=== PATIENT | male | born 1965 | race Caucasian/White ===

== ENCOUNTER → 2017-07-28 | Outpatient (CLI) | payer BC ==
[2017-07-28 09:43] LABS: BASO % 0.5 % (0.0-1.0); EOS # 0.1 10^3/uL (0.0-0.50); EOS % 2.3 % (0.0-3.0); HEMATOCRIT 48.1 % (42.0-52.0); HEMOGLOBIN 16.2 g/dl (14.0-18.0); IMMATURE GRANULOCYTE % 0.5 % (0-3.0); LYMPH # 1.2 10^3/uL (1.5-4.5); LYMPH % 27.9 % (24.0-44.0); MEAN CORPUSCULAR HEMOGLOBIN 29.3 pg (27.0-33.0); MEAN CORPUSCULAR HGB CONC 33.7 g/dl (32.0-36.5); MONO # 0.5 10^3/uL (0.0-0.8); MONO % 11.4 % (0.0-5.0); NEUTROPHILS # 2.5 10^3/uL (1.8-7.7); NEUTROPHILS % 57.4 % (36.0-66.0); PLATELET COUNT, AUTOMATED 361 10^3/uL (150-450); RED BLOOD COUNT 5.53 10^6/uL (4.30-6.10); RED CELL DISTRIBUTION WIDTH 12.7 % (11.5-14.5); WHITE BLOOD COUNT 4.4 10^3/uL (4.0-10.0)
[2017-07-28 09:57] LABS: ESTIMATED AVERAGE GLUCOSE 134 MG/DL (60-110); HEMOGLOBIN A1c 6.3 %
[2017-07-28 10:06] LABS: ALBUMIN 3.9 GM/DL (3.2-5.2); ALBUMIN/GLOBULIN RATIO 1.05 (1.00-1.93); ALKALINE PHOSPHATASE 65 U/L (45-117); ALT/SGPT 49 U/L (12-78); ANION GAP 5 MEQ/L (8-16); AST/SGOT 22 U/L (7-37); BILIRUBIN,TOTAL 0.6 MG/DL (0.2-1.0); BLOOD UREA NITROGEN 14 MG/DL (7-18); CALCIUM LEVEL 9.1 MG/DL (8.5-10.1); CARBON DIOXIDE LEVEL 32 MEQ/L (21-32); CHLORIDE LEVEL 103 MEQ/L (98-107); CHOLESTEROL LEVEL 176 MG/DL (<200); CHOLESTEROL RISK RATIO 5.333 (<5); CREATININE FOR GFR 1.29 MG/DL (0.70-1.30); GLOMERULAR FILTRATION RATE > 60.0 (>56); GLUCOSE, FASTING 131 MG/DL (70-100); HDL CHOLESTEROL 33 MG/DL (>40); LDL CHOLESTEROL 123.2 MG/DL (<100); NON-HDL-C 143 MG/DL; POTASSIUM SERUM 4.6 MEQ/L (3.5-5.1); SODIUM LEVEL 140 MEQ/L (136-145); TOTAL PROTEIN 7.6 GM/DL (6.4-8.2); TRIGLYCERIDES LEVEL 99 MG/DL (<150)
[2017-07-28 10:17] LABS: TESTOSTERONE 196 NG/DL (241-827)
== END ==
LOC: M LAB 09:13
DX: E11.65 Type 2 diabetes mellitus with hyperglycemia (principal); Z13.6 Encounter for screening for cardiovascular disorders; Z13.21 Encounter for screening for nutritional disorder; E29.1 Testicular hypofunction
CPT/HCPCS: 84403

== ENCOUNTER → 2017-10-28 | Outpatient (CLI) | payer BC ==
[2017-10-28 16:43] LABS: HEMOGLOBIN 15.2 g/dl (13.5-17.5); MEAN CORPUSCULAR VOLUME 81.7 fl (80.0-96.0); PLATELET COUNT, AUTOMATED 360 10^3/uL (150-450); RED BLOOD COUNT 5.63 10^6/uL (4.30-6.10); RED CELL DISTRIBUTION WIDTH 13.9 % (11.5-14.5); WHITE BLOOD COUNT 7.7 10^3/uL (4.0-10.0)
[2017-10-28 17:16] LABS: ALBUMIN 3.8 GM/DL (3.2-5.2); ALBUMIN/GLOBULIN RATIO 1.03 (1.00-1.93); ALKALINE PHOSPHATASE 86 U/L (45-117); ALT/SGPT 39 U/L (12-78); ANION GAP 8 MEQ/L (8-16); AST/SGOT 25 U/L (7-37); BILIRUBIN,TOTAL 0.3 MG/DL (0.2-1.0); BLOOD UREA NITROGEN 16 MG/DL (7-18); CALCIUM LEVEL 9.1 MG/DL (8.5-10.1); CARBON DIOXIDE LEVEL 29 MEQ/L (21-32); CHLORIDE LEVEL 103 MEQ/L (98-107); CHOLESTEROL LEVEL 181 MG/DL (<200); CHOLESTEROL RISK RATIO 4.309 (<5); CREATININE FOR GFR 1.19 MG/DL (0.70-1.30); GLOMERULAR FILTRATION RATE > 60.0 (>56); GLUCOSE, FASTING 131 MG/DL (70-100); HDL CHOLESTEROL 42 MG/DL (>40); NON-HDL-C 139 MG/DL; POTASSIUM SERUM 4.2 MEQ/L (3.5-5.1); SODIUM LEVEL 140 MEQ/L (136-145); TOTAL PROTEIN 7.5 GM/DL (6.4-8.2); TRIGLYCERIDES LEVEL 185 MG/DL (<150)
[2017-10-28 17:40] LABS: ESTIMATED AVERAGE GLUCOSE 157 MG/DL (60-110); HEMOGLOBIN A1c 7.1 %
[2017-10-28 18:30] LABS: TESTOSTERONE 947 NG/DL (241-827)
== END ==
LOC: M LAB 15:02
DX: I10 Essential (primary) hypertension (principal)

== ENCOUNTER → 2017-11-18 | Outpatient (CLI) | payer BC ==
[2017-11-18 13:22] LABS: BASO % 0.3 % (0.0-1.0); EOS # 0.2 10^3/uL (0.0-0.50); EOS % 3.3 % (0.0-3.0); HEMATOCRIT 42.3 % (42.0-52.0); HEMOGLOBIN 13.6 g/dl (13.5-17.5); IMMATURE GRANULOCYTE % 0.3 % (0-3.0); LYMPH # 1.1 10^3/uL (1.5-4.5); LYMPH % 17.8 % (24.0-44.0); MEAN CORPUSCULAR HEMOGLOBIN 26.4 pg (27.0-33.0); MEAN CORPUSCULAR HGB CONC 32.2 g/dl (32.0-36.5); MONO # 0.8 10^3/uL (0.0-0.8); MONO % 12.6 % (0.0-5.0); NEUTROPHILS % 65.7 % (36.0-66.0); PLATELET COUNT, AUTOMATED 342 10^3/uL (150-450); RED BLOOD COUNT 5.16 10^6/uL (4.30-6.10); WHITE BLOOD COUNT 6.1 10^3/uL (4.0-10.0)
[2017-11-18 14:05] LABS: ALBUMIN 3.6 GM/DL (3.2-5.2); ALBUMIN/GLOBULIN RATIO 1.13 (1.00-1.93); ALKALINE PHOSPHATASE 86 U/L (45-117); ALT/SGPT 34 U/L (12-78); ANION GAP 8 MEQ/L (8-16); AST/SGOT 18 U/L (7-37); BILIRUBIN,TOTAL 0.3 MG/DL (0.2-1.0); BLOOD UREA NITROGEN 10 MG/DL (7-18); CALCIUM LEVEL 8.6 MG/DL (8.5-10.1); CARBON DIOXIDE LEVEL 30 MEQ/L (21-32); CHLORIDE LEVEL 104 MEQ/L (98-107); CHOLESTEROL LEVEL 128 MG/DL (<200); CHOLESTEROL RISK RATIO 3.459 (<5); CREATININE FOR GFR 1.23 MG/DL (0.70-1.30); GLOMERULAR FILTRATION RATE > 60.0 (>56); GLUCOSE, FASTING 155 MG/DL (70-100); HDL CHOLESTEROL 37 MG/DL (>40); LDL CHOLESTEROL 69.2 MG/DL (<100); NON-HDL-C 91 MG/DL; POTASSIUM SERUM 4.5 MEQ/L (3.5-5.1); PSA SCREENING 1.87 NG/ML (< 4.0); SODIUM LEVEL 142 MEQ/L (136-145); TOTAL PROTEIN 6.8 GM/DL (6.4-8.2); TRIGLYCERIDES LEVEL 109 MG/DL (<150)
[2017-11-18 14:43] LABS: ESTIMATED AVERAGE GLUCOSE 166 MG/DL (60-110); HEMOGLOBIN A1c 7.4 %
== END ==
LOC: M WUC 08:20
DX: E78.2 Mixed hyperlipidemia (principal); R73.01 Impaired fasting glucose; N52.9 Male erectile dysfunction, unspecified; F41.9 Anxiety disorder, unspecified

== ENCOUNTER 2017-12-01 10:12 | Emergency (ER) | payer BC ==
[2017-12-01] MEDS: ASPIRIN 81 MG CHEW TABLET PO (10:50)
[2017-12-01 10:53] LABS: BASO % 0.7 % (0.0-1.0); EOS # 0.1 10^3/uL (0.0-0.50); HEMATOCRIT 42.9 % (42.0-52.0); IMMATURE GRANULOCYTE % 0.3 % (0-3.0); LYMPH # 1.1 10^3/uL (1.5-4.5); LYMPH % 18.3 % (24.0-44.0); MEAN CORPUSCULAR HEMOGLOBIN 25.5 pg (27.0-33.0); MEAN CORPUSCULAR HGB CONC 32.6 g/dl (32.0-36.5); MEAN CORPUSCULAR VOLUME 78.3 fl (80.0-96.0); MONO # 0.7 10^3/uL (0.0-0.8); MONO % 12.1 % (0.0-5.0); NEUTROPHILS # 4.1 10^3/uL (1.8-7.7); NEUTROPHILS % 66.6 % (36.0-66.0); PLATELET COUNT, AUTOMATED 323 10^3/uL (150-450); RED BLOOD COUNT 5.48 10^6/uL (4.30-6.10); WHITE BLOOD COUNT 6.1 10^3/uL (4.0-10.0)
[2017-12-01] MEDS: NITROGLYCERIN 0.4 MG SUBL TABLET SL (11:00)
[2017-12-01 11:04] LABS: PARTIAL THROMBOPLASTIN TIME 30.4 SECONDS (25.4-37.6); PROTHROMBIN TIME 13.3 SECONDS (12.1-14.4)
[2017-12-01 11:23] LABS: ALBUMIN 3.7 GM/DL (3.2-5.2); ALKALINE PHOSPHATASE 94 U/L (45-117); ALT/SGPT 41 U/L (12-78); ANION GAP 5 MEQ/L (8-16); AST/SGOT 18 U/L (7-37); BILIRUBIN,DIRECT < 0.1 MG/DL (0.0-0.2); BILIRUBIN,TOTAL 0.2 MG/DL (0.2-1.0); BLOOD UREA NITROGEN 11 MG/DL (7-18); CALCIUM LEVEL 8.8 MG/DL (8.5-10.1); CARBON DIOXIDE LEVEL 28 MEQ/L (21-32); CHLORIDE LEVEL 103 MEQ/L (98-107); CPK CREATINE PHOSPHOKINASE 217 U/L (39-308); CREATININE FOR GFR 1.14 MG/DL (0.70-1.30); GLOMERULAR FILTRATION RATE > 60.0 (>56); GLUCOSE, FASTING 315 MG/DL (70-100); POTASSIUM SERUM 4.2 MEQ/L (3.5-5.1); SODIUM LEVEL 136 MEQ/L (136-145); TOTAL PROTEIN 7.8 GM/DL (6.4-8.2); TROPONIN I < 0.02 NG/ML (< 0.10)
[2017-12-01 11:28] LABS: CK-MB VALUE MASS 2.2 NG/ML (<3.6); MB/CK RELATIVE INDEX 1.01 (< OR =4); NT-PRO BNP 6 PG/ML (<125)
[2017-12-01 12:08] LABS: D-DIMER QUANT < 270.0 ng/ml (<500)
[2017-12-01] MEDS: traMADol 50 MG TAB PO (15:39)
[2017-12-01 16:26] LABS: CK-MB VALUE MASS 1.7 NG/ML (<3.6); CPK CREATINE PHOSPHOKINASE 182 U/L (39-308); MB/CK RELATIVE INDEX 0.93 (< OR =4); TROPONIN I < 0.02 NG/ML (< 0.10)
== END 2017-12-01 16:57 | disposition home or self-care (01) ==
LOC: M ED 10:12
DX: R07.9 Chest pain, unspecified (principal); E11.9 Type 2 diabetes mellitus without complications; I10 Essential (primary) hypertension; Z83.49 Family history of other endocrine, nutritional and metabolic diseases; Z82.49 Family history of ischemic heart disease and other diseases of the circulatory system; Z79.82 Long term (current) use of aspirin
CPT/HCPCS: 71045

== ENCOUNTER → 2017-12-02 | Outpatient (CLI) | payer BC ==
[2017-12-02 16:45] LABS: TESTOSTERONE 450 NG/DL (241-827)
== END ==
LOC: M WUC 12:50
DX: Z79.890 Hormone replacement therapy (principal)
CPT/HCPCS: 84403

== ENCOUNTER → 2017-12-15 | Outpatient (REF) | payer BC ==
[2017-12-15 12:48] LABS: APPEARANCE, URINE HAZY (CLEAR); BACTERIA, URINE AUTO NEGATIVE (NEGATIVE); BILIRUBIN, URINE AUTO NEGATIVE (NEGATIVE); BLOOD, URINE BLOOD NEGATIVE (NEGATIVE); COLOR, URINE YELLOW (YELLOW); GLUCOSE, URINE (UA) AUTO 3+ mg/dL (NEGATIVE); KETONE, URINE AUTO TRACE mg/dL (NEGATIVE); LEUKOCYTE ESTERASE, URINE AUTO NEGATIVE (NEGATIVE); MUCUS, URINE SMALL (NEGATIVE); NITRITE, URINE AUTO NEGATIVE (NEGATIVE); PROTEIN, URINE AUTO NEGATIVE (NEGATIVE); RBC, URINE AUTO 0 /HPF (0-3); SPECIFIC GRAVITY URINE AUTO 1.022 (1.002-1.035); SQUAMOUS EPITHELIAL CELL UR AU 0 /HPF (0-6); UROBILINOGEN, URINE AUTO 0.2 mg/dL (0.0-2.0); WBC, URINE AUTO 0 /HPF (0-3)
== END ==
LOC: M SMT 11:48
DX: R35.0 Frequency of micturition (principal)
CPT/HCPCS: 81001

== ENCOUNTER → 2018-02-02 | Outpatient (CLI) | payer BC | LOC: M PAIN 10:30 | DX: M54.6 Pain in thoracic spine (principal); M79.1 Myalgia; E11.9 Type 2 diabetes mellitus without complications; I10 Essential (primary) hypertension; J45.909 Unspecified asthma, uncomplicated; F32.9 Major depressive disorder, single episode, unspecified; F41.9 Anxiety disorder, unspecified; E78.5 Hyperlipidemia, unspecified; G47.33 Obstructive sleep apnea (adult) (pediatric); Z79.84 Long term (current) use of oral hypoglycemic drugs; Z79.82 Long term (current) use of aspirin; Z79.899 Other long term (current) drug therapy; Z88.8 Allergy status to other drugs, medicaments and biological substances; Z86.59 Personal history of other mental and behavioral disorders | CPT/HCPCS: G0463 ==

== ENCOUNTER → 2018-02-27 | Outpatient (CLI) | payer BC ==
[2018-02-27 14:16] LABS: HEMATOCRIT 42.9 % (42.0-52.0); HEMOGLOBIN 13.4 g/dl (13.5-17.5); MEAN CORPUSCULAR HEMOGLOBIN 23.4 pg (27.0-33.0); MEAN CORPUSCULAR HGB CONC 31.2 g/dl (32.0-36.5); PLATELET COUNT, AUTOMATED 395 10^3/uL (150-450); RED BLOOD COUNT 5.72 10^6/uL (4.30-6.10); RED CELL DISTRIBUTION WIDTH 16.6 % (11.5-14.5); WHITE BLOOD COUNT 6.5 10^3/uL (4.0-10.0)
[2018-03-01 00:08] LABS: TESTOSTERONE FREE (DIRECT) 12.6 pg/mL (7.2-24.0)
== END ==
LOC: M WUC 10:16
DX: Z51.81 Encounter for therapeutic drug level monitoring (principal); Z79.890 Hormone replacement therapy
CPT/HCPCS: 84403

== ENCOUNTER → 2018-03-04 | Outpatient (CLI) | payer BC ==
[2018-03-04 18:14] LABS: BASO % 0.4 % (0.0-1.0); EOS # 0.2 10^3/uL (0.0-0.50); EOS % 2.3 % (0.0-3.0); HEMATOCRIT 46.1 % (42.0-52.0); HEMOGLOBIN 14.1 g/dl (13.5-17.5); IMMATURE GRANULOCYTE % 0.1 % (0-3.0); LYMPH # 1.2 10^3/uL (1.5-4.5); LYMPH % 16.6 % (24.0-44.0); MEAN CORPUSCULAR HEMOGLOBIN 23.5 pg (27.0-33.0); MEAN CORPUSCULAR HGB CONC 30.6 g/dl (32.0-36.5); MEAN CORPUSCULAR VOLUME 76.8 fl (80.0-96.0); MONO # 0.7 10^3/uL (0.0-0.8); MONO % 10.1 % (0.0-5.0); NEUTROPHILS # 5.1 10^3/uL (1.8-7.7); NEUTROPHILS % 70.5 % (36.0-66.0); PLATELET COUNT, AUTOMATED 398 10^3/uL (150-450); RED CELL DISTRIBUTION WIDTH 17.3 % (11.5-14.5); WHITE BLOOD COUNT 7.3 10^3/uL (4.0-10.0)
[2018-03-04 18:32] LABS: ESTIMATED AVERAGE GLUCOSE 169 MG/DL (60-110); HEMOGLOBIN A1c 7.5 %
[2018-03-04 18:41] LABS: ALBUMIN/GLOBULIN RATIO 1.03 (1.00-1.93); ALKALINE PHOSPHATASE 91 U/L (45-117); ALT/SGPT 53 U/L (12-78); ANION GAP 8 MEQ/L (8-16); AST/SGOT 25 U/L (7-37); BILIRUBIN,TOTAL 0.5 MG/DL (0.2-1.0); BLOOD UREA NITROGEN 14 MG/DL (7-18); CALCIUM LEVEL 9.6 MG/DL (8.5-10.1); CARBON DIOXIDE LEVEL 29 MEQ/L (21-32); CHLORIDE LEVEL 100 MEQ/L (98-107); CHOLESTEROL LEVEL 175 MG/DL (<200); CREATININE FOR GFR 1.33 MG/DL (0.70-1.30); GLOMERULAR FILTRATION RATE 59.4 (>56); GLUCOSE, FASTING 117 MG/DL (70-100); HDL CHOLESTEROL 50 MG/DL (>40); LDL CHOLESTEROL 102 MG/DL (<100); NON-HDL-C 125 MG/DL; POTASSIUM SERUM 4.8 MEQ/L (3.5-5.1); PSA SCREENING 1.75 NG/ML (< 4.0); SODIUM LEVEL 137 MEQ/L (136-145); TOTAL PROTEIN 7.9 GM/DL (6.4-8.2); TRIGLYCERIDES LEVEL 114 MG/DL (<150)
== END ==
LOC: M WUC 11:24
DX: Z00.00 Encounter for general adult medical examination without abnormal findings (principal); F41.9 Anxiety disorder, unspecified (principal); E11.9 Type 2 diabetes mellitus without complications
CPT/HCPCS: 84443

== ENCOUNTER 2018-03-10 09:30 | Day surgery (SDC) | payer BC ==
[~2018-03-10 09:30] MED LIST: PROPOFOL 200 MG/20 ML VIAL As Ordered
[2018-03-10] MEDS ORDERED: NS 1,000 ML IV (10:00)
[2018-03-10 11:13] LABS: BEDSIDE GLUCOSE 138 MG/DL (70-105)
== END 2018-03-10 11:42 | disposition home or self-care (01) ==
LOC: M OPP 09:30
DX: Z12.11 Encounter for screening for malignant neoplasm of colon (principal); K64.8 Other hemorrhoids; Q43.8 Other specified congenital malformations of intestine; I10 Essential (primary) hypertension; E78.5 Hyperlipidemia, unspecified; E11.9 Type 2 diabetes mellitus without complications; K21.9 Gastro-esophageal reflux disease without esophagitis; R12 Heartburn; F41.9 Anxiety disorder, unspecified; F32.9 Major depressive disorder, single episode, unspecified; J45.909 Unspecified asthma, uncomplicated; R06.83 Snoring; G47.30 Sleep apnea, unspecified; Z79.82 Long term (current) use of aspirin; Z79.899 Other long term (current) drug therapy
CPT/HCPCS: G0121

== ENCOUNTER → 2018-06-14 | Outpatient (CLI) | payer BC ==
[~2018-06-14] MED LIST changes: +ALVE80AE2 INH; +ASPI81TA85 PO; +CARI1TAB7 PO; +FLOM0.4C39 PO; +HYDR-3363 PO; +L-LY500T PO; +LISI-538 PO; +METO1TAB7 PO; +MIRT15TA3 PO; +MULTCAP PO; +PRAV10TA3 PO; +PROP10TA56 PO; -PROPOFOL 200 MG/20 ML VIAL As Ordered; +PROZ10CA7 PO; +SILD100T PO; +TEST200I14 IM; +TRAM50TA2 PO; +VENTAER INH; +VICT18IN SC; +VITA10005 PO; +VITA100072 PO; +VITA2000 PO; +VITA500T PO; +VITACRE10 EX
[2018-06-14 12:42] LABS: HEMATOCRIT 43.5 % (42.0-52.0); HEMOGLOBIN 13.5 g/dl (13.5-17.5); MEAN CORPUSCULAR HEMOGLOBIN 23.2 pg (27.0-33.0); MEAN CORPUSCULAR VOLUME 74.7 fl (80.0-96.0); PLATELET COUNT, AUTOMATED 438 10^3/uL (150-450); RED BLOOD COUNT 5.82 10^6/uL (4.30-6.10); WHITE BLOOD COUNT 7.8 10^3/uL (4.0-10.0)
[2018-06-16 00:07] LABS: TESTOSTERONE FREE (DIRECT) 33.2 pg/mL (7.2-24.0)
== END ==
LOC: M WUC 08:42
PROVIDERS: ATTEND Nurse Practitioner Women's Health
DX: Z79.890 Hormone replacement therapy (principal)

== ENCOUNTER → 2018-06-14 | Outpatient (CLI) | payer BC ==
[2018-06-14 12:49] LABS: CHOLESTEROL RISK RATIO 4.954 (<5)
[2018-06-14 14:20] LABS: HEMOGLOBIN A1c 6.9 %
== END ==
LOC: M WUC 08:46
PROVIDERS: ATTEND Physician Assistant
DX: E78.2 Mixed hyperlipidemia (principal); E11.9 Type 2 diabetes mellitus without complications

== ENCOUNTER → 2018-06-29 | Outpatient (CLI) | payer BC ==
--- NOTE | 2018-07-17 00:09 | ECWPNPC ---
PATIENT NAME: NEHEMIAH BOONE : 1965 GENDER: MALE VISIT DATE: 06/29/2018 DISCHARGE DATE: 06/29/18 1415 VISIT LOCKED DATE TIME: PHYSICIAN: JAMIE ROBERTSON MD RESOURCE: JAMIE ROBERTSON MD REASON FOR APPOINTMENT 1. REVIEW MRI HISTORY OF PRESENT ILLNESS HISTORY OF PRESENT ILLNESS: PAIN THE PATIENT DESCRIBES THE PAIN... 53 YEAR OLD MALE PATIENT WITH A HISTORY OF CHRONIC THORACIC PAIN. THE PATIENT DESCRIBES THE PAIN SORE, STABBING, SHOOTING, AND CONTINUOUS WITH A PAIN SCORE OF 1-7/10 DEPENDING ON PHYSICAL ACTIVITY. THE PATIENT SAYS THAT HIS PAIN IS LOCATED MAINLY ON HIS RIGHT SIDE OF THE THORACIC AREA AND RADIATES AROUND TOWARDS THE FRONT OF HIS CHEST. PATIENT DENIES UNEXPLAINABLE WEIGHT LOSS, FEVER, CHILLS, NEW CHANGES ON HER URINARY OR BOWEL CONTROL. FALL RISK SCREENING: SCREENING :NO FALLS IN THE PAST YEAR CURRENT MEDICATIONS TAKING GLUCOMETER 1 DIRECTED _ ONCE DAILY (E11.9), NOTES: PLEASE FILL PER INSURANCE TAKING LANCETS - MISCELLANEOUS DIRECTED SUBCUTANEOUSLY (E11.9) ONCE DAILY, NOTES: PLEASE FILL PER INSURANCE TAKING BLOOD GLUCOSE TEST - STRIP DIRECTED IN VITRO ONCE DAILY (E11.9), NOTES: PLEASE FILL PER INSURANCE TAKING ALVESCO 80 MCG/ACT AEROSOL SOLUTION 1 PUFF INHALATION TWICE A DAY TAKING TRAMADOL HCL 50 MG TABLET 1 TABLET NEEDED ORALLY EVERY 6 HRS TAKING VENTOLIN HFA 90 MCG/ACT AEROSOL SOLUTION 2 PUFFS NEEDED INHALATION EVERY 6 HRS TAKING VITAMIN C 1000 MG TABLET 1 TABLET ORALLY ONCE A DAY TAKING VITAMIN D (CHOLECALCIFEROL) 1000 UNIT TABLET 2 TABLET ORALLY ONCE A DAY TAKING VITAMIN E 1000 UNIT CAPSULE 1 CAPSULE ORALLY ONCE A DAY TAKING VITAMIN B12 1000 MCG TABLET EXTENDED RELEASE 1 TABLET ORALLY ONCE A DAY TAKING MULTI COMPLETE - CAPSULE ORALLY TAKING L-LYSINE 500 MG TABLET ORALLY TAKING PEN NEEDLES 32G X 4 MM MISCELLANEOUS DIRECTED SUBCUTANEOUSLY (E11.9) ONCE DAILY WITH VICTOZA TAKING MIRTAZAPINE 15 MG TABLET 1 TABLET AT BEDTIME ORALLY ONCE A DAY, NOTES: NEEDED TAKING ASPIRIN 81 81 MG TABLET CHEWABLE 1 TABLET ORALLY ONCE A DAY TAKING SYRINGE 22G X 1-1/2 MISCELLANEOUS DIRECTED INTRAMUSCULARLY TAKING HYPODERMIC NEEDLE 18G X 1-1/2 MISCELLANEOUS DIRECTED INTRADERMALLY TAKING BD SYRINGE/NEEDLE 23G X 1 MISCELLANEOUS DIRECTED INTRAMUSCULARLY DIRECTED TAKING FLOMAX 0.4 MG CAPSULE 1 CAPSULE ORALLY ONCE A DAY TAKING CARISOPRODOL 350 MG TABLET 1 TABLET NEEDED ORALLY (ISTOP:[id number]) BEFORE BEDTIME TAKING JARDIANCE 10 MG TABLET 1 TABLET ORALLY ONCE A DAY TAKING PRAVASTATIN SODIUM 40 MG TABLET 1 TABLET ORALLY ONCE A DAY TAKING LOSARTAN POTASSIUM 25 MG TABLET 1 TABLET ORALLY ONCE A DAY TAKING TRULICITY 0.75 MG/0.5ML SOLUTION PEN-INJECTOR 0.75 MG DIRECTED SUBCUTANEOUS ONCE WEEKLY TAKING PROZAC 10 MG CAPSULE 1 CAPSULE ORALLY ONCE A DAY TAKING TESTOSTERONE CYPIONATE 200 MG/ML OIL 1 ML INTRAMUSCULAR 200 MG EVERY 7 DAYS, CODE F- 10 ML VIAL TAKING VIAGRA 100 MG TABLET 1 TABLET NEEDED ORALLY DIRECTED NOT-TAKING PROPRANOLOL HCL 10 MG TABLET 1 TABLET ON AN EMPTY STOMACH ORALLY ONCE A DAY NOT-TAKING METOPROLOL SUCCINATE ER 50 MG TABLET EXTENDED RELEASE 24 HOUR 1 TABLET ORALLY ONCE A DAY NOT-TAKING SHINGRIX 50 MCG SUSPENSION RECONSTITUTED DIRECTED INTRAMUSCULAR DIRECTED, NOTES: HAS NOT COMPLETED YET DISCONTINUED JARDIANCE 10 MG TABLET 1 TABLET ORALLY ONCE A DAY MEDICATION LIST REVIEWED AND RECONCILED WITH THE PATIENT PAST MEDICAL HISTORY HTN ASTHMA ANXIETY DEPRESSION DM 2 ED - ON TESTOSTERONE REPLACEMENT HYPERLIPIDEMIA ASCVD RISK 15.2% ON 11/21 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 DISC BULGES AND SMALL DISC PROTRUSIONS AT T6-7 AND T7-8 WITHOUT SPINAL CORD COMPRESSION, SMALL DISC PROTRUSIONS AT T8-9 AND T9-10 WITHOUT SPINAL CORD COMPRESSION. ALLERGIES ROSUVASTATIN CALCIUM: MUSCLE ACHES: SIDE EFFECTS LISINOPRIL: COUGH: SIDE EFFECTS SURGICAL HISTORY RIGHT ANKLE RIGHT SHOULDER RHINOPLASTY REMOVAL OF UPP TONSILECTOMY 2005 COLONOSCOPY 03/10/2018 - SM INTERNAL HEMORRHOIDS, REPEAT 10 YRS FAMILY HISTORY FATHER: 77 YRS, COPD MOTHER: 67 YRS, DIAGNOSED WITH DIABETES, HYPERTENSION SIBLINGS: , 4 SISTERS 1 LIVING BROTHER, DIAGNOSED WITH DIABETES, HEART DISEASE SON(S): ALIVE PATERNAL GRAND FATHER: UNKNOWN PATERNAL GRAND MOTHER: UNKNOWN MATERNAL GRAND FATHER: MATERNAL GRAND MOTHER: 1 BROTHER(S) , 4 SISTER(S) . 1 SON(S) . 4 SISTERS, 1 BROTHER. SOCIAL HISTORY GENERAL: TOBACCO USE ARE YOU A:NONSMOKER ALCOHOL SCREENING DID YOU HAVE A DRINK CONTAINING ALCOHOL IN THE PAST YEAR?NO POINTS0 INTERPRETATIONNEGATIVE RECREATIONAL DRUG USE DRUG USE?YES FORMER COCAINE ADDICT CAFFEINE CAFFEINE USE?YES HOW OFTEN AND HOW MUCH? 1 CUP OF COFFEE PER DAY AND OCCASIONAL SODA TAOISM TAOISM NONE LANGUAGE LANGUAGES SPOKEN:NAMIBIAN EDUCATION LEVEL OF EDUCATION:NOT FINISHED COLLEGE LEARNING BARRIERS / SPECIAL NEEDS BARRIERS TO LEARNING?NO HEARING IMPAIRED?NO VISION IMPAIRED?YES COGNITIVELY IMPAIRED?NO :CORRECTIVE LENSES READINESS TO LEARN?YES LEARNING PREFERENCES?NO OCCUPATION: RETAIL. DIET: REGULAR. EXERCISE: DAILY 4-5 TIMES PER WEEK. MARITAL STATUS: . OTHERS AT HOME: SPOUSE. PAIN CLINIC PFS, CLERGY, PUBLIC HEALTH REFERRALS PFS REFERRAL NEEDED?NO CLERGY REFERRAL NEEDED?NO PUBLIC HEALTH REFERRAL NEEDED?NO WAS THE PROVIDER NOTIFIED OF ANY PERTINENT INFO?NO HAS THE PATIENT BEEN EDUCATED REGARDING HIS/HER PLAN OF CARE?YES HAS THE PATIENT BEEN EDUCATED REGARDING PAIN, THE RISK FOR PAIN, THE IMPORTANCE OF EFFECTIVE PAIN MANAGEMENT, AND THE PAIN ASSESSMENT PROCESS?YES ADVANCE DIRECTIVE ADVANCE DIRECTIVE DISCUSSED WITH PATIENT:YES PT. HAS HCP SHIRA BOONE [phone] HOSPITALIZATION/MAJOR DIAGNOSTIC PROCEDURE ANKLE REHAB FOR SUBSTANCE ABUSE X 3 REVIEW OF SYSTEMS REVIEWED BY: PROVIDER: JAMIE ROBERTSON MD . CONSTITUTIONAL: ANY CHANGE IN YOUR MEDICAL CONDITION? NO . CHILLS NO . FEVER NO . INFECTION: DO YOU HAVE NEW INFECTIONS? NO . DO YOU HAVE HISTORY OF MRSA? NO . MUSCULOSKELETAL: ANY NEW PATTERNS OF PAIN OR NUMBNESS? NO . GASTROENTEROLOGY: ANY NEW CHANGE IN BOWEL CONTROL? NO . GENITOURINARY: ANY NEW CHANGE IN BLADDER CONTROL? NO . IS THERE A CHANCE YOU COULD BE ? NO . HEMATOLOGY/LYMPH: DO YOU TAKE ANY BLOOD THINNERS? (FOR EXAMPLE- COUMADIN, PLAVIX, AGGRENOX, PLATEL, PRADAXA, OR XARELTO) NO . WHEN WAS YOUR LAST DOSE? DATE: TIME: . NEUROLOGY: HAVE YOU FALLEN IN THE PAST 12 MONTHS? NO . ANY NEW EXTREMITY NUMBNESS OR WEAKNESS? NO . CARDIOLOGY: DO YOU HAVE A PACEMAKER OR DEFIBRILLATOR? NO . RESPIRATORY: HAVE YOU BEEN SICK IN THE PAST WEEK? NO . FEVER NO . FLU LIKE SYMPTOMS? NO . COUGH NO . INTEGUMENTARY: DO YOU HAVE ANY RASHES OR OPEN SORES? NO . ALLERGIC/IMMUNO: ARE YOU ALLERGIC TO IV DYE? NO . ANY NEW ALLERGIES? NO . PSYCHIATRIC: DO YOU HAVE THOUGHTS OF HURTING YOURSELF OR SOMEONE ELSE? NO . ARE YOU ABUSED, NEGLECTED, OR IN AN UNSAFE ENVIRONMENT? NO . ENDOCRINOLOGY: ARE YOU DIABETIC? YES . OTHER: DO YOU NEED ANY PRESCRIPTIONS? YES, CONSIDER NEW RX FOR PAIN AND MUSCLE TIGHTNESS . IF YES, PLEASE LIST: ____ . ANY NEW PROBLEMS WITH YOUR MEDICATIONS? NO . WHEN DID YOU LAST EAT? ____ . WHEN DID YOU LAST DRINK? ____ . WHAT DID YOU LAST DRINK? ____ . NAME OF PERSON DRIVING YOU HOME? ____ . DO YOU HAVE ANY OTHER QUESTIONS OR CONCERNS NO . VITAL SIGNS WT 209 LBS, HT 66 IN, BMI 33.73 INDEX, BP 142/81 MM HG, HR 83 /MIN, RR 18 /MIN, TEMP 98.2 F, OXYGEN SAT % 95%, NA INITIALS SC 12:24, REVIEWED BY: DOMINIC. EXAMINATION GENERAL EXAMINATION: PATIENT IS ALERT O X 3 AND COOPERATIVE. PRESENCE OF TRIGGER POINTS AND BANDS OF TISSUE WITH RESTRICTION OF MOVEMENT OF THE BACK. MRI OF THE THORACIC SPINE DONE ON 05/03/2018 SHOWS BULGING DISCS AT MULTIPLE LEVELS, A DISC PROTRUSION AT T8-T9 AND T9-T10, AND FACET ARTHROPATHY CHANGES AT MULTIPLE LEVELS. ASSESSMENTS MYALGIA, OTHER SITE - M79.18 (PRIMARY) TREATMENT MYALGIA, OTHER SITE CLINICAL NOTES: WE DISCUSSED SEVERAL ISSUES WITH MR. BOONE'S PAIN MANAGEMENT CASE. DUE TO THE TRIGGER POINTS, BANDS OF TISSUE, AND RESTRICTION OF MOVEMENT, I WOULD LIKE TO MOVE FORWARD WITH A TRIGGER POINT INJECTION AT THIS TIME. WE DISCUSSED THE BENEFITS, RISKS, AND ALTERNATIVES OF THE INJECTION AND THE PATIENT WOULD LIKE TO PROCEED. I WOULD ALSO LIKE THE PATIENT TO START USING TIZANIDINE TO HELP WITH THE SPASMS AND I WILL ALSO GIVE THE PATIENT A FEW SOMA FOR THE SEVERE PAIN. THE PATIENT WILL FOLLOW UP A FEW WEEKS AFTER THE INJECTION. INSTRUCTIONS WERE GIVEN, QUESTIONS WERE ANSWERED, PATIENT REPORTS UNDERSTANDING AND AGREES WITH THE PLAN. I, LEO WELDON, DOCUMENTED THE ABOVE INFORMATION ACTING A SCRIBE FOR DR. ROBERTSON. I HAVE REVIEWED THE ABOVE DOCUMENT, WRITTEN BY LEO TOTH AND I VERIFY THAT IT IS ACCURATE. OTHERS START TIZANIDINE HCL TABLET, 2 MG, 1 TABLET NEEDED, ORALLY FFOR SPASMS AND PAIN, BEFORE BEDTIME MAY REPEAT IN 4 HRS MDD2, 30 DAY(S), 50, REFILLS 0 START SOMA TABLET, 350 MG, 1 TABLET NEEDED, ORALLY, BEFORE BEDTIME, 10 DAY(S), 10, REFILLS 0 PROCEDURE CODES FA211 ESTABILISHED PATIENT [facility] CHARGE G8427 CURRENT MEDS W/DOSAGES DOCUMENTED G8730 PAIN ASSESS POS TOOL F/U PLAN DOC DISPOSITION & COMMUNICATION FOLLOW UP TPI & 3 WEEKS AFTER (REASON: THORACIC PAIN) ELECTRONICALLY SIGNED BY JAMIE ROBERTSON MD, MD ON 07/16/2018 AT 05:50 PM EST DISCLAIMER : THIS IS A VISIT SUMMARY EXTRACTED FROM THE [employer] CHART. IT IS NOT A COPY OF THE [employer] PROGRESS NOTE. MTDD
== END ==
LOC: M PAIN 12:30
PROVIDERS: ATTEND Anesthesiology
DX: M79.18 Myalgia, other site (principal); M54.6 Pain in thoracic spine; E11.9 Type 2 diabetes mellitus without complications; I10 Essential (primary) hypertension; E78.5 Hyperlipidemia, unspecified; J45.909 Unspecified asthma, uncomplicated; F41.9 Anxiety disorder, unspecified; F32.9 Major depressive disorder, single episode, unspecified; G47.33 Obstructive sleep apnea (adult) (pediatric); Z79.82 Long term (current) use of aspirin; Z79.4 Long term (current) use of insulin; Z79.899 Other long term (current) drug therapy; Z88.8 Allergy status to other drugs, medicaments and biological substances; Z86.59 Personal history of other mental and behavioral disorders

== ENCOUNTER → 2018-07-11 | Outpatient (CLI) | payer BC ==
[~2018-07-11] MED LIST changes: +BUPIVACAINE HCL 0.25% 10 ML VIAL As Ordered ONE; +BUPIVACAINE HCL 0.25% 30 ML VIAL As Ordered ONE; +TRIAMCINOLONE ACETONIDE SUSP 40 MG/ML VIAL (J3301) As Ordered ONE; +diazePAM 5 MG TAB As Ordered ONE; +oxyCODONE 5MG TAB As Ordered ONE
--- NOTE | 2018-07-22 23:38 | ECWPNPC ---
PATIENT NAME: NEHEMIAH BOONE : 1965 GENDER: MALE VISIT DATE: 07/11/2018 DISCHARGE DATE: 07/11/18 1002 VISIT LOCKED DATE TIME: PHYSICIAN: JAMIE ROBERTSON MD RESOURCE: JAMIE ROBERTSON MD REASON FOR APPOINTMENT 1. TPI HISTORY OF PRESENT ILLNESS HISTORY OF PRESENT ILLNESS: PAIN THE PATIENT DESCRIBES THE PAIN... FALL RISK SCREENING: SCREENING :NO FALLS IN THE PAST YEAR CURRENT MEDICATIONS TAKING GLUCOMETER 1 DIRECTED _ ONCE DAILY (E11.9), NOTES: PLEASE FILL PER INSURANCE TAKING LANCETS - MISCELLANEOUS DIRECTED SUBCUTANEOUSLY (E11.9) ONCE DAILY, NOTES: PLEASE FILL PER INSURANCE TAKING BLOOD GLUCOSE TEST - STRIP DIRECTED IN VITRO ONCE DAILY (E11.9), NOTES: PLEASE FILL PER INSURANCE TAKING ALVESCO 80 MCG/ACT AEROSOL SOLUTION 1 PUFF INHALATION TWICE A DAY, NOTES: 07/11/18699 TAKING TRAMADOL HCL 50 MG TABLET 1 TABLET NEEDED ORALLY EVERY 6 HRS, NOTES: NONE IN 1 WEEK TAKING VENTOLIN HFA 90 MCG/ACT AEROSOL SOLUTION 2 PUFFS NEEDED INHALATION EVERY 6 HRS, NOTES: NONE IN >2 WEEKS TAKING VITAMIN C 1000 MG TABLET 1 TABLET ORALLY ONCE A DAY, NOTES: 07/11/18699 TAKING VITAMIN D (CHOLECALCIFEROL) 1000 UNIT TABLET 2 TABLET ORALLY ONCE A DAY, NOTES: 07/11/18699 TAKING VITAMIN E 1000 UNIT CAPSULE 1 CAPSULE ORALLY ONCE A DAY, NOTES: 07/11/18699 TAKING VITAMIN B12 1000 MCG TABLET EXTENDED RELEASE 1 TABLET ORALLY ONCE A DAY, NOTES: NONE IN 2 WEEKS TAKING MULTI COMPLETE - CAPSULE ORALLY , NOTES: NONE IN 2 WEEKS TAKING L-LYSINE 500 MG TABLET ORALLY , NOTES: 07/11/18699 TAKING PEN NEEDLES 32G X 4 MM MISCELLANEOUS DIRECTED SUBCUTANEOUSLY (E11.9) ONCE DAILY WITH VICTOZA TAKING MIRTAZAPINE 15 MG TABLET 1 TABLET AT BEDTIME ORALLY ONCE A DAY, NOTES: NEEDED NONE IN 2 WEEKS TAKING ASPIRIN 81 81 MG TABLET CHEWABLE 1 TABLET ORALLY ONCE A DAY, NOTES: 07/11/18699 TAKING SYRINGE 22G X 1-1/2 MISCELLANEOUS DIRECTED INTRAMUSCULARLY TAKING HYPODERMIC NEEDLE 18G X 1-1/2 MISCELLANEOUS DIRECTED INTRADERMALLY TAKING BD SYRINGE/NEEDLE 23G X 1 MISCELLANEOUS DIRECTED INTRAMUSCULARLY DIRECTED TAKING FLOMAX 0.4 MG CAPSULE 1 CAPSULE ORALLY ONCE A DAY, NOTES: 07/10/18 TAKING CARISOPRODOL 350 MG TABLET 1 TABLET NEEDED ORALLY (ISTOP:[id number]) BEFORE BEDTIME, NOTES: NONE IN 1 WEEK TAKING JARDIANCE 10 MG TABLET 1 TABLET ORALLY ONCE A DAY, NOTES: 07/10/18 AM TAKING PRAVASTATIN SODIUM 40 MG TABLET 1 TABLET ORALLY ONCE A DAY, NOTES: 07/10/18 PM TAKING LOSARTAN POTASSIUM 25 MG TABLET 1 TABLET ORALLY ONCE A DAY, NOTES: 07/11/18 AM TAKING TRULICITY 0.75 MG/0.5ML SOLUTION PEN-INJECTOR 0.75 MG DIRECTED SUBCUTANEOUS ONCE WEEKLY, NOTES: TAKES TUESDAY TAKING PROZAC 10 MG CAPSULE 1 CAPSULE ORALLY ONCE A DAY, NOTES: 07/11/18 0700 TAKING TESTOSTERONE CYPIONATE 200 MG/ML OIL 1 ML INTRAMUSCULAR 200 MG EVERY 7 DAYS, CODE F- 10 ML VIAL, NOTES: TAKES ON FRIDAYS TAKING VIAGRA 100 MG TABLET 1 TABLET NEEDED ORALLY DIRECTED, NOTES: NONE RECENT TAKING TIZANIDINE HCL 2 MG TABLET 1 TABLET NEEDED ORALLY FFOR SPASMS AND PAIN BEFORE BEDTIME MAY REPEAT IN 4 HRS MDD2, NOTES: 07/11/18 NOT-TAKING PROPRANOLOL HCL 10 MG TABLET 1 TABLET ON AN EMPTY STOMACH ORALLY ONCE A DAY NOT-TAKING METOPROLOL SUCCINATE ER 50 MG TABLET EXTENDED RELEASE 24 HOUR 1 TABLET ORALLY ONCE A DAY NOT-TAKING SHINGRIX 50 MCG SUSPENSION RECONSTITUTED DIRECTED INTRAMUSCULAR DIRECTED, NOTES: HAS NOT COMPLETED YET DISCONTINUED SOMA 350 MG TABLET 1 TABLET NEEDED ORALLY BEFORE BEDTIME, NOTES: DUPLICATE MEDICATION LIST REVIEWED AND RECONCILED WITH THE PATIENT PAST MEDICAL HISTORY HTN ASTHMA ANXIETY DEPRESSION DM 2 ED - ON TESTOSTERONE REPLACEMENT HYPERLIPIDEMIA ASCVD RISK 15.2% ON 11/21 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 DISC BULGES AND SMALL DISC PROTRUSIONS AT T6-7 AND T7-8 WITHOUT SPINAL CORD COMPRESSION, SMALL DISC PROTRUSIONS AT T8-9 AND T9-10 WITHOUT SPINAL CORD COMPRESSION. ALLERGIES ROSUVASTATIN CALCIUM: MUSCLE ACHES: SIDE EFFECTS LISINOPRIL: COUGH: SIDE EFFECTS SURGICAL HISTORY RIGHT ANKLE RIGHT SHOULDER RHINOPLASTY REMOVAL OF UPP TONSILECTOMY 2005 COLONOSCOPY 03/10/2018 - SM INTERNAL HEMORRHOIDS, REPEAT 10 YRS FAMILY HISTORY FATHER: 77 YRS, COPD MOTHER: 67 YRS, DIAGNOSED WITH DIABETES, HYPERTENSION SIBLINGS: , 4 SISTERS 1 LIVING BROTHER, DIAGNOSED WITH DIABETES, HEART DISEASE SON(S): ALIVE PATERNAL GRAND FATHER: UNKNOWN PATERNAL GRAND MOTHER: UNKNOWN MATERNAL GRAND FATHER: MATERNAL GRAND MOTHER: 1 BROTHER(S) , 4 SISTER(S) . 1 SON(S) . 4 SISTERS, 1 BROTHER. SOCIAL HISTORY GENERAL: TOBACCO USE ARE YOU A:NONSMOKER ALCOHOL SCREENING DID YOU HAVE A DRINK CONTAINING ALCOHOL IN THE PAST YEAR?NO POINTS0 INTERPRETATIONNEGATIVE RECREATIONAL DRUG USE DRUG USE?YES FORMER COCAINE ADDICT CAFFEINE CAFFEINE USE?YES HOW OFTEN AND HOW MUCH? 1 CUP OF COFFEE PER DAY AND OCCASIONAL SODA NONDENOMINATIONAL NONDENOMINATIONAL NONE LANGUAGE LANGUAGES SPOKEN:PUERTO RICAN EDUCATION LEVEL OF EDUCATION:NOT FINISHED COLLEGE LEARNING BARRIERS / SPECIAL NEEDS BARRIERS TO LEARNING?NO HEARING IMPAIRED?NO VISION IMPAIRED?YES COGNITIVELY IMPAIRED?NO :CORRECTIVE LENSES READINESS TO LEARN?YES LEARNING PREFERENCES?NO OCCUPATION: RETAIL. DIET: REGULAR. EXERCISE: DAILY 4-5 TIMES PER WEEK. MARITAL STATUS: . OTHERS AT HOME: SPOUSE. PAIN CLINIC PFS, CLERGY, PUBLIC HEALTH REFERRALS PFS REFERRAL NEEDED?NO CLERGY REFERRAL NEEDED?NO PUBLIC HEALTH REFERRAL NEEDED?NO WAS THE PROVIDER NOTIFIED OF ANY PERTINENT INFO?NO HAS THE PATIENT BEEN EDUCATED REGARDING HIS/HER PLAN OF CARE?YES HAS THE PATIENT BEEN EDUCATED REGARDING PAIN, THE RISK FOR PAIN, THE IMPORTANCE OF EFFECTIVE PAIN MANAGEMENT, AND THE PAIN ASSESSMENT PROCESS?YES ADVANCE DIRECTIVE ADVANCE DIRECTIVE DISCUSSED WITH PATIENT:YES PT. HAS HCP SHIRA BOONE [phone] REVIEWED WITH PT 07/11/18 [id number] BV. HOSPITALIZATION/MAJOR DIAGNOSTIC PROCEDURE ANKLE REHAB FOR SUBSTANCE ABUSE X 3 REVIEW OF SYSTEMS REVIEWED BY: PROVIDER: . CONSTITUTIONAL: ANY CHANGE IN YOUR MEDICAL CONDITION? NO . CHILLS NO . FEVER NO . INFECTION: DO YOU HAVE NEW INFECTIONS? NO . DO YOU HAVE HISTORY OF MRSA? NO . MUSCULOSKELETAL: ANY NEW PATTERNS OF PAIN OR NUMBNESS? NO . GASTROENTEROLOGY: ANY NEW CHANGE IN BOWEL CONTROL? NO . GENITOURINARY: ANY NEW CHANGE IN BLADDER CONTROL? NO . IS THERE A CHANCE YOU COULD BE ? NO . HEMATOLOGY/LYMPH: DO YOU TAKE ANY BLOOD THINNERS? (FOR EXAMPLE- COUMADIN, PLAVIX, AGGRENOX, PLATEL, PRADAXA, OR XARELTO) NO . WHEN WAS YOUR LAST DOSE? DATE: TIME: . NEUROLOGY: HAVE YOU FALLEN IN THE PAST 12 MONTHS? NO . ANY NEW EXTREMITY NUMBNESS OR WEAKNESS? NO . CARDIOLOGY: DO YOU HAVE A PACEMAKER OR DEFIBRILLATOR? NO . RESPIRATORY: HAVE YOU BEEN SICK IN THE PAST WEEK? NO . FEVER NO . FLU LIKE SYMPTOMS? NO . COUGH NO . INTEGUMENTARY: DO YOU HAVE ANY RASHES OR OPEN SORES? NO . ALLERGIC/IMMUNO: ARE YOU ALLERGIC TO IV DYE? NO . ANY NEW ALLERGIES? NO . PSYCHIATRIC: DO YOU HAVE THOUGHTS OF HURTING YOURSELF OR SOMEONE ELSE? NO . ARE YOU ABUSED, NEGLECTED, OR IN AN UNSAFE ENVIRONMENT? NO . ENDOCRINOLOGY: ARE YOU DIABETIC? YES, ON MEDICATION . OTHER: DO YOU NEED ANY PRESCRIPTIONS? NO . IF YES, PLEASE LIST: ____ . ANY NEW PROBLEMS WITH YOUR MEDICATIONS? NO . WHEN DID YOU LAST EAT? 07/10/18 2100 . WHEN DID YOU LAST DRINK? 07/11/18 0700 . WHAT DID YOU LAST DRINK? WATER . NAME OF PERSON DRIVING YOU HOME? JOYCE- . DO YOU HAVE ANY OTHER QUESTIONS OR CONCERNS NO . VITAL SIGNS WT 202.6 LBS, HT 66 IN, BMI 32.70 INDEX, BP 144/89 MM HG, HR 82 /MIN, RR 18 /MIN, TEMP 97.9 F, OXYGEN SAT % 98%, NA INITIALS SC 08:44, REVIEWED BY: BV. ASSESSMENTS MYALGIA, OTHER SITE - M79.18 (PRIMARY) PROCEDURES PN TRIGGER POINT INJECTION WITH STEROIDS PRE PROCEDURE DIAGNOSIS 1. MYALGIA 2. PAIN AT RIGHT THORACIC AREA POST PROCEDURE DIAGNOSIS 1. MYALGIA 2. PAIN AT RIGHT THORACIC AREA PROCEDURE TRIGGER POINT INJECTION AT RIGHT THORACIC AREA SURGEON DR. JAMIE ROBERTSON [employer] SUPERVISOR NONE ANESTHESIA LOCAL PRE PROCEDURE NOTE THE PATIENT HAS A HISTORY OF CHRONIC PAIN AT THE RIGHT THORACIC AREA. I EVALUATE THE PATIENT AND REVIEWED THE CHART. THERE IS EVIDENCE OF BANDS OF TISSUE WITH RESTRICTION OF MOVEMENT AND PRESENCE OF TRIGGER POINT AT THE AFFECTED AREA. I WENT OVER THE RISKS, ALTERNATIVES, AND BENEFITS ASSOCIATED WITH THIS PROCEDURE. THE PATIENT WOULD LIKE TO PROCEED AND GIVE CONSENT TO PERFORMED THE PROCEDURE. THE PATIENT DENIES UNEXPLAINABLE WEIGHT LOSS, FEVER, CHILLS, OR NEW CHANGES IN URINARY OR BOWEL CONTROL DESCRIPTION OF PROCEDURE THE PATIENT WAS BROUGHT TO THE PROCEDURE ROOM AND PLACED IN THE SITTING POSITION. THE AREA WAS CLEANED WITH ALCOHOL. THE PROCEDURE WAS DONE USING ASEPTIC STERILE TECHNIQUE. I CHECKED LATERALITY AND THE LEVEL WHERE THE PROCEDURE WAS GOING TO BE PERFORMED WITH THE PATIENT AND THE SUPPORTING STAFF AT THE MOMENT OF THE TIME OUT IN THE PROCEDURE ROOM. USING A 25-GAUGE NEEDLE, TRIGGER POINTS WERE INJECTED AT THE RIGHT THORACIC AREA WITH A TOTAL OF 40 ML OF BUPIVACAINE 0.25% AND KENALOG 40 MG. THERE WAS NO EVIDENCE OF BLOOD, PARESTHESIA OR CEREBROSPINAL FLUID DURING THE PROCEDURE. THE PATIENT WAS SENT TO THE RECOVERY ROOM. THE PATIENT WAS MOVING THE EXTREMITIES AND DOING WELL. THERE WAS NO COMPLICATION DURING THE PROCEDURE POST PROCEDURE NOTE THE PATIENT WILL BE SEEN IN A FOLLOW UP IN THE NEXT FEW WEEKS. INSTRUCTIONS WERE GIVEN, QUESTIONS WERE ANSWERED, AND THE PATIENT EXPRESSED UNDERSTANDING AND AGREES WITH THE PLAN. I, LEO WELDON, DOCUMENTED THE ABOVE INFORMATION ACTING A SCRIBE FOR DR. ROBERTSON. I HAVE REVIEWED THE ABOVE DOCUMENT, WRITTEN BY LEO TOTH AND I VERIFY THAT IT IS ACCURATE. PROCEDURE CODES 60848 INJ TRIGGER POINT / MUSCL DISPOSITION & COMMUNICATION FOLLOW UP 3 WEEKS ELECTRONICALLY SIGNED BY JAMIE ROBERTSON MD, MD ON 07/22/2018 AT 06:27 PM EST DISCLAIMER : THIS IS A VISIT SUMMARY EXTRACTED FROM THE [employer] CHART. IT IS NOT A COPY OF THE [employer] PROGRESS NOTE. MTDD
== END ==
LOC: M PAIN 08:30
PROVIDERS: ATTEND Anesthesiology
DX: M79.18 Myalgia, other site (principal); M54.6 Pain in thoracic spine; I10 Essential (primary) hypertension; E11.9 Type 2 diabetes mellitus without complications; J45.909 Unspecified asthma, uncomplicated; E78.5 Hyperlipidemia, unspecified; F41.9 Anxiety disorder, unspecified; F32.9 Major depressive disorder, single episode, unspecified; G47.33 Obstructive sleep apnea (adult) (pediatric); Z79.82 Long term (current) use of aspirin; Z79.4 Long term (current) use of insulin; Z79.899 Other long term (current) drug therapy; Z88.8 Allergy status to other drugs, medicaments and biological substances; Z86.59 Personal history of other mental and behavioral disorders
CPT/HCPCS: 20552; J3301

== ENCOUNTER → 2018-07-29 | Outpatient (CLI) | payer BC ==
[~2018-07-29] MED LIST changes: -BUPIVACAINE HCL 0.25% 10 ML VIAL As Ordered ONE; -BUPIVACAINE HCL 0.25% 30 ML VIAL As Ordered ONE; -TRIAMCINOLONE ACETONIDE SUSP 40 MG/ML VIAL (J3301) As Ordered ONE; -diazePAM 5 MG TAB As Ordered ONE; -oxyCODONE 5MG TAB As Ordered ONE
--- NOTE | 2018-07-29 17:17 | REP ---
Cervical spine age views: Vertebral body heights, interspacing alignment are normal C1 through C7. T1 is obscured by the shoulders. The facets are normally aligned. Prevertebral soft tissues are normal. There is no listhesis on flexion or extension. The left foramen are suboptimally demonstrated. There is no bony foraminal encroachment on the right. Impression: Negative cervical spine C1-C7. Consider follow-up CT or MRI for evaluation of T1 and for evaluation of the foramen. Electronically Signed by Arvnid Swain MD 07/29/2018 05:07 P
== END ==
LOC: M WUC 16:45
PROVIDERS: ATTEND Physician Assistant
DX: S16.1XXA Strain of muscle, fascia and tendon at neck level, initial encounter (principal); W18.30XA Fall on same level, unspecified, initial encounter; Y92.009 Unspecified place in unspecified non-institutional (private) residence as the place of occurrence of the external cause

== ENCOUNTER → 2018-08-18 | Outpatient (CLI) | payer BC ==
[2018-08-18 13:28] LABS: HEMOGLOBIN A1c 5.8 %
[2018-08-18 13:39] LABS: BLOOD UREA NITROGEN 16 MG/DL (7-18); CARBON DIOXIDE LEVEL 26 MEQ/L (21-32); CHLORIDE LEVEL 106 MEQ/L (98-107); CHOLESTEROL LEVEL 113 MG/DL (<200); CHOLESTEROL RISK RATIO 3.054 (<5); CREATININE FOR GFR 1.08 MG/DL (0.70-1.30); GLOMERULAR FILTRATION RATE > 60.0 (>56); GLUCOSE, FASTING 59 MG/DL (70-100); HDL CHOLESTEROL 37 MG/DL (>40); LDL CHOLESTEROL 56 MG/DL (<100); NON-HDL-C 76 MG/DL; POTASSIUM SERUM 5.1 MEQ/L (3.5-5.1); SODIUM LEVEL 138 MEQ/L (136-145); TRIGLYCERIDES LEVEL 100 MG/DL (<150)
== END ==
LOC: M WUC 10:25
PROVIDERS: ATTEND Physician Assistant
DX: E11.9 Type 2 diabetes mellitus without complications (principal); E78.2 Mixed hyperlipidemia

== ENCOUNTER → 2018-08-28 | Outpatient (CLI) | payer BC ==
[~2018-08-28] MED LIST changes: +VITA100018 PO; -VITA100072 PO
--- NOTE | 2018-09-10 23:34 | ECWPNPC ---
PATIENT NAME: NEHEMIAH BOONE : 1965 GENDER: MALE VISIT DATE: 08/28/2018 DISCHARGE DATE: 08/28/18 1051 VISIT LOCKED DATE TIME: PHYSICIAN: JAMIE ROBERTSON MD RESOURCE: JAMIE ROBERTSON MD REASON FOR APPOINTMENT 1. POST PROC HISTORY OF PRESENT ILLNESS HISTORY OF PRESENT ILLNESS: PAIN THE PATIENT DESCRIBES THE PAIN... 53 YEAR OLD MALE PATIENT WITH A HISTORY OF CHRONIC THORACIC PAIN. THE PATIENT DESCRIBES THE PAIN TENDER, STABBING, AND INTERMITTENT WITH A PAIN SCORE OF 0-6/10 DEPENDING ON PHYSICAL ACTIVITY. THE PATIENT WAS HERE ON 07/11/2018 FOR A TRIGGER POINT INJECTION AND REPORTS HAVING MORE THAN 50% PAIN RELIEF. THE PATIENT IS CURRENTLY USING TIZANIDINE FOR SPASMS AND SAYS THAT IT HAS BEEN HELPING. THE PATIENT SAYS THAT HE HAS BEEN TRYING TO LOSE WEIGHT RECENTLY. PATIENT DENIES UNEXPLAINABLE WEIGHT LOSS, FEVER, CHILLS, NEW CHANGES ON HIS URINARY OR BOWEL CONTROL. FALL RISK SCREENING: SCREENING : NO FALLS IN THE PAST YEAR. CURRENT MEDICATIONS TAKING GLUCOMETER 1 DIRECTED _ ONCE DAILY (E11.9), NOTES: PLEASE FILL PER INSURANCE TAKING LANCETS - MISCELLANEOUS DIRECTED SUBCUTANEOUSLY (E11.9) ONCE DAILY, NOTES: PLEASE FILL PER INSURANCE TAKING BLOOD GLUCOSE TEST - STRIP DIRECTED IN VITRO ONCE DAILY (E11.9), NOTES: PLEASE FILL PER INSURANCE TAKING ALVESCO 80 MCG/ACT AEROSOL SOLUTION 1 PUFF INHALATION TWICE A DAY TAKING TRAMADOL HCL 50 MG TABLET 1 TABLET NEEDED ORALLY EVERY 6 HRS, NOTES: PRN TAKING VENTOLIN HFA 90 MCG/ACT AEROSOL SOLUTION 2 PUFFS NEEDED INHALATION EVERY 6 HRS, NOTES: PRN TAKING VITAMIN C 1000 MG TABLET 1 TABLET ORALLY ONCE A DAY TAKING VITAMIN D (CHOLECALCIFEROL) 1000 UNIT TABLET 2 TABLET ORALLY ONCE A DAY TAKING VITAMIN E 1000 UNIT CAPSULE 1 CAPSULE ORALLY ONCE A DAY TAKING VITAMIN B12 1000 MCG TABLET EXTENDED RELEASE 1 TABLET ORALLY ONCE A DAY TAKING MULTI COMPLETE - CAPSULE ORALLY TAKING L-LYSINE 500 MG TABLET ORALLY TAKING PEN NEEDLES 32G X 4 MM MISCELLANEOUS DIRECTED SUBCUTANEOUSLY (E11.9) ONCE DAILY WITH VICTOZA TAKING ASPIRIN 81 81 MG TABLET CHEWABLE 1 TABLET ORALLY ONCE A DAY TAKING SYRINGE 22G X 1-1/2 MISCELLANEOUS DIRECTED INTRAMUSCULARLY TAKING HYPODERMIC NEEDLE 18G X 1-1/2 MISCELLANEOUS DIRECTED INTRADERMALLY TAKING BD SYRINGE/NEEDLE 23G X 1 MISCELLANEOUS DIRECTED INTRAMUSCULARLY DIRECTED TAKING JARDIANCE 10 MG TABLET 1 TABLET ORALLY ONCE A DAY TAKING PRAVASTATIN SODIUM 40 MG TABLET 1 TABLET ORALLY ONCE A DAY TAKING TRULICITY 0.75 MG/0.5ML SOLUTION PEN-INJECTOR 0.75 MG DIRECTED SUBCUTANEOUS ONCE WEEKLY, NOTES: TAKES TUESDAY TAKING PROZAC 10 MG CAPSULE 1 CAPSULE ORALLY ONCE A DAY TAKING VIAGRA 100 MG TABLET 1 TABLET NEEDED ORALLY DIRECTED, NOTES: NONE RECENT TAKING TIZANIDINE HCL 2 MG TABLET 1 TABLET NEEDED ORALLY FFOR SPASMS AND PAIN BEFORE BEDTIME MAY REPEAT IN 4 HRS MDD2 TAKING TESTOSTERONE CYPIONATE 200 MG/ML OIL 1 ML INTRAMUSCULAR 200 MG EVERY 7 DAYS, CODE F- 10 ML VIAL, NOTES: TAKES ON FRIDAYS TAKING FLOMAX 0.4 MG CAPSULE 1 CAPSULE ORALLY ONCE A DAY TAKING LOSARTAN POTASSIUM 25 MG TABLET 1 TABLET ORALLY ONCE A DAY TAKING MIRTAZAPINE 15 MG TABLET 1 TABLET AT BEDTIME ORALLY ONCE A DAY, NOTES: NEEDED NONE IN 2 WEEKS TAKING CARISOPRODOL 350 MG TABLET 1 TABLET NEEDED ORALLY (ISTOP:[id number]) BEFORE BEDTIME NOT-TAKING PROPRANOLOL HCL 10 MG TABLET 1 TABLET ON AN EMPTY STOMACH ORALLY ONCE A DAY NOT-TAKING METOPROLOL SUCCINATE ER 50 MG TABLET EXTENDED RELEASE 24 HOUR 1 TABLET ORALLY ONCE A DAY NOT-TAKING SHINGRIX 50 MCG SUSPENSION RECONSTITUTED DIRECTED INTRAMUSCULAR DIRECTED, NOTES: HAS NOT COMPLETED YET MEDICATION LIST REVIEWED AND RECONCILED WITH THE PATIENT PAST MEDICAL HISTORY HTN ASTHMA ANXIETY DEPRESSION DM 2 ED - ON TESTOSTERONE REPLACEMENT HYPERLIPIDEMIA ASCVD RISK 15.2% ON 11/21 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 DISC BULGES AND SMALL DISC PROTRUSIONS AT T6-7 AND T7-8 WITHOUT SPINAL CORD COMPRESSION, SMALL DISC PROTRUSIONS AT T8-9 AND T9-10 WITHOUT SPINAL CORD COMPRESSION. ALLERGIES ROSUVASTATIN CALCIUM: MUSCLE ACHES - SIDE EFFECTS LISINOPRIL: COUGH - SIDE EFFECTS SURGICAL HISTORY RIGHT ANKLE RIGHT SHOULDER RHINOPLASTY REMOVAL OF UPP TONSILECTOMY 2005 COLONOSCOPY 03/10/2018 - SM INTERNAL HEMORRHOIDS, REPEAT 10 YRS FAMILY HISTORY FATHER: 77 YRS, COPD MOTHER: 67 YRS, DIAGNOSED WITH DIABETES, HYPERTENSION SIBLINGS: , 4 SISTERS 1 LIVING BROTHER, DIABETES, HEART DISEASE SON(S): ALIVE PATERNAL GRAND FATHER: UNKNOWN PATERNAL GRAND MOTHER: UNKNOWN MATERNAL GRAND FATHER: MATERNAL GRAND MOTHER: 1 BROTHER(S) , 4 SISTER(S) . 1 SON(S) . 4 SISTERS, 1 BROTHER\NDENIES FAMILY HX OF SKIN AND PANCREATIC CANCER. SOCIAL HISTORY GENERAL: TOBACCO USE ARE YOU A:NONSMOKER LATEX QUESTIONNAIRE LATEX ALLERGY : HAVE YOU EVER DEVELOPED ANY TYPE OF REACTION AFTER HANDLING LATEX PRODUCTS SUCH RUBBER GLOVES, CONDOMS, DIAPHRAGMS, BALLOONS, SOCKS, OR UNDERWEAR?NO LATEX ALLERGY : HAVE YOU EVER DEVELOPED ANY TYPE OF REACTION DURING OR AFTER DENTAL APPOINTMENT, VAGINAL/RECTAL EXAMINATION, SURGICAL PROCEDURE, OR ANY OTHER EXPOSURE?NO LATEX RISK : HAVE YOU EVER HAD ANY DIFFICULTY BREATHING OR HIVES AFTER EATING OR HANDLING ANY FRUITS, OR VEGETABLES; SUCH KIWI, BANANAS, STONE FRUITS, OR CHESTNUTSNO LATEX RISK : DO YOU HAVE A PREVIOUS PERSONAL HISTORY OF MORE THAN NINE SURGERIES, SPINA BIFIDA, OR REPEATED CATHERTIZATIONS? NO LATEX RISK : ARE YOU FREQUENTLY EXPOSED TO LATEX PRODUCTS IN YOUR OCCUPATION?NO DATE ASKED : 08/28/2018 ALCOHOL SCREENING DID YOU HAVE A DRINK CONTAINING ALCOHOL IN THE PAST YEAR?NO POINTS0 INTERPRETATIONNEGATIVE RECREATIONAL DRUG USE DRUG USE?YES FORMER COCAINE ADDICT CAFFEINE CAFFEINE USE?YES HOW OFTEN AND HOW MUCH? 1 CUP OF COFFEE PER DAY AND OCCASIONAL SODA GNOSTICIST GNOSTICIST NONE LANGUAGE LANGUAGES SPOKEN:EAST TIM[place]ESE EDUCATION LEVEL OF EDUCATION:NOT FINISHED COLLEGE LEARNING BARRIERS / SPECIAL NEEDS BARRIERS TO LEARNING?NO HEARING IMPAIRED?NO VISION IMPAIRED?YES COGNITIVELY IMPAIRED?NO :CORRECTIVE LENSES READINESS TO LEARN?YES LEARNING PREFERENCES?NO OCCUPATION: RETAIL. DIET: REGULAR. EXERCISE: DAILY 4-5 TIMES PER WEEK. MARITAL STATUS: . OTHERS AT HOME: SPOUSE. PAIN CLINIC PFS, CLERGY, PUBLIC HEALTH REFERRALS PFS REFERRAL NEEDED?NO CLERGY REFERRAL NEEDED?NO PUBLIC HEALTH REFERRAL NEEDED?NO WAS THE PROVIDER NOTIFIED OF ANY PERTINENT INFO?NO HAS THE PATIENT BEEN EDUCATED REGARDING HIS/HER PLAN OF CARE?YES HAS THE PATIENT BEEN EDUCATED REGARDING PAIN, THE RISK FOR PAIN, THE IMPORTANCE OF EFFECTIVE PAIN MANAGEMENT, AND THE PAIN ASSESSMENT PROCESS?YES ADVANCE DIRECTIVE ADVANCE DIRECTIVE DISCUSSED WITH PATIENT:YES PT. HAS HCP SHIRA BOONE [phone] REVIEWED WITH PT 07/11/18 8927 BVREVIEWED WITH PT 08/28/18 7992 BV. HOSPITALIZATION/MAJOR DIAGNOSTIC PROCEDURE ANKLE REHAB FOR SUBSTANCE ABUSE X 3 REVIEW OF SYSTEMS REVIEWED BY: PROVIDER: JAMIE ROBERTSON MD . CONSTITUTIONAL: ANY CHANGE IN YOUR MEDICAL CONDITION? NO . CHILLS NO . FEVER NO . INFECTION: DO YOU HAVE NEW INFECTIONS? NO . DO YOU HAVE HISTORY OF MRSA? NO . MUSCULOSKELETAL: ANY NEW PATTERNS OF PAIN OR NUMBNESS? NO . GASTROENTEROLOGY: ANY NEW CHANGE IN BOWEL CONTROL? NO . GENITOURINARY: ANY NEW CHANGE IN BLADDER CONTROL? NO . IS THERE A CHANCE YOU COULD BE ? NO . HEMATOLOGY/LYMPH: DO YOU TAKE ANY BLOOD THINNERS? (FOR EXAMPLE- COUMADIN, PLAVIX, AGGRENOX, PLATEL, PRADAXA, OR XARELTO) NO . WHEN WAS YOUR LAST DOSE? DATE: TIME: . NEUROLOGY: HAVE YOU FALLEN IN THE PAST 12 MONTHS? NO . ANY NEW EXTREMITY NUMBNESS OR WEAKNESS? NO . CARDIOLOGY: DO YOU HAVE A PACEMAKER OR DEFIBRILLATOR? NO . RESPIRATORY: HAVE YOU BEEN SICK IN THE PAST WEEK? NO . FEVER NO . FLU LIKE SYMPTOMS? NO . COUGH NO . INTEGUMENTARY: DO YOU HAVE ANY RASHES OR OPEN SORES? NO . ALLERGIC/IMMUNO: ARE YOU ALLERGIC TO IV DYE? NO . ANY NEW ALLERGIES? NO . PSYCHIATRIC: DO YOU HAVE THOUGHTS OF HURTING YOURSELF OR SOMEONE ELSE? NO . ARE YOU ABUSED, NEGLECTED, OR IN AN UNSAFE ENVIRONMENT? NO . ENDOCRINOLOGY: ARE YOU DIABETIC? NO . OTHER: DO YOU NEED ANY PRESCRIPTIONS? NO . IF YES, PLEASE LIST: ____ . ANY NEW PROBLEMS WITH YOUR MEDICATIONS? NO . WHEN DID YOU LAST EAT? ____ . WHEN DID YOU LAST DRINK? ____ . WHAT DID YOU LAST DRINK? ____ . NAME OF PERSON DRIVING YOU HOME? ____ . DO YOU HAVE ANY OTHER QUESTIONS OR CONCERNS NO . VITAL SIGNS WT 197.6 LBS, HT 66 IN, BMI 31.89 INDEX, BP 143/73 MM HG, HR 93 /MIN, RR 18 /MIN, TEMP 97.6 F, OXYGEN SAT % 96%, NA INITIALS AW 0857, REVIEWED BY: BV. EXAMINATION GENERAL EXAMINATION: PATIENT IS ALERT O X 3 AND COOPERATIVE. ASSESSMENTS MYALGIA, OTHER SITE - M79.18 (PRIMARY) TREATMENT MYALGIA, OTHER SITE CLINICAL NOTES: WE DISCUSSED SEVERAL ISSUES WITH MR. BOONE'S PAIN MANAGEMENT CASE. THE PATIENT WILL CONTINUE USING THE TIZANIDINE FOR SPASMS AND PAIN. THE PATIENT REPORTS DOING WELL, SO WE WILL NOT BE MOVING FORWARD WITH ANY INTERVENTIONS AT THIS TIME. THE PATIENT WILL FOLLOW UP IN 2 MONTHS. INSTRUCTIONS WERE GIVEN, QUESTIONS WERE ANSWERED, PATIENT REPORTS UNDERSTANDING AND AGREES WITH THE PLAN. I, LEO WELDON, DOCUMENTED THE ABOVE INFORMATION ACTING A SCRIBE FOR DR. ROBERTSON. I HAVE REVIEWED THE ABOVE DOCUMENT, WRITTEN BY LEO RODRIGUEZIBStephen AND I VERIFY THAT IT IS ACCURATE. . OTHERS REFILL TIZANIDINE HCL TABLET, 2 MG, 1 TABLET NEEDED, ORALLY FFOR SPASMS AND PAIN, BEFORE BEDTIME MAY REPEAT IN 4 HRS MDD2, 30 DAY(S), 50, REFILLS 2 PROCEDURE CODES FA211 ESTABILISHED PATIENT [facility] FACILITY CHARGE G8427 CURRENT MEDS W/DOSAGES DOCUMENTED G8730 PAIN ASSESS POS TOOL F/U PLAN DOC DISPOSITION & COMMUNICATION FOLLOW UP 2 MONTHS ELECTRONICALLY SIGNED BY JAMIE ROBERTSON MD, ON 09/10/2018 AT 03:22 PM EDT DISCLAIMER : THIS IS A VISIT SUMMARY EXTRACTED FROM THE [employer] CHART. IT IS NOT A COPY OF THE [employer] PROGRESS NOTE. MTDD
== END ==
LOC: M PAIN 08:45
PROVIDERS: ATTEND Anesthesiology
DX: M79.18 Myalgia, other site (principal); I10 Essential (primary) hypertension; E11.9 Type 2 diabetes mellitus without complications; Z79.82 Long term (current) use of aspirin; Z79.84 Long term (current) use of oral hypoglycemic drugs; Z79.891 Long term (current) use of opiate analgesic; Z79.899 Other long term (current) drug therapy; Z88.8 Allergy status to other drugs, medicaments and biological substances

== ENCOUNTER → 2018-08-29 | Outpatient (REF) | payer BC ==
[~2018-08-29] MED LIST changes: -VITA100018 PO; +VITA100072 PO
== END ==
LOC: M SFHCPLAZ 17:47
PROVIDERS: ATTEND Dermatology
DX: L72.11 Pilar cyst (principal)

== ENCOUNTER → 2018-09-04 | Outpatient (CLI) | payer BC ==
[~2018-09-04] MED LIST changes: +VITA100018 PO; -VITA100072 PO
[2018-09-04 18:04] LABS: HEMATOCRIT 42.7 % (42.0-52.0); HEMOGLOBIN 13.1 g/dl (13.5-17.5); MEAN CORPUSCULAR HEMOGLOBIN 23.6 pg (27.0-33.0); MEAN CORPUSCULAR HGB CONC 30.7 g/dl (32.0-36.5); MEAN CORPUSCULAR VOLUME 76.9 fl (80.0-96.0); PLATELET COUNT, AUTOMATED 397 10^3/uL (150-450); RED BLOOD COUNT 5.55 10^6/uL (4.30-6.10); WHITE BLOOD COUNT 6.6 10^3/uL (4.0-10.0)
[2018-09-04 18:07] LABS: ALBUMIN 3.8 GM/DL (3.2-5.2); ALT/SGPT 46 U/L (12-78); BILIRUBIN,TOTAL 0.3 MG/DL (0.2-1.0); BLOOD UREA NITROGEN 17 MG/DL (7-18); CALCIUM LEVEL 9.2 MG/DL (8.5-10.1); CARBON DIOXIDE LEVEL 28 MEQ/L (21-32); CHLORIDE LEVEL 104 MEQ/L (98-107); CREATININE FOR GFR 1.12 MG/DL (0.70-1.30); GLOMERULAR FILTRATION RATE > 60.0 (>56); GLUCOSE, FASTING 72 MG/DL (70-100); POTASSIUM SERUM 4.6 MEQ/L (3.5-5.1); SODIUM LEVEL 138 MEQ/L (136-145); TOTAL PROTEIN 7.5 GM/DL (6.4-8.2)
[2018-09-07 00:07] LABS: TESTOSTERONE FREE (DIRECT) 12.1 pg/mL (7.2-24.0)
== END ==
LOC: M WUC 16:18
PROVIDERS: ATTEND Nurse Practitioner Women's Health
DX: Z79.890 Hormone replacement therapy (principal)

== ENCOUNTER → 2018-09-19 | Outpatient (CLI) | payer BC ==
--- NOTE | 2018-09-20 23:23 | ECWPNPC ---
PATIENT NAME: NEHEMIAH BOONE : 1965 GENDER: MALE VISIT DATE: 09/19/2018 DISCHARGE DATE: 09/19/18 1256 VISIT LOCKED DATE TIME: PHYSICIAN: MARISSA GOMEZ RESOURCE: MARISSA GOMEZ REASON FOR APPOINTMENT 1. PER DR Camacho/ INCREASED PAIN HISTORY OF PRESENT ILLNESS HISTORY OF PRESENT ILLNESS: PAIN THE PATIENT DESCRIBES THE PAINDURING THE LAST MONTH SEVERITY - PAIN SCORE OF3/10 LOCATIONSMID BACK 53 YR OLD MALE HERE FOOR A F/U.HE SAYS HIS PAIN OVER THE PAST MONTH HAS INCREASED TO 5/10. PT DESCRIBES PAIN ACHY AND CONSTANT AND WORSENS WITH CERTAIN MOVEMENTS.HE DENIES RADICULOPATHY. FALL RISK SCREENING: SCREENING :NO FALLS REPORTED IN THE LAST YEAR CURRENT MEDICATIONS TAKING GLUCOMETER 1 DIRECTED _ ONCE DAILY (E11.9), NOTES: PLEASE FILL PER INSURANCE TAKING LANCETS - MISCELLANEOUS DIRECTED SUBCUTANEOUSLY (E11.9) ONCE DAILY, NOTES: PLEASE FILL PER INSURANCE TAKING BLOOD GLUCOSE TEST - STRIP DIRECTED IN VITRO ONCE DAILY (E11.9), NOTES: PLEASE FILL PER INSURANCE TAKING ALVESCO 80 MCG/ACT AEROSOL SOLUTION 1 PUFF INHALATION TWICE A DAY TAKING VENTOLIN HFA 90 MCG/ACT AEROSOL SOLUTION 2 PUFFS NEEDED INHALATION EVERY 6 HRS, NOTES: PRN TAKING VITAMIN C 1000 MG TABLET 1 TABLET ORALLY ONCE A DAY TAKING VITAMIN D (CHOLECALCIFEROL) 1000 UNIT TABLET 2 TABLET ORALLY ONCE A DAY TAKING VITAMIN E 1000 UNIT CAPSULE 1 CAPSULE ORALLY ONCE A DAY TAKING VITAMIN B12 1000 MCG TABLET EXTENDED RELEASE 1 TABLET ORALLY ONCE A DAY TAKING MULTI COMPLETE - CAPSULE ORALLY TAKING L-LYSINE 500 MG TABLET ORALLY TAKING PEN NEEDLES 32G X 4 MM MISCELLANEOUS DIRECTED SUBCUTANEOUSLY (E11.9) ONCE DAILY WITH VICTOZA TAKING ASPIRIN 81 81 MG TABLET CHEWABLE 1 TABLET ORALLY ONCE A DAY TAKING SYRINGE 22G X 1-1/2 MISCELLANEOUS DIRECTED INTRAMUSCULARLY TAKING BD SYRINGE/NEEDLE 23G X 1 MISCELLANEOUS DIRECTED INTRAMUSCULARLY DIRECTED TAKING VIAGRA 100 MG TABLET 1 TABLET NEEDED ORALLY DIRECTED, NOTES: NONE RECENT TAKING TESTOSTERONE CYPIONATE 200 MG/ML OIL 1 ML INTRAMUSCULAR 200 MG EVERY 7 DAYS, CODE F- 10 ML VIAL, NOTES: TAKES ON FRIDAYS TAKING FLOMAX 0.4 MG CAPSULE 1 CAPSULE ORALLY ONCE A DAY TAKING LOSARTAN POTASSIUM 25 MG TABLET 1 TABLET ORALLY ONCE A DAY TAKING MIRTAZAPINE 15 MG TABLET 1 TABLET AT BEDTIME ORALLY ONCE A DAY, NOTES: NEEDED NONE IN 2 WEEKS TAKING TIZANIDINE HCL 2 MG TABLET 1 TABLET NEEDED ORALLY FFOR SPASMS AND PAIN BEFORE BEDTIME MAY REPEAT IN 4 HRS MDD2 TAKING BD LUER-FREDY SYRINGE 23G X 1 MISCELLANEOUS USE DIRECTED INTRAMUSCULARLY TAKING HYPODERMIC NEEDLE 18G X 1-/2 MISCELLANEOUS DIRECTED INTRADERMALLY TAKING PRAVASTATIN SODIUM 40 MG TABLET 1 TABLET ORALLY ONCE A DAY TAKING LOSARTAN POTASSIUM 25 MG TABLET 1 TABLET ORALLY ONCE A DAY TAKING PROZAC 10 MG CAPSULE 1 CAPSULE ORALLY ONCE A DAY TAKING JARDIANCE 10 MG TABLET 1 TABLET ORALLY ONCE A DAY TAKING TRULICITY 0.75 MG/0.5ML SOLUTION PEN-INJECTOR 0.75 MG DIRECTED SUBCUTANEOUS ONCE WEEKLY NOT-TAKING TRAMADOL HCL 50 MG TABLET 1 TABLET NEEDED ORALLY EVERY 6 HRS, NOTES: PRN NOT-TAKING CARISOPRODOL 350 MG TABLET 1 TABLET NEEDED ORALLY (ISTOP:[id number]) BEFORE BEDTIME NOT-TAKING PROPRANOLOL HCL 10 MG TABLET 1 TABLET ON AN EMPTY STOMACH ORALLY ONCE A DAY NOT-TAKING METOPROLOL SUCCINATE ER 50 MG TABLET EXTENDED RELEASE 24 HOUR 1 TABLET ORALLY ONCE A DAY NOT-TAKING SHINGRIX 50 MCG SUSPENSION RECONSTITUTED DIRECTED INTRAMUSCULAR DIRECTED, NOTES: HAS NOT COMPLETED YET DISCONTINUED JARDIANCE 10 MG TABLET 1 TABLET ORALLY ONCE A DAY, NOTES: DUPLICATE DISCONTINUED TRULICITY 0.75 MG/0.5ML SOLUTION PEN-INJECTOR 0.75 MG DIRECTED SUBCUTANEOUS ONCE WEEKLY, NOTES: DUPLICATE MEDICATION LIST REVIEWED AND RECONCILED WITH THE PATIENT PAST MEDICAL HISTORY HTN ASTHMA ANXIETY DEPRESSION DM 2 ED - ON TESTOSTERONE REPLACEMENT HYPERLIPIDEMIA ASCVD RISK 15.2% ON 11/21 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 DISC BULGES AND SMALL DISC PROTRUSIONS AT T6-7 AND T7-8 WITHOUT SPINAL CORD COMPRESSION, SMALL DISC PROTRUSIONS AT T8-9 AND T9-10 WITHOUT SPINAL CORD COMPRESSION. ALLERGIES ROSUVASTATIN CALCIUM: MUSCLE ACHES - SIDE EFFECTS LISINOPRIL: COUGH - SIDE EFFECTS SURGICAL HISTORY RIGHT ANKLE RIGHT SHOULDER RHINOPLASTY REMOVAL OF UPP TONSILECTOMY 2005 COLONOSCOPY 03/10/2018 - SM INTERNAL HEMORRHOIDS, REPEAT 10 YRS PILAR CYST REMOVAL FROM SCALP (DERM) 08/29/18 FAMILY HISTORY FATHER: 77 YRS, COPD MOTHER: 67 YRS, DIAGNOSED WITH DIABETES, HYPERTENSION SIBLINGS: , 4 SISTERS 1 LIVING BROTHER, DIABETES, HEART DISEASE SON(S): ALIVE PATERNAL GRAND FATHER: UNKNOWN PATERNAL GRAND MOTHER: UNKNOWN MATERNAL GRAND FATHER: MATERNAL GRAND MOTHER: 1 BROTHER(S) , 4 SISTER(S) . 1 SON(S) . 4 SISTERS, 1 BROTHER\\\\\\\\NDENIES FAMILY HX OF SKIN AND PANCREATIC CANCER. SOCIAL HISTORY GENERAL: TOBACCO USE ARE YOU A:NONSMOKER LATEX QUESTIONNAIRE LATEX ALLERGY : HAVE YOU EVER DEVELOPED ANY TYPE OF REACTION AFTER HANDLING LATEX PRODUCTS SUCH RUBBER GLOVES, CONDOMS, DIAPHRAGMS, BALLOONS, SOCKS, OR UNDERWEAR?NO LATEX ALLERGY : HAVE YOU EVER DEVELOPED ANY TYPE OF REACTION DURING OR AFTER DENTAL APPOINTMENT, VAGINAL/RECTAL EXAMINATION, SURGICAL PROCEDURE, OR ANY OTHER EXPOSURE?NO DATE ASKED : 09/19/2018 LATEX RISK : HAVE YOU EVER HAD ANY DIFFICULTY BREATHING OR HIVES AFTER EATING OR HANDLING ANY FRUITS, OR VEGETABLES; SUCH KIWI, BANANAS, STONE FRUITS, OR CHESTNUTSNO LATEX RISK : DO YOU HAVE A PREVIOUS PERSONAL HISTORY OF MORE THAN NINE SURGERIES, SPINA BIFIDA, OR REPEATED CATHERTIZATIONS? NO LATEX RISK : ARE YOU FREQUENTLY EXPOSED TO LATEX PRODUCTS IN YOUR OCCUPATION?NO ALCOHOL SCREENING DID YOU HAVE A DRINK CONTAINING ALCOHOL IN THE PAST YEAR?NO POINTS0 INTERPRETATIONNEGATIVE RECREATIONAL DRUG USE DRUG USE?YES FORMER COCAINE ADDICT CAFFEINE CAFFEINE USE?YES HOW OFTEN AND HOW MUCH? 1 CUP OF COFFEE PER DAY AND OCCASIONAL SODA YARSANISM YARSANISM NONE LANGUAGE LANGUAGES SPOKEN:MAORI EDUCATION LEVEL OF EDUCATION:NOT FINISHED COLLEGE LEARNING BARRIERS / SPECIAL NEEDS CHANGE FROM LAST VISIT? 08/29/18 BARRIERS TO LEARNING?NO HEARING IMPAIRED?NO VISION IMPAIRED?YES COGNITIVELY IMPAIRED?NO :CORRECTIVE LENSES READINESS TO LEARN?YES LEARNING PREFERENCES?NO OCCUPATION: RETAIL. DIET: REGULAR. EXERCISE: DAILY 4-5 TIMES PER WEEK. MARITAL STATUS: . OTHERS AT HOME: SPOUSE. PAIN CLINIC PFS, CLERGY, PUBLIC HEALTH REFERRALS PFS REFERRAL NEEDED?NO CLERGY REFERRAL NEEDED?NO PUBLIC HEALTH REFERRAL NEEDED?NO WAS THE PROVIDER NOTIFIED OF ANY PERTINENT INFO?NO HAS THE PATIENT BEEN EDUCATED REGARDING HIS/HER PLAN OF CARE?YES HAS THE PATIENT BEEN EDUCATED REGARDING PAIN, THE RISK FOR PAIN, THE IMPORTANCE OF EFFECTIVE PAIN MANAGEMENT, AND THE PAIN ASSESSMENT PROCESS?YES ADVANCE DIRECTIVE ADVANCE DIRECTIVE DISCUSSED WITH PATIENT:YES PT. HAS HCP SHIRA BOONE [phone] REVIEWED WITH PT 07/11/18 3452 BVREVIEWED WITH PT 08/28/18 0907 BVREVIEWED WITH PT 09/19/18 1217 LAS. HOSPITALIZATION/MAJOR DIAGNOSTIC PROCEDURE ANKLE REHAB FOR SUBSTANCE ABUSE X 3 REVIEW OF SYSTEMS REVIEWED BY: PROVIDER: GERALDINE . CONSTITUTIONAL: ANY CHANGE IN YOUR MEDICAL CONDITION? NO . CHILLS NO . FEVER NO . INFECTION: DO YOU HAVE NEW INFECTIONS? NO . DO YOU HAVE HISTORY OF MRSA? NO . MUSCULOSKELETAL: ANY NEW PATTERNS OF PAIN OR NUMBNESS? YES PT REPORTS INCREASED PAIN OVER THE PAST 2-3 WEEKS, DOES NOT RECALL ANY INJURY OR PRECIPITATING EVENT. HE DESCRIBES THE PAIN ACHING, SHOOTING, STABBING FROM RIGHT SCAPULA EXTENDING TO THE FRONT OF HIS RIBCAGE . GASTROENTEROLOGY: ANY NEW CHANGE IN BOWEL CONTROL? NO . GENITOURINARY: ANY NEW CHANGE IN BLADDER CONTROL? NO . IS THERE A CHANCE YOU COULD BE ? NO . HEMATOLOGY/LYMPH: DO YOU TAKE ANY BLOOD THINNERS? (FOR EXAMPLE- COUMADIN, PLAVIX, AGGRENOX, PLATEL, PRADAXA, OR XARELTO) NO . WHEN WAS YOUR LAST DOSE? DATE: TIME: . NEUROLOGY: HAVE YOU FALLEN IN THE PAST 12 MONTHS? NO . ANY NEW EXTREMITY NUMBNESS OR WEAKNESS? NO . CARDIOLOGY: DO YOU HAVE A PACEMAKER OR DEFIBRILLATOR? NO . RESPIRATORY: HAVE YOU BEEN SICK IN THE PAST WEEK? NO . FEVER NO . FLU LIKE SYMPTOMS? NO . COUGH NO . INTEGUMENTARY: DO YOU HAVE ANY RASHES OR OPEN SORES? NO . ALLERGIC/IMMUNO: ARE YOU ALLERGIC TO IV DYE? NO . ANY NEW ALLERGIES? NO . PSYCHIATRIC: DO YOU HAVE THOUGHTS OF HURTING YOURSELF OR SOMEONE ELSE? NO . ARE YOU ABUSED, NEGLECTED, OR IN AN UNSAFE ENVIRONMENT? NO . ENDOCRINOLOGY: ARE YOU DIABETIC? NO . OTHER: DO YOU NEED ANY PRESCRIPTIONS? NO . IF YES, PLEASE LIST: ____ . ANY NEW PROBLEMS WITH YOUR MEDICATIONS? NO . WHEN DID YOU LAST EAT? ____ . WHEN DID YOU LAST DRINK? ____ . WHAT DID YOU LAST DRINK? ____ . NAME OF PERSON DRIVING YOU HOME? ____ . DO YOU HAVE ANY OTHER QUESTIONS OR CONCERNS WOULD LIKE TO DISCUSS WHAT TO DO NEXT, ? INJECTIONS . VITAL SIGNS WT 203.2 LBS, HT 66 IN, BMI 32.79 INDEX, BP 146/77 MM HG, HR 89 /MIN, RR 18 /MIN, TEMP 98.5 F, OXYGEN SAT % 97%, SAFE IN ENV? (Y/N) YES, NA INITIALS AW 1200, REVIEWED BY: JULIO. EXAMINATION GENERAL EXAMINATION: GENERAL APPEARANCE:NO ACUTE DISTRESS, WELL NOURISHED AND HYDRATED. PSYCHAPPROPRIATE MOOD AND AFFECT . LUNGS:CLEAR TO AUSCULTATION BILATERALLY, NO WHEEZES, RHONCHI, RALES. HEART:NO MURMURS, REGULAR RATE AND RHYTHM. BACK: FROM TENDERNESS TO PALPATION TO RIGHT SIDED THORACIC MUSCLES, WITH BANDS OF TISSUE PAIN WITH EXTENSIONAND ROTATION OF THORACIC SPINE.. . ASSESSMENTS THORACIC SPINE PAIN - M54.6 (PRIMARY) TREATMENT THORACIC SPINE PAIN CONTINUE TRAMADOL HCL TABLET, 50 MG, 1 TABLET NEEDED, ORALLY, EVERY 6 HRS MDD2, 30 DAYS, 60, REFILLS 0, NOTES: PRN CONTINUE CARISOPRODOL TABLET, 350 MG, 1 TABLET NEEDED, ORALLY (ISTOP:[id number]), BEFORE BEDTIME, 30 DAYS, 30, REFILLS 2 CLINICAL NOTES: ISTOP REGISTRY REVIEWED AND DEMONSTRATES COMPLLIANCE( [id number])BRINGS IN MEDICATIONS WHICH IS APPROPRIATE FOR WHAT WAS DISPENSED. RECENT URINE TOXICOLOGY REVIEWED. NO UNAUTHORIZED MEDICATIONS. NO ILLICIT SUBSTANCES AND PRESCRIBED MEDICATIONS WERE PRESENT. TPI RIGHT SIDE THORACIC SPINE/. PREVENTIVE MEDICINE PAIN CLINIC TEACHING: PROCEDURE TEACHING PT DECLINED PRINTED INFORMATION ON TRIGGER POINT INJECTIONS STATING HE HAD THEM BEFORE AND IS FAMILIAR WITH IT. PRINTED PRE-PROCEDURE INSTRUCTIONS GIVEN TO AND REVIEWED WITH PT AND HE VERBALIZE UNDERSTANDING. AD. PROCEDURE CODES FA211 ESTABILISHED PATIENT [facility] FACILITY CHARGE DISPOSITION & COMMUNICATION FOLLOW UP POST PROCEDURE (REASON: TPI RIGHT SIDE THORACIC SPINE) ELECTRONICALLY SIGNED BY BRETT JOYCE ON 09/20/2018 AT 08:21 AM EDT DISCLAIMER : THIS IS A VISIT SUMMARY EXTRACTED FROM THE [employer] CHART. IT IS NOT A COPY OF THE [employer] PROGRESS NOTE. ANA
== END ==
LOC: M PAIN 11:45
PROVIDERS: ATTEND Nurse Practitioner Family
DX: M54.6 Pain in thoracic spine (principal); I10 Essential (primary) hypertension; J45.909 Unspecified asthma, uncomplicated; Z86.59 Personal history of other mental and behavioral disorders; E55.9 Vitamin D deficiency, unspecified; E78.5 Hyperlipidemia, unspecified; G47.33 Obstructive sleep apnea (adult) (pediatric); Z88.8 Allergy status to other drugs, medicaments and biological substances; Z79.82 Long term (current) use of aspirin; Z79.84 Long term (current) use of oral hypoglycemic drugs; Z79.899 Other long term (current) drug therapy

== ENCOUNTER → 2018-10-27 | Outpatient (CLI) | payer BC ==
[~2018-10-27] MED LIST changes: +BUPIVACAINE HCL 0.25% 10 ML VIAL As Ordered ONE; +BUPIVACAINE HCL 0.25% 30 ML VIAL As Ordered ONE; +HYDR-643 PO; +JARD1TAB PO; +LOSA25TA14 PO; +TIZA2TA PO; +TRIAMCINOLONE ACETONIDE SUSP 40 MG/ML VIAL (J3301) As Ordered ONE; +TRUL10IN; +diazePAM 5 MG TAB As Ordered ONE; +oxyCODONE 5MG TAB As Ordered ONE
--- NOTE | 2018-11-12 00:49 | ECWPNPC ---
PATIENT NAME: NEHEMIAH BOONE : 1965 GENDER: MALE VISIT DATE: 10/27/2018 DISCHARGE DATE: 10/27/18 1017 VISIT LOCKED DATE TIME: PHYSICIAN: JAMIE ROBERTSON MD RESOURCE: JAMIE ROBERTSON MD REASON FOR APPOINTMENT 1. TPI RIGHT SIDE THORACIC SPINE HISTORY OF PRESENT ILLNESS HISTORY OF PRESENT ILLNESS: PAIN THE PATIENT DESCRIBES THE PAIN... FALL RISK SCREENING: SCREENING :NO FALLS REPORTED IN THE LAST YEAR CURRENT MEDICATIONS TAKING GLUCOMETER 1 DIRECTED _ ONCE DAILY (E11.9), NOTES: PLEASE FILL PER INSURANCE TAKING LANCETS - MISCELLANEOUS DIRECTED SUBCUTANEOUSLY (E11.9) ONCE DAILY, NOTES: PLEASE FILL PER INSURANCE TAKING BLOOD GLUCOSE TEST - STRIP DIRECTED IN VITRO ONCE DAILY (E11.9), NOTES: PLEASE FILL PER INSURANCE TAKING ALVESCO 80 MCG/ACT AEROSOL SOLUTION 1 PUFF INHALATION TWICE A DAY, NOTES: 10-27-18 07 TAKING VENTOLIN HFA 90 MCG/ACT AEROSOL SOLUTION 2 PUFFS NEEDED INHALATION EVERY 6 HRS, NOTES: ONLY NEEDED NOT LATELY TAKING VITAMIN C 1000 MG TABLET 1 TABLET ORALLY ONCE A DAY, NOTES: 10-27-18599 TAKING VITAMIN D (CHOLECALCIFEROL) 1000 UNIT TABLET 2 TABLET ORALLY ONCE A DAY, NOTES: 10-26-18899 TAKING VITAMIN E 1000 UNIT CAPSULE 1 CAPSULE ORALLY ONCE A DAY, NOTES: NOT LATELY TAKING VITAMIN B12 1000 MCG TABLET EXTENDED RELEASE 1 TABLET ORALLY ONCE A DAY, NOTES: NOT LATELY TAKING MULTI COMPLETE - CAPSULE ORALLY , NOTES: 10-26-18899 TAKING L-LYSINE 500 MG TABLET ORALLY , NOTES: 10-26-18899 TAKING PEN NEEDLES 32G X 4 MM MISCELLANEOUS DIRECTED SUBCUTANEOUSLY (E11.9) ONCE DAILY WITH VICTOZA TAKING ASPIRIN 81 81 MG TABLET CHEWABLE 1 TABLET ORALLY ONCE A DAY, NOTES: 10-26-18 TAKING BD SYRINGE/NEEDLE 23G X 1 MISCELLANEOUS DIRECTED INTRAMUSCULARLY DIRECTED TAKING VIAGRA 100 MG TABLET 1 TABLET NEEDED ORALLY DIRECTED, NOTES: NONE RECENT TAKING FLOMAX 0.4 MG CAPSULE 1 CAPSULE ORALLY ONCE A DAY, NOTES: 10-26-18899 TAKING TIZANIDINE HCL 2 MG TABLET 1 TABLET NEEDED ORALLY FFOR SPASMS AND PAIN BEFORE BEDTIME MAY REPEAT IN 4 HRS MDD2, NOTES: A COUPLE DAYS TAKING HYPODERMIC NEEDLE 18G X 1-06/07 MISCELLANEOUS DIRECTED INTRADERMALLY TAKING PRAVASTATIN SODIUM 40 MG TABLET 1 TABLET ORALLY ONCE A DAY, NOTES: 10-26-182099 TAKING LOSARTAN POTASSIUM 25 MG TABLET 1 TABLET ORALLY ONCE A DAY, NOTES: 10-26-18 09 TAKING PROZAC 10 MG CAPSULE 1 CAPSULE ORALLY ONCE A DAY, NOTES: 10-27-18 08 TAKING JARDIANCE 10 MG TABLET 1 TABLET ORALLY ONCE A DAY, NOTES: 10-27-18799 TAKING TRULICITY 0.75 MG/0.5ML SOLUTION PEN-INJECTOR 0.75 MG DIRECTED SUBCUTANEOUS ONCE WEEKLY, NOTES: TUESDAY TAKING CARISOPRODOL 350 MG TABLET 1 TABLET NEEDED ORALLY (ISTOP:[id number]) BEFORE BEDTIME, NOTES: 2 DAYS TAKING TRAMADOL HCL 50 MG TABLET 1 TABLET NEEDED ORALLY EVERY 6 HRS MDD2, NOTES: 10-25-18899 TAKING TESTOSTERONE CYPIONATE 200 MG/ML OIL 1 ML INTRAMUSCULAR 200 MG EVERY 7 DAYS, CODE F- 10 ML VIAL, NOTES: WEEKLY NOT-TAKING BD LUER-FREDY SYRINGE 23G X 1 MISCELLANEOUS USE DIRECTED INTRAMUSCULARLY NOT-TAKING VIAGRA 100 MG TABLET 1 TABLET NEEDED ORALLY DIRECTED NOT-TAKING LOSARTAN POTASSIUM 25 MG TABLET 1 TABLET ORALLY ONCE A DAY NOT-TAKING PROPRANOLOL HCL 10 MG TABLET 1 TABLET ON AN EMPTY STOMACH ORALLY ONCE A DAY NOT-TAKING METOPROLOL SUCCINATE ER 50 MG TABLET EXTENDED RELEASE 24 HOUR 1 TABLET ORALLY ONCE A DAY NOT-TAKING SHINGRIX 50 MCG SUSPENSION RECONSTITUTED DIRECTED INTRAMUSCULAR DIRECTED, NOTES: HAS NOT COMPLETED YET UNKNOWN SYRINGE 22G X 1-2 MISCELLANEOUS DIRECTED INTRAMUSCULARLY UNKNOWN MIRTAZAPINE 15 MG TABLET 1 TABLET AT BEDTIME ORALLY ONCE A DAY, NOTES: NEEDED NONE IN 2 WEEKS MEDICATION LIST REVIEWED AND RECONCILED WITH THE PATIENT PAST MEDICAL HISTORY HTN ASTHMA ANXIETY DEPRESSION DM 2 ED - ON TESTOSTERONE REPLACEMENT HYPERLIPIDEMIA ASCVD RISK 15.2% ON 11/21 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 DISC BULGES AND SMALL DISC PROTRUSIONS AT T6-7 AND T7-8 WITHOUT SPINAL CORD COMPRESSION, SMALL DISC PROTRUSIONS AT T8-9 AND T9-10 WITHOUT SPINAL CORD COMPRESSION. ALLERGIES ROSUVASTATIN CALCIUM: MUSCLE ACHES - SIDE EFFECTS LISINOPRIL: COUGH - SIDE EFFECTS SURGICAL HISTORY RIGHT ANKLE RIGHT SHOULDER RHINOPLASTY REMOVAL OF UPP TONSILECTOMY 2005 COLONOSCOPY 03/10/2018 - SM INTERNAL HEMORRHOIDS, REPEAT 10 YRS PILAR CYST REMOVAL FROM SCALP (DERM) 08/29/18 FAMILY HISTORY FATHER: 77 YRS, COPD MOTHER: 67 YRS, DIAGNOSED WITH HYPERTENSION, DIABETES SIBLINGS: , 4 SISTERS 1 LIVING BROTHER, DIABETES, HEART DISEASE SON(S): ALIVE PATERNAL GRAND FATHER: UNKNOWN PATERNAL GRAND MOTHER: UNKNOWN MATERNAL GRAND FATHER: MATERNAL GRAND MOTHER: 1 BROTHER(S) , 4 SISTER(S) . 1 SON(S) . 4 SISTERS, 1 BROTHER\\\\\\\\NDENIES FAMILY HX OF SKIN AND PANCREATIC CANCER. HOSPITALIZATION/MAJOR DIAGNOSTIC PROCEDURE ANKLE REHAB FOR SUBSTANCE ABUSE X 3 REVIEW OF SYSTEMS REVIEWED BY: PROVIDER: . CONSTITUTIONAL: ANY CHANGE IN YOUR MEDICAL CONDITION? NO . CHILLS NO . FEVER NO . INFECTION: DO YOU HAVE NEW INFECTIONS? NO . DO YOU HAVE HISTORY OF MRSA? NO . MUSCULOSKELETAL: ANY NEW PATTERNS OF PAIN OR NUMBNESS? YES . GASTROENTEROLOGY: ANY NEW CHANGE IN BOWEL CONTROL? NO . GENITOURINARY: ANY NEW CHANGE IN BLADDER CONTROL? NO . IS THERE A CHANCE YOU COULD BE ? NO . HEMATOLOGY/LYMPH: DO YOU TAKE ANY BLOOD THINNERS? (FOR EXAMPLE- COUMADIN, PLAVIX, AGGRENOX, PLATEL, PRADAXA, OR XARELTO) NO . WHEN WAS YOUR LAST DOSE? DATE: TIME: . NEUROLOGY: HAVE YOU FALLEN IN THE PAST 12 MONTHS? NO . ANY NEW EXTREMITY NUMBNESS OR WEAKNESS? NO . CARDIOLOGY: DO YOU HAVE A PACEMAKER OR DEFIBRILLATOR? NO . RESPIRATORY: HAVE YOU BEEN SICK IN THE PAST WEEK? NO . FEVER NO . FLU LIKE SYMPTOMS? NO . COUGH NO . INTEGUMENTARY: DO YOU HAVE ANY RASHES OR OPEN SORES? NO . ALLERGIC/IMMUNO: ARE YOU ALLERGIC TO IV DYE? NO . ANY NEW ALLERGIES? NO . PSYCHIATRIC: DO YOU HAVE THOUGHTS OF HURTING YOURSELF OR SOMEONE ELSE? NO . ARE YOU ABUSED, NEGLECTED, OR IN AN UNSAFE ENVIRONMENT? NO . ENDOCRINOLOGY: ARE YOU DIABETIC? NO . OTHER: DO YOU NEED ANY PRESCRIPTIONS? NO . IF YES, PLEASE LIST: ____ . ANY NEW PROBLEMS WITH YOUR MEDICATIONS? NO . WHEN DID YOU LAST EAT? ____[phone] . WHEN DID YOU LAST DRINK? ____[id number] . WHAT DID YOU LAST DRINK? ____ . NAME OF PERSON DRIVING YOU HOME? ____ . DO YOU HAVE ANY OTHER QUESTIONS OR CONCERNS NO . VITAL SIGNS WT 196.0 LBS, HT 66 IN, BMI 31.63 INDEX, BP 154/71 MM HG, HR 98.0 /MIN, RR 18 /MIN, TEMP 98.0 F, OXYGEN SAT % 98%, NA INITIALS AW 0853, REVIEWED BY: KG. ASSESSMENTS MYALGIA, OTHER SITE - M79.18 (PRIMARY) PROCEDURES PN TRIGGER POINT INJECTION WITH STEROIDS PRE PROCEDURE DIAGNOSIS 1. MYALGIA 2. PAIN AT RIGHT THORACIC AREA POST PROCEDURE DIAGNOSIS 1. MYALGIA 2. PAIN AT RIGHT THORACIC AREA PROCEDURE TRIGGER POINT INJECTION AT RIGHT THORACIC AREA SURGEON DR. JAMIE ROBERTSON YOUTH OFFICER NONE ANESTHESIA LOCAL PRE PROCEDURE NOTE THE PATIENT HAS A HISTORY OF CHRONIC PAIN AT THE RIGHT THORACIC AREA. I EVALUATE THE PATIENT AND REVIEWED THE CHART. THERE IS EVIDENCE OF BANDS OF TISSUE WITH RESTRICTION OF MOVEMENT AND PRESENCE OF TRIGGER POINT AT THE AFFECTED AREA. I WENT OVER THE RISKS, ALTERNATIVES, AND BENEFITS ASSOCIATED WITH THIS PROCEDURE. THE PATIENT WOULD LIKE TO PROCEED AND GIVE CONSENT TO PERFORMED THE PROCEDURE. THE PATIENT DENIES UNEXPLAINABLE WEIGHT LOSS, FEVER, CHILLS, OR NEW CHANGES IN URINARY OR BOWEL CONTROL DESCRIPTION OF PROCEDURE THE PATIENT WAS BROUGHT TO THE PROCEDURE ROOM AND PLACED IN THE SITTING POSITION. THE AREA WAS CLEANED WITH ALCOHOL. THE PROCEDURE WAS DONE USING ASEPTIC STERILE TECHNIQUE. I CHECKED LATERALITY AND THE LEVEL WHERE THE PROCEDURE WAS GOING TO BE PERFORMED WITH THE PATIENT AND THE SUPPORTING STAFF AT THE MOMENT OF THE TIME OUT IN THE PROCEDURE ROOM. USING A 25-GAUGE NEEDLE, TRIGGER POINTS WERE INJECTED AT THE RIGHT THORACIC AREA WITH A TOTAL OF 40 ML OF BUPIVACAINE 0.25% AND KENALOG 40 MG. THERE WAS NO EVIDENCE OF BLOOD, PARESTHESIA OR CEREBROSPINAL FLUID DURING THE PROCEDURE. THE PATIENT WAS SENT TO THE RECOVERY ROOM. THE PATIENT WAS MOVING THE EXTREMITIES AND DOING WELL. THERE WAS NO COMPLICATION DURING THE PROCEDURE POST PROCEDURE NOTE THE PATIENT WILL BE SEEN IN A FOLLOW UP IN THE NEXT FEW WEEKS. INSTRUCTIONS WERE GIVEN, QUESTIONS WERE ANSWERED, AND THE PATIENT EXPRESSED UNDERSTANDING AND AGREES WITH THE PLAN. I, LEO WELDON, DOCUMENTED THE ABOVE INFORMATION ACTING A SCRIBE FOR DR. ROBERTSON. I HAVE REVIEWED THE ABOVE DOCUMENT, WRITTEN BY LEO TOTH AND I VERIFY THAT IT IS ACCURATE. PROCEDURE CODES 13776 INJ TRIGGER POINT / MUSC DISPOSITION & COMMUNICATION FOLLOW UP 3 WEEKS ELECTRONICALLY SIGNED BY JAMIE ROBERTSON MD, MD ON 11/11/2018 AT 04:52 PM EDT DISCLAIMER : THIS IS A VISIT SUMMARY EXTRACTED FROM THE [employer] CHART. IT IS NOT A COPY OF THE [employer] PROGRESS NOTE. ANA
== END ==
LOC: M PAIN 08:45
PROVIDERS: ATTEND Anesthesiology
DX: M79.18 Myalgia, other site (principal); I10 Essential (primary) hypertension; J45.909 Unspecified asthma, uncomplicated; F41.9 Anxiety disorder, unspecified; F32.9 Major depressive disorder, single episode, unspecified; E11.9 Type 2 diabetes mellitus without complications; E78.5 Hyperlipidemia, unspecified; N52.9 Male erectile dysfunction, unspecified; G47.33 Obstructive sleep apnea (adult) (pediatric); Z79.82 Long term (current) use of aspirin; Z79.891 Long term (current) use of opiate analgesic; Z79.84 Long term (current) use of oral hypoglycemic drugs; Z88.8 Allergy status to other drugs, medicaments and biological substances
CPT/HCPCS: 20552; J3301

== ENCOUNTER 2018-11-06 15:14 | Emergency (ER) | payer BC, OTHER ==
[~2018-11-06] VITALS: Ht 167.6 cm; Wt 89.3 kg
[~2018-11-06 15:14] MED LIST changes: -BUPIVACAINE HCL 0.25% 10 ML VIAL As Ordered ONE; -BUPIVACAINE HCL 0.25% 30 ML VIAL As Ordered ONE; -HYDR-643 PO; -JARD1TAB PO; -LOSA25TA14 PO; -TIZA2TA PO; -TRIAMCINOLONE ACETONIDE SUSP 40 MG/ML VIAL (J3301) As Ordered ONE; -TRUL10IN; -diazePAM 5 MG TAB As Ordered ONE; -oxyCODONE 5MG TAB As Ordered ONE
[2018-11-06 15:15] VITALS: BP 146/79
--- NOTE | 2018-11-06 15:53 | REP ---
LEFT SHOULDER, THREE VIEWS: HISTORY: Injury. There is no acute fracture or dislocation. The joint spaces are normal in appearance. IMPRESSION: There is no acute fracture or dislocation. Electronically Signed by Darrel Lin MD 11/06/2018 04:13 P
[2018-11-06] MEDS ORDERED: LOSA25TA14 PO (17:04)
[2018-11-06] MEDS ORDERED: HYDR-643 PO (17:04)
[2018-11-06] MEDS ORDERED: JARD1TAB PO (17:04)
[2018-11-06] MEDS ORDERED: TRUL10IN (17:04)
[2018-11-06] MEDS ORDERED: TIZA2TA PO (17:04)
== END 2018-11-06 17:34 | disposition home or self-care (01) ==
LOC: M ED 15:14
DX: S46.912A Strain of unspecified muscle, fascia and tendon at shoulder and upper arm level, left arm, initial encounter (principal); X50.0XXA Overexertion from strenuous movement or load, initial encounter; Y92.89 Other specified places as the place of occurrence of the external cause; Y93.89 Activity, other specified; Y99.0 Civilian activity done for income or pay; E11.9 Type 2 diabetes mellitus without complications; I10 Essential (primary) hypertension; F32.9 Major depressive disorder, single episode, unspecified; Z79.82 Long term (current) use of aspirin; Z79.899 Other long term (current) drug therapy

== ENCOUNTER → 2018-11-20 | Outpatient (CLI) | payer BC ==
[~2018-11-20] MED LIST changes: +HYDR-643 PO; +JARD1TAB PO; +LOSA25TA14 PO; +TIZA2TA PO; +TRUL10IN
--- NOTE | 2018-12-04 01:19 | ECWPNPC ---
PATIENT NAME: NEHEMIAH BOONE : 1965 GENDER: MALE VISIT DATE: 11/20/2018 DISCHARGE DATE: 11/20/18 1158 VISIT LOCKED DATE TIME: PHYSICIAN: JAMIE ROBERTSON MD RESOURCE: JAMIE ROBERTSON MD REASON FOR APPOINTMENT 1. POST TPI/THORACIC PAIN HISTORY OF PRESENT ILLNESS HISTORY OF PRESENT ILLNESS: PAIN THE PATIENT DESCRIBES THE PAIN... THE PATIENT DESCRIBES THE PAIN... 53 YEAR OLD MALE PATIENT WITH A HISTORY OF CHRONIC THORACIC PAIN. THE PATIENT DESCRIBES THE PAIN STABBING, SHOOTING, AND DAILY WITH A PAIN SCORE OF 4-8/10 DEPENDING ON PHYSICAL ACTIVITY. THE PATIENT STATES HE HAS BEEN EXPERIENCING THE THORACIC PAIN FOR MANY YEARS, HOWEVER OVER THE LAST FEW WEEKS HIS PAIN HAS BEEN INCREASING AND HE IS EXPERIENCING BACK SPASMS. THE PATIENT SAYS THE PAIN IS AFFECTING HIS ABILITY TO PERFORM HIS DAILY ACTIVITIES, SUCH WORKING AROUND HIS HOUSE, EXERCISING, AND PICKING UP OBJECTS. THE PATIENT RECEIVED A BILATERAL THORACIC TRIGGER POINT INJECTION WHICH HE SAYS OFFERED GOOD RELIEF FOR THE FIRST FEW DAYS, HOWEVER THE PAIN HAS RETURNED. THE PATIENT STATES HIS PREVIOUS TRIGGER POINT INJECTION PROVIDED HIM WITH 6 WEEKS OF GOOD PAIN RELIEF. THE PATIENT SAYS HE USES IBUPROFEN WHEN THE PAIN IS INTENSE, WHICH HELPS ALLEVIATES SOME OF THE PAIN. THE PATIENT SAYS HE HAS NEVER TRIED ANY PATCHES FOR PAIN RELIEF. THE PATIENT MENTIONS HE HAS HAD A RIGHT SIDE SURGERY AND A COUPLE OF FACET BLOCKS DONE IN THE PAST IN [place]. THE PATIENT STATES HE RECENTLY TORE HIS LEFT ROTATOR CUFF WHILE MOVING A GIANT CARDBOARD BALE WHEN HE GOT STUCK BETWEEN IT AND THE WALL, DURING PUSHING THE BALE HE EXPERIENCED A POP IN AND OUT OF THE SHOULDER JOINT. THE PATIENT SAYS HE IS HAVING A SHOULDER MRI PERFORMED ON 11/24/2018, DUE TO THE INJURY. PATIENT DENIES UNEXPLAINABLE WEIGHT LOSS, FEVER, CHILLS, NEW CHANGES ON HIS URINARY OR BOWEL CONTROL. FALL RISK SCREENING: SCREENING :NO FALLS REPORTED IN THE LAST YEAR :NO FALLS REPORTED IN THE LAST YEAR SCREENING :NO FALLS REPORTED IN THE LAST YEAR :NO FALLS REPORTED IN THE LAST YEAR CURRENT MEDICATIONS TAKING GLUCOMETER 1 DIRECTED _ ONCE DAILY (E11.9) TAKING LANCETS - MISCELLANEOUS DIRECTED SUBCUTANEOUSLY (E11.9) ONCE DAILY TAKING BLOOD GLUCOSE TEST - STRIP DIRECTED IN VITRO ONCE DAILY (E11.9) TAKING ALVESCO 80 MCG/ACT AEROSOL SOLUTION 1 PUFF INHALATION TWICE A DAY TAKING VENTOLIN HFA 90 MCG/ACT AEROSOL SOLUTION 2 PUFFS NEEDED INHALATION EVERY 6 HRS TAKING VITAMIN C 1000 MG TABLET 1 TABLET ORALLY ONCE A DAY TAKING VITAMIN D (CHOLECALCIFEROL) 1000 UNIT TABLET 2 TABLET ORALLY ONCE A DAY TAKING VITAMIN E 1000 UNIT CAPSULE 1 CAPSULE ORALLY ONCE A DAY TAKING VITAMIN B12 1000 MCG TABLET EXTENDED RELEASE 1 TABLET ORALLY ONCE A DAY TAKING MULTI COMPLETE - CAPSULE ORALLY TAKING L-LYSINE 500 MG TABLET ORALLY TAKING PEN NEEDLES 32G X 4 MM MISCELLANEOUS DIRECTED SUBCUTANEOUSLY (E11.9) ONCE DAILY WITH VICTOZA TAKING ASPIRIN 81 81 MG TABLET CHEWABLE 1 TABLET ORALLY ONCE A DAY TAKING BD SYRINGE/NEEDLE 23G X 1 MISCELLANEOUS DIRECTED INTRAMUSCULARLY DIRECTED TAKING VIAGRA 100 MG TABLET 1 TABLET NEEDED ORALLY DIRECTED TAKING FLOMAX 0.4 MG CAPSULE 1 CAPSULE ORALLY ONCE A DAY TAKING TIZANIDINE HCL 2 MG TABLET 1 TABLET NEEDED ORALLY FFOR SPASMS AND PAIN BEFORE BEDTIME MAY REPEAT IN 4 HRS MDD2 TAKING HYPODERMIC NEEDLE 18G X 1-1/2 MISCELLANEOUS DIRECTED INTRADERMALLY TAKING PRAVASTATIN SODIUM 40 MG TABLET 1 TABLET ORALLY ONCE A DAY TAKING LOSARTAN POTASSIUM 25 MG TABLET 1 TABLET ORALLY ONCE A DAY TAKING PROZAC 20 MG CAPSULE 1 CAPSULE ORALLY ONCE A DAY TAKING JARDIANCE 10 MG TABLET 1 TABLET ORALLY ONCE A DAY TAKING TRULICITY 0.75 MG/0.5ML SOLUTION PEN-INJECTOR 0.75 MG DIRECTED SUBCUTANEOUS ONCE WEEKLY, NOTES: TUESDAY TAKING CARISOPRODOL 350 MG TABLET 1 TABLET NEEDED ORALLY (ISTOP:[id number]) BEFORE BEDTIME TAKING TRAMADOL HCL 50 MG TABLET 1 TABLET NEEDED ORALLY EVERY 6 HRS MDD2 TAKING TESTOSTERONE CYPIONATE 200 MG/ML OIL 1 ML INTRAMUSCULAR 200 MG EVERY 7 DAYS, CODE F- 10 ML VIAL, NOTES: WEEKLY TAKING SYRINGE 22G X 1-1/2 MISCELLANEOUS DIRECTED INTRAMUSCULARLY TAKING MIRTAZAPINE 15 MG TABLET 1 TABLET AT BEDTIME ORALLY ONCE A DAY NOT-TAKING BD LUER-FREDY SYRINGE 23G X 1 MISCELLANEOUS USE DIRECTED INTRAMUSCULARLY NOT-TAKING VIAGRA 100 MG TABLET 1 TABLET NEEDED ORALLY DIRECTED NOT-TAKING LOSARTAN POTASSIUM 25 MG TABLET 1 TABLET ORALLY ONCE A DAY NOT-TAKING PROPRANOLOL HCL 10 MG TABLET 1 TABLET ON AN EMPTY STOMACH ORALLY ONCE A DAY NOT-TAKING METOPROLOL SUCCINATE ER 50 MG TABLET EXTENDED RELEASE 24 HOUR 1 TABLET ORALLY ONCE A DAY NOT-TAKING SHINGRIX 50 MCG SUSPENSION RECONSTITUTED DIRECTED INTRAMUSCULAR DIRECTED, NOTES: HAS NOT COMPLETED YET MEDICATION LIST REVIEWED AND RECONCILED WITH THE PATIENT PAST MEDICAL HISTORY HTN ASTHMA ANXIETY DEPRESSION DM 2 ED - ON TESTOSTERONE REPLACEMENT HYPERLIPIDEMIA ASCVD RISK 15.2% ON 11/21 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 DISC BULGES AND SMALL DISC PROTRUSIONS AT T6-7 AND T7-8 WITHOUT SPINAL CORD COMPRESSION, SMALL DISC PROTRUSIONS AT T8-9 AND T9-10 WITHOUT SPINAL CORD COMPRESSION. TORN LEFT ROTATOR CUFF ALLERGIES ROSUVASTATIN CALCIUM: MUSCLE ACHES - SIDE EFFECTS LISINOPRIL: COUGH - SIDE EFFECTS SURGICAL HISTORY RIGHT ANKLE RIGHT SHOULDER RHINOPLASTY REMOVAL OF UPP TONSILECTOMY 2005 COLONOSCOPY 03/10/2018 - SM INTERNAL HEMORRHOIDS, REPEAT 10 YRS PILAR CYST REMOVAL FROM SCALP (DERM) 08/29/18 FAMILY HISTORY FATHER: 77 YRS, COPD MOTHER: 67 YRS, DIAGNOSED WITH DIABETES, HYPERTENSION SIBLINGS: , 4 SISTERS 1 LIVING BROTHER, DIABETES, HEART DISEASE SON(S): ALIVE PATERNAL GRAND FATHER: UNKNOWN PATERNAL GRAND MOTHER: UNKNOWN MATERNAL GRAND FATHER: MATERNAL GRAND MOTHER: 1 BROTHER(S) , 4 SISTER(S) . 1 SON(S) . 4 SISTERS, 1 BROTHER\\\\\\\\NDENIES FAMILY HX OF SKIN AND PANCREATIC CANCER. SOCIAL HISTORY GENERAL: TOBACCO USE ARE YOU A:NONSMOKER OTHERS AT HOME: SPOUSE. EDUCATION LEVEL OF EDUCATION:NOT FINISHED COLLEGE DIET: REGULAR. LANGUAGE LANGUAGES SPOKEN:SAMI RECREATIONAL DRUG USE DRUG USE?YES FORMER COCAINE ADDICT EXERCISE: DAILY 4-5 TIMES PER WEEK. LEARNING BARRIERS / SPECIAL NEEDS CHANGE FROM LAST VISIT? 08/29/18 BARRIERS TO LEARNING?NO HEARING IMPAIRED?NO VISION IMPAIRED?YES COGNITIVELY IMPAIRED?NO :CORRECTIVE LENSES READINESS TO LEARN?YES LEARNING PREFERENCES?NO PAIN CLINIC PFS, CLERGY, PUBLIC HEALTH REFERRALS PFS REFERRAL NEEDED?NO CLERGY REFERRAL NEEDED?NO PUBLIC HEALTH REFERRAL NEEDED?NO WAS THE PROVIDER NOTIFIED OF ANY PERTINENT INFO?NO HAS THE PATIENT BEEN EDUCATED REGARDING HIS/HER PLAN OF CARE?YES HAS THE PATIENT BEEN EDUCATED REGARDING PAIN, THE RISK FOR PAIN, THE IMPORTANCE OF EFFECTIVE PAIN MANAGEMENT, AND THE PAIN ASSESSMENT PROCESS?YES LATEX QUESTIONNAIRE LATEX ALLERGY : HAVE YOU EVER DEVELOPED ANY TYPE OF REACTION AFTER HANDLING LATEX PRODUCTS SUCH RUBBER GLOVES, CONDOMS, DIAPHRAGMS, BALLOONS, SOCKS, OR UNDERWEAR?NO LATEX ALLERGY : HAVE YOU EVER DEVELOPED ANY TYPE OF REACTION DURING OR AFTER DENTAL APPOINTMENT, VAGINAL/RECTAL EXAMINATION, SURGICAL PROCEDURE, OR ANY OTHER EXPOSURE?NO DATE ASKED : 09/19/2018 LATEX RISK : HAVE YOU EVER HAD ANY DIFFICULTY BREATHING OR HIVES AFTER EATING OR HANDLING ANY FRUITS, OR VEGETABLES; SUCH KIWI, BANANAS, STONE FRUITS, OR CHESTNUTSNO LATEX RISK : DO YOU HAVE A PREVIOUS PERSONAL HISTORY OF MORE THAN NINE SURGERIES, SPINA BIFIDA, OR REPEATED CATHERTIZATIONS? NO LATEX RISK : ARE YOU FREQUENTLY EXPOSED TO LATEX PRODUCTS IN YOUR OCCUPATION?NO CAFFEINE CAFFEINE USE?YES HOW OFTEN AND HOW MUCH? 1 CUP OF COFFEE PER DAY AND OCCASIONAL SODA ADVANCE DIRECTIVE ADVANCE DIRECTIVE DISCUSSED WITH PATIENT:YES PT. HAS HCP SHIRA BOONE [phone] JEHOVAH'S WITNESS JEHOVAH'S WITNESS NONE MARITAL STATUS: . ALCOHOL SCREENING DID YOU HAVE A DRINK CONTAINING ALCOHOL IN THE PAST YEAR?NO POINTS0 INTERPRETATIONNEGATIVE OCCUPATION: RETAIL. REVIEWED WITH PT 07/11/18 0852 BVREVIEWED WITH PT 08/28/18 0907 BVREVIEWED WITH PT 09/19/18 1217 LASREVIEWED WITH PT 11/20/18 1041 [place]. HOSPITALIZATION/MAJOR DIAGNOSTIC PROCEDURE ANKLE REHAB FOR SUBSTANCE ABUSE X 3 REVIEW OF SYSTEMS REVIEWED BY: PROVIDER: JAMIE ROBERTSON MD . CONSTITUTIONAL: ANY CHANGE IN YOUR MEDICAL CONDITION? YES TORN ROTATOR CUFF (LEFT) 2 WEEKS AGO, MRI SCHEDULED FOR Tuesday11/24/18, FOLLOW UP WITH OTHOPEDIC GROUP 11/30/18 . CHILLS NO, NO . FEVER NO, NO . INFECTION: DO YOU HAVE NEW INFECTIONS? NO, NO . DO YOU HAVE HISTORY OF MRSA? NO, NO . MUSCULOSKELETAL: ANY NEW PATTERNS OF PAIN OR NUMBNESS? NO, NO . GASTROENTEROLOGY: ANY NEW CHANGE IN BOWEL CONTROL? NO, NO . GENITOURINARY: ANY NEW CHANGE IN BLADDER CONTROL? NO, NO . IS THERE A CHANCE YOU COULD BE ? NO, NO . HEMATOLOGY/LYMPH: DO YOU TAKE ANY BLOOD THINNERS? (FOR EXAMPLE- COUMADIN, PLAVIX, AGGRENOX, PLATEL, PRADAXA, OR XARELTO) NO, NO . WHEN WAS YOUR LAST DOSE? DATE: TIME: , DATE: TIME: . NEUROLOGY: HAVE YOU FALLEN IN THE PAST 12 MONTHS? NO, NO . ANY NEW EXTREMITY NUMBNESS OR WEAKNESS? YES- NUMBENESS/TINGLING LEFT SHOULDER DOWN TO HAND . CARDIOLOGY: DO YOU HAVE A PACEMAKER OR DEFIBRILLATOR? NO, NO . RESPIRATORY: HAVE YOU BEEN SICK IN THE PAST WEEK? NO, NO . FEVER NO, NO . FLU LIKE SYMPTOMS? NO, NO . COUGH NO, NO . INTEGUMENTARY: DO YOU HAVE ANY RASHES OR OPEN SORES? NO, NO . ALLERGIC/IMMUNO: ARE YOU ALLERGIC TO IV DYE? NO, NO . ANY NEW ALLERGIES? NO, NO . PSYCHIATRIC: DO YOU HAVE THOUGHTS OF HURTING YOURSELF OR SOMEONE ELSE? NO, NO . ARE YOU ABUSED, NEGLECTED, OR IN AN UNSAFE ENVIRONMENT? NO, NO . ENDOCRINOLOGY: ARE YOU DIABETIC? YES . OTHER: DO YOU NEED ANY PRESCRIPTIONS? NO, NO . IF YES, PLEASE LIST: ____, ____ . ANY NEW PROBLEMS WITH YOUR MEDICATIONS? NO, NO . WHEN DID YOU LAST EAT? ____, ____ . WHEN DID YOU LAST DRINK? ____, ____ . WHAT DID YOU LAST DRINK? ____, ____ . NAME OF PERSON DRIVING YOU HOME? ____, ____ . DO YOU HAVE ANY OTHER QUESTIONS OR CONCERNS YES- WHAT IS THE NEXT STEP? . VITAL SIGNS WT 190.6 LBS, HT 66 IN, BMI 30.76 INDEX, BP 134/79 MM HG, HR 96 /MIN, RR 18 /MIN, TEMP 98.6 F, OXYGEN SAT % 98%, NA INITIALS AW 1031VITALS REVIEWED WITH PATIENT 11/20/2018 10:48 [place]. EXAMINATION GENERAL EXAMINATION: PATIENT IS ALERT O X 3 AND COOPERATIVE. PRESENCE OF BANDS OF TISSUE AND TRIGGER POINTS WITH RESTRICTION OF MOVEMENT OF THE THORACIC SPINE. PAIN INCREASES OVER THE THORACIC FACET JOINTS WITH EXTENSION AND LATERAL ROTATION OF THE BACK. MRI OF THE THORACIC SPINE DONE ON 05/03/2018 SHOWS FACET ARTHROPATHY CHANGES. ASSESSMENTS SPONDYLOSIS OF THORACIC REGION WITHOUT MYELOPATHY OR RADICULOPATHY - M47.814 (PRIMARY) TREATMENT SPONDYLOSIS OF THORACIC REGION WITHOUT MYELOPATHY OR RADICULOPATHY CLINICAL NOTES: WE DISCUSSED SEVERAL ISSUES WITH MR. BOONE'S PAIN MANAGEMENT CASE. I AM REQUESTING FLECTOR PATCHES FOR THE PATIENT TO USE TWICE DAILY FOR 10 DAYS DUE TO EXACERBATION OF THE THORACIC PAIN OVER THE LAST COUPLE OF WEEKS. I WILL START THE PATIENT ON MOBIC 15 MG 1 TABLET TO BE WITH FOOD ONCE DAILY NEEDED FOR PAIN. I DISCUSSED WITH THE PATIENT ABOUT THE SAFE USE OF NSAIDS THAT IS TO BE USED SHORT-TERM IN ORDER TO AVOID PEPTIC AND GASTROINTESTINAL ISSUES THAT CAN OCCUR WITH LONG-TERM USAGE. I DISCUSSED WITH THE PATIENT THAT HE IS A GOOD CANDIDATE FOR FACET BLOCKS, WHICH HE MAY CONSIDER IN THE FUTURE IF THE MEDICATIONS DO NOT HELP. THE PATIENT WILL FOLLOW UP IN 1 MONTH. INSTRUCTIONS WERE GIVEN, QUESTIONS WERE ANSWERED, PATIENT REPORTS UNDERSTANDING AND AGREES WITH THE PLAN. I, ELIDIA MATUTE, DOCUMENTED THE ABOVE INFORMATION ACTING A SCRIBE FOR DR. ROBERTSON. I HAVE REVIEWED THE ABOVE DOCUMENT, WRITTEN BY ELIDIA TOTH AND I VERIFY THAT IT IS ACCURATE. . OTHERS START MELOXICAM TABLET, 15 MG, 1 TABLET WITH FOOD, ORALLY FOR PAIN, ONCE A DAY NEEDED, 30 DAY(S), 20, REFILLS 1 START FLECTOR PATCH, 1.3 %, 1 PATCH TO SKIN, TRANSDERMAL, TWICE A DAY, 10 DAYS, 20, REFILLS 0 PREVENTIVE MEDICINE PAIN CLINIC TEACHING: MEDICATIONS FLECTOR PATCH HANDOUT PRINTED, REVIEWED AND GIVEN TO PT. EM. PROCEDURE CODES FA211 ESTABILISHED PATIENT [facility] FACILITY CHARGE G8427 CURRENT MEDS W/DOSAGES DOCUMENTED G8730 PAIN ASSESS POS TOOL F/U PLAN DOC DISPOSITION & COMMUNICATION FOLLOW UP 4 WEEKS (REASON: MEDS) ELECTRONICALLY SIGNED BY JAMIE ROBERTSON MD, MD ON 12/03/2018 AT 07:05 PM EDT DISCLAIMER : THIS IS A VISIT SUMMARY EXTRACTED FROM THE [employer] CHART. IT IS NOT A COPY OF THE [employer] PROGRESS NOTE. MTDD
== END ==
LOC: M PAIN 10:30
PROVIDERS: ATTEND Anesthesiology
DX: M47.814 Spondylosis without myelopathy or radiculopathy, thoracic region (principal); I10 Essential (primary) hypertension; J45.909 Unspecified asthma, uncomplicated; F41.9 Anxiety disorder, unspecified; F32.9 Major depressive disorder, single episode, unspecified; E11.9 Type 2 diabetes mellitus without complications; N52.9 Male erectile dysfunction, unspecified; E78.5 Hyperlipidemia, unspecified; G47.33 Obstructive sleep apnea (adult) (pediatric); Z79.82 Long term (current) use of aspirin; Z79.891 Long term (current) use of opiate analgesic; Z79.84 Long term (current) use of oral hypoglycemic drugs; Z88.8 Allergy status to other drugs, medicaments and biological substances

== ENCOUNTER → 2018-12-01 | Outpatient (CLI) | payer BC ==
[2018-12-01 16:09] LABS: PERCENT SATURATION 8.2 % (19.7-50.0)
[2018-12-01 16:19] LABS: HEMOGLOBIN A1c 6.4 %
== END ==
LOC: M WUC 11:42
PROVIDERS: ATTEND Physician Assistant
DX: E11.9 Type 2 diabetes mellitus without complications (principal); D50.9 Iron deficiency anemia, unspecified

== ENCOUNTER → 2018-12-14 | Outpatient (CLI) | payer BC ==
--- NOTE | 2018-12-20 00:33 | ECWPNPC ---
PATIENT NAME: NEHEMIAH BOONE : 1965 GENDER: MALE VISIT DATE: 12/14/2018 DISCHARGE DATE: 12/14/18 1624 VISIT LOCKED DATE TIME: PHYSICIAN: NADEGE LEO RESOURCE: NADEGE LEO REASON FOR APPOINTMENT 1. MEDS HISTORY OF PRESENT ILLNESS HISTORY OF PRESENT ILLNESS: PAIN THE PATIENT DESCRIBES THE PAIN... THE PATIENT DESCRIBES THE PAIN... THE PATIENT DESCRIBES THE PAIN... 53 YEAR OLD MALE IN FOR CHRONIC PAIN FOLLOW UP. HE WAS TRIALED ON FLECTOR PATCH AND MOBIC RECENTLY AND STATES THEY WERE INEFFECTIVE. HE RATES HIS PAIN AT AN 8-9/10 CURRENTLY. HE DESCRIBES THE PAIN BURNING, STABBING, SHOOTING, AND IT HAS INCREASED. FALL RISK SCREENING: SCREENING :NO FALLS REPORTED IN THE LAST YEAR CURRENT MEDICATIONS TAKING GLUCOMETER 1 DIRECTED _ ONCE DAILY (E11.9) TAKING LANCETS - MISCELLANEOUS DIRECTED SUBCUTANEOUSLY (E11.9) ONCE DAILY TAKING BLOOD GLUCOSE TEST - STRIP DIRECTED IN VITRO ONCE DAILY (E11.9) TAKING ALVESCO 80 MCG/ACT AEROSOL SOLUTION 1 PUFF INHALATION TWICE A DAY TAKING VENTOLIN HFA 90 MCG/ACT AEROSOL SOLUTION 2 PUFFS NEEDED INHALATION EVERY 6 HRS TAKING VITAMIN C 1000 MG TABLET 1 TABLET ORALLY ONCE A DAY TAKING VITAMIN D (CHOLECALCIFEROL) 1000 UNIT TABLET 2 TABLET ORALLY ONCE A DAY TAKING VITAMIN E 1000 UNIT CAPSULE 1 CAPSULE ORALLY ONCE A DAY TAKING VITAMIN B12 1000 MCG TABLET EXTENDED RELEASE 1 TABLET ORALLY ONCE A DAY TAKING MULTI COMPLETE - CAPSULE ORALLY TAKING L-LYSINE 500 MG TABLET ORALLY TAKING PEN NEEDLES 32G X 4 MM MISCELLANEOUS DIRECTED SUBCUTANEOUSLY (E11.9) ONCE DAILY WITH VICTOZA TAKING ASPIRIN 81 81 MG TABLET CHEWABLE 1 TABLET ORALLY ONCE A DAY TAKING BD SYRINGE/NEEDLE 23G X 1 MISCELLANEOUS DIRECTED INTRAMUSCULARLY DIRECTED TAKING HYPODERMIC NEEDLE 18G X 1-1/2 MISCELLANEOUS DIRECTED INTRADERMALLY TAKING PRAVASTATIN SODIUM 40 MG TABLET 1 TABLET ORALLY ONCE A DAY TAKING PROZAC 20 MG CAPSULE 1 CAPSULE ORALLY ONCE A DAY TAKING JARDIANCE 10 MG TABLET 1 TABLET ORALLY ONCE A DAY TAKING CARISOPRODOL 350 MG TABLET 1 TABLET NEEDED ORALLY (ISTOP:[id number]) BEFORE BEDTIME TAKING TRAMADOL HCL 50 MG TABLET 1 TABLET NEEDED ORALLY EVERY 6 HRS MDD2 TAKING TESTOSTERONE CYPIONATE 200 MG/ML OIL 1 ML INTRAMUSCULAR 200 MG EVERY 7 DAYS, CODE F- 10 ML VIAL, NOTES: WEEKLY TAKING SYRINGE 22G X 1-06/07 MISCELLANEOUS DIRECTED INTRAMUSCULARLY TAKING MIRTAZAPINE 15 MG TABLET 1 TABLET AT BEDTIME ORALLY ONCE A DAY TAKING LOSARTAN POTASSIUM 25 MG TABLET 1 TABLET ORALLY ONCE A DAY TAKING FLOMAX 0.4 MG CAPSULE TAKE ONE CAPSULE BY MOUTH ONCE A DAY TAKING TRULICITY 0.75 MG/0.5ML SOLUTION PEN-INJECTOR 0.75 MG DIRECTED SUBCUTANEOUS ONCE WEEKLY, NOTES: TUESDAY TAKING BD LUER-FREDY SYRINGE 23G X 1 MISCELLANEOUS USE DIRECTED INTRAMUSCULARLY NOT-TAKING MELOXICAM 15 MG TABLET 1 TABLET WITH FOOD ORALLY FOR PAIN ONCE A DAY NEEDED NOT-TAKING FLECTOR 1.3 % PATCH 1 PATCH TO SKIN TRANSDERMAL TWICE A DAY NOT-TAKING TIZANIDINE HCL 2 MG TABLET 1 TABLET NEEDED ORALLY FFOR SPASMS AND PAIN BEFORE BEDTIME MAY REPEAT IN 4 HRS MDD2 DISCONTINUED VIAGRA 100 MG TABLET 1 TABLET NEEDED ORALLY DIRECTED DISCONTINUED VIAGRA 100 MG TABLET 1 TABLET NEEDED ORALLY DIRECTED DISCONTINUED LOSARTAN POTASSIUM 25 MG TABLET 1 TABLET ORALLY ONCE A DAY DISCONTINUED PROPRANOLOL HCL 10 MG TABLET 1 TABLET ON AN EMPTY STOMACH ORALLY ONCE A DAY DISCONTINUED METOPROLOL SUCCINATE ER 50 MG TABLET EXTENDED RELEASE 24 HOUR 1 TABLET ORALLY ONCE A DAY DISCONTINUED SHINGRIX 50 MCG SUSPENSION RECONSTITUTED DIRECTED INTRAMUSCULAR DIRECTED, NOTES: HAS NOT COMPLETED YET MEDICATION LIST REVIEWED AND RECONCILED WITH THE PATIENT PAST MEDICAL HISTORY HTN ASTHMA ANXIETY DEPRESSION DM 2 ED - ON TESTOSTERONE REPLACEMENT HYPERLIPIDEMIA ASCVD RISK 15.2% ON 11/21 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 DISC BULGES AND SMALL DISC PROTRUSIONS AT T6-7 AND T7-8 WITHOUT SPINAL CORD COMPRESSION, SMALL DISC PROTRUSIONS AT T8-9 AND T9-10 WITHOUT SPINAL CORD COMPRESSION. TORN LEFT ROTATOR CUFF ALLERGIES ROSUVASTATIN CALCIUM: MUSCLE ACHES - SIDE EFFECTS LISINOPRIL: COUGH - SIDE EFFECTS SURGICAL HISTORY RIGHT ANKLE RIGHT SHOULDER RHINOPLASTY REMOVAL OF UPP TONSILECTOMY 2006 COLONOSCOPY 03/10/2018 - SM INTERNAL HEMORRHOIDS, REPEAT 10 YRS PILAR CYST REMOVAL FROM SCALP (DERM) 08/29/18 FAMILY HISTORY FATHER: 77 YRS, COPD MOTHER: 67 YRS, DIAGNOSED WITH HYPERTENSION, DIABETES SIBLINGS: , 4 SISTERS 1 LIVING BROTHER, DIABETES, HEART DISEASE SON(S): ALIVE PATERNAL GRAND FATHER: UNKNOWN PATERNAL GRAND MOTHER: UNKNOWN MATERNAL GRAND FATHER: MATERNAL GRAND MOTHER: 1 BROTHER(S) , 4 SISTER(S) . 1 SON(S) . 4 SISTERS, 1 BROTHER\\\\\\\\NDENIES FAMILY HX OF SKIN AND PANCREATIC CANCER. SOCIAL HISTORY GENERAL: TOBACCO USE ARE YOU A:NONSMOKER OTHERS AT HOME: SPOUSE. EDUCATION LEVEL OF EDUCATION:NOT FINISHED COLLEGE DIET: REGULAR. LANGUAGE LANGUAGES SPOKEN:CUBAN RECREATIONAL DRUG USE DRUG USE?YES FORMER COCAINE ADDICT EXERCISE: DAILY 4-5 TIMES PER WEEK. LEARNING BARRIERS / SPECIAL NEEDS CHANGE FROM LAST VISIT? 08/29/18 BARRIERS TO LEARNING?NO HEARING IMPAIRED?NO VISION IMPAIRED?YES COGNITIVELY IMPAIRED?NO :CORRECTIVE LENSES READINESS TO LEARN?YES LEARNING PREFERENCES?NO PAIN CLINIC PFS, CLERGY, PUBLIC HEALTH REFERRALS PFS REFERRAL NEEDED?NO CLERGY REFERRAL NEEDED?NO PUBLIC HEALTH REFERRAL NEEDED?NO WAS THE PROVIDER NOTIFIED OF ANY PERTINENT INFO?NO HAS THE PATIENT BEEN EDUCATED REGARDING HIS/HER PLAN OF CARE?YES HAS THE PATIENT BEEN EDUCATED REGARDING PAIN, THE RISK FOR PAIN, THE IMPORTANCE OF EFFECTIVE PAIN MANAGEMENT, AND THE PAIN ASSESSMENT PROCESS?YES LATEX QUESTIONNAIRE LATEX ALLERGY : HAVE YOU EVER DEVELOPED ANY TYPE OF REACTION AFTER HANDLING LATEX PRODUCTS SUCH RUBBER GLOVES, CONDOMS, DIAPHRAGMS, BALLOONS, SOCKS, OR UNDERWEAR?NO LATEX ALLERGY : HAVE YOU EVER DEVELOPED ANY TYPE OF REACTION DURING OR AFTER DENTAL APPOINTMENT, VAGINAL/RECTAL EXAMINATION, SURGICAL PROCEDURE, OR ANY OTHER EXPOSURE?NO LATEX RISK : HAVE YOU EVER HAD ANY DIFFICULTY BREATHING OR HIVES AFTER EATING OR HANDLING ANY FRUITS, OR VEGETABLES; SUCH KIWI, BANANAS, STONE FRUITS, OR CHESTNUTSNO LATEX RISK : DO YOU HAVE A PREVIOUS PERSONAL HISTORY OF MORE THAN NINE SURGERIES, SPINA BIFIDA, OR REPEATED CATHERTIZATIONS? NO LATEX RISK : ARE YOU FREQUENTLY EXPOSED TO LATEX PRODUCTS IN YOUR OCCUPATION?NO DATE ASKED : 12/14/2018 CAFFEINE CAFFEINE USE?YES HOW OFTEN AND HOW MUCH? 1 CUP OF COFFEE PER DAY AND OCCASIONAL SODA ADVANCE DIRECTIVE ADVANCE DIRECTIVE DISCUSSED WITH PATIENT:YES PT. HAS HCP SHIRA BOONE [phone] JAIN JAIN NONE MARITAL STATUS: . ALCOHOL SCREENING DID YOU HAVE A DRINK CONTAINING ALCOHOL IN THE PAST YEAR?NO POINTS0 INTERPRETATIONNEGATIVE OCCUPATION: RETAIL. REVIEWED WITH PT 07/11/18 0852 BVREVIEWED WITH PT 08/28/18 0907 BVREVIEWED WITH PT 09/19/18 1217 LASREVIEWED WITH PT 11/20/18 1041 [place]. HOSPITALIZATION/MAJOR DIAGNOSTIC PROCEDURE ANKLE REHAB FOR SUBSTANCE ABUSE X 3 REVIEW OF SYSTEMS REVIEWED BY: PROVIDER: MICHELLE LEO OUTPATIENT PHYSICAL THERAPIST ASSISTANT-C . CONSTITUTIONAL: ANY CHANGE IN YOUR MEDICAL CONDITION? YES . CHILLS NO . FEVER NO . INFECTION: DO YOU HAVE NEW INFECTIONS? NO . DO YOU HAVE HISTORY OF MRSA? NO . MUSCULOSKELETAL: ANY NEW PATTERNS OF PAIN OR NUMBNESS? YES . GASTROENTEROLOGY: ANY NEW CHANGE IN BOWEL CONTROL? NO . GENITOURINARY: ANY NEW CHANGE IN BLADDER CONTROL? NO . IS THERE A CHANCE YOU COULD BE ? NO . HEMATOLOGY/LYMPH: DO YOU TAKE ANY BLOOD THINNERS? (FOR EXAMPLE- COUMADIN, PLAVIX, AGGRENOX, PLATEL, PRADAXA, OR XARELTO) NO . WHEN WAS YOUR LAST DOSE? DATE: TIME: . NEUROLOGY: HAVE YOU FALLEN IN THE PAST 12 MONTHS? NO . ANY NEW EXTREMITY NUMBNESS OR WEAKNESS? YES . CARDIOLOGY: DO YOU HAVE A PACEMAKER OR DEFIBRILLATOR? NO . RESPIRATORY: HAVE YOU BEEN SICK IN THE PAST WEEK? NO . FEVER NO . FLU LIKE SYMPTOMS? NO . COUGH NO . INTEGUMENTARY: DO YOU HAVE ANY RASHES OR OPEN SORES? NO . ALLERGIC/IMMUNO: ARE YOU ALLERGIC TO IV DYE? NO . ANY NEW ALLERGIES? NO . PSYCHIATRIC: DO YOU HAVE THOUGHTS OF HURTING YOURSELF OR SOMEONE ELSE? NO . ARE YOU ABUSED, NEGLECTED, OR IN AN UNSAFE ENVIRONMENT? NO . ENDOCRINOLOGY: ARE YOU DIABETIC? YES . OTHER: DO YOU NEED ANY PRESCRIPTIONS? NOT SURE PAIN HAS INCREASED . IF YES, PLEASE LIST: ____ . ANY NEW PROBLEMS WITH YOUR MEDICATIONS? DOESN'T SEEM TO WORK . WHEN DID YOU LAST EAT? ____ . WHEN DID YOU LAST DRINK? ____ . WHAT DID YOU LAST DRINK? ____ . NAME OF PERSON DRIVING YOU HOME? ____ . DO YOU HAVE ANY OTHER QUESTIONS OR CONCERNS IN CONSTANT PAIN, WORSE IT'S BEEN . VITAL SIGNS WT 193.6 LBS, HT 66 IN, BMI 31.24 INDEX, BP 133/75 MM HG, HR 94 /MIN, RR 18 /MIN, TEMP 99.0 F, OXYGEN SAT % 98%, SAFE IN ENV? (Y/N) YES, NA INITIALS SC 15:25, REVIEWED BY: BALJINDER. EXAMINATION GENERAL EXAMINATION: GENERALNO ACUTE DISTRESS, WELL NOURISHED AND HYDRATED. PSYCHAPPROPRIATE MOOD AND AFFECT . LUNGS:CLEAR TO AUSCULTATION BILATERALLY, NO WHEEZES, RHONCHI, RALES. HEART:NO MURMURS, REGULAR RATE AND RHYTHM. BACK:DENIES POINT TENDERNESS ALONG RIGHT THORACIC SPINE, THERE IS NO ERYTHEMA, ECCHYMOSIS, INCREASED WARMTH, AND/OR SKIN ERUPTIONS NOTED. + FOR INCREASED PAIN WITH FACET LOADING OF THE RIGHT SIDE. , MODIFIED SLR POSITIVE RIGHT SIDE. ASSESSMENTS SPONDYLOSIS OF THORACIC REGION WITHOUT MYELOPATHY OR RADICULOPATHY - M47.814 (PRIMARY) TREATMENT SPONDYLOSIS OF THORACIC REGION WITHOUT MYELOPATHY OR RADICULOPATHY START DICLOFENAC SODIUM TABLET DELAYED RELEASE, 50 MG, 1 TABLET WITH FOOD OR MILK, ORALLY, THREE TIMES A DAY, 30 DAY(S), 90 NOTES: THERAPEUTIC FACET BLOCK RIGHT SIDE T8-9, T9-T10, [id number] EDUCATION REVIEWED AND DISCUSSED WITH PTPROCEDURE TEACHING CONDUCTED WITH PT, PT ACKNOWLEDGES UNDERSTANDING FOR MEDICATION AND PROCEDURE TEACHING. DS. CLINICAL NOTES: 53 YEAR OLD MALE IN FOR CHRONIC PAIN FOLLOW UP. HE DOES ADMIT TO INCREASED PAIN. GIVEN PRESENTING SYMPTOMS AND RESULTS OF PHYSICAL EXAMINATION RECOMMENDED THERAPEUTIC FACET BLOCK WITH FOLLOW UP POST PROCEDURE. PT HAS EXPRESSED UNDERSTANDING OF AND WAS IN AGREEMENT WITH TX PLAN. GIVEN TIME TO ASK QUESTIONS AND EXPRESS CONCERNS. . OTHERS STOP MELOXICAM TABLET, 15 MG, 1 TABLET WITH FOOD, ORALLY FOR PAIN, ONCE A DAY NEEDED STOP FLECTOR PATCH, 1.3 %, 1 PATCH TO SKIN, TRANSDERMAL, TWICE A DAY PROCEDURE CODES FA211 ESTABILISHED PATIENT [facility] CHARGE DISPOSITION & COMMUNICATION FOLLOW UP POST PROCEDURE (REASON: THERAPEUTIC FACET BLOCK RIGHT SIDE T8-9, T9-T10, T10-T11) ELECTRONICALLY SIGNED BY BRETT TOBAR ON 12/19/2018 AT 10:03 AM EDT DISCLAIMER : THIS IS A VISIT SUMMARY EXTRACTED FROM THE [employer] CHART. IT IS NOT A COPY OF THE [employer] PROGRESS NOTE. MTDD
== END ==
LOC: M PAIN 14:45
PROVIDERS: ATTEND Family Medicine
DX: M47.814 Spondylosis without myelopathy or radiculopathy, thoracic region (principal); I10 Essential (primary) hypertension; J45.909 Unspecified asthma, uncomplicated; F41.9 Anxiety disorder, unspecified; F32.9 Major depressive disorder, single episode, unspecified; E11.9 Type 2 diabetes mellitus without complications; E78.5 Hyperlipidemia, unspecified; N52.9 Male erectile dysfunction, unspecified; G47.33 Obstructive sleep apnea (adult) (pediatric); M51.24 Other intervertebral disc displacement, thoracic region; Z79.82 Long term (current) use of aspirin; Z79.84 Long term (current) use of oral hypoglycemic drugs; Z79.899 Other long term (current) drug therapy; Z88.8 Allergy status to other drugs, medicaments and biological substances

== ENCOUNTER → 2019-02-07 | Outpatient (CLI) | payer BC ==
[~2019-02-07] MED LIST changes: +BUPIVACAINE HCL 0.25% 30 ML VIAL As Ordered ONE; +DICL25TA PO; +ISOVUE-M 300 61% 15ML VIAL (Q9967) As Ordered ONE; -L-LY500T PO; +L-LY500T15 PO; +LIDOCAINE 1% SDV INJ 30 ML VIAL As Ordered ONE; +TRIAMCINOLONE ACETONIDE SUSP 40 MG/ML VIAL (J3301) As Ordered ONE; +TYLETAB14 PO; +VITA-297 PO; +diazePAM 5 MG TAB As Ordered ONE; +oxyCODONE 5MG TAB As Ordered ONE
--- NOTE | 2019-02-07 11:25 | REP ---
C-ARM VIEWS THORACIC SPINE: CLINICAL HISTORY: Pain. Two C-arm views of the thoracic spine region performed during injection by Dr. lFores. There are two needles along the lateral aspect of mid thoracic vertebral bodies. 15 seconds fluoroscopy time utilized. Electronically Signed by Arvind Galarza MD 02/07/2019 03:34 P
--- NOTE | 2019-02-07 11:50 | REP ---
Clinical: Post procedure pain. Rule out pneumothorax . Comparison: 11/23/2017 . Technique: Inspiratory and excretory frontal view of the chest. Findings: The mediastinum and cardiac silhouette are normal. The lung delatorre are clear and without acute consolidation, effusion, or pneumothorax. The skeletal structures are intact and normal. Impression: 1. No acute cardiopulmonary process. 2. No pneumothorax. Electronically Signed by Azar Siu MD 02/07/2019 11:42 A
--- NOTE | 2019-02-21 01:21 | ECWPNPC ---
PATIENT NAME: NEHEMIAH BOONE : 1965 GENDER: MALE VISIT DATE: 02/07/2019 DISCHARGE DATE: 02/07/19 1203 VISIT LOCKED DATE TIME: PHYSICIAN: JAMIE ROBERTSON MD RESOURCE: JAMIE ROBERTSON MD REASON FOR APPOINTMENT 1. RIGHT THORACIC THERAPEUTIC FACET BLOCK HISTORY OF PRESENT ILLNESS HISTORY OF PRESENT ILLNESS: PAIN THE PATIENT DESCRIBES THE PAIN... FALL RISK SCREENING: SCREENING :NO FALLS REPORTED IN THE LAST YEAR CURRENT MEDICATIONS TAKING VITAMIN C 1000 MG TABLET 1 TABLET ORALLY ONCE A DAY TAKING VITAMIN E 1000 UNIT CAPSULE 1 CAPSULE ORALLY ONCE A DAY TAKING VITAMIN B12 1000 MCG TABLET EXTENDED RELEASE 1 TABLET ORALLY ONCE A DAY TAKING MULTI COMPLETE - CAPSULE ORALLY DAILY TAKING VITAMIN D (CHOLECALCIFEROL) 1000 UNIT TABLET 1 TABLET ORALLY ONCE A DAY TAKING L-LYSINE 500 MG TABLET ORALLY DAILY TAKING GLUCOMETER 1 DIRECTED _ ONCE DAILY (E11.9) TAKING LANCETS - MISCELLANEOUS DIRECTED SUBCUTANEOUSLY (E11.9) ONCE DAILY TAKING BLOOD GLUCOSE TEST - STRIP DIRECTED IN VITRO ONCE DAILY (E11.9) TAKING PEN NEEDLES 32G X 4 MM MISCELLANEOUS DIRECTED SUBCUTANEOUSLY (E11.9) ONCE DAILY WITH VICTOZA TAKING ASPIRIN 81 81 MG TABLET CHEWABLE 1 TABLET ORALLY ONCE A DAY TAKING SYRINGE 22G X 1-1/2 MISCELLANEOUS DIRECTED INTRAMUSCULARLY TAKING BD LUER-FREDY SYRINGE 23G X 1 MISCELLANEOUS USE DIRECTED INTRAMUSCULARLY TAKING CARISOPRODOL 350 MG TABLET 1 TABLET NEEDED ORALLY (ISTOP:[id number]) BEFORE BEDTIME TAKING TRAMADOL HCL 50 MG TABLET 1 TABLET NEEDED ORALLY EVERY 6 HRS MDD2 TAKING PROZAC 20 MG CAPSULE 1 CAPSULE ORALLY ONCE A DAY TAKING MIRTAZAPINE 15 MG TABLET 1 TABLET AT BEDTIME ORALLY ONCE A DAY TAKING TESTOSTERONE CYPIONATE 200 MG/ML OIL 1 ML INTRAMUSCULAR 200 MG EVERY 7 DAYS, CODE F- 10 ML VIAL, NOTES: WEEKLY TAKING TRULICITY 0.75 MG/0.5ML SOLUTION PEN-INJECTOR 0.75 MG DIRECTED SUBCUTANEOUS ONCE WEEKLY, NOTES: 01/31 TAKING JARDIANCE 10 MG TABLET 1 TABLET ORALLY ONCE A DAY, NOTES: 02/06 1200 TAKING LOSARTAN POTASSIUM 25 MG TABLET 1 TABLET ORALLY ONCE A DAY TAKING PRAVASTATIN SODIUM 40 MG TABLET 1 TABLET ORALLY ONCE A DAY TAKING ALBUTEROL SULFATE HFA 108 MCG/ACT AEROSOL SOLUTION 2 PUFFS NEEDED INHALATION EVERY 6 HRS TAKING ALVESCO 80 MCG/ACT AEROSOL SOLUTION 1 PUFF INHALATION TWICE A DAY TAKING BD SYRINGE/NEEDLE 23G X 1 MISCELLANEOUS DIRECTED INTRAMUSCULARLY DIRECTED TAKING HYPODERMIC NEEDLE 18G X 1-/2 MISCELLANEOUS DIRECTED INTRADERMALLY TAKING FLOMAX 0.4 MG CAPSULE 1 CAPSULE ORALLY DAILY TAKING DICLOFENAC SODIUM 50 MG TABLET DELAYED RELEASE 1 TABLET WITH FOOD OR MILK ORALLY THREE TIMES A DAY-TAKES NEEDED NOT-TAKING VIAGRA 100 MG TABLET 1 TABLET NEEDED ORALLY DIRECTED MEDICATION LIST REVIEWED AND RECONCILED WITH THE PATIENT PAST MEDICAL HISTORY HTN ASTHMA ANXIETY DEPRESSION DM 2 ED - ON TESTOSTERONE REPLACEMENT HYPERLIPIDEMIA ASCVD RISK 15.2% ON 11/21 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 DISC BULGES AND SMALL DISC PROTRUSIONS AT T6-7 AND T7-8 WITHOUT SPINAL CORD COMPRESSION, SMALL DISC PROTRUSIONS AT T8-9 AND T9-10 WITHOUT SPINAL CORD COMPRESSION. TORN LEFT ROTATOR CUFF ALLERGIES ROSUVASTATIN CALCIUM: MUSCLE ACHES - SIDE EFFECTS LISINOPRIL: COUGH - SIDE EFFECTS SURGICAL HISTORY RIGHT ANKLE RIGHT SHOULDER RHINOPLASTY REMOVAL OF UPP TONSILECTOMY 2006 COLONOSCOPY 03/10/2018 - SM INTERNAL HEMORRHOIDS, REPEAT 10 YRS PILAR CYST REMOVAL FROM SCALP (DERM) 08/29/18 FAMILY HISTORY FATHER: 77 YRS, COPD MOTHER: 67 YRS, DIAGNOSED WITH DIABETES, HYPERTENSION SIBLINGS: , 4 SISTERS 1 LIVING BROTHER, DIABETES, UNSPECIFIED HEART DISEASE SON(S): ALIVE PATERNAL GRAND FATHER: UNKNOWN PATERNAL GRAND MOTHER: UNKNOWN MATERNAL GRAND FATHER: MATERNAL GRAND MOTHER: 1 BROTHER(S) , 4 SISTER(S) . 4 SISTERS, 1 BROTHER\\\\\\\\NDENIES FAMILY HX OF SKIN AND PANCREATIC CANCER.1 SON -GOOD HEALTHNO DAUGHTERS. SOCIAL HISTORY GENERAL: TOBACCO USE ARE YOU A:NONSMOKER HIV / HEP-C SCREENING HIV TEST OFFERED TO PATIENT:YES DATE OFFERED:11/17/2017 TEST ACCEPTED:NO HEP-C TEST OFFERED TO PATIENT:YES DATE OFFERED:11/17/2017 REASON:PATIENT DECLINED TEST ACCEPTED:NO REASON:PATIENT DECLINED BROCHURE PROVIDED TO PATIENTNO OTHERS AT HOME: SPOUSE. HOUSING: RENTS APARTMENT. EDUCATION LEVEL OF EDUCATION:NOT FINISHED COLLEGE DIET: REGULAR. LANGUAGE LANGUAGES SPOKEN:HUNGARIAN DOMESTIC VIOLENCE STATUS: DO YOU FEEL SAFE IN YOUR ENVIRONMENT?YES RECREATIONAL DRUG USE DRUG USE?YES FORMER COCAINE ADDICT EXERCISE: DAILY 4-5 TIMES PER WEEK. LEARNING BARRIERS / SPECIAL NEEDS BARRIERS TO LEARNING?NO HEARING IMPAIRED?NO VISION IMPAIRED?YES :CORRECTIVE LENSES COGNITIVELY IMPAIRED?NO READINESS TO LEARN?YES LEARNING PREFERENCES?NO LEARNING CAPABILITIES PRESENT?YES EMOTIONAL BARRIERS?NO SPECIAL DEVICES?NO TOWN MANAGER NEEDED?NO LUNG CANCER SCREENING SMOKING STATUS:NON SMOKER PAIN CLINIC PFS, CLERGY, PUBLIC HEALTH REFERRALS PFS REFERRAL NEEDED?NO CLERGY REFERRAL NEEDED?NO PUBLIC HEALTH REFERRAL NEEDED?NO WAS THE PROVIDER NOTIFIED OF ANY PERTINENT INFO?NO HAS THE PATIENT BEEN EDUCATED REGARDING HIS/HER PLAN OF CARE?YES HAS THE PATIENT BEEN EDUCATED REGARDING PAIN, THE RISK FOR PAIN, THE IMPORTANCE OF EFFECTIVE PAIN MANAGEMENT, AND THE PAIN ASSESSMENT PROCESS?YES LATEX QUESTIONNAIRE LATEX ALLERGY : HAVE YOU EVER DEVELOPED ANY TYPE OF REACTION AFTER HANDLING LATEX PRODUCTS SUCH RUBBER GLOVES, CONDOMS, DIAPHRAGMS, BALLOONS, SOCKS, OR UNDERWEAR?NO LATEX ALLERGY : HAVE YOU EVER DEVELOPED ANY TYPE OF REACTION DURING OR AFTER DENTAL APPOINTMENT, VAGINAL/RECTAL EXAMINATION, SURGICAL PROCEDURE, OR ANY OTHER EXPOSURE?NO LATEX RISK : HAVE YOU EVER HAD ANY DIFFICULTY BREATHING OR HIVES AFTER EATING OR HANDLING ANY FRUITS, OR VEGETABLES; SUCH KIWI, BANANAS, STONE FRUITS, OR CHESTNUTSNO LATEX RISK : DO YOU HAVE A PREVIOUS PERSONAL HISTORY OF MORE THAN NINE SURGERIES, SPINA BIFIDA, OR REPEATED CATHERIZATIONS? NO LATEX RISK : ARE YOU FREQUENTLY EXPOSED TO LATEX PRODUCTS IN YOUR OCCUPATION?NO DATE ASKED : 02/07/2019 CAFFEINE CAFFEINE USE?YES HOW OFTEN AND HOW MUCH? 1 CUP OF COFFEE PER DAY AND OCCASIONAL SODA ADVANCE DIRECTIVE ADVANCE DIRECTIVE DISCUSSED WITH PATIENT:YES PT. HAS HCP SHIRA BOONE [phone] CONFUCIANISM CONFUCIANISM NONE MARITAL STATUS: . ALCOHOL SCREENING DID YOU HAVE A DRINK CONTAINING ALCOHOL IN THE PAST YEAR?NO POINTS0 INTERPRETATIONNEGATIVE OCCUPATION: RETAIL--[employer]. SEXUAL HX HAD SEX IN THE LAST 12 MONTHS (VAGINAL, ORAL, OR ANAL)?YES WITHWOMEN ONLY USE PROTECTION?NO HAVE YOU EVER HAD AN STD?NO REVIEWED WITH PT 07/11/18 3335 BVREVIEWED WITH PT 08/28/18 0907 BVREVIEWED WITH PT 09/19/18 1217 LASREVIEWED WITH PT 11/20/18 1041 02/07/19 REVIEWED WITH PT. AD. HOSPITALIZATION/MAJOR DIAGNOSTIC PROCEDURE ANKLE-DISLOCATION AND FRACTURE REHAB FOR SUBSTANCE ABUSE X 3 REVIEW OF SYSTEMS REVIEWED BY: PROVIDER: . CONSTITUTIONAL: ANY CHANGE IN YOUR MEDICAL CONDITION? NO . CHILLS NO . FEVER NO . INFECTION: DO YOU HAVE NEW INFECTIONS? NO . DO YOU HAVE HISTORY OF MRSA? NO . MUSCULOSKELETAL: ANY NEW PATTERNS OF PAIN OR NUMBNESS? NO . GASTROENTEROLOGY: ANY NEW CHANGE IN BOWEL CONTROL? NO . GENITOURINARY: ANY NEW CHANGE IN BLADDER CONTROL? NO . IS THERE A CHANCE YOU COULD BE ? NO . HEMATOLOGY/LYMPH: DO YOU TAKE ANY BLOOD THINNERS? (FOR EXAMPLE- COUMADIN, PLAVIX, AGGRENOX, PLATEL, PRADAXA, OR XARELTO) NO . WHEN WAS YOUR LAST DOSE? DATE: TIME: . NEUROLOGY: HAVE YOU FALLEN IN THE PAST 12 MONTHS? NO . ANY NEW EXTREMITY NUMBNESS OR WEAKNESS? NO . CARDIOLOGY: DO YOU HAVE A PACEMAKER OR DEFIBRILLATOR? NO . RESPIRATORY: HAVE YOU BEEN SICK IN THE PAST WEEK? NO . FEVER NO . FLU LIKE SYMPTOMS? NO . COUGH NO . INTEGUMENTARY: DO YOU HAVE ANY RASHES OR OPEN SORES? NO . ALLERGIC/IMMUNO: ARE YOU ALLERGIC TO IV DYE? NO . ANY NEW ALLERGIES? NO . PSYCHIATRIC: DO YOU HAVE THOUGHTS OF HURTING YOURSELF OR SOMEONE ELSE? NO . ARE YOU ABUSED, NEGLECTED, OR IN AN UNSAFE ENVIRONMENT? NO . ENDOCRINOLOGY: ARE YOU DIABETIC? YES, DOESN'T CHECK FINGERSTICKS ON REGULAR BASIS . OTHER: DO YOU NEED ANY PRESCRIPTIONS? NO . IF YES, PLEASE LIST: ____ . ANY NEW PROBLEMS WITH YOUR MEDICATIONS? NO . WHEN DID YOU LAST EAT? 02/06 2200 . WHEN DID YOU LAST DRINK? 02/06 2200 . WHAT DID YOU LAST DRINK? DIET SODA . NAME OF PERSON DRIVING YOU HOME? JOYCE- . DO YOU HAVE ANY OTHER QUESTIONS OR CONCERNS NO . VITAL SIGNS WT 194.8 LBS, HT 66 IN, BMI 31.44 INDEX, BP 136/88 MM HG, HR 73 /MIN, RR 18 /MIN, TEMP 97.9 F, OXYGEN SAT % 99%, SAFE IN ENV? (Y/N) Y, NA INITIALS IL 09:50, REVIEWED BY: BANG. 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 JAMIE ROBERTSON APPELLATE COURT CLERK NONE ANESTHESIA LOCAL PRE PROCEDURE NOTE THE PATIENT WITH HISTORY OF CHRONIC THORACIC PAIN. I EVALUATED THE PATIENT AND REVIEWED THE CHART. I WENT OVER THE RISKS, ALTERNATIVES, AND BENEFITS ASSOCIATED WITH THIS PROCEDURE. THE PATIENT WOULD LIKE TO PROCEED AND GAVE CONSENT TO PERFORM THE PROCEDURE. THE PATIENT DENIES UNEXPLAINABLE WEIGHT LOSS, FEVER, CHILLS, OR NEW CHANGES IN URINARY OR BOWEL CONTROL. DESCRIPTION OF PROCEDURE THE PATIENT WAS BROUGHT TO THE PROCEDURE ROOM AND PLACED IN THE PRONE POSITION. THE THORACIC AREA WAS CLEANED WITH CHLORAPREP SOLUTION AND DRAPED ASEPTICALLY. THE PROCEDURE WAS DONE UNDER STERILE CONDITIONS. I CHECKED LATERALITY AND THE LEVEL WHERE THE PROCEDURE WAS GOING TO BE PERFORMED WITH THE PATIENT AND THE SUPPORTING STAFF AT THE MOMENT OF THE TIME OUT IN THE PROCEDURE ROOM. UNDER FLUOROSCOPIC GUIDANCE, THE TARGET POINT WAS SELECTED AT THE RIGHT T4-T5 AND RIGHT T5-T6 THORACIC FACET. TARGET POINT WAS SELECTED AFTER LATERAL ROTATION AND TILT OF THE MAGNIFIER OF THE C-ARM. LIDOCAINE 0.5% WAS USED TO NUMB THE SKIN AND THE SUBCUTANEOUS TISSUE BELOW IT. SPINAL NEEDLES, 22-GAUGE, WERE ADVANCED UNDER FLUOROSCOPIC GUIDANCE AND FOLLOWING PATIENT FEEDBACK UNTIL THE TARGETS WERE TOUCHED. THE POSITION OF THE NEEDLES WAS VERIFIED WITH MULTIPLE X-RAY VIEWS. AFTER PROPER POSITION OF THE NEEDLES WAS ACHIEVED, ISOVUE-M DYE 30% 0.1 ML WAS INJECTED SHOWING ADEQUATE SPREAD OF THE DYE. THEN A SOLUTION OF 0.9 ML OF BUPIVACAINE 0.125% OF KENALOG 10 MG WAS INJECTED AT EACH SITE. THERE WAS NO EVIDENCE OF BLOOD, PARESTHESIA OR CEREBROSPINAL FLUID DURING THE PROCEDURE. THE PATIENT WAS SENT TO THE RECOVERY ROOM. THE PATIENT WAS MOVING THE EXTREMITIES AND DOING WELL. THERE WAS NO COMPLICATION DURING THE PROCEDURE. FLUOROSCOPY TIME WAS 15 SECONDS POST PROCEDURE NOTE THE PATIENT WILL BE SEEN IN A FOLLOW UP IN THE NEXT FEW WEEKS. INSTRUCTIONS WERE GIVEN, QUESTIONS WERE ANSWERED, AND THE PATIENT EXPRESSED UNDERSTANDING AND AGREED WITH THE PLAN. I, ELIDIA MATUTE, DOCUMENTED THE ABOVE INFORMATION ACTING A SCRIBE FOR DR. ROBERTSON. I HAVE REVIEWED THE ABOVE DOCUMENT, WRITTEN BY ELIDIA MATUTE SCRIBE AND I VERIFY THAT IT IS ACCURATE. PROCEDURE CODES 11000 INJ PARAVERT F JNT C/T 1 LEV, MODIFIERS: [place] [address] INJ PARAVERT F JNT C/T 2 LEV, MODIFIERS: RT 6045F RADXPS IN END [id number] PXD DISPOSITION & COMMUNICATION FOLLOW UP 3 WEEKS ELECTRONICALLY SIGNED BY JAMIE ROBERTSON MD, MD ON 02/20/2019 AT 10:40 AM EDT DISCLAIMER : THIS IS A VISIT SUMMARY EXTRACTED FROM THE [employer] CHART. IT IS NOT A COPY OF THE [employer] PROGRESS NOTE. MTDD
== END ==
LOC: M PAIN 09:45
PROVIDERS: ATTEND Anesthesiology
DX: M47.814 Spondylosis without myelopathy or radiculopathy, thoracic region (principal); I10 Essential (primary) hypertension; J45.909 Unspecified asthma, uncomplicated; F41.9 Anxiety disorder, unspecified; F32.9 Major depressive disorder, single episode, unspecified; E11.9 Type 2 diabetes mellitus without complications; N52.9 Male erectile dysfunction, unspecified; E78.5 Hyperlipidemia, unspecified; G47.33 Obstructive sleep apnea (adult) (pediatric); M51.24 Other intervertebral disc displacement, thoracic region; Z79.82 Long term (current) use of aspirin; Z79.891 Long term (current) use of opiate analgesic; Z79.4 Long term (current) use of insulin; Z79.899 Other long term (current) drug therapy; Z88.8 Allergy status to other drugs, medicaments and biological substances
CPT/HCPCS: 64490; 64491; 71046; J3301; Q9967

== ENCOUNTER → 2019-02-23 | Outpatient (CLI) | payer BC ==
[~2019-02-23] MED LIST changes: -BUPIVACAINE HCL 0.25% 30 ML VIAL As Ordered ONE; +CIME200T5 PO; +CYCL10TA PO; -ISOVUE-M 300 61% 15ML VIAL (Q9967) As Ordered ONE; -LIDOCAINE 1% SDV INJ 30 ML VIAL As Ordered ONE; +PEPC40TA12 PO; +PRED10TA2 PO; +SUCR1SS PO; -TRIAMCINOLONE ACETONIDE SUSP 40 MG/ML VIAL (J3301) As Ordered ONE; -diazePAM 5 MG TAB As Ordered ONE; -oxyCODONE 5MG TAB As Ordered ONE
[2019-02-23 12:30] LABS: HEMATOCRIT 50.6 % (42.0-52.0); HEMOGLOBIN 16.1 g/dl (13.5-17.5); MEAN CORPUSCULAR HEMOGLOBIN 26.4 pg (27.0-33.0); MEAN CORPUSCULAR HGB CONC 31.8 g/dl (32.0-36.5); MEAN CORPUSCULAR VOLUME 83.1 fl (80.0-96.0); PLATELET COUNT, AUTOMATED 346 10^3/uL (150-450); RED BLOOD COUNT 6.09 10^6/uL (4.30-6.10); WHITE BLOOD COUNT 7.8 10^3/uL (4.0-10.0)
[2019-02-23 12:55] LABS: ALT/SGPT 37 U/L (12-78); BLOOD UREA NITROGEN 19 MG/DL (7-18); CALCIUM LEVEL 9.9 MG/DL (8.5-10.1); CARBON DIOXIDE LEVEL 30 MEQ/L (21-32); CHLORIDE LEVEL 103 MEQ/L (98-107); CREATININE FOR GFR 1.16 MG/DL (0.70-1.30); GLOMERULAR FILTRATION RATE > 60.0 (>56); GLUCOSE, FASTING 78 MG/DL (70-100); POTASSIUM SERUM 4.6 MEQ/L (3.5-5.1); SODIUM LEVEL 141 MEQ/L (136-145)
[2019-02-23 12:56] LABS: BILIRUBIN,TOTAL 0.4 MG/DL (0.2-1.0); TOTAL PROTEIN 7.6 GM/DL (6.4-8.2)
[2019-02-25 00:10] LABS: TESTOSTERONE FREE (DIRECT) 10.8 pg/mL (7.2-24.0)
--- NOTE | 2019-02-27 01:55 | ECWPNPC ---
PATIENT NAME: NEHEMIAH BOONE : 1965 GENDER: MALE VISIT DATE: 02/23/2019 DISCHARGE DATE: 02/23/19953 VISIT LOCKED DATE TIME: PHYSICIAN: NADEGE LEO RESOURCE: NADEGE LEO REASON FOR APPOINTMENT 1. POST THERAPEUTIC FACET BLOCK RIGHT SIDE T8-9, T9-T10, T10-T11 HISTORY OF PRESENT ILLNESS HISTORY OF PRESENT ILLNESS: PAIN THE PATIENT DESCRIBES THE PAIN... 53-YEAR-OLD MALE IN FOR POST THORACIC FACET BLOCK FOLLOW-UP. HE FEELS THE PROCEDURE WORKED WELL FOR APPROXIMATELY 2 WEEKS HE RATES HIS PAIN PREPROCEDURE AT A 7-8 OUT OF 10 AND POSTPROCEDURE AT A 0 OUT OF 10. HIS PAIN CURRENTLY IS AT A 4-5 OUT OF 10 AND DESCRIBES IT SHARP, STABBING, AND SORE. FALL RISK SCREENING: SCREENING :NO FALLS REPORTED IN THE LAST YEAR CURRENT MEDICATIONS TAKING VITAMIN C 1000 MG TABLET 1 TABLET ORALLY ONCE A DAY TAKING VITAMIN E 1000 UNIT CAPSULE 1 CAPSULE ORALLY ONCE A DAY TAKING VITAMIN B12 1000 MCG TABLET EXTENDED RELEASE 1 TABLET ORALLY ONCE A DAY TAKING MULTI COMPLETE - CAPSULE ORALLY DAILY TAKING VITAMIN D (CHOLECALCIFEROL) 1000 UNIT TABLET 1 TABLET ORALLY ONCE A DAY TAKING L-LYSINE 500 MG TABLET ORALLY DAILY TAKING GLUCOMETER 1 DIRECTED _ ONCE DAILY (E11.9) TAKING LANCETS - MISCELLANEOUS DIRECTED SUBCUTANEOUSLY (E11.9) ONCE DAILY TAKING BLOOD GLUCOSE TEST - STRIP DIRECTED IN VITRO ONCE DAILY (E11.9) TAKING PEN NEEDLES 32G X 4 MM MISCELLANEOUS DIRECTED SUBCUTANEOUSLY (E11.9) ONCE DAILY WITH VICTOZA TAKING ASPIRIN 81 81 MG TABLET CHEWABLE 1 TABLET ORALLY ONCE A DAY TAKING SYRINGE 22G X 1-1/2 MISCELLANEOUS DIRECTED INTRAMUSCULARLY TAKING BD LUER-FREDY SYRINGE 23G X 1 MISCELLANEOUS USE DIRECTED INTRAMUSCULARLY TAKING CARISOPRODOL 350 MG TABLET 1 TABLET NEEDED ORALLY (ISTOP:[id number]) BEFORE BEDTIME TAKING TRAMADOL HCL 50 MG TABLET 1 TABLET NEEDED ORALLY EVERY 6 HRS MDD2 TAKING PROZAC 20 MG CAPSULE 1 CAPSULE ORALLY ONCE A DAY TAKING MIRTAZAPINE 15 MG TABLET 1 TABLET AT BEDTIME ORALLY ONCE A DAY TAKING TESTOSTERONE CYPIONATE 200 MG/ML OIL 1 ML INTRAMUSCULAR 200 MG EVERY 7 DAYS, CODE F- 10 ML VIAL, NOTES: WEEKLY TAKING TRULICITY 0.75 MG/0.5ML SOLUTION PEN-INJECTOR 0.75 MG DIRECTED SUBCUTANEOUS ONCE WEEKLY, NOTES: 01/31 TAKING JARDIANCE 10 MG TABLET 1 TABLET ORALLY ONCE A DAY, NOTES: 02/06 1200 TAKING LOSARTAN POTASSIUM 25 MG TABLET 1 TABLET ORALLY ONCE A DAY TAKING PRAVASTATIN SODIUM 40 MG TABLET 1 TABLET ORALLY ONCE A DAY TAKING ALBUTEROL SULFATE HFA 108 MCG/ACT AEROSOL SOLUTION 2 PUFFS NEEDED INHALATION EVERY 6 HRS TAKING ALVESCO 80 MCG/ACT AEROSOL SOLUTION 1 PUFF INHALATION TWICE A DAY TAKING BD SYRINGE/NEEDLE 23G X 1 MISCELLANEOUS DIRECTED INTRAMUSCULARLY DIRECTED TAKING HYPODERMIC NEEDLE 18G X 1-06/07 MISCELLANEOUS DIRECTED INTRADERMALLY TAKING FLOMAX 0.4 MG CAPSULE 1 CAPSULE ORALLY DAILY TAKING DICLOFENAC SODIUM 50 MG TABLET DELAYED RELEASE 1 TABLET WITH FOOD OR MILK ORALLY THREE TIMES A DAY-TAKES NEEDED NOT-TAKING VIAGRA 100 MG TABLET 1 TABLET NEEDED ORALLY DIRECTED MEDICATION LIST REVIEWED AND RECONCILED WITH THE PATIENT PAST MEDICAL HISTORY HTN ASTHMA ANXIETY DEPRESSION DM 2 ED - ON TESTOSTERONE REPLACEMENT HYPERLIPIDEMIA ASCVD RISK 15.2% ON 11/21 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 DISC BULGES AND SMALL DISC PROTRUSIONS AT T6-7 AND T7-8 WITHOUT SPINAL CORD COMPRESSION, SMALL DISC PROTRUSIONS AT T8-9 AND T9-10 WITHOUT SPINAL CORD COMPRESSION. TORN LEFT ROTATOR CUFF ALLERGIES ROSUVASTATIN CALCIUM: MUSCLE ACHES - SIDE EFFECTS LISINOPRIL: COUGH - SIDE EFFECTS SURGICAL HISTORY RIGHT ANKLE RIGHT SHOULDER RHINOPLASTY REMOVAL OF UPP TONSILECTOMY 2005 COLONOSCOPY 03/10/2018 - SM INTERNAL HEMORRHOIDS, REPEAT 10 YRS PILAR CYST REMOVAL FROM SCALP (DERM) 08/29/18 FAMILY HISTORY FATHER: 77 YRS, COPD MOTHER: 67 YRS, DIAGNOSED WITH HYPERTENSION, DIABETES SIBLINGS: , 4 SISTERS 1 LIVING BROTHER, DIABETES, UNSPECIFIED HEART DISEASE SON(S): ALIVE PATERNAL GRAND FATHER: UNKNOWN PATERNAL GRAND MOTHER: UNKNOWN MATERNAL GRAND FATHER: MATERNAL GRAND MOTHER: 1 BROTHER(S) , 4 SISTER(S) . 4 SISTERS, 1 BROTHER\\\\\\\\NDENIES FAMILY HX OF SKIN AND PANCREATIC CANCER.1 SON -GOOD HEALTHNO DAUGHTERS. SOCIAL HISTORY GENERAL: TOBACCO USE ARE YOU A:NONSMOKER HIV / HEP-C SCREENING HIV TEST OFFERED TO PATIENT:YES DATE OFFERED:11/17/2017 TEST ACCEPTED:NO HEP-C TEST OFFERED TO PATIENT:YES DATE OFFERED:11/17/2017 REASON:PATIENT DECLINED TEST ACCEPTED:NO REASON:PATIENT DECLINED BROCHURE PROVIDED TO PATIENTNO OTHERS AT HOME: SPOUSE. HOUSING: RENTS APARTMENT. EDUCATION LEVEL OF EDUCATION:NOT FINISHED COLLEGE DIET: REGULAR. LANGUAGE LANGUAGES SPOKEN:FRISIAN DOMESTIC VIOLENCE STATUS: DO YOU FEEL SAFE IN YOUR ENVIRONMENT?YES RECREATIONAL DRUG USE DRUG USE?YES FORMER COCAINE ADDICT EXERCISE: DAILY 4-5 TIMES PER WEEK. LEARNING BARRIERS / SPECIAL NEEDS BARRIERS TO LEARNING?NO HEARING IMPAIRED?NO VISION IMPAIRED?YES COGNITIVELY IMPAIRED?NO :CORRECTIVE LENSES READINESS TO LEARN?YES LEARNING PREFERENCES?NO LEARNING CAPABILITIES PRESENT?YES EMOTIONAL BARRIERS?NO SPECIAL DEVICES?NO LEAD BURNER HELPER NEEDED?NO LUNG CANCER SCREENING SMOKING STATUS:NON SMOKER PAIN CLINIC PFS, CLERGY, PUBLIC HEALTH REFERRALS PFS REFERRAL NEEDED?NO CLERGY REFERRAL NEEDED?NO PUBLIC HEALTH REFERRAL NEEDED?NO WAS THE PROVIDER NOTIFIED OF ANY PERTINENT INFO?YES HAS THE PATIENT BEEN EDUCATED REGARDING HIS/HER PLAN OF CARE?YES HAS THE PATIENT BEEN EDUCATED REGARDING PAIN, THE RISK FOR PAIN, THE IMPORTANCE OF EFFECTIVE PAIN MANAGEMENT, AND THE PAIN ASSESSMENT PROCESS?YES LATEX QUESTIONNAIRE LATEX ALLERGY : HAVE YOU EVER DEVELOPED ANY TYPE OF REACTION AFTER HANDLING LATEX PRODUCTS SUCH RUBBER GLOVES, CONDOMS, DIAPHRAGMS, BALLOONS, SOCKS, OR UNDERWEAR?NO LATEX ALLERGY : HAVE YOU EVER DEVELOPED ANY TYPE OF REACTION DURING OR AFTER DENTAL APPOINTMENT, VAGINAL/RECTAL EXAMINATION, SURGICAL PROCEDURE, OR ANY OTHER EXPOSURE?NO LATEX RISK : HAVE YOU EVER HAD ANY DIFFICULTY BREATHING OR HIVES AFTER EATING OR HANDLING ANY FRUITS, OR VEGETABLES; SUCH KIWI, BANANAS, STONE FRUITS, OR CHESTNUTSNO LATEX RISK : DO YOU HAVE A PREVIOUS PERSONAL HISTORY OF MORE THAN NINE SURGERIES, SPINA BIFIDA, OR REPEATED CATHERIZATIONS? NO LATEX RISK : ARE YOU FREQUENTLY EXPOSED TO LATEX PRODUCTS IN YOUR OCCUPATION?NO DATE ASKED : 02/23/2019 CAFFEINE CAFFEINE USE?YES HOW OFTEN AND HOW MUCH? 1 CUP OF COFFEE PER DAY AND OCCASIONAL SODA ADVANCE DIRECTIVE ADVANCE DIRECTIVE DISCUSSED WITH PATIENT:YES PT. HAS HCP SHIRA BOONE [phone] GNOSTICISM GNOSTICISM NONE MARITAL STATUS: . 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 SEXUAL HX HAD SEX IN THE LAST 12 MONTHS (VAGINAL, ORAL, OR ANAL)?YES WITHWOMEN ONLY USE PROTECTION?NO HAVE YOU EVER HAD AN STD?NO REVIEWED WITH PT 07/11/18 0852 BVREVIEWED WITH PT 08/28/18 0907 BVREVIEWED WITH PT 09/19/18 1217 LASREVIEWED WITH PT 11/20/18 1041 NJ02/07/19 REVIEWED WITH PT. AD. HOSPITALIZATION/MAJOR DIAGNOSTIC PROCEDURE ANKLE-DISLOCATION AND FRACTURE REHAB FOR SUBSTANCE ABUSE X 3 REVIEW OF SYSTEMS REVIEWED BY: PROVIDER: MICHELLE WEST-Grace . CONSTITUTIONAL: ANY CHANGE IN YOUR MEDICAL CONDITION? NO . CHILLS NO . FEVER NO . INFECTION: DO YOU HAVE NEW INFECTIONS? NO . DO YOU HAVE HISTORY OF MRSA? NO . MUSCULOSKELETAL: ANY NEW PATTERNS OF PAIN OR NUMBNESS? NO . GASTROENTEROLOGY: ANY NEW CHANGE IN BOWEL CONTROL? NO . GENITOURINARY: ANY NEW CHANGE IN BLADDER CONTROL? NO . IS THERE A CHANCE YOU COULD BE ? NO . HEMATOLOGY/LYMPH: DO YOU TAKE ANY BLOOD THINNERS? (FOR EXAMPLE- COUMADIN, PLAVIX, AGGRENOX, PLATEL, PRADAXA, OR XARELTO) NO . WHEN WAS YOUR LAST DOSE? DATE: TIME: . NEUROLOGY: HAVE YOU FALLEN IN THE PAST 12 MONTHS? NO . ANY NEW EXTREMITY NUMBNESS OR WEAKNESS? NO . CARDIOLOGY: DO YOU HAVE A PACEMAKER OR DEFIBRILLATOR? NO . RESPIRATORY: HAVE YOU BEEN SICK IN THE PAST WEEK? NO . FEVER NO . FLU LIKE SYMPTOMS? NO . COUGH NO . INTEGUMENTARY: DO YOU HAVE ANY RASHES OR OPEN SORES? NO . ALLERGIC/IMMUNO: ARE YOU ALLERGIC TO IV DYE? NO . ANY NEW ALLERGIES? NO . PSYCHIATRIC: DO YOU HAVE THOUGHTS OF HURTING YOURSELF OR SOMEONE ELSE? NO . ARE YOU ABUSED, NEGLECTED, OR IN AN UNSAFE ENVIRONMENT? NO . ENDOCRINOLOGY: ARE YOU DIABETIC? YES, MANAGED WITH DIET . OTHER: DO YOU NEED ANY PRESCRIPTIONS? NEEDS REFILL OF SOMA . IF YES, PLEASE LIST: ____ . ANY NEW PROBLEMS WITH YOUR MEDICATIONS? NO . WHEN DID YOU LAST EAT? ____ . WHEN DID YOU LAST DRINK? ____ . WHAT DID YOU LAST DRINK? ____ . NAME OF PERSON DRIVING YOU HOME? ____ . DO YOU HAVE ANY OTHER QUESTIONS OR CONCERNS NO . VITAL SIGNS WT 190.0 LBS, HT 66 IN, BMI 30.66 INDEX, BP 141/80 MM HG, HR 75 /MIN, RR 18 /MIN, TEMP 97.0 F, OXYGEN SAT % 98%, SAFE IN ENV? (Y/N) Y, NA INITIALS AW 0909, REVIEWED BY: BRADLY. EXAMINATION GENERAL EXAMINATION: GENERALNO ACUTE DISTRESS, WELL NOURISHED AND HYDRATED. PSYCHAPPROPRIATE MOOD AND AFFECT . LUNGS:CLEAR TO AUSCULTATION BILATERALLY, NO WHEEZES, RHONCHI, RALES. HEART:NO MURMURS, REGULAR RATE AND RHYTHM. BACK:DENIES POINT TENDERNESS ALONG RIGHT THORACIC SPINE, THERE IS NO ERYTHEMA, ECCHYMOSIS, INCREASED WARMTH, AND/OR SKIN ERUPTIONS NOTED. + FOR INCREASED PAIN WITH FACET LOADING OF THE RIGHT SIDE.. ASSESSMENTS SPONDYLOSIS OF THORACIC REGION WITHOUT MYELOPATHY OR RADICULOPATHY - M47.814 (PRIMARY) THORACIC SPINE PAIN - M54.6 TREATMENT SPONDYLOSIS OF THORACIC REGION WITHOUT MYELOPATHY OR RADICULOPATHY NOTES: THERAPEUTIC FACET BLOCK T4-T5 T5-T6. CLINICAL NOTES: 53-YEAR-OLD MALE IN FOR POST THERAPEUTIC FACET BLOCK FOLLOW-UP. GIVEN PRESENTING SYMPTOMS AND RESULTS OF PHYSICAL EXAMINATION RECOMMENDED REPEAT THERAPEUTIC FACET BLOCK WITH POST PROCEDURAL FOLLOW-UP. PATIENT HAS EXPRESSED UNDERSTANDING OF AND WAS IN AGREEMENT WITH TREATMENT PLAN. GIVEN TIME TO ASK QUESTIONS AND EXPRESS CONCERNS., ISTOP REGISTRY REVIEWED AND DEMONSTRATES COMPLLIANCE. (REF # [id number] ) BRINGS IN MEDICATIONS WHICH IS APPROPRIATE FOR WHAT WAS DISPENSED. RECENT URINE TOXICOLOGY REVIEWED. NO UNAUTHORIZED MEDICATIONS. NO ILLICIT SUBSTANCES AND PRESCRIBED MEDICATIONS WERE PRESENT. THORACIC SPINE PAIN REFILL CARISOPRODOL TABLET, 350 MG, 1 TABLET NEEDED, ORALLY (ISTOP:[id number]), BEFORE BEDTIME, 30 DAYS, 30, REFILLS 2 PROCEDURE CODES FA211 ESTABILISHED PATIENT [facility] CHARGE DISPOSITION & COMMUNICATION FOLLOW UP POSTPROCEDURE (REASON: THERAPEUTIC FACET BLOCK T4-T5 T5-T6) ELECTRONICALLY SIGNED BY BRETT TOBAR ON 02/26/2019 AT 08:41 AM EDT DISCLAIMER : THIS IS A VISIT SUMMARY EXTRACTED FROM THE [employer] CHART. IT IS NOT A COPY OF THE [employer] PROGRESS NOTE. ANA
== END ==
LOC: M PAIN 08:45
PROVIDERS: ATTEND Family Medicine
DX: M47.814 Spondylosis without myelopathy or radiculopathy, thoracic region (principal); M54.6 Pain in thoracic spine; I10 Essential (primary) hypertension; J45.909 Unspecified asthma, uncomplicated; Z86.59 Personal history of other mental and behavioral disorders; E11.9 Type 2 diabetes mellitus without complications; E78.5 Hyperlipidemia, unspecified; G47.33 Obstructive sleep apnea (adult) (pediatric); Z88.8 Allergy status to other drugs, medicaments and biological substances; Z79.82 Long term (current) use of aspirin; Z79.84 Long term (current) use of oral hypoglycemic drugs; Z79.899 Other long term (current) drug therapy; Z79.890 Hormone replacement therapy; Z12.5 Encounter for screening for malignant neoplasm of prostate
CPT/HCPCS: 36415; 80053; 84402; 84403; 85027; G0103; G0463

== ENCOUNTER → 2019-02-28 | Outpatient (REF) | payer OTHER ==
[~2019-02-28] MED LIST changes: -CIME200T5 PO; -CYCL10TA PO; -PEPC40TA12 PO; -PRED10TA2 PO; -SUCR1SS PO
[2019-02-28 17:39] LABS: INR 1.14; PROTHROMBIN TIME 14.3 SECONDS (11.8-14.0)
[2019-02-28 17:40] LABS: PARTIAL THROMBOPLASTIN TIME 32.9 SECONDS (25.0-38.4)
== END ==
LOC: M SFHCPLAZ 14:39
PROVIDERS: ATTEND Physician Assistant
DX: Z01.818 Encounter for other preprocedural examination (principal)

== ENCOUNTER 2019-03-06 06:00 | Day surgery (SDC) | payer OTHER ==
[~2019-03-06] VITALS: Ht 167.6 cm; Wt 86.2 kg
[~2019-03-06 06:00] MED LIST changes: +LR 1,000 ML IV ONE; +ceFAZolin SOD 2 GM in IV 1 EA IV ONE
[2019-03-06] MEDS ORDERED: dexameTHASONE 10 MG/1 ML VIAL PRES.FREE (J1100) ONE (06:01)
[2019-03-06] MEDS ORDERED: ROPIvacaine 0.5% 30 ML INJECTION (J2795 PER 1MG) ONE (06:01)
[2019-03-06] MEDS ORDERED: LIDOCAINE 1% MDV 20ML VIAL ONE (06:01)
[2019-03-06] MEDS ORDERED: MIDAZOLAM INJ 2 MG/2 ML VIAL (J2250) As Ordered ONE ×2 (06:45→08:04)
[2019-03-06] MEDS ORDERED: fentaNYL 100 MCG/2 ML INJECTION (J3010) As Ordered ONE ×2 (06:45→12:34)
[2019-03-06] MEDS ORDERED: LIDOCAINE 1% MDV 20ML VIAL As Ordered ONE (07:16)
[2019-03-06] MEDS ORDERED: EPINEPHrine 1MG/ML INJ 30ML MD-VIAL As Ordered ONE (07:17)
[2019-03-06] MEDS: MIDAZOLAM INJ 2 MG/2 ML VIAL (J2250) IV PRN ×2 (07:21→07:23)
[2019-03-06] MEDS: fentaNYL 100 MCG/2 ML INJECTION (J3010) IV PRN ×6 (07:21→12:58)
[2019-03-06] MEDS ORDERED: PROPOFOL 200 MG/20 ML VIAL As Ordered ONE ×2 (08:04→11:10)
[2019-03-06] MEDS ORDERED: dexameTHASONE 4 MG/ML 1ML VIAL (J1100) As Ordered ONE (08:04)
[2019-03-06] MEDS ORDERED: ONDANSETRON 4MG/2ML VIAL (J2405) As Ordered ONE ×2 (08:04→12:28)
[2019-03-06] MEDS ORDERED: LIDOCAINE 2% INJ 100 MG/5 ML SDV (FOR ANES.) As Ordered ONE (08:04)
[2019-03-06] MEDS ORDERED: fentaNYL 250 MCG/5 ML INJECTION (J3010) As Ordered ONE (08:04)
[2019-03-06] MEDS ORDERED: ROCURONIUM BROMIDE 50 MG/5 ML VIAL As Ordered ONE ×2 (08:04→08:28)
[2019-03-06] MEDS ORDERED: ePHEDrine SULFATE 25 MG/5 ML(5MG/ML) SYRINGE As Ordered ONE ×2 (08:04→08:46)
[2019-03-06] MEDS ORDERED: KETOROLAC 60 MG/2 ML VIAL (J1885) As Ordered ONE (08:12)
[2019-03-06] MEDS ORDERED: SUGAMMADEX SODIUM 500 MG/5 ML VIAL (BRIDION) As Ordered ONE (08:29)
[2019-03-06] MEDS ORDERED: LR 1,000 ML IV SCH ×2 (12:00)
[2019-03-06] MEDS ORDERED: ONDANSETRON 4MG/2ML VIAL (J2405) IV PRN (12:00)
[2019-03-06] MEDS: PERCOCET 5MG/325MG TAB PO PRN ×2 (12:28→12:57)
[2019-03-06] MEDS ORDERED: PERCOCET 5MG/325MG TAB As Ordered ONE ×2 (12:28→12:55)
--- NOTE | 2019-03-06 13:08 | RO ---
DATE OF SURGERY: 03/06/2019 PREOPERATIVE DIAGNOSES: 1. Left shoulder anterior labral tear. 2. Left shoulder high-grade partial rotator cuff tear. 3. Left shoulder impingement. POSTOPERATIVE DIAGNOSES: 1. Left shoulder anterior labral tear of instability. 2. Left shoulder high-grade partial articular rotator cuff tear. 3. Left shoulder unstable superior labral tear. 4. Left shoulder impingement. 5. Left shoulder chondromalacia. PROCEDURE: 1. Left shoulder arthroscopic anterior labral repair. 2. Left shoulder arthroscopic rotator cuff repair. 3. Left shoulder open subpectoral biceps tenodesis. 4. Left shoulder arthroscopic subacromial decompression. 5. Left shoulder arthroscopic chondroplasty. SURGEON: Dr. Harry Varner WOMEN'S ACTIVITIES ADVISER: KARL Lara ANESTHESIA: General, preoperative nerve block. IV FLUIDS: Lactated Ringer's. ESTIMATED BLOOD LOSS: 10 mL. IMPLANTS: Arthrex 3 mm suture tack times one, Arthrex 2.9 mm PushLock anchors times two, Arthrex 4.5 mm SwiveLock times one, and a 5.5 SwiveLock times one. CLOSURE: Nylon and Monocryl. PROCEDURE: Patient identified in preoperative holding area. The left shoulder marked by myself. He had an interscalene nerve block by anesthesia. He was brought to the operating room, placed supine on a well-padded operating room (OR) table. After induction of general anesthesia, he received appropriate IV antibiotics. Examination under anesthesia revealed 170 degrees of forward flexion, 70 degrees of external rotation with his arm at his side, grade 2+ anterior load and shift, grade 1 posterior load and shift. He was then placed into the right side down lateral decubitus position with an axillary roll and all bony prominences well padded. Bilateral Venodyne boots for deep venous thrombosis (DVT) prophylaxis. The left arm was placed into the Arthrex StaR sleeve lateral decubitus traction rivera 10 pounds of traction. The left shoulder was then prepped and draped in normal sterile fashion with Chloraprep. Prior to incision time-out was performed per hospital protocol. Riley Allen was present for the entire procedure and participated in all essential portions of the procedure. This included patient positioning and draping, holding rotating the arm providing axial traction to assist with the labral repair, holding retractors during the biceps tenodesis and both retrieving suture and assisting placing anchors for the rotator cuff repair. The left shoulder was insufflated with lactated Ringer's. A standard posterior viewing portal made with #11 blade. 30 degree arthroscope was introduced into the joint. Diagnostic arthroscopy revealed areas of grade 2 chondromalacia in the glenoid, grade 1 in the humeral head. There was tearing of the anterior inferior labrum down to the 6 o'clock position. The entire superior labrum had torn off at the junction of posterior and superior labrum and then the long head of the biceps was displacing that towards the rotator interval. The biceps was not actually visualized due to that tear pattern. The posterior rotator cuff was intact. There was what appeared to be a high-grade partial articular tear of the supraspinatus. Positive drive-through sign. A low portal was developed just above the subscap through the rotator interval and on probing of the superior labrum this was consistent with Bankart. I then used percutaneously a spinal needle to obtain the flap of superior labral tissue into the joint and then a hook cautery and meniscal punch were used to perform a tenotomy of the long head of biceps. The unstable superior labral flap was debrided with a shaver. The shaver was also used to debride the free edge tearing of the supraspinatus to get back to healthy tissue. I had hoped to do a PASTA rotator cuff repair in addition to a Bankart; however, the patient had a far lateral hanging acromion which did not give sufficient angle for placing those anchors percutaneously. I then proceeded with an open biceps tenodesis. Incision made with a #15 blade just lateral to the axilla and then dissection down to the bicipital groove. The long head of biceps was identified, retrieved with a right angle clamp. The tendon was significantly hypertrophied throughout the intra-articular portion, consistent with interstitial tearing. The Arthrex proximal biceps tenodesis kit was opened. A running locking whipstitch placed with the fiber loop, and then excess tendon trimmed and sent to pathology. Sutures loaded through the button per routine. A drill hole was made with the spade tip drill bit within the bicipital groove and bony debris removed with irrigation. The sutures had been passed through the button and then the button was passed through the drill holes. Sutures were toggled, which flipped the button and docked the along the bicipital groove nicely. Curve free needle was used to pass one limb of suture back through the tendon. Knots were tied by hand, which locked the construct in place. This nicely restored the resting tension. The incision was then extensively irrigated and then closed in layered fashion with #2-0 Vicryl and a running Monocryl of the skin. At the end of the case Steri-Strips were placed. Arthroscope was placed back into the joint, an accessory superior portal also through the rotator interval was placed and then the hooked cautery used to develop the plane between anterior labrum and anterior glenoid neck. Labral elevators were used to subperiosteally elevate capsule and labrum off the anterior glenoid neck. A shaver was used to clear all soft tissue and create a bleeding surface. I then drilled and placed an Arthrex 3 mm suture tack low in the anterior glenoid. Sutures were passed using a suture lasso in a horizontal mattress fashion taking care to grab the anterior band of the inferior glenohumeral ligament. My certified ophthalmic surgical assistant then applied a posterior vector to the proximal humerus and knots were tied arthroscopically. This nicely restored the bumper anterior inferiorly. I then placed two separate 2.9 mm PushLock anchors both with labral tape. Initial anchor was around the 7 o'clock position. The other anchors were at the 9 o'clock position. This nicely restored the anterior bumper and eliminated the drive-through sign. Chondroplasty of the glenoid was performed with a shaver. I again attempted to get the appropriate angle for percutaneous PASTA repair; however, I had a poor angle so elected to perform a traditional rotator cuff repair. The arthroscope was placed into the subacromial space and a lateral working portal established and a bursectomy performed with shaver and cautery. Switching stick was used to palpate the weakest area of the bursal surface of the supraspinatus, and I was actually able to easily penetrate into the joint with that. Radiofrequency cautery used to take down the intact bursal surface of the supraspinatus and then a ring curette used to clear soft tissue off the greater tuberosity to create a bleeding surface. I then percutaneously placed a 4.75 mm Peak SwiveLock anchor just off the articular surface as great fixation. The tape sutures were passed through the anterior and posterior portions of the tear and the eyelet sutures were passed through the central portion of the tear. I then tied the eyelet sutures using a knot pusher, which secured the medial row. The tape sutures and eyelet sutures were then brought out through a lateral anchor. The appropriate awl was used to place the 4.75 mm SwiveLock anchor in the lateral tuberosity. Unfortunately, the screw bottomed out and had poor fixation. It was unclear why. I then elected to place those the sutures through a 5.5 SwiveLock anchor. I re-tapped and then the anchor was inserted and had fantastic fixation without difficulty. There were no dog ears and there was a very nice spread on the sutures from anterior to posterior. Shoulder was gently internally and axillary rotated. There is no lift off or buckling. Shoulder was irrigated and drained. Portals closed with nylon suture. Bulky sterile dressing applied. He was carefully placed into his R-2 sling. COMPLICATIONS: None. DISPOSITION: The patient will have to get into therapy quicker than normal for a rotator cuff repair given some mild preoperative stiffness and a combined labral repair and rotator cuff repair. Family was notified of the importance of getting to therapies in 2 weeks.
[2019-03-06 14:50] VITALS: BP 137/75
== END 2019-03-06 15:10 | disposition home or self-care (01) ==
LOC: M SDC 06:00
PROVIDERS: ATTEND Orthopaedic Surgery
DX: S43.432A Superior glenoid labrum lesion of left shoulder, initial encounter (principal); S46.011A Strain of muscle(s) and tendon(s) of the rotator cuff of right shoulder, initial encounter; M75.22 Bicipital tendinitis, left shoulder; M75.41 Impingement syndrome of right shoulder; M94.211 Chondromalacia, right shoulder; I10 Essential (primary) hypertension; E78.00 Pure hypercholesterolemia, unspecified; E11.9 Type 2 diabetes mellitus without complications; F41.9 Anxiety disorder, unspecified; F32.9 Major depressive disorder, single episode, unspecified; M54.9 Dorsalgia, unspecified; J45.909 Unspecified asthma, uncomplicated; R06.83 Snoring; G47.30 Sleep apnea, unspecified; Z79.899 Other long term (current) drug therapy; Z79.82 Long term (current) use of aspirin; X58.XXXA Exposure to other specified factors, initial encounter; Y93.9 Activity, unspecified; Y92.9 Unspecified place or not applicable; Y99.9 Unspecified external cause status
CPT/HCPCS: 23430; 29826; 29827; 88304; C1713; J0690; J1100; J1885; J2250; J2405; J2795; J3010

== ENCOUNTER → 2019-04-11 | Outpatient (CLI) | payer BC ==
[~2019-04-11] MED LIST changes: -LR 1,000 ML IV ONE; -ceFAZolin SOD 2 GM in IV 1 EA IV ONE
[2019-04-11 17:10] LABS: CHOLESTEROL RISK RATIO 3.125 (<5)
[2019-04-11 17:43] LABS: HEMOGLOBIN A1c 6.2 %
[2019-04-11 17:44] LABS: MALB URINE SIEMENS 13.8 MG/L; MAU/CREAT RATIO 9.7 MCG/MG (0.0-30.0)
== END ==
LOC: M WUC 11:52
PROVIDERS: ATTEND Nurse Practitioner Adult Health
DX: E11.9 Type 2 diabetes mellitus without complications (principal); E78.2 Mixed hyperlipidemia

== ENCOUNTER → 2019-05-11 | Outpatient (CLI) | payer BC ==
--- NOTE | 2019-05-14 23:46 | ECWPNPC ---
PATIENT NAME: NEHEMIAH BOONE : 1965 GENDER: MALE VISIT DATE: 05/11/2019 DISCHARGE DATE: 05/11/19 1118 VISIT LOCKED DATE TIME: PHYSICIAN: NADEGE LEO RESOURCE: NADEGE LEO REASON FOR APPOINTMENT 1. MEDS PER CW HISTORY OF PRESENT ILLNESS HISTORY OF PRESENT ILLNESS: PAIN THE PATIENT DESCRIBES THE PAIN... 54-YEAR-OLD MALE IN FOR CHRONIC PAIN FOLLOW-UP. HE RATES HIS PAIN CURRENTLY AT A 3 OUT OF 10 AND DESCRIBES IT SHARP, STABBING, AND TIGHT. PATIENT RECENTLY HAD LEFT SHOULDER SURGERY AND IS CURRENTLY ON OXYCODONE PRESCRIBED BY DR. ACOSTA FOR THIS. HE DOES ADMIT STOPPING HIS SOMA AND DICLOFENAC. HE STATES HIS SOMA WAS CAUSING HIM TO HAVE INSOMNIA AND HE WOULD RATHER TAKE IBUPROFEN THAN THE DICLOFENAC. FALL RISK SCREENING: SCREENING :NO FALLS REPORTED IN THE LAST YEAR CURRENT MEDICATIONS TAKING ASPIRIN 81 81 MG TABLET CHEWABLE 1 TABLET ORALLY ONCE A DAY TAKING ALVESCO 80 MCG/ACT AEROSOL SOLUTION 1 PUFF INHALATION TWICE A DAY TAKING FLOMAX 0.4 MG CAPSULE 1 CAPSULE ORALLY DAILY TAKING VITAMIN D (CHOLECALCIFEROL) 1000 UNIT TABLET 1 TABLET ORALLY ONCE A DAY TAKING VITAMIN C 1000 MG TABLET 1 TABLET ORALLY ONCE A DAY TAKING VITAMIN E 1000 UNIT CAPSULE 1 CAPSULE ORALLY ONCE A DAY TAKING VITAMIN B12 1000 MCG TABLET EXTENDED RELEASE 1 TABLET ORALLY ONCE A DAY TAKING MULTI COMPLETE - CAPSULE ORALLY DAILY TAKING L-LYSINE 500 MG TABLET ORALLY DAILY TAKING BLOOD GLUCOSE TEST - STRIP DIRECTED IN VITRO ONCE DAILY (E11.9) TAKING GLUCOMETER 1 DIRECTED _ ONCE DAILY (E11.9) TAKING LANCETS - MISCELLANEOUS DIRECTED SUBCUTANEOUSLY (E11.9) ONCE DAILY TAKING PEN NEEDLES 32G X 4 MM MISCELLANEOUS DIRECTED SUBCUTANEOUSLY (E11.9) ONCE DAILY WITH VICTOZA TAKING BD LUER-FREDY SYRINGE 23G X 1 MISCELLANEOUS USE DIRECTED INTRAMUSCULARLY TAKING SYRINGE 22G X 1-1/2 MISCELLANEOUS DIRECTED INTRAMUSCULARLY TAKING BD SYRINGE/NEEDLE 23G X 1 MISCELLANEOUS DIRECTED INTRAMUSCULARLY DIRECTED TAKING HYPODERMIC NEEDLE 18G X 1-1/2 MISCELLANEOUS DIRECTED INTRADERMALLY TAKING VIAGRA 100 MG TABLET 1 TABLET NEEDED ORALLY DIRECTED TAKING TESTOSTERONE CYPIONATE 200 MG/ML OIL 1 ML INTRAMUSCULAR 200 MG EVERY 7 DAYS, CODE F- 10 ML VIAL TAKING PROZAC 20 MG CAPSULE 1 CAPSULE ORALLY ONCE A DAY TAKING JARDIANCE 10 MG TABLET 1 TABLET ORALLY ONCE A DAY TAKING TRULICITY 0.75 MG/0.5ML SOLUTION PEN-INJECTOR 0.75 MG DIRECTED SUBCUTANEOUS ONCE WEEKLY TAKING LOSARTAN POTASSIUM 25 MG TABLET 1 TABLET ORALLY ONCE A DAY TAKING PRAVASTATIN SODIUM 40 MG TABLET 1 TABLET ORALLY ONCE A DAY TAKING ALBUTEROL SULFATE HFA 108 MCG/ACT AEROSOL SOLUTION 2 PUFFS NEEDED INHALATION EVERY 6 HRS NOT-TAKING DICLOFENAC SODIUM 50 MG TABLET DELAYED RELEASE 1 TABLET WITH FOOD OR MILK ORALLY THREE TIMES A DAY-TAKES NEEDED NOT-TAKING CARISOPRODOL 350 MG TABLET 1 TABLET NEEDED ORALLY (ISTOP:[id number]) BEFORE BEDTIME, NOTES: NOT TAKING NOT-TAKING MIRTAZAPINE 15 MG TABLET 1 TABLET AT BEDTIME ORALLY ONCE A DAY MEDICATION LIST REVIEWED AND RECONCILED WITH THE PATIENT PAST MEDICAL HISTORY HTN ASTHMA ANXIETY DEPRESSION DM 2 ED - ON TESTOSTERONE REPLACEMENT HYPERLIPIDEMIA ASCVD RISK 15.2% ON 11/21 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 DISC BULGES AND SMALL DISC PROTRUSIONS AT T6-7 AND T7-8 WITHOUT SPINAL CORD COMPRESSION, SMALL DISC PROTRUSIONS AT T8-9 AND T9-10 WITHOUT SPINAL CORD COMPRESSION. TORN LEFT ROTATOR CUFF ALLERGIES ROSUVASTATIN CALCIUM: MUSCLE ACHES - SIDE EFFECTS LISINOPRIL: COUGH - SIDE EFFECTS SURGICAL HISTORY RIGHT ANKLE RIGHT SHOULDER RHINOPLASTY REMOVAL OF UPP TONSILECTOMY 2006 COLONOSCOPY 03/10/2018 - SM INTERNAL HEMORRHOIDS, REPEAT 10 YRS PILAR CYST REMOVAL FROM SCALP (DERM) 08/29/18 ROTAR CUFF ON LEFT ARM 03/06/19 FAMILY HISTORY FATHER: 77 YRS, COPD MOTHER: 67 YRS, DIAGNOSED WITH DIABETES, HYPERTENSION SIBLINGS: , 4 SISTERS 1 LIVING BROTHER, DIABETES, UNSPECIFIED HEART DISEASE SON(S): ALIVE PATERNAL GRAND FATHER: UNKNOWN PATERNAL GRAND MOTHER: UNKNOWN MATERNAL GRAND FATHER: MATERNAL GRAND MOTHER: 1 BROTHER(S) , 4 SISTER(S) . 4 SISTERS, 1 BROTHER. DENIES FAMILY HX OF SKIN AND PANCREATIC CANCER.1 SON -GOOD HEALTHNO DAUGHTERS. SOCIAL HISTORY GENERAL: TOBACCO USE ARE YOU A:NONSMOKER HIV / HEP-C SCREENING HIV TEST OFFERED TO PATIENT:YES DATE OFFERED:11/17/2017 TEST ACCEPTED:NO HEP-C TEST OFFERED TO PATIENT:YES DATE OFFERED:11/17/2017 REASON:PATIENT DECLINED TEST ACCEPTED:NO REASON:PATIENT DECLINED BROCHURE PROVIDED TO PATIENTNO OTHERS AT HOME: SPOUSE. HOUSING: RENTS APARTMENT. EDUCATION LEVEL OF EDUCATION:NOT FINISHED COLLEGE DIET: REGULAR. LANGUAGE LANGUAGES SPOKEN:SPANISH DOMESTIC VIOLENCE STATUS: DO YOU FEEL SAFE IN YOUR ENVIRONMENT?YES RECREATIONAL DRUG USE DRUG USE?YES FORMER COCAINE ADDICT EXERCISE: DAILY 4-5 TIMES PER WEEK. LEARNING BARRIERS / SPECIAL NEEDS BARRIERS TO LEARNING?NO HEARING IMPAIRED?NO VISION IMPAIRED?YES COGNITIVELY IMPAIRED?NO :CORRECTIVE LENSES READINESS TO LEARN?YES LEARNING PREFERENCES?NO LEARNING CAPABILITIES PRESENT?YES EMOTIONAL BARRIERS?NO SPECIAL DEVICES?NO CRITICAL CARE NURSE PRACTITIONER NEEDED?NO LUNG CANCER SCREENING SMOKING STATUS:NON SMOKER PAIN CLINIC PFS, CLERGY, PUBLIC HEALTH REFERRALS PFS REFERRAL NEEDED?NO CLERGY REFERRAL NEEDED?NO PUBLIC HEALTH REFERRAL NEEDED?NO WAS THE PROVIDER NOTIFIED OF ANY PERTINENT INFO?YES HAS THE PATIENT BEEN EDUCATED REGARDING HIS/HER PLAN OF CARE?YES HAS THE PATIENT BEEN EDUCATED REGARDING PAIN, THE RISK FOR PAIN, THE IMPORTANCE OF EFFECTIVE PAIN MANAGEMENT, AND THE PAIN ASSESSMENT PROCESS?YES LATEX QUESTIONNAIRE LATEX ALLERGY : HAVE YOU EVER DEVELOPED ANY TYPE OF REACTION AFTER HANDLING LATEX PRODUCTS SUCH RUBBER GLOVES, CONDOMS, DIAPHRAGMS, BALLOONS, SOCKS, OR UNDERWEAR?NO LATEX ALLERGY : HAVE YOU EVER DEVELOPED ANY TYPE OF REACTION DURING OR AFTER DENTAL APPOINTMENT, VAGINAL/RECTAL EXAMINATION, SURGICAL PROCEDURE, OR ANY OTHER EXPOSURE?NO DATE ASKED : 02/23/2019 LATEX RISK : HAVE YOU EVER HAD ANY DIFFICULTY BREATHING OR HIVES AFTER EATING OR HANDLING ANY FRUITS, OR VEGETABLES; SUCH KIWI, BANANAS, STONE FRUITS, OR CHESTNUTSNO LATEX RISK : DO YOU HAVE A PREVIOUS PERSONAL HISTORY OF MORE THAN NINE SURGERIES, SPINA BIFIDA, OR REPEATED CATHERIZATIONS? NO LATEX RISK : ARE YOU FREQUENTLY EXPOSED TO LATEX PRODUCTS IN YOUR OCCUPATION?NO CAFFEINE CAFFEINE USE?YES HOW OFTEN AND HOW MUCH? 1 CUP OF COFFEE PER DAY AND OCCASIONAL SODA ADVANCE DIRECTIVE ADVANCE DIRECTIVE DISCUSSED WITH PATIENT:YES PT. HAS HCP SHIRA BOONE [phone] HINDU HINDU NONE MARITAL STATUS: . ALCOHOL SCREENING DID YOU HAVE A DRINK CONTAINING ALCOHOL IN THE PAST YEAR?NO POINTS0 INTERPRETATIONNEGATIVE OCCUPATION: RETAIL--[employer]. SEXUAL HX HAD SEX IN THE LAST 12 MONTHS (VAGINAL, ORAL, OR ANAL)?YES WITHWOMEN ONLY USE PROTECTION?NO HAVE YOU EVER HAD AN STD?NO REVIEWED WITH PT 07/11/18 0852 BVREVIEWED WITH PT 08/28/18 0907 BVREVIEWED WITH PT 09/19/18 1217 LASREVIEWED WITH PT 11/20/18 1041 NJ02/07/19 REVIEWED WITH PT. ADREVIEWED WITH PATIENT 05/11/19 1035 BV. HOSPITALIZATION/MAJOR DIAGNOSTIC PROCEDURE ANKLE-DISLOCATION AND FRACTURE REHAB FOR SUBSTANCE ABUSE X 3 REVIEW OF SYSTEMS REVIEWED BY: PROVIDER: MICHELLE SIMMS . CONSTITUTIONAL: ANY CHANGE IN YOUR MEDICAL CONDITION? YES, PT CURRENTLY IN LEFT SHOULDER SLING FOLLOWING SURGERY ON HIS SHOULDER IN MARCH . CHILLS NO . FEVER NO . INFECTION: DO YOU HAVE NEW INFECTIONS? NO . DO YOU HAVE HISTORY OF MRSA? NO . MUSCULOSKELETAL: ANY NEW PATTERNS OF PAIN OR NUMBNESS? NO . GASTROENTEROLOGY: ANY NEW CHANGE IN BOWEL CONTROL? NO . GENITOURINARY: ANY NEW CHANGE IN BLADDER CONTROL? NO . IS THERE A CHANCE YOU COULD BE ? NO . HEMATOLOGY/LYMPH: DO YOU TAKE ANY BLOOD THINNERS? (FOR EXAMPLE- COUMADIN, PLAVIX, AGGRENOX, PLATEL, PRADAXA, OR XARELTO) NO . WHEN WAS YOUR LAST DOSE? DATE: TIME: . NEUROLOGY: HAVE YOU FALLEN IN THE PAST 12 MONTHS? NO . ANY NEW EXTREMITY NUMBNESS OR WEAKNESS? NO . CARDIOLOGY: DO YOU HAVE A PACEMAKER OR DEFIBRILLATOR? NO . RESPIRATORY: HAVE YOU BEEN SICK IN THE PAST WEEK? NO . FEVER NO . FLU LIKE SYMPTOMS? NO . COUGH NO . INTEGUMENTARY: DO YOU HAVE ANY RASHES OR OPEN SORES? NO . ALLERGIC/IMMUNO: ARE YOU ALLERGIC TO IV DYE? NO . ANY NEW ALLERGIES? NO . PSYCHIATRIC: DO YOU HAVE THOUGHTS OF HURTING YOURSELF OR SOMEONE ELSE? NO . ARE YOU ABUSED, NEGLECTED, OR IN AN UNSAFE ENVIRONMENT? NO . ENDOCRINOLOGY: ARE YOU DIABETIC? YES . OTHER: DO YOU NEED ANY PRESCRIPTIONS? YES, WOULD LIKE TO DISCUSS SWITCHING FROM SOMA TO A DIFFERENT MUSCLE RELAXER . IF YES, PLEASE LIST: ____ . ANY NEW PROBLEMS WITH YOUR MEDICATIONS? NO . WHEN DID YOU LAST EAT? ____ . WHEN DID YOU LAST DRINK? ____ . WHAT DID YOU LAST DRINK? ____ . NAME OF PERSON DRIVING YOU HOME? ____ . DO YOU HAVE ANY OTHER QUESTIONS OR CONCERNS NO . VITAL SIGNS WT 199.2 LBS, HT 66 IN, BMI 32.15 INDEX, BP 143/67 MM HG, HR 84 /MIN, RR 18 /MIN, TEMP 98.8 F, OXYGEN SAT % 98%, NA INITIALS SC 10:33, REVIEWED BY: BV. EXAMINATION GENERAL EXAMINATION: GENERALNO ACUTE DISTRESS, WELL NOURISHED AND HYDRATED. PSYCHAPPROPRIATE MOOD AND AFFECT . LUNGS:CLEAR TO AUSCULTATION BILATERALLY, NO WHEEZES, RHONCHI, RALES. HEART:NO MURMURS, REGULAR RATE AND RHYTHM. ASSESSMENTS SPONDYLOSIS OF THORACIC REGION WITHOUT MYELOPATHY OR RADICULOPATHY - M47.814 (PRIMARY) TREATMENT SPONDYLOSIS OF THORACIC REGION WITHOUT MYELOPATHY OR RADICULOPATHY START CYCLOBENZAPRINE HCL TABLET, 10 MG, 1 TABLET 1 TO 2 HOURS BEFORE BEDTIME, ORALLY, TWICE DAILY, 30 DAY(S), 60 STOP CARISOPRODOL TABLET, 350 MG, 1 TABLET NEEDED, ORALLY (ISTOP:[id number]), BEFORE BEDTIME, NOTES: NOT TAKING STOP DICLOFENAC SODIUM TABLET DELAYED RELEASE, 50 MG, 1 TABLET WITH FOOD OR MILK, ORALLY, THREE TIMES A DAY-TAKES NEEDED CLINICAL NOTES: 54-YEAR-OLD MALE IN FOR CHRONIC PAIN FOLLOW-UP. GIVEN PRESENTING SYMPTOMS AND RESULTS OF PHYSICAL EXAMINATION RECOMMENDED STARTING CYCLOBENZAPRINE WITH FOLLOW-UP IN ONE MONTH TO DETERMINE EFFICACY OF TREATMENT. PATIENT HAS EXPRESSED UNDERSTANDING OF AND WAS IN AGREEMENT WITH TREATMENT PLAN. GIVEN TIME TO ASK QUESTIONS AND EXPRESS CONCERNS., ISTOP REGISTRY REVIEWED AND DEMONSTRATES COMPLLIANCE. (REF # [id number] ) BRINGS IN MEDICATIONS WHICH IS APPROPRIATE FOR WHAT WAS DISPENSED. RECENT URINE TOXICOLOGY REVIEWED. NO UNAUTHORIZED MEDICATIONS. NO ILLICIT SUBSTANCES AND PRESCRIBED MEDICATIONS WERE PRESENT. PREVENTIVE MEDICINE PAIN CLINIC TEACHING: MEDICATIONS PT GIVEN WRITTEN AND VERBAL EDUCATION ON STARTING CYCLOBENZAPRINE. PT VERBALIZES UNDERSTANDING OF ALL EDUCATION. PEDRO PABLO MANRIQUEZ 05/11/2019 11:19:27 AM > . PROCEDURE CODES FA211 ESTABILISHED PATIENT [facility] FACILITY CHARGE DISPOSITION & COMMUNICATION FOLLOW UP 4 WEEKS (REASON: BACK PAIN) ELECTRONICALLY SIGNED BY BRETT TOBAR ON 05/14/2019 AT 08:37 AM EST DISCLAIMER : THIS IS A VISIT SUMMARY EXTRACTED FROM THE [employer] CHART. IT IS NOT A COPY OF THE [employer] PROGRESS NOTE. ANA
--- NOTE | 2019-05-14 23:47 | ECWPNPC ---
PATIENT NAME: NEHEMIAH BOONE : 1965 GENDER: MALE VISIT DATE: 05/11/2019 DISCHARGE DATE: 05/11/19 1118 VISIT LOCKED DATE TIME: PHYSICIAN: NADEGE LEO RESOURCE: NADEGE LEO REASON FOR APPOINTMENT 1. MEDS PER CW HISTORY OF PRESENT ILLNESS HISTORY OF PRESENT ILLNESS: PAIN THE PATIENT DESCRIBES THE PAIN... 54-YEAR-OLD MALE IN FOR CHRONIC PAIN FOLLOW-UP. HE RATES HIS PAIN CURRENTLY AT A 3 OUT OF 10 AND DESCRIBES IT SHARP, STABBING, AND TIGHT. PATIENT RECENTLY HAD LEFT SHOULDER SURGERY AND IS CURRENTLY ON OXYCODONE PRESCRIBED BY DR. ACOSTA FOR THIS. HE DOES ADMIT STOPPING HIS SOMA AND DICLOFENAC. HE STATES HIS SOMA WAS CAUSING HIM TO HAVE INSOMNIA AND HE WOULD RATHER TAKE IBUPROFEN THAN THE DICLOFENAC. FALL RISK SCREENING: SCREENING :NO FALLS REPORTED IN THE LAST YEAR CURRENT MEDICATIONS TAKING ASPIRIN 81 81 MG TABLET CHEWABLE 1 TABLET ORALLY ONCE A DAY TAKING ALVESCO 80 MCG/ACT AEROSOL SOLUTION 1 PUFF INHALATION TWICE A DAY TAKING FLOMAX 0.4 MG CAPSULE 1 CAPSULE ORALLY DAILY TAKING VITAMIN D (CHOLECALCIFEROL) 1000 UNIT TABLET 1 TABLET ORALLY ONCE A DAY TAKING VITAMIN C 1000 MG TABLET 1 TABLET ORALLY ONCE A DAY TAKING VITAMIN E 1000 UNIT CAPSULE 1 CAPSULE ORALLY ONCE A DAY TAKING VITAMIN B12 1000 MCG TABLET EXTENDED RELEASE 1 TABLET ORALLY ONCE A DAY TAKING MULTI COMPLETE - CAPSULE ORALLY DAILY TAKING L-LYSINE 500 MG TABLET ORALLY DAILY TAKING BLOOD GLUCOSE TEST - STRIP DIRECTED IN VITRO ONCE DAILY (E11.9) TAKING GLUCOMETER 1 DIRECTED _ ONCE DAILY (E11.9) TAKING LANCETS - MISCELLANEOUS DIRECTED SUBCUTANEOUSLY (E11.9) ONCE DAILY TAKING PEN NEEDLES 32G X 4 MM MISCELLANEOUS DIRECTED SUBCUTANEOUSLY (E11.9) ONCE DAILY WITH VICTOZA TAKING BD LUER-FREDY SYRINGE 23G X 1 MISCELLANEOUS USE DIRECTED INTRAMUSCULARLY TAKING SYRINGE 22G X 1-1/2 MISCELLANEOUS DIRECTED INTRAMUSCULARLY TAKING BD SYRINGE/NEEDLE 23G X 1 MISCELLANEOUS DIRECTED INTRAMUSCULARLY DIRECTED TAKING HYPODERMIC NEEDLE 18G X 1-1/2 MISCELLANEOUS DIRECTED INTRADERMALLY TAKING VIAGRA 100 MG TABLET 1 TABLET NEEDED ORALLY DIRECTED TAKING TESTOSTERONE CYPIONATE 200 MG/ML OIL 1 ML INTRAMUSCULAR 200 MG EVERY 7 DAYS, CODE F- 10 ML VIAL TAKING PROZAC 20 MG CAPSULE 1 CAPSULE ORALLY ONCE A DAY TAKING JARDIANCE 10 MG TABLET 1 TABLET ORALLY ONCE A DAY TAKING TRULICITY 0.75 MG/0.5ML SOLUTION PEN-INJECTOR 0.75 MG DIRECTED SUBCUTANEOUS ONCE WEEKLY TAKING LOSARTAN POTASSIUM 25 MG TABLET 1 TABLET ORALLY ONCE A DAY TAKING PRAVASTATIN SODIUM 40 MG TABLET 1 TABLET ORALLY ONCE A DAY TAKING ALBUTEROL SULFATE HFA 108 MCG/ACT AEROSOL SOLUTION 2 PUFFS NEEDED INHALATION EVERY 6 HRS NOT-TAKING DICLOFENAC SODIUM 50 MG TABLET DELAYED RELEASE 1 TABLET WITH FOOD OR MILK ORALLY THREE TIMES A DAY-TAKES NEEDED NOT-TAKING CARISOPRODOL 350 MG TABLET 1 TABLET NEEDED ORALLY (ISTOP:[id number]) BEFORE BEDTIME, NOTES: NOT TAKING NOT-TAKING MIRTAZAPINE 15 MG TABLET 1 TABLET AT BEDTIME ORALLY ONCE A DAY MEDICATION LIST REVIEWED AND RECONCILED WITH THE PATIENT PAST MEDICAL HISTORY HTN ASTHMA ANXIETY DEPRESSION DM 2 ED - ON TESTOSTERONE REPLACEMENT HYPERLIPIDEMIA ASCVD RISK 15.2% ON 11/21 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 DISC BULGES AND SMALL DISC PROTRUSIONS AT T6-7 AND T7-8 WITHOUT SPINAL CORD COMPRESSION, SMALL DISC PROTRUSIONS AT T8-9 AND T9-10 WITHOUT SPINAL CORD COMPRESSION. TORN LEFT ROTATOR CUFF ALLERGIES ROSUVASTATIN CALCIUM: MUSCLE ACHES - SIDE EFFECTS LISINOPRIL: COUGH - SIDE EFFECTS SURGICAL HISTORY RIGHT ANKLE RIGHT SHOULDER RHINOPLASTY REMOVAL OF UPP TONSILECTOMY 2006 COLONOSCOPY 03/10/2018 - SM INTERNAL HEMORRHOIDS, REPEAT 10 YRS PILAR CYST REMOVAL FROM SCALP (DERM) 08/29/18 ROTAR CUFF ON LEFT ARM 03/06/19 FAMILY HISTORY FATHER: 77 YRS, COPD MOTHER: 67 YRS, DIAGNOSED WITH DIABETES, HYPERTENSION SIBLINGS: , 4 SISTERS 1 LIVING BROTHER, DIABETES, UNSPECIFIED HEART DISEASE SON(S): ALIVE PATERNAL GRAND FATHER: UNKNOWN PATERNAL GRAND MOTHER: UNKNOWN MATERNAL GRAND FATHER: MATERNAL GRAND MOTHER: 1 BROTHER(S) , 4 SISTER(S) . 4 SISTERS, 1 BROTHER. DENIES FAMILY HX OF SKIN AND PANCREATIC CANCER.1 SON -GOOD HEALTHNO DAUGHTERS. SOCIAL HISTORY GENERAL: TOBACCO USE ARE YOU A:NONSMOKER HIV / HEP-C SCREENING HIV TEST OFFERED TO PATIENT:YES DATE OFFERED:11/17/2017 TEST ACCEPTED:NO HEP-C TEST OFFERED TO PATIENT:YES DATE OFFERED:11/17/2017 REASON:PATIENT DECLINED TEST ACCEPTED:NO REASON:PATIENT DECLINED BROCHURE PROVIDED TO PATIENTNO OTHERS AT HOME: SPOUSE. HOUSING: RENTS APARTMENT. EDUCATION LEVEL OF EDUCATION:NOT FINISHED COLLEGE DIET: REGULAR. LANGUAGE LANGUAGES SPOKEN:URDU DOMESTIC VIOLENCE STATUS: DO YOU FEEL SAFE IN YOUR ENVIRONMENT?YES RECREATIONAL DRUG USE DRUG USE?YES FORMER COCAINE ADDICT EXERCISE: DAILY 4-5 TIMES PER WEEK. LEARNING BARRIERS / SPECIAL NEEDS BARRIERS TO LEARNING?NO HEARING IMPAIRED?NO VISION IMPAIRED?YES COGNITIVELY IMPAIRED?NO :CORRECTIVE LENSES READINESS TO LEARN?YES LEARNING PREFERENCES?NO LEARNING CAPABILITIES PRESENT?YES EMOTIONAL BARRIERS?NO SPECIAL DEVICES?NO PAINTER HELPER NEEDED?NO LUNG CANCER SCREENING SMOKING STATUS:NON SMOKER PAIN CLINIC PFS, CLERGY, PUBLIC HEALTH REFERRALS PFS REFERRAL NEEDED?NO CLERGY REFERRAL NEEDED?NO PUBLIC HEALTH REFERRAL NEEDED?NO WAS THE PROVIDER NOTIFIED OF ANY PERTINENT INFO?YES HAS THE PATIENT BEEN EDUCATED REGARDING HIS/HER PLAN OF CARE?YES HAS THE PATIENT BEEN EDUCATED REGARDING PAIN, THE RISK FOR PAIN, THE IMPORTANCE OF EFFECTIVE PAIN MANAGEMENT, AND THE PAIN ASSESSMENT PROCESS?YES LATEX QUESTIONNAIRE LATEX ALLERGY : HAVE YOU EVER DEVELOPED ANY TYPE OF REACTION AFTER HANDLING LATEX PRODUCTS SUCH RUBBER GLOVES, CONDOMS, DIAPHRAGMS, BALLOONS, SOCKS, OR UNDERWEAR?NO LATEX ALLERGY : HAVE YOU EVER DEVELOPED ANY TYPE OF REACTION DURING OR AFTER DENTAL APPOINTMENT, VAGINAL/RECTAL EXAMINATION, SURGICAL PROCEDURE, OR ANY OTHER EXPOSURE?NO DATE ASKED : 02/23/2019 LATEX RISK : HAVE YOU EVER HAD ANY DIFFICULTY BREATHING OR HIVES AFTER EATING OR HANDLING ANY FRUITS, OR VEGETABLES; SUCH KIWI, BANANAS, STONE FRUITS, OR CHESTNUTSNO LATEX RISK : DO YOU HAVE A PREVIOUS PERSONAL HISTORY OF MORE THAN NINE SURGERIES, SPINA BIFIDA, OR REPEATED CATHERIZATIONS? NO LATEX RISK : ARE YOU FREQUENTLY EXPOSED TO LATEX PRODUCTS IN YOUR OCCUPATION?NO CAFFEINE CAFFEINE USE?YES HOW OFTEN AND HOW MUCH? 1 CUP OF COFFEE PER DAY AND OCCASIONAL SODA ADVANCE DIRECTIVE ADVANCE DIRECTIVE DISCUSSED WITH PATIENT:YES PT. HAS HCP SHIRA BOONE [phone] CONFUCIANISM CONFUCIANISM NONE MARITAL STATUS: . ALCOHOL SCREENING DID YOU HAVE A DRINK CONTAINING ALCOHOL IN THE PAST YEAR?NO POINTS0 INTERPRETATIONNEGATIVE OCCUPATION: RETAIL--[employer]. SEXUAL HX HAD SEX IN THE LAST 12 MONTHS (VAGINAL, ORAL, OR ANAL)?YES WITHWOMEN ONLY USE PROTECTION?NO HAVE YOU EVER HAD AN STD?NO REVIEWED WITH PT 07/11/18 0852 BVREVIEWED WITH PT 08/28/18 0907 BVREVIEWED WITH PT 09/19/18 1217 LASREVIEWED WITH PT 11/20/18 1041 NJ02/07/19 REVIEWED WITH PT. ADREVIEWED WITH PATIENT 05/11/19 1035 BV. HOSPITALIZATION/MAJOR DIAGNOSTIC PROCEDURE ANKLE-DISLOCATION AND FRACTURE REHAB FOR SUBSTANCE ABUSE X 3 REVIEW OF SYSTEMS REVIEWED BY: PROVIDER: MICHELLE SIMMS . CONSTITUTIONAL: ANY CHANGE IN YOUR MEDICAL CONDITION? YES, PT CURRENTLY IN LEFT SHOULDER SLING FOLLOWING SURGERY ON HIS SHOULDER IN MARCH . CHILLS NO . FEVER NO . INFECTION: DO YOU HAVE NEW INFECTIONS? NO . DO YOU HAVE HISTORY OF MRSA? NO . MUSCULOSKELETAL: ANY NEW PATTERNS OF PAIN OR NUMBNESS? NO . GASTROENTEROLOGY: ANY NEW CHANGE IN BOWEL CONTROL? NO . GENITOURINARY: ANY NEW CHANGE IN BLADDER CONTROL? NO . IS THERE A CHANCE YOU COULD BE ? NO . HEMATOLOGY/LYMPH: DO YOU TAKE ANY BLOOD THINNERS? (FOR EXAMPLE- COUMADIN, PLAVIX, AGGRENOX, PLATEL, PRADAXA, OR XARELTO) NO . WHEN WAS YOUR LAST DOSE? DATE: TIME: . NEUROLOGY: HAVE YOU FALLEN IN THE PAST 12 MONTHS? NO . ANY NEW EXTREMITY NUMBNESS OR WEAKNESS? NO . CARDIOLOGY: DO YOU HAVE A PACEMAKER OR DEFIBRILLATOR? NO . RESPIRATORY: HAVE YOU BEEN SICK IN THE PAST WEEK? NO . FEVER NO . FLU LIKE SYMPTOMS? NO . COUGH NO . INTEGUMENTARY: DO YOU HAVE ANY RASHES OR OPEN SORES? NO . ALLERGIC/IMMUNO: ARE YOU ALLERGIC TO IV DYE? NO . ANY NEW ALLERGIES? NO . PSYCHIATRIC: DO YOU HAVE THOUGHTS OF HURTING YOURSELF OR SOMEONE ELSE? NO . ARE YOU ABUSED, NEGLECTED, OR IN AN UNSAFE ENVIRONMENT? NO . ENDOCRINOLOGY: ARE YOU DIABETIC? YES . OTHER: DO YOU NEED ANY PRESCRIPTIONS? YES, WOULD LIKE TO DISCUSS SWITCHING FROM SOMA TO A DIFFERENT MUSCLE RELAXER . IF YES, PLEASE LIST: ____ . ANY NEW PROBLEMS WITH YOUR MEDICATIONS? NO . WHEN DID YOU LAST EAT? ____ . WHEN DID YOU LAST DRINK? ____ . WHAT DID YOU LAST DRINK? ____ . NAME OF PERSON DRIVING YOU HOME? ____ . DO YOU HAVE ANY OTHER QUESTIONS OR CONCERNS NO . VITAL SIGNS WT 199.2 LBS, HT 66 IN, BMI 32.15 INDEX, BP 143/67 MM HG, HR 84 /MIN, RR 18 /MIN, TEMP 98.8 F, OXYGEN SAT % 98%, NA INITIALS SC 10:33, REVIEWED BY: BV. EXAMINATION GENERAL EXAMINATION: GENERALNO ACUTE DISTRESS, WELL NOURISHED AND HYDRATED. PSYCHAPPROPRIATE MOOD AND AFFECT . LUNGS:CLEAR TO AUSCULTATION BILATERALLY, NO WHEEZES, RHONCHI, RALES. HEART:NO MURMURS, REGULAR RATE AND RHYTHM. ASSESSMENTS SPONDYLOSIS OF THORACIC REGION WITHOUT MYELOPATHY OR RADICULOPATHY - M47.814 (PRIMARY) TREATMENT SPONDYLOSIS OF THORACIC REGION WITHOUT MYELOPATHY OR RADICULOPATHY START CYCLOBENZAPRINE HCL TABLET, 10 MG, 1 TABLET 1 TO 2 HOURS BEFORE BEDTIME, ORALLY, TWICE DAILY, 30 DAY(S), 60 STOP CARISOPRODOL TABLET, 350 MG, 1 TABLET NEEDED, ORALLY (ISTOP:[id number]), BEFORE BEDTIME, NOTES: NOT TAKING STOP DICLOFENAC SODIUM TABLET DELAYED RELEASE, 50 MG, 1 TABLET WITH FOOD OR MILK, ORALLY, THREE TIMES A DAY-TAKES NEEDED CLINICAL NOTES: 54-YEAR-OLD MALE IN FOR CHRONIC PAIN FOLLOW-UP. GIVEN PRESENTING SYMPTOMS AND RESULTS OF PHYSICAL EXAMINATION RECOMMENDED STARTING CYCLOBENZAPRINE WITH FOLLOW-UP IN ONE MONTH TO DETERMINE EFFICACY OF TREATMENT. PATIENT HAS EXPRESSED UNDERSTANDING OF AND WAS IN AGREEMENT WITH TREATMENT PLAN. GIVEN TIME TO ASK QUESTIONS AND EXPRESS CONCERNS., ISTOP REGISTRY REVIEWED AND DEMONSTRATES COMPLLIANCE. (REF # [id number] ) BRINGS IN MEDICATIONS WHICH IS APPROPRIATE FOR WHAT WAS DISPENSED. RECENT URINE TOXICOLOGY REVIEWED. NO UNAUTHORIZED MEDICATIONS. NO ILLICIT SUBSTANCES AND PRESCRIBED MEDICATIONS WERE PRESENT. PREVENTIVE MEDICINE PAIN CLINIC TEACHING: MEDICATIONS PT GIVEN WRITTEN AND VERBAL EDUCATION ON STARTING CYCLOBENZAPRINE. PT VERBALIZES UNDERSTANDING OF ALL EDUCATION. PEDRO PABLO MANRIQUEZ 05/11/2019 11:19:27 AM > . PROCEDURE CODES FA211 ESTABILISHED PATIENT [facility] CHARGE DISPOSITION & COMMUNICATION FOLLOW UP 4 WEEKS (REASON: BACK PAIN) ELECTRONICALLY SIGNED BY BRETT TOBAR ON 05/14/2019 AT 08:37 AM EST DISCLAIMER : THIS IS A VISIT SUMMARY EXTRACTED FROM THE [facility] CHART. IT IS NOT A COPY OF THE [facility] PROGRESS NOTE. ANA
== END ==
LOC: M PAIN 10:00
PROVIDERS: ATTEND Family Medicine
DX: M47.814 Spondylosis without myelopathy or radiculopathy, thoracic region (principal); G89.29 Other chronic pain; I10 Essential (primary) hypertension; J45.909 Unspecified asthma, uncomplicated; Z86.59 Personal history of other mental and behavioral disorders; E11.9 Type 2 diabetes mellitus without complications; E78.5 Hyperlipidemia, unspecified; G47.33 Obstructive sleep apnea (adult) (pediatric); Z88.8 Allergy status to other drugs, medicaments and biological substances; Z79.82 Long term (current) use of aspirin; Z79.84 Long term (current) use of oral hypoglycemic drugs; Z79.899 Other long term (current) drug therapy

== ENCOUNTER → 2019-05-24 | Outpatient (REF) | payer BC | LOC: M LAB REF 17:27 | PROVIDERS: ATTEND Dermatology | DX: L72.12 Trichodermal cyst (principal) ==

== ENCOUNTER → 2019-06-11 | Outpatient (CLI) | payer BC ==
--- NOTE | 2019-06-13 01:28 | ECWPNPC ---
PATIENT NAME: NEHEMIAH BOONE : 1965 GENDER: MALE VISIT DATE: 06/11/2019 DISCHARGE DATE: 06/11/19 1150 VISIT LOCKED DATE TIME: PHYSICIAN: NADEGE LEO RESOURCE: NADEGE LEO REASON FOR APPOINTMENT 1. BCBS-BACK HISTORY OF PRESENT ILLNESS HISTORY OF PRESENT ILLNESS: PAIN THE PATIENT DESCRIBES THE PAIN... 54-YEAR-OLD MALE IN FOR CHRONIC PAIN FOLLOW-UP. PATIENT HAD SHOULDER SURGERY RECENTLY AND ADMITS THIS PROCEDURE WORKED WELL. HE RATES HIS PAIN CURRENTLY AT A 2 OUT OF 10 AND DESCRIBING IT BURNING, SHARP, STABBING, SORE, AND TENDER. HE FURTHER STATES THAT HIS PAIN CAN VARY ON A SCALE FROM 4-6 OUT OF 10. HE WOULD LIKE TO DISCUSS POTENTIAL PAIN MEDICATIONS TODAY. HE HAS BEEN ON DICLOFENAC IN THE PAST AND THIS HAS BEEN INEFFECTIVE FOR HIM. FALL RISK SCREENING: SCREENING :NO FALLS REPORTED IN THE LAST YEAR CURRENT MEDICATIONS TAKING ASPIRIN 81 81 MG TABLET CHEWABLE 1 TABLET ORALLY ONCE A DAY TAKING ALVESCO 80 MCG/ACT AEROSOL SOLUTION 1 PUFF INHALATION TWICE A DAY TAKING FLOMAX 0.4 MG CAPSULE 1 CAPSULE ORALLY DAILY TAKING VITAMIN D (CHOLECALCIFEROL) 1000 UNIT TABLET 1 TABLET ORALLY ONCE A DAY TAKING VITAMIN C 1000 MG TABLET 1 TABLET ORALLY ONCE A DAY TAKING VITAMIN E 1000 UNIT CAPSULE 1 CAPSULE ORALLY ONCE A DAY TAKING VITAMIN B12 1000 MCG TABLET EXTENDED RELEASE 1 TABLET ORALLY ONCE A DAY TAKING MULTI COMPLETE - CAPSULE ORALLY DAILY TAKING L-LYSINE 500 MG TABLET ORALLY DAILY TAKING BLOOD GLUCOSE TEST - STRIP DIRECTED IN VITRO ONCE DAILY (E11.9) TAKING GLUCOMETER 1 DIRECTED _ ONCE DAILY (E11.9) TAKING LANCETS - MISCELLANEOUS DIRECTED SUBCUTANEOUSLY (E11.9) ONCE DAILY TAKING PEN NEEDLES 32G X 4 MM MISCELLANEOUS DIRECTED SUBCUTANEOUSLY (E11.9) ONCE DAILY WITH VICTOZA TAKING BD LUER-FREDY SYRINGE 23G X 1 MISCELLANEOUS USE DIRECTED INTRAMUSCULARLY TAKING SYRINGE 22G X 1-1/2 MISCELLANEOUS DIRECTED INTRAMUSCULARLY TAKING BD SYRINGE/NEEDLE 23G X 1 MISCELLANEOUS DIRECTED INTRAMUSCULARLY DIRECTED TAKING HYPODERMIC NEEDLE 18G X 1-1/2 MISCELLANEOUS DIRECTED INTRADERMALLY TAKING VIAGRA 100 MG TABLET 1 TABLET NEEDED ORALLY DIRECTED TAKING TESTOSTERONE CYPIONATE 200 MG/ML OIL 1 ML INTRAMUSCULAR 200 MG EVERY 7 DAYS, CODE F- 10 ML VIAL TAKING PROZAC 20 MG CAPSULE 1 CAPSULE ORALLY ONCE A DAY TAKING JARDIANCE 10 MG TABLET 1 TABLET ORALLY ONCE A DAY TAKING TRULICITY 0.75 MG/0.5ML SOLUTION PEN-INJECTOR 0.75 MG DIRECTED SUBCUTANEOUS ONCE WEEKLY TAKING LOSARTAN POTASSIUM 25 MG TABLET 1 TABLET ORALLY ONCE A DAY TAKING PRAVASTATIN SODIUM 40 MG TABLET 1 TABLET ORALLY ONCE A DAY TAKING ALBUTEROL SULFATE HFA 108 MCG/ACT AEROSOL SOLUTION 2 PUFFS NEEDED INHALATION EVERY 6 HRS TAKING CYCLOBENZAPRINE HCL 10 MG TABLET 1 TABLET 1 TO 2 HOURS BEFORE BEDTIME ORALLY TWICE DAILY TAKING PREDNISONE 1 TAB ORAL FOR 5 DAYS NOT-TAKING OXYCODONE HCL 5 MG CAPSULE 1 CAPSULE NEEDED ORALLY NOT-TAKING MIRTAZAPINE 15 MG TABLET 1 TABLET AT BEDTIME ORALLY ONCE A DAY MEDICATION LIST REVIEWED AND RECONCILED WITH THE PATIENT PAST MEDICAL HISTORY HTN ASTHMA ANXIETY DEPRESSION DM 2 ED - ON TESTOSTERONE REPLACEMENT HYPERLIPIDEMIA ASCVD RISK 15.2% ON 11/21 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 DISC BULGES AND SMALL DISC PROTRUSIONS AT T6-7 AND T7-8 WITHOUT SPINAL CORD COMPRESSION, SMALL DISC PROTRUSIONS AT T8-9 AND T9-10 WITHOUT SPINAL CORD COMPRESSION. TORN LEFT ROTATOR CUFF ALLERGIES ROSUVASTATIN CALCIUM: MUSCLE ACHES - SIDE EFFECTS LISINOPRIL: COUGH - SIDE EFFECTS SURGICAL HISTORY RIGHT ANKLE RIGHT SHOULDER RHINOPLASTY REMOVAL OF UPP TONSILECTOMY 2006 COLONOSCOPY 03/10/2018 - SM INTERNAL HEMORRHOIDS, REPEAT 10 YRS PILAR CYST REMOVAL FROM SCALP (DERM) 08/29/18 ROTAR CUFF ON LEFT ARM 03/06/19 LEFT SHOULDER REPAIR 03/06/19 FAMILY HISTORY FATHER: 77 YRS, COPD MOTHER: 67 YRS, DIAGNOSED WITH DIABETES, HYPERTENSION SIBLINGS: , 4 SISTERS 1 LIVING BROTHER, DIABETES, UNSPECIFIED HEART DISEASE SON(S): ALIVE PATERNAL GRAND FATHER: UNKNOWN PATERNAL GRAND MOTHER: UNKNOWN MATERNAL GRAND FATHER: MATERNAL GRAND MOTHER: 1 BROTHER(S) , 4 SISTER(S) . 4 SISTERS, 1 BROTHER. DENIES FAMILY HX OF SKIN AND PANCREATIC CANCER.1 SON -GOOD HEALTHNO DAUGHTERS. SOCIAL HISTORY GENERAL: TOBACCO USE ARE YOU A:NONSMOKER HIV / HEP-C SCREENING HIV TEST OFFERED TO PATIENT:YES DATE OFFERED:11/17/2017 TEST ACCEPTED:NO HEP-C TEST OFFERED TO PATIENT:YES DATE OFFERED:11/17/2017 REASON:PATIENT DECLINED TEST ACCEPTED:NO REASON:PATIENT DECLINED BROCHURE PROVIDED TO PATIENTNO OTHERS AT HOME: SPOUSE. HOUSING: RENTS APARTMENT. EDUCATION LEVEL OF EDUCATION:NOT FINISHED COLLEGE DIET: REGULAR. LANGUAGE LANGUAGES SPOKEN:BENGALI DOMESTIC VIOLENCE STATUS: DO YOU FEEL SAFE IN YOUR ENVIRONMENT?YES RECREATIONAL DRUG USE DRUG USE?YES FORMER COCAINE ADDICT EXERCISE: DAILY 4-5 TIMES PER WEEK. LEARNING BARRIERS / SPECIAL NEEDS CHANGE FROM LAST VISIT? 05/24/19 BARRIERS TO LEARNING?NO HEARING IMPAIRED?NO VISION IMPAIRED?YES COGNITIVELY IMPAIRED?NO :CORRECTIVE LENSES READINESS TO LEARN?YES LEARNING PREFERENCES?NO LEARNING CAPABILITIES PRESENT?YES EMOTIONAL BARRIERS?NO SPECIAL DEVICES?NO MICROFILM PROCESSOR NEEDED?NO LUNG CANCER SCREENING SMOKING STATUS:NON SMOKER PAIN CLINIC PFS, CLERGY, PUBLIC HEALTH REFERRALS PFS REFERRAL NEEDED?NO CLERGY REFERRAL NEEDED?NO PUBLIC HEALTH REFERRAL NEEDED?NO WAS THE PROVIDER NOTIFIED OF ANY PERTINENT INFO?YES HAS THE PATIENT BEEN EDUCATED REGARDING HIS/HER PLAN OF CARE?YES HAS THE PATIENT BEEN EDUCATED REGARDING PAIN, THE RISK FOR PAIN, THE IMPORTANCE OF EFFECTIVE PAIN MANAGEMENT, AND THE PAIN ASSESSMENT PROCESS?YES LATEX QUESTIONNAIRE LATEX ALLERGY : HAVE YOU EVER DEVELOPED ANY TYPE OF REACTION AFTER HANDLING LATEX PRODUCTS SUCH RUBBER GLOVES, CONDOMS, DIAPHRAGMS, BALLOONS, SOCKS, OR UNDERWEAR?NO LATEX ALLERGY : HAVE YOU EVER DEVELOPED ANY TYPE OF REACTION DURING OR AFTER DENTAL APPOINTMENT, VAGINAL/RECTAL EXAMINATION, SURGICAL PROCEDURE, OR ANY OTHER EXPOSURE?NO DATE ASKED : 05/24/2019 LATEX RISK : HAVE YOU EVER HAD ANY DIFFICULTY BREATHING OR HIVES AFTER EATING OR HANDLING ANY FRUITS, OR VEGETABLES; SUCH KIWI, BANANAS, STONE FRUITS, OR CHESTNUTSNO LATEX RISK : DO YOU HAVE A PREVIOUS PERSONAL HISTORY OF MORE THAN NINE SURGERIES, SPINA BIFIDA, OR REPEATED CATHERIZATIONS? NO LATEX RISK : ARE YOU FREQUENTLY EXPOSED TO LATEX PRODUCTS IN YOUR OCCUPATION?NO CAFFEINE CAFFEINE USE?YES HOW OFTEN AND HOW MUCH? 1 CUP OF COFFEE PER DAY AND OCCASIONAL SODA ADVANCE DIRECTIVE ADVANCE DIRECTIVE DISCUSSED WITH PATIENT:YES PT. HAS HCP SHIRA BOONE [phone] ORIENTAL ORTHODOX ORIENTAL ORTHODOX NONE MARITAL STATUS: . ALCOHOL SCREENING DID YOU HAVE A DRINK CONTAINING ALCOHOL IN THE PAST YEAR?NO POINTS0 INTERPRETATIONNEGATIVE OCCUPATION: RETAIL--[employer]. SEXUAL HX HAD SEX IN THE LAST 12 MONTHS (VAGINAL, ORAL, OR ANAL)?YES WITHWOMEN ONLY USE PROTECTION?NO HAVE YOU EVER HAD AN STD?NO REVIEWED WITH PT 07/11/18 0852 BVREVIEWED WITH PT 08/28/18 0907 BVREVIEWED WITH PT 09/19/18 1217 LASREVIEWED WITH PT 11/20/18 1041 NJ02/07/19 REVIEWED WITH PT. ADREVIEWED WITH PATIENT 06/11/2019 LASREVIEWED WITH PATIENT 05/11/19 1035 BV. HOSPITALIZATION/MAJOR DIAGNOSTIC PROCEDURE ANKLE-DISLOCATION AND FRACTURE REHAB FOR SUBSTANCE ABUSE X 3 REVIEW OF SYSTEMS REVIEWED BY: PROVIDER: MICHELLE SIMMS . CONSTITUTIONAL: ANY CHANGE IN YOUR MEDICAL CONDITION? NO . CHILLS NO . FEVER NO . INFECTION: DO YOU HAVE NEW INFECTIONS? NO . DO YOU HAVE HISTORY OF MRSA? NO . MUSCULOSKELETAL: ANY NEW PATTERNS OF PAIN OR NUMBNESS? NO . GASTROENTEROLOGY: ANY NEW CHANGE IN BOWEL CONTROL? NO . GENITOURINARY: ANY NEW CHANGE IN BLADDER CONTROL? NO . IS THERE A CHANCE YOU COULD BE ? NO . HEMATOLOGY/LYMPH: DO YOU TAKE ANY BLOOD THINNERS? (FOR EXAMPLE- COUMADIN, PLAVIX, AGGRENOX, PLATEL, PRADAXA, OR XARELTO) NO . WHEN WAS YOUR LAST DOSE? DATE: TIME: . NEUROLOGY: HAVE YOU FALLEN IN THE PAST 12 MONTHS? NO . ANY NEW EXTREMITY NUMBNESS OR WEAKNESS? NO . CARDIOLOGY: DO YOU HAVE A PACEMAKER OR DEFIBRILLATOR? NO . RESPIRATORY: HAVE YOU BEEN SICK IN THE PAST WEEK? NO . FEVER NO . FLU LIKE SYMPTOMS? NO . COUGH NO . INTEGUMENTARY: DO YOU HAVE ANY RASHES OR OPEN SORES? YES PT REPORTS HE HAD A CASE OF HIVES ARMS/LEGS/BACK, WENT TO URGENT CARE, TREATED WITH STEROIDS AND HYDROXYZINE . ALLERGIC/IMMUNO: ARE YOU ALLERGIC TO IV DYE? NO . ANY NEW ALLERGIES? NO . PSYCHIATRIC: DO YOU HAVE THOUGHTS OF HURTING YOURSELF OR SOMEONE ELSE? NO . ARE YOU ABUSED, NEGLECTED, OR IN AN UNSAFE ENVIRONMENT? NO . ENDOCRINOLOGY: ARE YOU DIABETIC? YES . OTHER: DO YOU NEED ANY PRESCRIPTIONS? YES . IF YES, PLEASE LIST: ____FLEXERIL . ANY NEW PROBLEMS WITH YOUR MEDICATIONS? NO . WHEN DID YOU LAST EAT? ____ . WHEN DID YOU LAST DRINK? ____ . WHAT DID YOU LAST DRINK? ____ . NAME OF PERSON DRIVING YOU HOME? ____ . DO YOU HAVE ANY OTHER QUESTIONS OR CONCERNS WOULD LIKE TO DISCUSS PAIN MEDICATIONS AND POSSIBLE NERVE ABLATION . VITAL SIGNS WT 199.8 LBS, HT 66 IN, BMI 32.25 INDEX, BP 156/79 MM HG, HR 105 /MIN, RR 18 /MIN, TEMP 96.8 F, OXYGEN SAT % 97%, SAFE IN ENV? (Y/N) YES, NA INITIALS AW 1052, REVIEWED BY: JULIO. EXAMINATION GENERAL EXAMINATION: GENERALNO ACUTE DISTRESS, WELL NOURISHED AND HYDRATED. PSYCHAPPROPRIATE MOOD AND AFFECT . LUNGS:CLEAR TO AUSCULTATION BILATERALLY, NO WHEEZES, RHONCHI, RALES. HEART:NO MURMURS, REGULAR RATE AND RHYTHM. ASSESSMENTS SPONDYLOSIS OF THORACIC REGION WITHOUT MYELOPATHY OR RADICULOPATHY - M47.814 (PRIMARY) TREATMENT SPONDYLOSIS OF THORACIC REGION WITHOUT MYELOPATHY OR RADICULOPATHY START TRAMADOL HCL TABLET, 50 MG, 1 TABLET NEEDED, ORALLY, TWICE DAILY PRN MDD 2 50 TABLETS TO LAST 30 DAYS, 30 DAYS, 50 REFILL CYCLOBENZAPRINE HCL TABLET, 10 MG, 1 TABLET 1 TO 2 HOURS BEFORE BEDTIME, ORALLY, TWICE DAILY, 30 DAY(S), 60 CLINICAL NOTES: 54 OLD MALE IN FOR CHRONIC PAIN FOLLOW-UP. GIVEN PRESENTING SYMPTOMS AND RESULTS OF PHYSICAL EXAMINATION RECOMMENDED TRAMADOL 50 MG TWICE A DAY NEEDED WITH FOLLOW-UP IN ONE MONTH TO DETERMINE EFFICACY OF TREATMENT. PATIENT HAS EXPRESSED UNDERSTANDING OF AND WAS IN AGREEMENT WITH TREATMENT PLAN. GIVEN TIME TO ASK QUESTIONS AND EXPRESS CONCERNS., ISTOP REGISTRY REVIEWED AND DEMONSTRATES COMPLLIANCE. (REF # [id number] ) BRINGS IN MEDICATIONS WHICH IS APPROPRIATE FOR WHAT WAS DISPENSED. RECENT URINE TOXICOLOGY REVIEWED. NO UNAUTHORIZED MEDICATIONS. NO ILLICIT SUBSTANCES AND PRESCRIBED MEDICATIONS WERE PRESENT. PREVENTIVE MEDICINE PAIN CLINIC TEACHING: MEDICATIONS PRINTED INFORMATION ON TRAMADOL DECLINED BY PATIENT. MEDICATION REVIEWED WITH PATIENT, PATIENT VERBALIZES UNDERSTANDING. 06/11/2019 PROCEDURE CODES FA211 ESTABILISHED PATIENT [facility] CHARGE DISPOSITION & COMMUNICATION FOLLOW UP 4 WEEKS (REASON: BACK PAIN, NEW MEDICATION) ELECTRONICALLY SIGNED BY BRETT TOBAR ON 06/12/2019 AT 09:28 AM EST DISCLAIMER : THIS IS A VISIT SUMMARY EXTRACTED FROM THE [employer] CHART. IT IS NOT A COPY OF THE [employer] PROGRESS NOTE. ANA
== END ==
LOC: M PAIN 10:45
PROVIDERS: ATTEND Family Medicine
DX: M47.814 Spondylosis without myelopathy or radiculopathy, thoracic region (principal)

== ENCOUNTER 2019-06-19 08:14 | Emergency (ER) | payer BC ==
[~2019-06-19] VITALS: Ht 167.6 cm; Wt 88.8 kg
[2019-06-19 08:58] LABS: BASO # 0.1 10^3/uL (0.0-0.2); BASO % 0.5 % (0.0-1.0); EOS # 0.1 10^3/uL (0.0-0.5); EOS % 0.7 % (0.0-3.0); HEMOGLOBIN 16.7 g/dl (13.5-17.5); LYMPH # 2.7 10^3/uL (1.5-5.0); LYMPH % 20.7 % (24.0-44.0); MEAN CORPUSCULAR HEMOGLOBIN 24.7 pg (27.0-33.0); MEAN CORPUSCULAR HGB CONC 30.9 g/dl (32.0-36.5); MEAN CORPUSCULAR VOLUME 79.9 fl (80.0-96.0); MONO # 1.1 10^3/uL (0.0-0.8); MONO % 8.3 % (0.0-5.0); NEUTROPHILS # 8.9 10^3/uL (1.5-8.5); NEUTROPHILS % 68.2 % (36.0-66.0); PLATELET COUNT, AUTOMATED 357 10^3/uL (150-450); RED BLOOD COUNT 6.76 10^6/uL (4.30-6.10); WHITE BLOOD COUNT 13.1 10^3/uL (4.0-10.0)
--- NOTE | 2019-06-19 09:00 | REP ---
Portable chest x-ray: Single view. History: Chest pain. Comparison study: February 07, 2019. Findings: Monitoring electrodes are seen. The lungs are well inflated and clear. The pleural angles are sharp. Cardiomediastinal silhouette and bony thorax are unremarkable. Impression: No active disease. Electronically Signed by Terry Irizarry MD 06/19/2019 08:51 A
[2019-06-19 09:30] LABS: ALBUMIN 3.7 GM/DL (3.2-5.2); ALT/SGPT 23 U/L (12-78); BILIRUBIN,DIRECT 0.1 MG/DL (0.0-0.2); BILIRUBIN,TOTAL 0.4 MG/DL (0.2-1.0); BLOOD UREA NITROGEN 17 MG/DL (7-18); CALCIUM LEVEL 8.9 MG/DL (8.5-10.1); CARBON DIOXIDE LEVEL 27 MEQ/L (21-32); CHLORIDE LEVEL 105 MEQ/L (98-107); CK-MB VALUE MASS 1.8 NG/ML (<3.6); CPK CREATINE PHOSPHOKINASE 92 U/L (39-308); GLOMERULAR FILTRATION RATE > 60.0 (>56); GLUCOSE, FASTING 100 MG/DL (70-100); LIPASE 188 U/L (73-393); MB/CK RELATIVE INDEX 1.96 (< OR =4); NT-PRO BNP 8 PG/ML (<125); POTASSIUM SERUM 3.6 MEQ/L (3.5-5.1); SODIUM LEVEL 140 MEQ/L (136-145); TOTAL PROTEIN 7.8 GM/DL (6.4-8.2); TROPONIN I < 0.02 NG/ML (< 0.10)
[2019-06-19] MEDS ORDERED: CIME200T5 PO (11:28)
[2019-06-19] MEDS ORDERED: PRED10TA2 PO (11:28)
[2019-06-19] MEDS ORDERED: CYCL10TA PO (11:28)
[2019-06-19 11:35] LABS: CK-MB VALUE MASS 1.6 NG/ML (<3.6); CPK CREATINE PHOSPHOKINASE 72 U/L (39-308); MB/CK RELATIVE INDEX 2.22 (< OR =4); TROPONIN I < 0.02 NG/ML (< 0.10)
[2019-06-19] MEDS ORDERED: GI COCKTAIL 50ML BTL(HYOSCYAMINE/MAALOX/LIDOCAINE VISCOUS)(1:3:1) PO ONE (14:45)
[2019-06-19] MEDS ORDERED: PANTOPRAZOLE 40MG TAB (PROTONIX) PO ONE (14:45)
[2019-06-19 15:09] LABS: CK-MB VALUE MASS 1.3 NG/ML (<3.6); CPK CREATINE PHOSPHOKINASE 60 U/L (39-308); MB/CK RELATIVE INDEX 2.17 (< OR =4); TROPONIN I < 0.02 NG/ML (< 0.10)
[2019-06-19] MEDS ORDERED: SUCR1SS PO (15:19)
[2019-06-19] MEDS ORDERED: PEPC40TA12 PO (15:21)
[2019-06-19 16:00] VITALS: BP 157/88
--- NOTE | 2019-06-20 10:01 | ECGEPIP ---
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
--- NOTE | 2019-06-20 10:14 | ECGEPIP ---
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
== END 2019-06-19 16:12 | disposition home or self-care (01) ==
LOC: M ED 08:14
DX: R07.9 Chest pain, unspecified (principal); R00.0 Tachycardia, unspecified; E11.9 Type 2 diabetes mellitus without complications; I10 Essential (primary) hypertension; J45.909 Unspecified asthma, uncomplicated; F41.9 Anxiety disorder, unspecified; Z91.018 Allergy to other foods; Z79.51 Long term (current) use of inhaled steroids; Z79.1 Long term (current) use of non-steroidal anti-inflammatories (NSAID); Z79.891 Long term (current) use of opiate analgesic; Z79.899 Other long term (current) drug therapy

== ENCOUNTER → 2019-06-28 | Outpatient (CLI) | payer BC ==
[~2019-06-28] MED LIST changes: +CIME200T5 PO; +CYCL10TA PO; +PEPC40TA12 PO; +PRED10TA2 PO; +SUCR1SS PO
[2019-06-28 19:09] LABS: HEMATOCRIT 54.1 % (42.0-52.0); HEMOGLOBIN 16.4 g/dl (13.5-17.5); MEAN CORPUSCULAR HEMOGLOBIN 25.2 pg (27.0-33.0); MEAN CORPUSCULAR HGB CONC 30.3 g/dl (32.0-36.5); PLATELET COUNT, AUTOMATED 347 10^3/uL (150-450); RED BLOOD COUNT 6.52 10^6/uL (4.30-6.10); WHITE BLOOD COUNT 8.8 10^3/uL (4.0-10.0)
[2019-07-01 00:06] LABS: TESTOSTERONE FREE (DIRECT) 33.6 pg/mL (7.2-24.0)
== END ==
LOC: M PLALAB 14:58
PROVIDERS: ATTEND Nurse Practitioner Women's Health
DX: R79.89 Other specified abnormal findings of blood chemistry (principal)

== ENCOUNTER → 2019-07-09 | Outpatient (CLI) | payer BC ==
--- NOTE | 2019-07-11 02:19 | ECWPNPC ---
PATIENT NAME: NEHEMIAH BOONE : 1965 GENDER: MALE VISIT DATE: 07/09/2019 DISCHARGE DATE: 07/09/19 1209 VISIT LOCKED DATE TIME: PHYSICIAN: NADEGE LEO RESOURCE: NADEGE LEO REASON FOR APPOINTMENT 1. BACK PAIN, NEW MEDICATION HISTORY OF PRESENT ILLNESS HISTORY OF PRESENT ILLNESS: PAIN THE PATIENT DESCRIBES THE PAIN... 54 YEAR OLD MALE IN FOR CHRONIC PAIN FOLLOW UP. HE RATES HIS PAIN AT A 2/10 CURRENTLY AND DESCRIBES IT ACHING, SHARP, AND STABBING. HE WAS STARTED ON TRAMADOL AT LAST CLINIC VISIT AND FEELS THIS IS WORKING WELL AND DENIES MED SIDE EFFECTS AT THIS TIME. FALL RISK SCREENING: SCREENING :NO FALLS REPORTED IN THE LAST YEAR CURRENT MEDICATIONS TAKING ASPIRIN 81 81 MG TABLET CHEWABLE 1 TABLET ORALLY ONCE A DAY TAKING ALVESCO 80 MCG/ACT AEROSOL SOLUTION 1 PUFF INHALATION TWICE A DAY TAKING VITAMIN D (CHOLECALCIFEROL) 1000 UNIT TABLET 1 TABLET ORALLY ONCE A DAY TAKING VITAMIN C 1000 MG TABLET 1 TABLET ORALLY ONCE A DAY TAKING VITAMIN E 1000 UNIT CAPSULE 1 CAPSULE ORALLY ONCE A DAY TAKING VITAMIN B12 1000 MCG TABLET EXTENDED RELEASE 1 TABLET ORALLY ONCE A DAY TAKING MULTI COMPLETE - CAPSULE ORALLY DAILY TAKING L-LYSINE 500 MG TABLET ORALLY DAILY TAKING BLOOD GLUCOSE TEST - STRIP DIRECTED IN VITRO ONCE DAILY (E11.9) TAKING GLUCOMETER 1 DIRECTED _ ONCE DAILY (E11.9) TAKING LANCETS - MISCELLANEOUS DIRECTED SUBCUTANEOUSLY (E11.9) ONCE DAILY TAKING PEN NEEDLES 32G X 4 MM MISCELLANEOUS DIRECTED SUBCUTANEOUSLY (E11.9) ONCE DAILY WITH VICTOZA TAKING BD LUER-FREDY SYRINGE 23G X 1 MISCELLANEOUS USE DIRECTED INTRAMUSCULARLY TAKING SYRINGE 22G X 1-1/2 MISCELLANEOUS DIRECTED INTRAMUSCULARLY TAKING BD SYRINGE/NEEDLE 23G X 1 MISCELLANEOUS DIRECTED INTRAMUSCULARLY DIRECTED TAKING HYPODERMIC NEEDLE 18G X 1-1/2 MISCELLANEOUS DIRECTED INTRADERMALLY TAKING FLOMAX 0.4 MG CAPSULE 1 CAPSULE ORALLY DAILY TAKING VIAGRA 100 MG TABLET 1 TABLET NEEDED ORALLY DIRECTED TAKING PROZAC 20 MG CAPSULE 1 CAPSULE ORALLY ONCE A DAY TAKING JARDIANCE 10 MG TABLET 1 TABLET ORALLY ONCE A DAY TAKING TRULICITY 0.75 MG/0.5ML SOLUTION PEN-INJECTOR 0.75 MG DIRECTED SUBCUTANEOUS ONCE WEEKLY TAKING LOSARTAN POTASSIUM 25 MG TABLET 1 TABLET ORALLY ONCE A DAY TAKING PRAVASTATIN SODIUM 40 MG TABLET 1 TABLET ORALLY ONCE A DAY TAKING ALBUTEROL SULFATE HFA 108 MCG/ACT AEROSOL SOLUTION 2 PUFFS NEEDED INHALATION EVERY 6 HRS TAKING TRAMADOL HCL 50 MG TABLET 1 TABLET NEEDED ORALLY TWICE DAILY PRN MDD 2 50 TABLETS TO LAST 30 DAYS TAKING CYCLOBENZAPRINE HCL 10 MG TABLET 1 TABLET 1 TO 2 HOURS BEFORE BEDTIME ORALLY TWICE DAILY TAKING TESTOSTERONE CYPIONATE 200 MG/ML OIL 1 ML INTRAMUSCULAR 200 MG EVERY 10 DAYS, CODE F- 10 ML VIAL TAKING SUCRALFATE 1 GM/10ML SUSPENSION 10 ML ON AN EMPTY STOMACH ORALLY BEFORE MEALS AND AT BEDTIME, STOP DATE 07/20/2019, NOTES: ER 06/19/2019 TAKING PROTONIX 20 MG TABLET DELAYED RELEASE 1 TABLET ORALLY ONCE A DAY, NOTES: UNSURE OF DOSE NOT-TAKING PEPCID 40 MG TABLET 1 TABLET AT BEDTIME ORALLY ONCE A DAY, STOP DATE 07/20/2019, NOTES: ER 06/19/2019 NOT-TAKING CIMETIDINE 200 MG TABLET 1 TABLET NEEDED ORALLY DAILY NOT-TAKING PREDNISONE 10 MG TABLET 1 TABLET ORALLY DIRECTED 3 TABS X 3 DAYS 2 TABS X 3 DAYS 1 TAB X 3 DAYS MEDICATION LIST REVIEWED AND RECONCILED WITH THE PATIENT PAST MEDICAL HISTORY HTN ASTHMA ANXIETY DEPRESSION DM 2 ED - ON TESTOSTERONE REPLACEMENT HYPERLIPIDEMIA ASCVD RISK 15.2% ON 11/21 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 DISC BULGES AND SMALL DISC PROTRUSIONS AT T6-7 AND T7-8 WITHOUT SPINAL CORD COMPRESSION, SMALL DISC PROTRUSIONS AT T8-9 AND T9-10 WITHOUT SPINAL CORD COMPRESSION. TORN LEFT ROTATOR CUFF ESOPHAGEAL SPASMS ALLERGIES ROSUVASTATIN CALCIUM: MUSCLE ACHES - SIDE EFFECTS LISINOPRIL: COUGH - SIDE EFFECTS BEETS: HIVES SURGICAL HISTORY RIGHT ANKLE RIGHT SHOULDER RHINOPLASTY REMOVAL OF UPP TONSILECTOMY 2005 COLONOSCOPY 03/10/2018 - SM INTERNAL HEMORRHOIDS, REPEAT 10 YRS PILAR CYST REMOVAL FROM SCALP (DERM) 08/29/18 ROTAR CUFF ON LEFT ARM 03/06/19 LEFT SHOULDER REPAIR 03/06/19 FAMILY HISTORY FATHER: 77 YRS, COPD MOTHER: 67 YRS, DIAGNOSED WITH DIABETES, HYPERTENSION SIBLINGS: , 4 SISTERS 1 LIVING BROTHER, DIABETES, UNSPECIFIED HEART DISEASE SON(S): ALIVE PATERNAL GRAND FATHER: UNKNOWN PATERNAL GRAND MOTHER: UNKNOWN MATERNAL GRAND FATHER: MATERNAL GRAND MOTHER: 1 BROTHER(S) , 4 SISTER(S) . 4 SISTERS, 1 BROTHER. DENIES FAMILY HX OF SKIN AND PANCREATIC CANCER.1 SON -GOOD HEALTHNO DAUGHTERS. SOCIAL HISTORY GENERAL: TOBACCO USE ARE YOU A:NONSMOKER HIV / HEP-C SCREENING HIV TEST OFFERED TO PATIENT:YES DATE OFFERED:11/17/2017 TEST ACCEPTED:NO HEP-C TEST OFFERED TO PATIENT:YES DATE OFFERED:11/17/2017 REASON:PATIENT DECLINED TEST ACCEPTED:NO REASON:PATIENT DECLINED BROCHURE PROVIDED TO PATIENTNO OTHERS AT HOME: SPOUSE. HOUSING: RENTS APARTMENT. EDUCATION LEVEL OF EDUCATION:NOT FINISHED COLLEGE DIET: REGULAR. LANGUAGE LANGUAGES SPOKEN:ST HELENIAN DOMESTIC VIOLENCE STATUS: DO YOU FEEL SAFE IN YOUR ENVIRONMENT?YES RECREATIONAL DRUG USE DRUG USE?YES FORMER COCAINE ADDICT EXERCISE: DAILY 4-5 TIMES PER WEEK. LEARNING BARRIERS / SPECIAL NEEDS CHANGE FROM LAST VISIT? 05/24/19 BARRIERS TO LEARNING?NO HEARING IMPAIRED?NO VISION IMPAIRED?YES COGNITIVELY IMPAIRED?NO :CORRECTIVE LENSES READINESS TO LEARN?YES LEARNING PREFERENCES?NO LEARNING CAPABILITIES PRESENT?YES EMOTIONAL BARRIERS?NO SPECIAL DEVICES?NO SHIPPER RECEIVER NEEDED?NO LUNG CANCER SCREENING SMOKING STATUS:NON SMOKER PAIN CLINIC PFS, CLERGY, PUBLIC HEALTH REFERRALS PFS REFERRAL NEEDED?NO CLERGY REFERRAL NEEDED?NO PUBLIC HEALTH REFERRAL NEEDED?NO WAS THE PROVIDER NOTIFIED OF ANY PERTINENT INFO?YES HAS THE PATIENT BEEN EDUCATED REGARDING HIS/HER PLAN OF CARE?YES HAS THE PATIENT BEEN EDUCATED REGARDING PAIN, THE RISK FOR PAIN, THE IMPORTANCE OF EFFECTIVE PAIN MANAGEMENT, AND THE PAIN ASSESSMENT PROCESS?YES LATEX QUESTIONNAIRE LATEX ALLERGY : HAVE YOU EVER DEVELOPED ANY TYPE OF REACTION AFTER HANDLING LATEX PRODUCTS SUCH RUBBER GLOVES, CONDOMS, DIAPHRAGMS, BALLOONS, SOCKS, OR UNDERWEAR?NO LATEX ALLERGY : HAVE YOU EVER DEVELOPED ANY TYPE OF REACTION DURING OR AFTER DENTAL APPOINTMENT, VAGINAL/RECTAL EXAMINATION, SURGICAL PROCEDURE, OR ANY OTHER EXPOSURE?NO DATE ASKED : 05/24/2019 LATEX RISK : HAVE YOU EVER HAD ANY DIFFICULTY BREATHING OR HIVES AFTER EATING OR HANDLING ANY FRUITS, OR VEGETABLES; SUCH KIWI, BANANAS, STONE FRUITS, OR CHESTNUTSNO LATEX RISK : DO YOU HAVE A PREVIOUS PERSONAL HISTORY OF MORE THAN NINE SURGERIES, SPINA BIFIDA, OR REPEATED CATHERIZATIONS? NO LATEX RISK : ARE YOU FREQUENTLY EXPOSED TO LATEX PRODUCTS IN YOUR OCCUPATION?NO CAFFEINE CAFFEINE USE?YES HOW OFTEN AND HOW MUCH? 1 CUP OF COFFEE PER DAY AND OCCASIONAL SODA ADVANCE DIRECTIVE ADVANCE DIRECTIVE DISCUSSED WITH PATIENT:YES PT. HAS HCP SHIRA BOONE [phone] AMISH AMISH NONE MARITAL STATUS: . ALCOHOL SCREENING DID YOU HAVE A DRINK CONTAINING ALCOHOL IN THE PAST YEAR?NO POINTS0 INTERPRETATIONNEGATIVE OCCUPATION: RETAIL--neoS[employer]. SEXUAL HX HAD SEX IN THE LAST 12 MONTHS (VAGINAL, ORAL, OR ANAL)?YES WITHWOMEN ONLY USE PROTECTION?NO HAVE YOU EVER HAD AN STD?NO REVIEWED WITH PT 07/11/18 0852 BVREVIEWED WITH PT 08/28/18 0907 BVREVIEWED WITH PT 09/19/18 1217 LASREVIEWED WITH PT 11/20/18 1041 NJ02/07/19 REVIEWED WITH PT. ADREVIEWED WITH PATIENT 06/11/2019 LASREVIEWED WITH PATIENT 05/11/19 1035 BV. HOSPITALIZATION/MAJOR DIAGNOSTIC PROCEDURE ANKLE-DISLOCATION AND FRACTURE REHAB FOR SUBSTANCE ABUSE X 3 REVIEW OF SYSTEMS REVIEWED BY: PROVIDER: MICHELLE KIRANC . CONSTITUTIONAL: ANY CHANGE IN YOUR MEDICAL CONDITION? YES - ESOPHAGEAL SPASMS . CHILLS NO . FEVER NO . INFECTION: DO YOU HAVE NEW INFECTIONS? NO . DO YOU HAVE HISTORY OF MRSA? NO . MUSCULOSKELETAL: ANY NEW PATTERNS OF PAIN OR NUMBNESS? NO . GASTROENTEROLOGY: ANY NEW CHANGE IN BOWEL CONTROL? NO . GENITOURINARY: ANY NEW CHANGE IN BLADDER CONTROL? NO . IS THERE A CHANCE YOU COULD BE ? NO . HEMATOLOGY/LYMPH: DO YOU TAKE ANY BLOOD THINNERS? (FOR EXAMPLE- COUMADIN, PLAVIX, AGGRENOX, PLATEL, PRADAXA, OR XARELTO) NO . WHEN WAS YOUR LAST DOSE? DATE: TIME: . NEUROLOGY: HAVE YOU FALLEN IN THE PAST 12 MONTHS? NO . ANY NEW EXTREMITY NUMBNESS OR WEAKNESS? NO . CARDIOLOGY: DO YOU HAVE A PACEMAKER OR DEFIBRILLATOR? NO . RESPIRATORY: HAVE YOU BEEN SICK IN THE PAST WEEK? NO . FEVER NO . FLU LIKE SYMPTOMS? NO . COUGH NO . INTEGUMENTARY: DO YOU HAVE ANY RASHES OR OPEN SORES? NO . ALLERGIC/IMMUNO: ARE YOU ALLERGIC TO IV DYE? NO . ANY NEW ALLERGIES? NO . PSYCHIATRIC: DO YOU HAVE THOUGHTS OF HURTING YOURSELF OR SOMEONE ELSE? NO . ARE YOU ABUSED, NEGLECTED, OR IN AN UNSAFE ENVIRONMENT? NO . ENDOCRINOLOGY: ARE YOU DIABETIC? YES . OTHER: DO YOU NEED ANY PRESCRIPTIONS? NO . IF YES, PLEASE LIST: ____ . ANY NEW PROBLEMS WITH YOUR MEDICATIONS? NO . WHEN DID YOU LAST EAT? ____ . WHEN DID YOU LAST DRINK? ____ . WHAT DID YOU LAST DRINK? ____ . NAME OF PERSON DRIVING YOU HOME? ____ . DO YOU HAVE ANY OTHER QUESTIONS OR CONCERNS NO . VITAL SIGNS WT 203.2 LBS, HT 66 IN, BMI 32.79 INDEX, BP 148/80 MM HG, HR 110 /MIN, RR 18 /MIN, TEMP 97.6 F, OXYGEN SAT % 97%, NA INITIALS AW 1130, REVIEWED BY: CARMELITA. EXAMINATION GENERAL EXAMINATION: GENERALNO ACUTE DISTRESS, WELL NOURISHED AND HYDRATED. PSYCHAPPROPRIATE MOOD AND AFFECT . LUNGS:CLEAR TO AUSCULTATION BILATERALLY, NO WHEEZES, RHONCHI, RALES. HEART:NO MURMURS, REGULAR RATE AND RHYTHM. ASSESSMENTS SPONDYLOSIS OF THORACIC REGION WITHOUT MYELOPATHY OR RADICULOPATHY - M47.814 (PRIMARY) TREATMENT SPONDYLOSIS OF THORACIC REGION WITHOUT MYELOPATHY OR RADICULOPATHY CLINICAL NOTES: 54 YEAR OLD MALE IN FOR CHRONIC PAIN FOLLOW UP. GIVEN PRESENTING SYMPTOMS AND RESULTS OF PHYSICAL EXAMINATION RECOMMEND CONTINUED USE OF TRAMADOL WITH FOLLOW UP IN 3 MONTHS. PATIENT HAS EXPRESSED UNDERSTANDING OF AND WAS IN AGREEMENT WITH TX PLAN. GIVEN TIME TO ASK QUESTIONS AND EXPRESS CONCERNS. , [employer] REVIEWED AND DEMONSTRATES COMPLLIANCE. (REF #[id number] ) BRINGS IN MEDICATIONS WHICH IS APPROPRIATE FOR WHAT WAS DISPENSED. RECENT URINE TOXICOLOGY REVIEWED. NO UNAUTHORIZED MEDICATIONS. NO ILLICIT SUBSTANCES AND PRESCRIBED MEDICATIONS WERE PRESENT. PROCEDURE CODES FA211 ESTABILISHED PATIENT [facility]LY [facility] CHARGE DISPOSITION & COMMUNICATION FOLLOW UP 3 MONTHS (REASON: LOW BACK PAIN ) ELECTRONICALLY SIGNED BY BRETT TOBAR ON 07/10/2019 AT 07:56 AM EST DISCLAIMER : THIS IS A VISIT SUMMARY EXTRACTED FROM THE [employer] CHART. IT IS NOT A COPY OF THE [employer] PROGRESS NOTE. MTDD
== END ==
LOC: M PAIN 11:15
PROVIDERS: ATTEND Family Medicine
DX: M47.814 Spondylosis without myelopathy or radiculopathy, thoracic region (principal); G89.29 Other chronic pain; I10 Essential (primary) hypertension; J45.909 Unspecified asthma, uncomplicated; Z86.59 Personal history of other mental and behavioral disorders; E11.9 Type 2 diabetes mellitus without complications; E78.5 Hyperlipidemia, unspecified; G47.33 Obstructive sleep apnea (adult) (pediatric); Z88.8 Allergy status to other drugs, medicaments and biological substances; Z91.018 Allergy to other foods; Z79.82 Long term (current) use of aspirin; Z79.84 Long term (current) use of oral hypoglycemic drugs; Z79.899 Other long term (current) drug therapy

== ENCOUNTER → 2019-07-18 | Outpatient (CLI) | payer BC ==
[~2019-07-18] MED LIST changes: +E-Z-GAS II EFFERVESCENT PACKET (SODIUM BICARB./CITRIC ACID/SIMETHICONE) As Ordered ONE; +E-Z-HD 98% w/w 340GM SUSP BTL As Ordered ONE; +E-Z-PAQUE 96% w/w SUSP 176GM BTL As Ordered ONE
--- NOTE | 2019-07-18 16:13 | REP ---
Upper GI air contrast The procedure was performed under the direct supervision of Dr. Irizarry. The images were reviewed with Dr. 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 The intestinal gas pattern is non-specific. Liquid barium and gas producing crystals were given in the erect position as well as liquid barium in the prone oblique position in order to perform a double contrast upper GI examination. The oral and pharyngeal stages of deglutition are unremarkable. Esophageal transport is prompt and efficient and there is no esophagitis, stricture, mucosal ring or hiatal hernia. There is gastroesophageal reflux demonstrated to below the level of the mike. The stomach thompson are normally outlined . The rugal folds are smooth and regular. There is no gastritis neoplasm or ulcer disease. The duodenal thompson are normally outlined . The mucosal folds are smooth and regular. There is no duodenitis pancreatitis peptic ulcer disease or neoplasm. The visualized portion of the proximal small bowel appears normal in course and caliber. Impression: There is gastroesophageal reflux demonstrated to below the level of the mike. Otherwise, unremarkable double contrast upper GI examination. 1.4 minutes of fluoro time was utilized for this procedure. Electronically Signed by MYAH Coyne 07/18/2019 03:39 P Electronically Signed by Terry Irizarry MD 07/18/2019 04:04 P
== END ==
LOC: M RAD 09:53
PROVIDERS: ATTEND Nurse Practitioner Adult Health
DX: K29.00 Acute gastritis without bleeding (principal); R07.89 Other chest pain

== ENCOUNTER → 2019-08-07 | Outpatient (CLI) | payer BC ==
[~2019-08-07] MED LIST changes: -E-Z-GAS II EFFERVESCENT PACKET (SODIUM BICARB./CITRIC ACID/SIMETHICONE) As Ordered ONE; -E-Z-HD 98% w/w 340GM SUSP BTL As Ordered ONE; -E-Z-PAQUE 96% w/w SUSP 176GM BTL As Ordered ONE
[2019-08-07 10:46] LABS: HEMATOCRIT 47.5 % (42.0-52.0); HEMOGLOBIN 15.4 g/dl (13.5-17.5); MEAN CORPUSCULAR HEMOGLOBIN 26.5 pg (27.0-33.0); MEAN CORPUSCULAR HGB CONC 32.4 g/dl (32.0-36.5); MEAN CORPUSCULAR VOLUME 81.8 fl (80.0-96.0); PLATELET COUNT, AUTOMATED 346 10^3/uL (150-450); RED BLOOD COUNT 5.81 10^6/uL (4.30-6.10); WHITE BLOOD COUNT 5.3 10^3/uL (4.0-10.0)
[2019-08-09 00:07] LABS: TESTOSTERONE FREE (DIRECT) 2.9 pg/mL (7.2-24.0)
== END ==
LOC: M PLALAB 08:34
PROVIDERS: ATTEND Nurse Practitioner Women's Health
DX: R79.89 Other specified abnormal findings of blood chemistry (principal)

== ENCOUNTER → 2019-10-04 | Outpatient (CLI) | payer BC ==
[~2019-10-04] MED LIST changes: +CYCL-707 PO; -CYCL10TA PO; +VITA-243 PO; -VITA500T PO
--- NOTE | 2019-10-05 00:55 | REPPI ---
Clinical: Bilateral hip pain. Technique: Neutral and frog lateral views of the right and left hip. Findings: Right hip demonstrates mild arthritic changes including subtle increase sclerosis to the acetabular roof with minimal spurring and subtle superior joint space narrowing. No acute fracture dislocation. Left hip demonstrates mild arthritic changes including increased sclerosis to the acetabular roof minimal spurring and mild superior joint space narrowing. No acute fracture dislocation. Impression: Mild relatively symmetric bilateral arthritic changes. Electronically Signed by Azar Siu MD 10/05/2019 12:47 A
== END ==
LOC: M PLAIMG 13:28
PROVIDERS: ATTEND Nurse Practitioner Adult Health
DX: M25.552 Pain in left hip (principal); M25.551 Pain in right hip; M16.0 Bilateral primary osteoarthritis of hip

== ENCOUNTER → 2019-10-08 | Outpatient (CLI) | payer BC ==
--- NOTE | 2019-10-10 05:01 | ECWPNPC ---
PATIENT NAME: NEHEMIAH BOONE : 1965 GENDER: MALE VISIT DATE: 10/08/2019 DISCHARGE DATE: 10/08/19923 VISIT LOCKED DATE TIME: PHYSICIAN: NADEGE LEO RESOURCE: NADEGE LEO REASON FOR APPOINTMENT 1. 3 MONTHS - PAT COMPLETED HISTORY OF PRESENT ILLNESS HISTORY OF PRESENT ILLNESS: PAIN THE PATIENT DESCRIBES THE PAIN... PERMISSION REQUESTED AND RECEIVED FROM PATIENT TO PERFORM TELEHEALTH VISIT. 54-YEAR-OLD MALE IN FOR CHRONIC PAIN FOLLOW-UP. HE RATES PAIN CURRENTLY AT A 0 OUT OF 10. HE FEELS MEDICATIONS ARE HELPFUL AND DENIES MED SIDE EFFECTS AT THIS TIME. FALL RISK SCREENING: SCREENING :NO FALLS REPORTED IN THE LAST YEAR CURRENT MEDICATIONS TAKING MOBIC 15 MG TABLET 1 TABLET ORALLY ONCE A DAY TAKING OMEPRAZOLE 40 MG CAPSULE DELAYED RELEASE 1 CAPSULE 30 MINUTES BEFORE MORNING MEAL ORALLY ONCE A DAY TAKING HYPODERMIC NEEDLE 18G X 1-1/2 MISCELLANEOUS DIRECTED INTRADERMALLY TAKING ASPIRIN 81 81 MG TABLET CHEWABLE 1 TABLET ORALLY ONCE A DAY TAKING ALVESCO 80 MCG/ACT AEROSOL SOLUTION 1 PUFF INHALATION TWICE A DAY TAKING VITAMIN D (CHOLECALCIFEROL) 1000 UNIT TABLET 1 TABLET ORALLY ONCE A DAY TAKING VITAMIN C 1000 MG TABLET 1 TABLET ORALLY ONCE A DAY TAKING VITAMIN E 1000 UNIT CAPSULE 1 CAPSULE ORALLY ONCE A DAY TAKING VITAMIN B12 1000 MCG TABLET EXTENDED RELEASE 1 TABLET ORALLY ONCE A DAY TAKING MULTI COMPLETE - CAPSULE ORALLY DAILY TAKING L-LYSINE 500 MG TABLET ORALLY DAILY TAKING BLOOD GLUCOSE TEST - STRIP DIRECTED IN VITRO ONCE DAILY (E11.9) TAKING LANCETS - MISCELLANEOUS DIRECTED SUBCUTANEOUSLY (E11.9) ONCE DAILY TAKING PEN NEEDLES 32G X 4 MM MISCELLANEOUS DIRECTED SUBCUTANEOUSLY (E11.9) ONCE DAILY WITH VICTOZA TAKING SYRINGE 22G X 1-1/2 MISCELLANEOUS DIRECTED INTRAMUSCULARLY TAKING PROZAC 20 MG CAPSULE 1 CAPSULE ORALLY ONCE A DAY TAKING ALBUTEROL SULFATE HFA 108 MCG/ACT AEROSOL SOLUTION 2 PUFFS NEEDED INHALATION EVERY 6 HRS TAKING BD SYRINGE/NEEDLE 23G X 1 MISCELLANEOUS DIRECTED INTRAMUSCULARLY DIRECTED TAKING LOSARTAN POTASSIUM 25 MG TABLET 1 TABLET ORALLY ONCE A DAY TAKING JARDIANCE 10 MG TABLET 1 TABLET ORALLY ONCE A DAY TAKING PRAVASTATIN SODIUM 40 MG TABLET 1 TABLET ORALLY ONCE A DAY TAKING TESTOSTERONE CYPIONATE 200 MG/ML OIL 1 ML INTRAMUSCULAR 200 MG EVERY 10 DAYS, CODE F- 10 ML VIAL TAKING CYCLOBENZAPRINE HCL 10 MG TABLET 1 TABLET 1 TO 2 HOURS BEFORE BEDTIME ORALLY TWICE DAILY TAKING BD LUER-FREDY SYRINGE 23G X 1 MISCELLANEOUS USE DIRECTED INTRAMUSCULARLY TAKING VIAGRA 100 MG TABLET 1 TABLET NEEDED ORALLY DIRECTED TAKING TRAMADOL HCL 50 MG TABLET 1 TABLET NEEDED ORALLY TWICE DAILY PRN MDD 2 50 TABLETS TO LAST 30 DAYS TAKING TRULICITY 0.75 MG/0.5ML SOLUTION PEN-INJECTOR 0.75 MG DIRECTED SUBCUTANEOUS ONCE WEEKLY TAKING GLUCOMETER _ DIRECTED DX: E11.9 DAILY USE TAKING FLOMAX 0.4 MG CAPSULE 1 CAPSULE ORALLY DAILY MEDICATION LIST REVIEWED AND RECONCILED WITH THE PATIENT PAST MEDICAL HISTORY HTN ASTHMA ANXIETY DEPRESSION DM 2 ED - ON TESTOSTERONE REPLACEMENT HYPERLIPIDEMIA ASCVD RISK 15.2% ON 11/21 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 DISC BULGES AND SMALL DISC PROTRUSIONS AT T6-7 AND T7-8 WITHOUT SPINAL CORD COMPRESSION, SMALL DISC PROTRUSIONS AT T8-9 AND T9-10 WITHOUT SPINAL CORD COMPRESSION. TORN LEFT ROTATOR CUFF ESOPHAGEAL SPASMS ARTHRITIS - LOW BACK/HIPS ALLERGIES ROSUVASTATIN CALCIUM: MUSCLE ACHES - SIDE EFFECTS LISINOPRIL: COUGH - SIDE EFFECTS BEETS: HIVES SURGICAL HISTORY RIGHT ANKLE RIGHT SHOULDER RHINOPLASTY REMOVAL OF UPP TONSILECTOMY 2005 COLONOSCOPY 03/10/2018 - SM INTERNAL HEMORRHOIDS, REPEAT 10 YRS PILAR CYST REMOVAL FROM SCALP (DERM) 08/29/18 ROTAR CUFF ON LEFT ARM 03/06/19 LEFT SHOULDER REPAIR 03/06/19 FAMILY HISTORY FATHER: 77 YRS, COPD MOTHER: 67 YRS, DIAGNOSED WITH DIABETES, HYPERTENSION SIBLINGS: , 4 SISTERS 1 LIVING BROTHER, UNSPECIFIED HEART DISEASE, DIABETES SON(S): ALIVE PATERNAL GRAND FATHER: UNKNOWN PATERNAL GRAND MOTHER: UNKNOWN MATERNAL GRAND FATHER: MATERNAL GRAND MOTHER: 1 BROTHER(S) , 4 SISTER(S) . 4 SISTERS, 1 BROTHER. DENIES FAMILY HX OF SKIN AND PANCREATIC CANCER.1 SON -GOOD HEALTHNO DAUGHTERS. SOCIAL HISTORY GENERAL: TOBACCO USE ARE YOU A:NONSMOKER LATEX QUESTIONNAIRE LATEX ALLERGY : HAVE YOU EVER DEVELOPED ANY TYPE OF REACTION AFTER HANDLING LATEX PRODUCTS SUCH RUBBER GLOVES, CONDOMS, DIAPHRAGMS, BALLOONS, SOCKS, OR UNDERWEAR?NO LATEX ALLERGY : HAVE YOU EVER DEVELOPED ANY TYPE OF REACTION DURING OR AFTER DENTAL APPOINTMENT, VAGINAL/RECTAL EXAMINATION, SURGICAL PROCEDURE, OR ANY OTHER EXPOSURE?NO LATEX RISK : HAVE YOU EVER HAD ANY DIFFICULTY BREATHING OR HIVES AFTER EATING OR HANDLING ANY FRUITS, OR VEGETABLES; SUCH KIWI, BANANAS, STONE FRUITS, OR CHESTNUTSNO LATEX RISK : DO YOU HAVE A PREVIOUS PERSONAL HISTORY OF MORE THAN NINE SURGERIES, SPINA BIFIDA, OR REPEATED CATHERIZATIONS? NO LATEX RISK : ARE YOU FREQUENTLY EXPOSED TO LATEX PRODUCTS IN YOUR OCCUPATION?NO DATE ASKED : 10/05/2019 LUNG CANCER SCREENING SMOKING STATUS:NON SMOKER ALCOHOL SCREENING DID YOU HAVE A DRINK CONTAINING ALCOHOL IN THE PAST YEAR?NO POINTS0 INTERPRETATIONNEGATIVE RECREATIONAL DRUG USE DRUG USE?YES FORMER COCAINE ADDICT CAFFEINE CAFFEINE USE?YES HOW OFTEN AND HOW MUCH? 1 CUP OF COFFEE PER DAY AND OCCASIONAL SODA SEXUAL HX HAD SEX IN THE LAST 12 MONTHS (VAGINAL, ORAL, OR ANAL)?YES WITHWOMEN ONLY USE PROTECTION?NO HAVE YOU EVER HAD AN STD?NO HIV / HEP-C SCREENING HIV TEST OFFERED TO PATIENT:YES DATE OFFERED:11/17/2017 TEST ACCEPTED:NO HEP-C TEST OFFERED TO PATIENT:YES DATE OFFERED:11/17/2017 REASON:PATIENT DECLINED TEST ACCEPTED:NO REASON:PATIENT DECLINED BROCHURE PROVIDED TO PATIENTNO YARSANI YARSANI NONE LANGUAGE LANGUAGES SPOKEN:MONGOLIAN EDUCATION LEVEL OF EDUCATION:NOT FINISHED COLLEGE LEARNING BARRIERS / SPECIAL NEEDS CHANGE FROM LAST VISIT? 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 DIET: REGULAR. EXERCISE: DAILY 4-5 TIMES PER WEEK. MARITAL STATUS: . OTHERS AT HOME: SPOUSE. NEW PATIENT PAIN DIARY TODAY'S VISITNOTES 10/05/2019 PATIENT DESCRIBES PAIN :IT COMES AND GOES, OTHER GRIPPING PAIN FROM 0-10, WHAT LEVEL IS YOUR PAIN TODAY?4 IMPACT ON FUNCTION DIFFICULTY SLEEPING PAIN CLINIC PFS, CLERGY, PUBLIC HEALTH REFERRALS PFS REFERRAL NEEDED?NO CLERGY REFERRAL NEEDED?NO PUBLIC HEALTH REFERRAL NEEDED?NO WAS THE PROVIDER NOTIFIED OF ANY PERTINENT INFO?YES HAS THE PATIENT BEEN EDUCATED REGARDING HIS/HER PLAN OF CARE?YES HAS THE PATIENT BEEN EDUCATED REGARDING PAIN, THE RISK FOR PAIN, THE IMPORTANCE OF EFFECTIVE PAIN MANAGEMENT, AND THE PAIN ASSESSMENT PROCESS?YES HOUSING: RENTS APARTMENT. ADVANCE DIRECTIVE ADVANCE DIRECTIVE DISCUSSED WITH PATIENT:YES PT. HAS HCP SHIRA BOONE [phone] HOSPITALIZATION/MAJOR DIAGNOSTIC PROCEDURE ANKLE-DISLOCATION AND FRACTURE REHAB FOR SUBSTANCE ABUSE X 3 REVIEW OF SYSTEMS REVIEWED BY: PROVIDER: [facility] ADVISORY SERVICES MANAGER-C . CONSTITUTIONAL: ANY CHANGE IN YOUR MEDICAL CONDITION? YES, ARTHRITIS TO HIPS AND LOW BACK . CHILLS NO . FEVER NO . INFECTION: DO YOU HAVE NEW INFECTIONS? NO . DO YOU HAVE HISTORY OF MRSA? NO . MUSCULOSKELETAL: ANY NEW PATTERNS OF PAIN OR NUMBNESS? YES, PAIN TO LOW BACK AND HIP FROM ARTHRITIS SINCE JULY . GASTROENTEROLOGY: ANY NEW CHANGE IN BOWEL CONTROL? NO . GENITOURINARY: ANY NEW CHANGE IN BLADDER CONTROL? NO . IS THERE A CHANCE YOU COULD BE ? NO . HEMATOLOGY/LYMPH: DO YOU TAKE ANY BLOOD THINNERS? (FOR EXAMPLE- COUMADIN, PLAVIX, AGGRENOX, PLATEL, PRADAXA, OR XARELTO) NO . WHEN WAS YOUR LAST DOSE? DATE: TIME: . NEUROLOGY: HAVE YOU FALLEN IN THE PAST 12 MONTHS? NO . ANY NEW EXTREMITY NUMBNESS OR WEAKNESS? NO . CARDIOLOGY: DO YOU HAVE A PACEMAKER OR DEFIBRILLATOR? NO . RESPIRATORY: HAVE YOU BEEN SICK IN THE PAST WEEK? NO . FEVER NO . FLU LIKE SYMPTOMS? NO . COUGH NO . INTEGUMENTARY: DO YOU HAVE ANY RASHES OR OPEN SORES? NO . ALLERGIC/IMMUNO: ARE YOU ALLERGIC TO IV DYE? NO . ANY NEW ALLERGIES? NO . PSYCHIATRIC: DO YOU HAVE THOUGHTS OF HURTING YOURSELF OR SOMEONE ELSE? NO . ARE YOU ABUSED, NEGLECTED, OR IN AN UNSAFE ENVIRONMENT? NO . ENDOCRINOLOGY: ARE YOU DIABETIC? YES . OTHER: DO YOU NEED ANY PRESCRIPTIONS? YES . IF YES, PLEASE LIST: ____CYCLOBENZAPRINE . ANY NEW PROBLEMS WITH YOUR MEDICATIONS? NO . WHEN DID YOU LAST EAT? ____ . WHEN DID YOU LAST DRINK? ____ . WHAT DID YOU LAST DRINK? ____ . NAME OF PERSON DRIVING YOU HOME? ____ . DO YOU HAVE ANY OTHER QUESTIONS OR CONCERNS NO . EXAMINATION GENERAL EXAMINATION: GENERALNO ACUTE DISTRESS, WELL NOURISHED AND HYDRATED. PSYCHAPPROPRIATE MOOD AND AFFECT , ORIENTED X 3. ASSESSMENTS SPONDYLOSIS OF THORACIC REGION WITHOUT MYELOPATHY OR RADICULOPATHY - M47.814 (PRIMARY) TREATMENT SPONDYLOSIS OF THORACIC REGION WITHOUT MYELOPATHY OR RADICULOPATHY REFILL CYCLOBENZAPRINE HCL TABLET, 10 MG, 1 TABLET 1 TO 2 HOURS BEFORE BEDTIME, ORALLY, TWICE DAILY, 30 DAY(S), 60 CLINICAL NOTES: 54-YEAR-OLD MALE IN FOR CHRONIC PAIN FOLLOW-UP. GIVEN PRESENTING SYMPTOMS RECOMMENDED CONTINUATION OF CURRENT MEDICATION REGIMEN WITH FOLLOW-UP IN 3 MONTHS. PATIENT HAS EXPRESSED UNDERSTANDING OF AND WAS IN AGREEMENT WITH TREATMENT PLAN. GIVEN TIME TO ASK QUESTIONS AND EXPRESS CONCERNS. , ISTOP REGISTRY REVIEWED AND DEMONSTRATES COMPLLIANCE. (REF # [id number] ) BRINGS IN MEDICATIONS WHICH IS APPROPRIATE FOR WHAT WAS DISPENSED. RECENT URINE TOXICOLOGY REVIEWED. NO UNAUTHORIZED MEDICATIONS. NO ILLICIT SUBSTANCES AND PRESCRIBED MEDICATIONS WERE PRESENT. TELEHEALTH VISIT PERFORMED VIA ZOOM. TIME SPENT WITH PATIENT 12 MINUTES. OTHERS NOTES: VITALS NOT OBTAINED DUE TO VIRTUAL VISIT. PRE-SCREENING COMPLETED 10/05/2019 1359 JS. DISPOSITION & COMMUNICATION FOLLOW UP 3 MONTHS (REASON: BACK PAIN) ELECTRONICALLY SIGNED BY BRETT TOBAR ON 10/09/2019 AT 09:02 AM EDT DISCLAIMER : THIS IS A VISIT SUMMARY EXTRACTED FROM THE [employer] CHART. IT IS NOT A COPY OF THE [employer] PROGRESS NOTE. ANA
== END ==
LOC: M TMPAIN 08:45 → M PAIN 08:45
PROVIDERS: ATTEND Family Medicine
DX: M47.814 Spondylosis without myelopathy or radiculopathy, thoracic region (principal); E11.9 Type 2 diabetes mellitus without complications; I10 Essential (primary) hypertension; Z79.82 Long term (current) use of aspirin; Z79.84 Long term (current) use of oral hypoglycemic drugs; Z79.891 Long term (current) use of opiate analgesic; Z79.899 Other long term (current) drug therapy; Z88.8 Allergy status to other drugs, medicaments and biological substances; Z91.030 Bee allergy status

== ENCOUNTER → 2019-11-02 | Outpatient (REF) | payer BC ==
[2019-11-02 14:41] LABS: HEMOGLOBIN A1c 6.9 %
[2019-11-02 14:45] LABS: ALBUMIN 3.6 GM/DL (3.2-5.2); ALT/SGPT 26 U/L (12-78); BILIRUBIN,TOTAL 0.6 MG/DL (0.2-1.0); BLOOD UREA NITROGEN 8 MG/DL (7-18); CALCIUM LEVEL 8.7 MG/DL (8.5-10.1); CARBON DIOXIDE LEVEL 30 MEQ/L (21-32); CHLORIDE LEVEL 105 MEQ/L (98-107); CHOLESTEROL LEVEL 165 MG/DL (<200); CHOLESTEROL RISK RATIO 3.113 (<5); CREATININE FOR GFR 1.11 MG/DL (0.70-1.30); GLOMERULAR FILTRATION RATE > 60.0 (>56); GLUCOSE, FASTING 75 MG/DL (70-100); HDL CHOLESTEROL 53 MG/DL (>40); LDL CHOLESTEROL 96 MG/DL (<100); NON-HDL-C 112 MG/DL; POTASSIUM SERUM 4.4 MEQ/L (3.5-5.1); SODIUM LEVEL 137 MEQ/L (136-145); TOTAL PROTEIN 7.3 GM/DL (6.4-8.2); TRIGLYCERIDES LEVEL 78 MG/DL (<150)
[2019-11-02 15:03] LABS: MALB URINE SIEMENS 28.8 MG/L; MAU/CREAT RATIO 10.1 MCG/MG (0.0-30.0)
== END ==
LOC: M SFHCPLAZ 11:01
PROVIDERS: ATTEND Nurse Practitioner Adult Health
DX: E11.9 Type 2 diabetes mellitus without complications (principal)

== ENCOUNTER → 2019-11-02 | Outpatient (CLI) | payer BC ==
[2019-11-02 14:09] LABS: HEMATOCRIT 43.7 % (42.0-52.0); HEMOGLOBIN 14.4 g/dl (13.5-17.5); MEAN CORPUSCULAR HEMOGLOBIN 26.2 pg (27.0-33.0); MEAN CORPUSCULAR VOLUME 79.6 fl (80.0-96.0); PLATELET COUNT, AUTOMATED 408 10^3/uL (150-450); RED BLOOD COUNT 5.49 10^6/uL (4.30-6.10); WHITE BLOOD COUNT 7.1 10^3/uL (4.0-10.0)
[2019-11-02 14:47] LABS: ALBUMIN 3.6 GM/DL (3.2-5.2); ALT/SGPT 26 U/L (12-78); BILIRUBIN,TOTAL 0.7 MG/DL (0.2-1.0); BLOOD UREA NITROGEN 9 MG/DL (7-18); CALCIUM LEVEL 8.6 MG/DL (8.5-10.1); CARBON DIOXIDE LEVEL 29 MEQ/L (21-32); CHLORIDE LEVEL 104 MEQ/L (98-107); CREATININE FOR GFR 1.13 MG/DL (0.70-1.30); GLOMERULAR FILTRATION RATE > 60.0 (>56); GLUCOSE, FASTING 76 MG/DL (70-100); POTASSIUM SERUM 4.6 MEQ/L (3.5-5.1); SODIUM LEVEL 138 MEQ/L (136-145); TESTOSTERONE 711 NG/DL (241-827); TOTAL PROTEIN 7.2 GM/DL (6.4-8.2)
== END ==
LOC: M PLALAB 11:02
PROVIDERS: ATTEND Nurse Practitioner Women's Health
DX: Z51.81 Encounter for therapeutic drug level monitoring (principal); Z79.890 Hormone replacement therapy

== ENCOUNTER → 2020-02-06 | Outpatient (CLI) | payer BC ==
[~2020-02-06] MED LIST changes: -ASPI81TA85 PO; +ASPI81TA86 PO
[2020-02-06 15:03] LABS: INR 1.08; PROTHROMBIN TIME 14.2 SECONDS (11.8-14.0)
[2020-02-06 15:04] LABS: PARTIAL THROMBOPLASTIN TIME 32.1 SECONDS (25.0-38.4)
[2020-02-06 15:26] LABS: COLLAGEN EPINEPHRINE > 300 SECONDS (74-162)
[2020-02-06 15:27] LABS: COLLAGEN ADP 143 SECONDS (56-103)
== END ==
LOC: M PLALAB 12:31
PROVIDERS: ATTEND Physical Medicine & Rehabilitation
DX: M48.07 Spinal stenosis, lumbosacral region (principal)

== ENCOUNTER → 2020-02-10 | Outpatient (CLI) | payer BC | LOC: M LABSMTC 09:27 | PROVIDERS: ATTEND Physical Medicine & Rehabilitation | DX: Z01.812 Encounter for preprocedural laboratory examination (principal); Z20.828 Contact with and (suspected) exposure to other viral communicable diseases ==

== ENCOUNTER → 2020-02-15 | Outpatient (CLI) | payer BC ==
[2020-02-15 08:11] LABS: PLATELET COUNT, AUTOMATED 427 10^3/uL (150-450)
[2020-02-15 09:10] LABS: COLLAGEN EPINEPHRINE 184 SECONDS (74-162)
[2020-02-15 10:19] LABS: COLLAGEN ADP 150 SECONDS (56-103)
== END ==
LOC: M LAB 06:24
PROVIDERS: ATTEND Physical Medicine & Rehabilitation
DX: Z01.812 Encounter for preprocedural laboratory examination (principal)

== ENCOUNTER → 2020-02-20 | Outpatient (CLI) | payer BC | LOC: M LABSMTC 10:43 | PROVIDERS: ATTEND Physical Medicine & Rehabilitation | DX: Z20.828 Contact with and (suspected) exposure to other viral communicable diseases (principal) ==

== ENCOUNTER → 2020-02-22 | Outpatient (CLI) | payer BC ==
[2020-02-22 12:59] LABS: HEMATOCRIT 48.1 % (42.0-52.0); HEMOGLOBIN 14.1 g/dl (13.5-17.5); MEAN CORPUSCULAR HEMOGLOBIN 22.2 pg (27.0-33.0); MEAN CORPUSCULAR HGB CONC 29.3 g/dl (32.0-36.5); MEAN CORPUSCULAR VOLUME 75.6 fl (80.0-96.0); PLATELET COUNT, AUTOMATED 442 10^3/uL (150-450); RED BLOOD COUNT 6.36 10^6/uL (4.30-6.10); WHITE BLOOD COUNT 6.5 10^3/uL (4.0-10.0)
== END ==
LOC: M PLALAB 09:43
PROVIDERS: ATTEND Nurse Practitioner Women's Health
DX: E34.9 Endocrine disorder, unspecified (principal); Z12.5 Encounter for screening for malignant neoplasm of prostate
CPT/HCPCS: 36415; 84403; 85027; G0103

== ENCOUNTER → 2020-02-25 | Outpatient (CLI) | payer BC ==
[2020-02-25 07:10] LABS: COLLAGEN EPINEPHRINE 199 SECONDS (74-162)
[2020-02-25 07:34] LABS: COLLAGEN ADP 129 SECONDS (56-103)
== END ==
LOC: M LAB 06:17
PROVIDERS: ATTEND Physical Medicine & Rehabilitation
DX: Z01.812 Encounter for preprocedural laboratory examination (principal)

== ENCOUNTER → 2020-03-31 | Outpatient (CLI) | payer BC ==
[2020-03-31 09:55] LABS: BASO % 0.6 % (0.0-1.0); EOS # 0.1 10^3/uL (0.0-0.5); EOS % 1.6 % (0.0-3.0); HEMATOCRIT 41.7 % (42.0-52.0); HEMOGLOBIN 12.3 g/dl (13.5-17.5); LYMPH # 0.9 10^3/uL (1.5-5.0); LYMPH % 14.5 % (24.0-44.0); MEAN CORPUSCULAR HEMOGLOBIN 21.3 pg (27.0-33.0); MEAN CORPUSCULAR HGB CONC 29.5 g/dl (32.0-36.5); MEAN CORPUSCULAR VOLUME 72.1 fl (80.0-96.0); MONO # 0.8 10^3/uL (0.0-0.8); MONO % 12.9 % (0.0-5.0); NEUTROPHILS # 4.3 10^3/uL (1.5-8.5); NEUTROPHILS % 69.9 % (36.0-66.0); PLATELET COUNT, AUTOMATED 420 10^3/uL (150-450); RED BLOOD COUNT 5.78 10^6/uL (4.30-6.10); WHITE BLOOD COUNT 6.2 10^3/uL (4.0-10.0)
[2020-03-31 10:28] LABS: PERCENT SATURATION 4.5 % (19.7-50.0); URIC ACID 3.2 MG/DL (3.5-7.2)
== END ==
LOC: M LAB 09:18
PROVIDERS: ATTEND Internal Medicine Hematology
DX: R79.89 Other specified abnormal findings of blood chemistry (principal)

== ENCOUNTER → 2020-06-02 | Outpatient (CLI) | payer BC ==
[~2020-06-02] MED LIST changes: +D31000TA2 PO; +VITA100C15 PO
[2020-06-02 16:55] LABS: BLOOD UREA NITROGEN 13 MG/DL (7-18); CREATININE FOR GFR 1.07 MG/DL (0.70-1.30); GLOMERULAR FILTRATION RATE > 60.0 (>56)
== END ==
LOC: M LAB 15:48
PROVIDERS: ATTEND Physician Assistant Medical
DX: D50.9 Iron deficiency anemia, unspecified (principal)

== ENCOUNTER → 2020-06-04 | Outpatient (CLI) | payer BC ==
[~2020-06-04] MED LIST changes: +GLUCAGON INJ 1MG VIAL As Ordered ONE; +ISOVUE-370 76% 100ML VIAL As Ordered ONE; +VoLumen 0.1% SUSPENSION 450ML BOTTLE As Ordered ONE
--- NOTE | 2020-06-04 16:03 | REP ---
INDICATION: IRON DEFFICIENCY ANEMIA COMPARISON: None. TECHNIQUE: Axial contrast-enhanced images from the lung bases to the pubic symphysis with images obtained in arterial and portal venous phases of enhancement. Low-density oral contrast material was administered prior to imaging. Coronal and sagittal reformations were obtained. This CT examination was performed using the following dose reduction techniques: Automated exposure control, adjustment of mA and/or kv according to the patient's size, and use of iterative reconstruction technique. FINDINGS: The enteric system including stomach, small and large bowel appear relatively normal. No significant abnormal bowel wall thickening or surrounding inflammatory stranding is appreciated. No areas of dilatation/obstruction or stenosis are identified. No free air. No free fluid. The terminal ileum, cecum and appendix in the right lower quadrant are normal. No significant diverticular disease noted. Liver, spleen, pancreas, gallbladder, and bilateral adrenal glands are normal. Kidneys demonstrate few hypodensities which are primarily subcentimeter and likely represent small cysts as well as 3.1 cm posterior left renal cyst. Pelvis demonstrates normal bladder and age-appropriate prostate/seminal vesicles. No ascites. No free air. No intraperitoneal or retroperitoneal adenopathy. Abdominal aorta and vasculature appear relatively normal. Surrounding musculoskeletal structures demonstrate age-related changes without focal abnormality. Lung bases are clear. IMPRESSION: 1. Normal appearance to the enteric system. 2. 3.1 cm left and bilateral subcentimeter renal hypodensities likely representing cysts. 3. No further acute abdominopelvic pathology appreciated. <Electronically signed by Azar Siu > 06/04/20 [id number]
== END ==
LOC: M RAD 14:17
PROVIDERS: ATTEND Physician Assistant Medical
DX: D50.9 Iron deficiency anemia, unspecified (principal)
CPT/HCPCS: 74177; J1610; Q9967

== ENCOUNTER → 2020-06-15 | Outpatient (CLI) | payer BC ==
[~2020-06-15] MED LIST changes: -GLUCAGON INJ 1MG VIAL As Ordered ONE; -ISOVUE-370 76% 100ML VIAL As Ordered ONE; +PRIL20TA2 PO; -VoLumen 0.1% SUSPENSION 450ML BOTTLE As Ordered ONE
== END ==
LOC: M LABSMTC 10:57
PROVIDERS: ATTEND Anesthesiology
DX: Z01.812 Encounter for preprocedural laboratory examination (principal); Z20.822 Contact with and (suspected) exposure to COVID-19

== ENCOUNTER 2020-06-20 08:02 | Day surgery (SDC) | payer BC ==
[~2020-06-20] VITALS: Ht 167.6 cm; Wt 94.8 kg
[~2020-06-20 08:02] MED LIST changes: +NS 1,000 ML IV ONE
--- OUTSIDE RECORDS SUMMARY | 2020-06-20 08:06 | CCD ---
Author Author [facility] Organization [facility] Address Unknown Phone Unavailable Care Team Providers Care Silo Tender Name Role Phone Senia Powell Unavailable PROBLEMS Type Condition ICD9-CM Code [id number] Code Onset Dates Condition S tatus SNOMED Code Notes Problem Essential hypertension I10 Active 03117434 Problem Erectile dysfunction, unspecified erectile dysfunction typ e N52.9 Active 865243945 Problem Mixed hyperlipidemia E78.2 Active 969859404 Problem Other chronic pain G89.29 Active 13375765 Problem Type 2 diabetes mellitus wit hout complication, without long-term current use of insulin E11.9 Active 581494784 Problem Major depressive disorder, recurrent, moderate F33 .1 Active 625665758 Problem Generalized anxiety disorder F41.1 Active 218 00647 Problem Myalgia, other site M79.18 Active 38457479 Problem Microcytic anemia D50.9 Active 102506511 Problem Acute gastritis without hemorrhage, unspecified gastri tis type K29.00 Active 39139459 Problem Thoracic spine pain M54.6 Active 145474565 Problem Atypical chest pain R07.89 Active 574970088 Problem TIFFANY (obstructive sleep apnea) G47.33 Active 78 038537 Problem Mild intermittent asthma without complication J45. 20 Active 319272308 Problem Depression, unspecified depression type F32.9 Active 72907758 Problem Spondylosis of thoracic region without myelopath y or radiculopathy M47.814 Active 093126485 Problem Gastroesophageal reflux disease without esophagitis K21.9 Active 398541730 ALLERGIES Allergen (clinical drug ingredient) Drug/Non Drug Allergy do cumented on EMR Reaction Allergy Type Onset Date Status Beets Hives Non Drug Allergy Active Lisinopril Cough Non Drug Allergy Active rosuvastatin Rosuvastatin Calcium([facility] Code:[id number]) Mus alexis aches Drug Allergy Active ENCOUNTERS from 1965 to 2020-05-20 Encounter Location Date Provider Diagnosis [facility] [address] [place] [address] May Senia Recore Erectile dysfunction, unspecified erecti le dysfunction type N52.9 IMMUNIZATIONS Vaccine Route Administration Date Status Influenza (Denied) Unknown Apr 20, 2019 Administered Pneumococcal Adult 0.5mL (Pneumovax 23) IM Intramuscular Jan 11, 2018 Administered SOCIAL HISTORY Tobacco Use: Social History Observation Description Date Details (start date - stop date) Never Smoker Sex Assigned At : Social History Observation Description Sex Assigned At Unknown Education: Question Answer Notes Level of Education: Not Finished College Audit Question Answer Notes Total Score: 0 Interpretation: Alcohol Education Language: Question Answer Notes Languages spoken: Indian Rastafari: Question Answer Notes Rastafari none Domestic Violence: Question Answer Notes Status: Sexual Hx: Question Answer Notes Had sex in the last 12 months (vaginal, oral, or anal)? Yes Have you ever had an STD? No with Women only Use protection? No Drug and Alcohol Question Answer Notes Total Score: 0 Interpretation: No problems reported Alcohol Screening: Question Answer Notes Did you have a drink containing alcohol in the past year? No Points 0 Interpretation Negative Tobacco Use: Question Answer Notes Are you a: never smoker REASON FOR REFERRAL No Information VITAL SIGNS No information MEDICATIONS Medication SIG (Take, Route, Frequency, Duration) Notes Start Da te End Date Status Tramadol HCl 50 MG 1 tablet as needed Orally tw ice daily PRN MDD 2 50 tablets to last 30 days for 30 days Jun, Active Cyclobenzaprine HCl 10 MG 1 tablet 1 to 2 hours before bedtime Orally twice daily for 30 day(s) Active Testosterone Cypionate 200 MG/ML 1 ml Injection 1 ml e very 10 days, 90 days supple code F- disp 10 ml vial May, A ctive Vitamin D (Cholecalciferol) 1000 UNIT 1 tablet Orally Once a day Active Blood Glucose Test - as directed In Vitro once daily (E11.9) for 30 day(s) Dec, Active Trulicity 0.75 MG/0.5ML 0.75 mg as directed Subcutan eous once weekly for 90 day(s) Active Vitamin E 1000 UNIT 1 capsule Orally Once a day Active Hypodermic Needle 18G X 1-1/2 as directed intradermally for 90 day(s) Active Vitamin C 1000 MG 1 tablet Orally Once a day Active Vitamin B12 1000 MCG 1 tablet Orally Once a day Nov, Active Aspirin 81 81 MG 1 tablet Orally Once a day Active Testosterone Cypionate 200 MG/ML 1 ml Intramuscular 20 0 mg every 10 days, Code F- 10 ml vial for 90 days Active Multi Complete - Orally Daily Nov, Act roney Omeprazole 40 MG 1 capsule 30 minutes before morning meal Orally Once a day for 30 day(s) Aug, Active Pravastatin Sodium 40 MG 1 tablet Orally Once a day Active Albuterol Sulfate HFA 108 MCG/ACT 2 puffs as needed In halation every 6 hrs for 30 days Active Mobic 15 MG 1 tablet Orally Once a day for 30 day(s) 2019 Active Alvesco 80 MCG/ACT 1 puff Inhalation Twice a day for 90 days Active Losartan Potassium 25 mg 1 tablet Orally Once a day Active BD Luer-Guillaume Syringe 23G X 1 USE DIRECTED INTRAMUSCULARLY for 90 da y(s) Active Glucometer _ as directed DX: E11.9 Daily use for 365 days Dec, Active Flomax 0.4 MG 1 capsule Orally Daily for 90 day(s) Active L-Lysine 500 MG Orally Daily Nov, Acti ve BD Syringe/Needle 23G X 1 as directed intramuscularly as directed Active Viagra 100 MG 1 tablet as needed Orally as directed for 90 day(s) Active Jardiance 10 MG 1 tablet Orally Once a day Active PROzac 20 MG 1 capsule Orally Once a day Active Testosterone Cypionate 200 MG/ML 1 ml Injection 1 ml e very 10 days, 90 day supply, Code F for 90 day(s) May, Act roney Syringe 22G X 1-1/2 as directed intramuscularly for 30 day(s) Jan, Active [facility] 32G X 4 MM as directed subcutaneously ( E11.9) once daily with Victoza for 30 day(s) Nov, Active Lancets - as directed subcutaneously (E11.9) once daily fo r 30 day(s) Dec, Active PROCEDURES No Information RESULTS No Results REASON FOR VISIT No Information MEDICAL (GENERAL) HISTORY Type Description Date Medical History HTN Medical History Asthma Medical History Anxiety Medical History Depression Medical History DM 2 Medical History ED - on testosterone replacement Medical History Hyperlipidemia Medical History ASCVD risk 15.2% on 11/21 Medical History Hx of freebase cocaine abuse in past Medical History TIFFANY - CPAP compliant Medical History SPECT stress test 02/07/18 - WNL Medical History MRI T-spine 04/25/2018 - dis c bulges T3-4, T5-6, T10-11, T11-12 without spinal cord compression. Disc bulges and small disc protrusions at T6-7 and T7-8 without spinal cord compression, small disc protrusions at T8-9 and T9- 10 without spinal cord compression. Medical History Torn Left rotator cuff Medical History Esophageal spasms Medical History Arthritis - Low Back/Hips Surgical History right ankle Surgical History right shoulder Surgical History rhinoplasty Surgical History removal of UPP Surgical History tonsilectomy 2005 Surgical History colonoscopy 03/10/2018 - sm internal hemo rrhoids, repeat 10 yrs Surgical History Pilar cyst removal from scalp (derm) 08/05 11/22 Surgical History rotar cuff on left arm 03/06/19 Surgical History left shoulder repair 03/06/19 Hospitalization History ankle-dislocation and fracture Hospitalization History rehab for substance abuse x 3 Goals Section No Information Health Concerns No Information MEDICAL EQUIPMENT No Information MENTAL STATUS No Information FUNCTIONAL STATUS No Information ASSESSMENTS Encounter Date Diagnosis Assessment Notes Treatment Notes Treatm ent Clinical Notes May, Erectile dysfunction, unspec ified erectile dysfunction type (ICD-10 - N52.9) PLAN OF TREATMENT Medication Medication Name Sig Start Date Stop Date Omeprazole 40 MG 1 capsule 30 minutes before morning meal Orally Once a day for 30 day(s) Aug, Testosterone Cypionate 200 MG/ML 1 ml Injection 1 ml e very 10 days, 90 day supply, Code F for 90 day(s) May, Testosterone Cypionate 200 MG/ML 1 ml Intramuscular 20 0 mg every 10 days, Code F- 10 ml vial for 90 days Testosterone Cypionate 200 MG/ML 1 ml Injection 1 ml e very 10 days, 90 days supple code F- disp 10 ml vial May, Next Appt Details Provider Name:Senia L Andre, 2020-08- 5 08:00:00 AM, [address], [place], [address], Insurance Providers Payer Name Payer Address Payer Phone Insured Name Patient Relati onship to Insured Coverage Start Date Coverage End Date BLUE CROSS OTHER 1 NEHEMIAH BOONE self
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
--- OUTSIDE RECORDS SUMMARY | 2020-06-20 08:06 | CCD | Continuity of Care Document ---
Author Author [facility] Organization Unknown Address [address] [place] [address], [address] [place] [address] Phone [phone] Care Team Providers Care Poultry Farm Supervisor Name Role Phone Eliecer Su M.D. AUTM Unavailable AUTM Unavailable Mi Sotelo R.N. AUTM [phone] Problems Description No Active Problems Social History Type Date Description Comments Sex Unknown ETOH Use Denies alcohol use Tobacco Use Reviewed: 09/06/18 Patient has never smoked Smoking Status Reviewed: 09/06/18 Patient has never smoked Allergies, Adverse Reactions, Alerts Description No Known Drug Allergies Medications Active Medications SIG Qnty Indications Ordering Provide r Date Clenpiq 10-3.5-12mg-GM -GM/160ML S olution take as directed per doctor's bowel prep instructions. 320ml D50.9 Facundo Nicole MD 05/27/2020 Magnesium Citrate 1.745GM/30ML Suzie ution take one 10 ounce bottle prior to procedure for additional bowel prep per instructions. 296ml D50.9 Facundo Nicole MD 05/27/2020 Iron (Ferrous Sulfate) 325(65Fe) mg Tablets Take 1 tablet po daily. Unknown Omeprazole 20mg Capsules DR take 1 capsule by mouth once daily. Unknown Vitamin E/D-Alpha 1000 Units Daily Unknown Testosterone Cypionate 200mg/ml So lution as directed Unknown Sildenafil Citrate 100mg Tablets as needed Unknown L-Lysine 500mg Capsules Daily Unknown Trulicity 0.75mg/0.5 ML Solution Pen-Inject once weekly Unknown Proair HFA 108(90Base) mcg/Act Aer osol 2 puffs four times a day as needed Unknown Jardiance 10mg Tablets daily Unknown Vitamin E 1000Unit Capsules D aily Unknown Losartan Potassium 25mg Tablets by mouth every day Unknown CPAP Auto 4-20 Unknown Pravastatin Sodium 10mg Tablets 1 by mouth every day Unknown Flomax 0.4mg Capsules 1 by mouth every day Unknown Alvesco 160mcg/Act Aerosol 1 puff twice a day Unknown Immunizations Description No Information Available Vital Signs Date Vital Result Comment 05/27/2020 3:15pm BP Systolic 142 mmHg BP Diastolic 80 mmHg Height 66.5 inches 5'6.50" Weight 206.00 lb BMI (Body Mass Index) 32.7 kg/m2 [place] Body Weight 142 lb Weight 93.442 kg BSA (Body Surface Area) 2.04 m2 09/06/2018 11:44am BP Systolic 140 mmHg BP Diastolic 84 mmHg Heart Rate 90 /min O2 % BldC Oximetry 98 % Room Air Height 66.5 inches 5'6.50" Weight 195.00 lb BMI (Body Mass Index) 31.0 kg/m2 [place] Body Weight 142 lb Weight 88.452 kg BSA (Body Surface Area) 1.99 m2 Results Description No Information Available Procedures Description No Information Available Medical Devices Description No Information Available Encounters Description No Information Available Assessments Date Code Description Provider 05/27/2020 D50.9 Iron deficiency anemia, unspecif ied FELTON Mathis 05/27/2020 K21.9 Gastro-esophageal reflux disease without esophagitis FELTON Mathis Plan of Treatment 05/27/2020 - FELTON Mathis* D50.9 Iron deficiency anemia, unspecified * K21.9 Gastro-esophageal reflux disease without esophagitis * * New Medication:* Clenpiq 10-3.5-12 mg-GM -GM/160ML * Magnesium Citrate 1.745 GM/30ML * New Xrays:* CT Abdomen And Pelvis W/ Contrast, Ordered: 05/27/20 * New Orders:* Endoscopy, Ordered: 05/27/20 * Colonoscopy, Ordered: 05/27/20 * Comments:* Will arrange for upper endoscopy and colonoscopy. Reviewed risks and benefits of the procedures, as well as other options, with the patient. Prep for this procedure was discussed with patient, including risks and side effects associated with the prep. Patient verbalized understanding of all of the above and is in agreement to proceed. Patient will seek medical attention for any acute changes. Will monitor. * Follow up:* 2 weeks after procedures, sooner if needed. Functional Status Description No Information Available Mental Status Description No Information Available Referrals Refer to Reason for Referral Status Appt Date Facundo Nicole MD Consult for EGD Scheduled 05/27/2020 [facility], Gastroenterology [address], [address] [place] [address] [phone]
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
--- OUTSIDE RECORDS SUMMARY | 2020-06-20 08:07 | CCD | Continuity of Care Document ---
Author Author Darrel VARNER MD Organization Unknown Address [address] [place] [address] Phone [phone] Care Team Providers Care Study Specialist Name Role Phone Vickie Powell AUTM [phone] Ashleigh Miquinn VARGAS AUTM [phone] Problems Active Problems Provider Date Type 2 diabetes mellitus Harry Varner MD Onset: 11/07 Essential hypertension Harry Varner MD Onset: 019 Chest pain Onset: 12/01/2017 Shoulder strain Onset: 11/06/2018 Social History Type Date Description Comments Sex Unknown ETOH Use Denies alcohol use Tobacco Use Start: Unknown Patient has never smoked Allergies, Adverse Reactions, Alerts Description No Known Drug Allergies Medications Active Medications SIG Qnty Indications Ordering Provide r Date Valium 5mg Tablets take one half hour prior to mri..may repeat in 30 minutes if no effect..do not drive to or from mri 2tabs M54.5 Arpit Dale MD 11/16/2019 Medrol 4mg TBPK use as directed on pkg 21units M54.5 Yany Farfan MD 10/22/2019 Alvesco 80mcg/Act Aerosol Twi ce A Day Unknown Jardiance 10mg Tablets Daily Unknown Fluoxetine HCL 10mg Capsules Daily Unknown Losartan Potassium 25mg Tablets Daily Unknown Tramadol HCL 50mg Tablets Every Six Hours As Needed as needed for Pain Unknown Trulicity 0.75mg/0.5 ML Solution Pen-Inject use once weekly Unknown Flonase Allergy Relief 50mcg/Act Suspension 2 sprays per nostril every in the morning as needed Unknown Immunizations Description No Information Available Vital Signs Date Vital Result Comment 01/04/2020 11:42am Body Temperature 98.0 F Height 67 inches 5'7" Weight 211.12 lb BMI (Body Mass Index) 33.1 kg/m2 03/16/2019 10:31am Body Temperature 97.8 F Results Test Acquired Date Facility Test Result H/L Range Note Platelet Function Analysis 02/25/2020 [facility] [address] [place] [address] (315)- - Collagen Epinephrine 199 seconds High 74-162 1 Laboratory test finding 02/25/2020 [facility] [address] [place] [address] (315)- - Collagen Adp 129 seconds High 56-103 2 Laboratory test finding 02/20/2020 [facility] [address] [place] [address] (315)- - Coronavirus 2019 Nasopharygeal This nucleic aci <SEE NOTE> 3 Laboratory test finding 02/15/2020 [facility] [address] [place] [address] (315)- - Platelet Count, Automated 427 10 Normal 150-450 Platelet Function Analysis 02/15/2020 [facility] [address] [place] [address] (315)- - Collagen Epinephrine 184 seconds High 74-162 4 Laboratory test finding 02/15/2020 [facility] [address] [place] [address] (315)- - Collagen Adp 150 seconds High 56-103 5 Laboratory test finding 02/10/2020 [facility] [address] [place] [address] (315)- - Coronavirus 2019 Nasopharygeal This nucleic aci <SEE NOTE> 6 Platelet Function Analysis 02/06/2020 [facility] [address] [place] [address] (315)- - Collagen Epinephrine > 300 seconds High 74-162 7 Laboratory test finding 02/06/2020 [facility] [address] [place] [address] (315)- - Partial Thromboplastin Time <pending> PT & Aptt 02/06/2020 [facility] [address] [place] [address] (315)- - Prothrombin Time 14.2 seconds High 11.8-14.0 Inr 1.08 Normal 8 Partial Thromboplastin Time 32.1 seconds Normal 25.0-38.4 Laboratory test finding 02/06/2020 [facility] [address] [place] [address] (315)- - Collagen Adp 143 seconds High 56-103 9 1 Results may be affected by p latelet counts less than 150,000/mL or hematocrits less than 35%. If COL/EPI is NORMAL, COL/ADP is not performed. Result Interpretation: COL/EPI COL/ADP NORMAL NORMAL NORMAL ASA ABNORMAL NORMAL vWD ABNORMAL NORMAL GLANZMANN'S ABNORMAL ABNORMAL THROMBASTHENIA POSSIBLE DRUG ABNORMAL ABNORMAL EFFECT 2 Results may be affected by p latelet counts less than 150,000/mL or hematocrits less than 35%. 3 This nucleic acid amplificat ion test was developed and its performance characteristics determined by [employer]. Nucleic acid amplification tests include PCR and TMA. This test has not been FDA cleared or approved. This test has been authorized by FDA under an Emergency Use Authorization (EUA). This test is only authorized for the duration of time the declaration that circumstances exist justifying the authorization of the emergency use of in vitro diagnostic tests for detection of SARS-CoV-2 virus and/or diagnosis of COVID-19 infection under section 564(b)(1) of the Act, 21 U.S.C. 360bbb-3 (b) (1), unless the authorization is terminated or revoked sooner. When diagnostic testing is negative, the possibility of a false negative result should be considered in the context of a patient's recent exposures and the presence of clinical signs and symptoms consistent with COVID-19. An individual without symptoms of COVID-19 and who is not shedding SARS-CoV-2 virus would expect to have a negative (not detected) result in this assay. Performed at: [address] [id number] Locomotive Driver: Vicki Robertson MD, Phone: [phone] Not Detected 4 Results may be affected by p latelet counts less than 150,000/mL or hematocrits less than 35%. If COL/EPI is NORMAL, COL/ADP is not performed. Result Interpretation: COL/EPI COL/ADP NORMAL NORMAL NORMAL ASA ABNORMAL NORMAL vWD ABNORMAL NORMAL GLANZMANN'S ABNORMAL ABNORMAL THROMBASTHENIA POSSIBLE DRUG ABNORMAL ABNORMAL EFFECT 5 Results may be affected by p latelet counts less than 150,000/mL or hematocrits less than 35%. 6 This nucleic acid amplificat ion test was developed and its performance characteristics determined by [employer]. Nucleic acid amplification tests include PCR and TMA. This test has not been FDA cleared or approved. This test has been authorized by FDA under an Emergency Use Authorization (EUA). This test is only authorized for the duration of time the declaration that circumstances exist justifying the authorization of the emergency use of in vitro diagnostic tests for detection of SARS-CoV-2 virus and/or diagnosis of COVID-19 infection under section 564(b)(1) of the Act, 21 U.S.C. 360bbb-3 (b) (1), unless the authorization is terminated or revoked sooner. When diagnostic testing is negative, the possibility of a false negative result should be considered in the context of a patient's recent exposures and the presence of clinical signs and symptoms consistent with COVID-19. An individual without symptoms of COVID-19 and who is not shedding SARS-CoV-2 virus would expect to have a negative (not detected) result in this assay. Performed at: [address] [id number] Locomotive Driver: Vicki Robertson MD, Phone: [phone] Not Detected 7 Results may be affected by p latelet counts less than 150,000/mL or hematocrits less than 35%. If COL/EPI is NORMAL, COL/ADP is not performed. Result Interpretation: COL/EPI COL/ADP NORMAL NORMAL NORMAL ASA ABNORMAL NORMAL vWD ABNORMAL NORMAL GLANZMANN'S ABNORMAL ABNORMAL THROMBASTHENIA POSSIBLE DRUG ABNORMAL ABNORMAL EFFECT 8 THERAPUTIC HUMAN INR VALUES INDICATIONS NORMAL RANGES PROPHYLAXIS/TREATMENT OF: VENOUS THROMBOSIS 2.0-3.0 PULMONARY EMBOLISM 2.0-3.0 PREVENTION OF SYSTEMIC EMBOLISM FROM: TISSUE HEART VALVES 2.0-3.0 ACUTE MYOCARDIAL INFARCTION 2.0-3.0 VALVULAR HEART DISEASE 2.0-3.0 ATRIAL FIBRILLATION 2.0-3.0 MECHANICAL VALVES(HIGH RISK) 2.5-3.5 RECURRENT MYOCARDIAL INFARCTION 2.5-3.5 9 Results may be affected by p latelet counts less than 150,000/mL or hematocrits less than 35%. Procedures Date Code Description Status 11/21/2019 36605 Manual Therapy Each 15 Minutes C ompleted 11/21/2019 61012 Therapeutic Procedure, Each 15 M inutes Completed 11/21/2019 12235 Electrical Stimulati on Manual, Each 15 Min, Constant Attendance Completed 11/16/2019 66727 Manual Therapy Each 15 Minutes C ompleted 11/16/2019 62915 Therapeutic Procedure, Each 15 M inutes Completed 11/08/2019 58627 Manual Therapy Each 15 Minutes C ompleted 11/08/2019 45930 Therapeutic Procedure, Each 15 M inutes Completed 11/05/2019 68287 Manual Therapy Each 15 Minutes C ompleted 11/05/2019 66569 Therapeutic Procedure, Each 15 M inutes Completed 11/02/2019 12016 Physical Therapy Eval - Low Comp lexity Completed 10/22/2019 33919 X-Ray Spine Lumbosacral Complete Inc Bending Views Min Of 6 Completed Medical Devices Description No Information Available Encounters Type Date Location Provider Dx Diagnosis Office Visit 03/11/2020 10[place]a [place] M25. 612 Stiffness of left shoulder, not elsewhere classified S46.012D Strain of musc/tend the rota tor cuff of left shoulder, subs S46.812D Strain of musc/fasc/tend at shldr/up arm, left arm, subs Office Visit 01/04/2020 11:25a [place] MD M48.07 Spinal stenosis, lumbosacral region M51.37 Other intervertebral disc de generation, lumbosacral region M47.817 Spondyls w/o myelopathy or r adiculopathy, lumbosacr region Office Visit 12/18/2019 8:45a Derrell Dale PA-C M48.07 Spinal stenosis, lumbosacral region M51.37 Other intervertebral disc de generation, lumbosacral region M47.817 Spondyls w/o myelopathy or r adiculopathy, lumbosacr region Office Visit 11/16/2019 8:45a Derrell Dale PA-C M43.07 Spondylolysis, lumbosacral region Office Visit 10/22/2019 9:00a [place], PA-C M54.5 Low back pain Assessments Date Code Description Provider 03/11/2020 M25.612 Stiffness of left shoulder, not elsewhere classified Harry Varner MD 03/11/2020 S46.012D Strain of muscle(s) and tendon(s) of the rotator cuff of left shoulder, subsequent encounter Harry Varner MD 03/11/2020 S46.812D Strain of other musc les, fascia and tendons at shoulder and upper arm level, left arm, subsequent encounter Harry Varner MD 01/04/2020 M48.07 Spinal stenosis, lumbosacral reg ion Nabeel Gill MD 01/04/2020 M51.37 Other intervertebral disc degene ration, lumbosacral region Nabeel Gill MD 01/04/2020 M47.817 Spondylosis without myelopathy or radiculopathy, lumbosacral region Nabeel Gill MD 12/18/2019 M48.07 Spinal stenosis, lumbosacral reg ion Poonam Chin. Chito PA-C 12/18/2019 M51.37 Other intervertebral disc degene ration, lumbosacral region Poonam L. Chito, PA-C 12/18/2019 M47.817 Spondylosis without myelopathy or radiculopathy, lumbosacral region Poonam L. Chito, PA-C 11/21/2019 M54.5 Low back pain María Gilliland, AUDOGRAPH OPERATOR 11/16/2019 M43.07 Spondylolysis, lumbosacral regio n Poonam L. Chito PA-C 11/16/2019 M54.5 Low back pain María Gilliland, AUDOGRAPH OPERATOR 11/08/2019 M54.5 Low back pain Jaycee Rubio, P.T.A. 11/05/2019 M54.5 Low back pain Aquiles Gomez P .T. 11/02/2019 M54.5 Low back pain Aquiles Gomez P .T. 10/22/2019 M54.5 Low back pain Poonam L. Chito P A-C Plan of Treatment 03/11/2020 - Harry Varner MD* M25.612 Stiffness of left shoulder, not elsewhere classified * S46.012D Strain of muscle(s) and tendon(s) of the rotator cuff of left shoulder, subsequent encounter* Follow up:* prn * S46.812D Strain of other muscles, fascia and tendons at shoulder and upper arm level, left arm, subsequent encounter Functional Status Description No Information Available Mental Status Description No Information Available Referrals Refer to Reason for Referral Status Appt Date Poonam Dale PA-C epidural steroid injections inj'sper edison cornejo at [facility]- no auth required 20 % coinsurance once deductible is met [facility] [id number] ref : [id number] Created [address] [address] [phone] Poonam Dale PA-C PT [place] [facility]HEL[facility] AT [facility]( [facility]) 20 VISITS AND THESE GO FROM 12/05/19 TO 11/3020 AND THEY HAVE A $2000 DEDUCTIBLE AND OUT OF POCKET OF $6850 COVERED AT 80% AFTER DEDUCTIBLE TO PT DEPT. NT CALL REF #[id number] Created [address] [address] [phone] Poonam Dale PA-C PT JORGE LUIS MARTINEZ AT [facility]) 20 VISITS AND THEY HAVE A $2000 DEDUCTIBLE AND OUT OF POCKET OF $6850 COVERED AT 80% AFTER DEDUCTIBLE AND THIS GOES FROM 12/04/18 TO 12/04/19 TO PT DEPT. NT CALL REF #[id number] Created [address] [address] [phone]
--- OUTSIDE RECORDS SUMMARY | 2020-06-20 08:07 | CCD | Summary of Care ---
Author Author [facility] Address Unknown Phone Unavailable Care Team Providers Care Supervisor Coremaker Name Role Phone Ashleigh Mi Ochoa SUBASSEMBLY ASSEMBLER PCP Encounter Details Care Team Description Date Type Department Arrived 05/07/2020 [facility] [place] [address] Allergies Not on Filedocumented as of this encounter (statuses as of 05/08/2020) Medications Not on filedocumented as of this encounter (statuses as of 05/08/2020) Active Problems Not on filedocumented as of this encounter (statuses as of 05/08/2020) Social History Date Tobacco Use Types Packs/Day Years Used Never Assessed Sex Assigned at Date Recorded Not on file documented as of this encounter Last Filed Vital Signs Not on filedocumented in this encounter Plan of Treatment Date/Time Name Type Priority Associated Diag noses 05/07/2020 9:34 AM EST Platelet AGG - [facility] Lab Routine 05/07/2020 12:32 PM EST Special Hematology Pathology and Routine Cytology Order Schedule Name Type Priority Associated Diag noses Once for 1 Occurrences starting 05/07/20 20 until 05/07/2020 Platelet AGG - [facility] Lab Routine Once for 1 Occurrences starting 05/07/20 20 until 05/07/2020 Special Hematology Pathology and Routine Cytology Health Maintenance Due Date Last Done Comments Hepatitis C Screening (B. 1965 5069-8347) MMR Vaccines (1 of - [birth year]27/1966 Standard series) Varicella Vaccines (1 of 02/27/1966 2 - 2-dose childhood series) DTaP,Tdap,and Td Vaccines 1970 (1 - Tdap) HIV Screening 02/27/1976 Colon Cancer Screening 10 2013 yrs Influenza Vaccine 03/06/2020 04/20/2019 Pneumococcal Vaccine: 65+ 02/27/2028 Years (1 of 1 - PPSV23) HIB Vaccines Aged Out No longer eligible based on patient's age to complete this topic Hepatitis A Vaccines Aged Out No longer eligibl e based on patient's age to complete this topic Hepatitis B Vaccines Aged Out No longer eligibl e based on patient's age to complete this topic IPV Vaccines Aged Out No longer eligible based on patient's age to complete this topic Pneumococcal Vaccine: Aged Out No longer eligib le based on patient's age to Pediatrics (0 to 5 Years) complete this topic and At-Risk Patients (6 to 64 Years) documented as of this encounter Procedures Comments Procedure Name Priority Date/Time Associated Diag nosis TOTAL FE BINDING CAPACITY Routine 05/07/2020 9:34 AM EST CBC AND DIFFERENTIAL Routine 05/07/2020 9:34 AM EST FERRITIN LEVEL Routine 05/07/2020 9:34 AM EST documented in this encounter Results * Iron and TIBC (05/07/2020 9:34 AM EST) Iron 44 (L) 59 - 158 ug/dl [facility] Transferrin 368 (H) 200 - 360 mg/dL [facility] Serum CLINICAL PATHOLOGY Total Fe Bind 511 (H) 228 - 428 ug/dl [facility] Cap CLINICAL PATHOLOGY % Fe Saturation 9.0 (L) 20 - 55 % [facility] Specimen Plasma Performing Organization Address [facility] Ph one Number [facility] [address] [place], [place] [address] PATHOLOGY * Ferritin Level (05/07/2020 9:34 AM EST) Ferritin 24 (L) 30 - 400 ng/ml [facility] Specimen Plasma Performing Organization Address City/[facility] Ph one Number [facility] [address] [place], [place] [address] PATHOLOGY * CBC and Differential (05/07/2020 9:34 AM EST) White Blood 7.6 4 - 10 10*3/uL [facility] Path[facility] Red Blood Cell 6.77 (H) 4.6 - 6.1 10*6/uL [facility] Pathology Hemoglobin 14.9 13.5 - 18 g/dL [facility] Pathology Hematocrit 48.2 41 - 53 % [facility] Pathology Mean Cell 71.2 (L) 80 - 96 fL [facility] Volume [facility] Pathology Mean Cell 22.1 (L) 27 - 33 pg [facility] Hemoglobin [facility] Pathology Mean Cell Hgb 31.0 (L) 32.0 - 36.0 g/dL [facility] Clin Pathology Red Cell Dist 21.0 (H) 11.5 - 14.5 % [facility] Width [facility] Clin Pathology Platelet Count 416 (H) 150 - 400 10*3/uL [facility] Pathology Differential Automated Diff [facility] Type [facility]ology Neutrophil 71 % [facility] Lymphocyte 15 % [facility] Monocyte 11 % [facility] Pathology Eosinophil 2 % [facility] Pathology Basophil 1 % [facility] Pathology Abs Neutrophil 5.40 1.8 - 7.0 10*3/uL [facility] Pathology Abs Lymphocyte 1.14 (L) 1.2 - 4.0 10*3/uL [facility] Pathology Abs Monocyte 0.85 (H) 0 - 0.8 10*3/uL [facility] Pathology Abs Eosinophil 0.15 0 - 0.5 10*3/uL [facility] Pathology Abs Basophil 0.05 0 - 0.2 10*3/uL [facility] Pathology Nucleated Red 0 0 - 0 /100{WBCs} [facility] Blood Cells [facility] Clin Pathology Specimen EDTA Whole Blood Performing Organization Address City/State/[employer] Ph one Number [facility] [address] [place], [place] [address] PATHOLOGY [facility] [address] [place], [place] [address] Clin Pathology documented in this encounter
--- OUTSIDE RECORDS SUMMARY | 2020-06-20 08:07 | CCD ---
Author Author [facility] Organization [facility] Address Unknown Phone Unavailable Care Team Providers Care Certified Medical Assistant Name Role Phone Chito Kelli Levin [facility], PA-C Unavailable Unavailabl e Fish, Kelli [facility], PA-C Unavailable Unavailabl e Fish, Kelli [facility], PA-C Unavailable Unavailabl e Fish, Kelli [facility], PA-C Unavailable Unavailabl e Fish Kelli [facility], PA-C Unavailable Unavailabl e Fish, Kelli [facility], PA-C Unavailable Unavailabl e Fish, Kelli [facility], PA-C Unavailable Unavailabl e Fish, Kelli [facility], PA-C Unavailable Unavailabl e Fish, [facility] Unavailable Unavailabl e Fish, [facility] Unavailable Unavailabl e Fish, Kelli [facility], PA-C Unavailable Unavailabl e Fish, Kelli [facility], PA-C Unavailable Unavailabl e Fish, Kelli [facility], PA-C Unavailable Unavailabl e Fish, Kelli [facility], PA-C Unavailable Unavailabl e Fish, [facility], PA-C Unavailable Unavailabl e Fish, [facility], PA-C Unavailable Unavailabl e Fish, [facility], PA-C Unavailable Unavailabl e Fish, [facility], PA-C Unavailable Unavailabl e Fish, [facility], PA-C Unavailable Unavailabl e Fish, [facility], PA-C Unavailable Unavailabl e Fish, [facility], PA-C Unavailable Unavailabl e Fish, [facility], PA-C Unavailable Unavailabl e Fish, [facility], PA-C Unavailable Unavailabl e Fish, [facility], PA-C Unavailable Unavailabl e Fish, [facility], PA-C Unavailable Unavailabl e Fish, [facility], PA-C Unavailable Unavailabl e Fish, [facility], PA-C Unavailable Unavailabl e Fish, [facility], PA-C Unavailable Unavailabl e Fish, [facility], PA-C Unavailable Unavailabl e Fish, [facility], PA-C Unavailable Unavailabl e Fish, [facility], PA-C Unavailable Unavailabl e Fish, [facility], PA-C Unavailable Unavailabl e Fish, [facility], PA-C Unavailable Unavailabl e Fish, [facility], PA-C Unavailable Unavailabl e Fish, [facility], PA-C Unavailable Unavailabl e Fish, [facility], PA-C Unavailable Unavailabl e Fish, [facility], PA-C Unavailable Unavailabl e Fish, [facility], PA-C Unavailable Unavailabl e Fish, [facility], PA-C Unavailable Unavailabl e Fish, [facility], PA-C Unavailable Unavailabl e Fish, [facility], PA-C Unavailable Unavailabl e Fish, [facility], PA-C Unavailable Unavailabl e Fish, [facility], PA-C Unavailable Unavailabl e Fish, [facility], PA-C Unavailable Unavailabl e Fish, [facility], PA-C Unavailable Unavailabl e Fish, [facility], PA-C Unavailable Unavailabl e Fish, [facility], PA-C Unavailable Unavailabl e Fish, [facility], PA-C Unavailable Unavailabl e Fish, [facility], PA-C Unavailable Unavailabl e Fish, [facility], PA-C Unavailable Unavailabl e Fish, [facility], PA-C Unavailable Unavailabl e Fish, [facility], PA-C Unavailable Unavailabl e Fish, [facility], PA-C Unavailable Unavailabl e Fish, [facility], PA-C Unavailable Unavailabl e Fish, [facility], PA-C Unavailable Unavailabl e Fish, [facility], PA-C Unavailable Unavailabl e Fish, [facility], PA-C Unavailable Unavailabl e Fish, [facility], PA-C Unavailable Unavailabl e Fish, [facility], PA-C Unavailable Unavailabl e Fish, [facility], PA-C Unavailable Unavailabl e Fish, [facility], PA-C Unavailable Unavailabl e Fish, [facility], PA-C Unavailable Unavailabl e Fish, [facility], PA-C Unavailable Unavailabl e Fish, [facility], PA-C Unavailable Unavailabl e Fish, [facility], PA-C Unavailable Unavailabl e Fish, [facility], PA-C Unavailable Unavailabl e ALONSO WILSON PA Unavailable Unavailable ALONSO WILSON PA Unavailable Unavailable ALONSO WILSON PA Unavailable Unavailable ALONSO WILSON PA Unavailable Unavailable ALONSO WILSON PA Unavailable Unavailable ALONSO WILSON PA Unavailable Unavailable ALONSO WILSON PA Unavailable Unavailable ALONSO WILSON PA Unavailable Unavailable ALONSO WILSON PA Unavailable Unavailable ALONSO WILSON PA Unavailable Unavailable ALONSO WILSON PA Unavailable Unavailable ALONSO WILSON PA Unavailable Unavailable ALONSO WILSON PA Unavailable Unavailable ALONSO WILSON PA Unavailable Unavailable ALONSO WILSON PA Unavailable Unavailable ALONSO WILSON PA Unavailable Unavailable ALONSO WILSON PA Unavailable Unavailable KATIE, ALONSO PA Unavailable Unavailable KATIE, ALONSO PA Unavailable Unavailable KATIE, ALONSO PA Unavailable Unavailable KATIE, ALONSO PA Unavailable Unavailable KATIE, ALONSO PA Unavailable Unavailable KATIE, ALONSO PA Unavailable Unavailable KATIE, ALONSO PA Unavailable Unavailable KATIE, ALONSO PA Unavailable Unavailable KATIE, ALONSO PA Unavailable Unavailable KATIE, ALONSO PA Unavailable Unavailable KATIE, ALONSO PA Unavailable Unavailable KATIE, ALONSO PA Unavailable Unavailable KATIE, ALONSO PA Unavailable Unavailable KATIE, ALONSO PA Unavailable Unavailable KATIE, ALONSO PA Unavailable Unavailable KATIE, ALONSO PA Unavailable Unavailable KATIE, ALONSO PA Unavailable Unavailable KATIE, ALONSO PA Unavailable Unavailable KATIE, ALONSO PA Unavailable Unavailable KATIE, ALONSO PA Unavailable Unavailable KATIE, ALONSO PA Unavailable Unavailable Gill, Nabeel Unavailable Unavailable Gill, Nabeel Unavailable Unavailable Gill, Nabeel Unavailable Unavailable Gill, Nabeel Unavailable Unavailable Gill, Nabeel Unavailable Unavailable Gill, Nabeel Unavailable Unavailable Gill, Nabeel Unavailable Unavailable Gill, Nabeel Unavailable Unavailable Gill, Nabeel Unavailable Unavailable Gill, Nabeel Unavailable Unavailable Gill, Nabeel Unavailable Unavailable Gill, Nabeel Unavailable Unavailable Gill, Nabeel Unavailable Unavailable Gill, Nabeel Unavailable Unavailable Gill, Nabeel Unavailable Unavailable Gill, Nabeel Unavailable Unavailable Gill, Nabeel Unavailable Unavailable Gill, Nabeel Unavailable Unavailable Gill, Nabeel Unavailable Unavailable Gill, Nabeel Unavailable Unavailable Gill, Nabeel Unavailable Unavailable Gill, Nabeel Unavailable Unavailable Gill, Nabeel Unavailable Unavailable Gill, Nabeel Unavailable Unavailable Gill, Nabeel Unavailable Unavailable Gill, Nabeel Unavailable Unavailable Gill, Nabeel Unavailable Unavailable Gill, Nabeel Unavailable Unavailable Gill, Nabeel Unavailable Unavailable Gill, Nabeel Unavailable Unavailable Gill, Nabeel Unavailable Unavailable Gill, Nabeel Unavailable Unavailable Gill, Nabeel Unavailable Unavailable Gill, Nabeel Unavailable Unavailable Gill, Nabeel Unavailable Unavailable Gill, Nabeel Unavailable Unavailable Gill, Nabeel Unavailable Unavailable Gill, Nabeel Unavailable Unavailable Gill, Nabeel Unavailable Unavailable Gill, Nabeel Unavailable Unavailable Gill, Nabeel Unavailable Unavailable Gill, Nabeel Unavailable Unavailable Gill, Nabeel Unavailable Unavailable Gill, Nabeel Unavailable Unavailable MARCUS LEON MD Unavailable Unavailable MARCUS LEON MD Unavailable Unavailable MARCUS LEON MD Unavailable Unavailable MARCUS LEON MD Unavailable Unavailable MARCUS LEON MD Unavailable Unavailable MARCUS LEON MD Unavailable Unavailable MARCUS LEON MD Unavailable Unavailable MARCUS LEON MD Unavailable Unavailable MARCUS LEON MD Unavailable Unavailable MARCUS LEON MD Unavailable Unavailable MARCUS LEON MD Unavailable Unavailable MARCUS LEON MD Unavailable Unavailable MARCUS LEON MD Unavailable Unavailable MARKWITH, MARCUS FREEDMAN Unavailable Unavailable MARKWITH, MARCUS FREEDMAN Unavailable Unavailable MARKWITH, MARCUS FREEDMAN Unavailable Unavailable MARKWITH, MARCUS FREEDMAN Unavailable Unavailable MARKWITH, MARCUS FREEDMAN Unavailable Unavailable MARKWITH, MARCUS FREEDMAN Unavailable Unavailable MARKWITH, MARCUS FREEDMAN Unavailable Unavailable MARKWITH, MARCUS FREEDMAN Unavailable Unavailable MARKWITH, MARCUS FREEDMAN Unavailable Unavailable MARKWITH, MARCUS FREEDMAN Unavailable Unavailable MARKWITH, MARCUS FREEDMAN Unavailable Unavailable MARKWITH, MARCUS FREEDMAN Unavailable Unavailable MARKWITH, MARCUS FREEDMAN Unavailable Unavailable MARKWITH, MARCUS FREEDMAN Unavailable Unavailable MARKWITH, MARCUS FREEDMAN Unavailable Unavailable MARKWITH, MARCUS FREEDMAN Unavailable Unavailable MARKWITH, MRACUS FREEDMAN Unavailable Unavailable MARKWITH, MARCUS FREEDMAN Unavailable Unavailable MARKWITH, MARCUS FREEDMAN Unavailable Unavailable MARKWITH, MARCUS FREEDMAN Unavailable Unavailable SYSTEM IN, NOT IN PROVIDER Unavailable Unavailable MARKWITH, MARCUS FREEDMAN Unavailable Unavailable MARKWITH, MARCUS FREEDMAN Unavailable Unavailable MARKWITH, MARCUS FREEDMAN Unavailable Unavailable MARKWITH, MARCUS FREEDMAN Unavailable Unavailable MARKWITH, MARCUS FREEDMAN Unavailable Unavailable MARKWITH, MARCUS FREEDMAN Unavailable Unavailable MARKWITH, MARCUS FREEDMAN Unavailable Unavailable MARKWITH, MARCUS FREEDMAN Unavailable Unavailable MARKWITH, MARCUS FREEDMAN Unavailable Unavailable MARKWITH, MARCUS FREEDMAN Unavailable Unavailable MARKWITH, MARCUS FREEDMAN Unavailable Unavailable MARKWITH, MARCUS FREEDMAN Unavailable Unavailable MARKWITH, MARCUS FREEDMAN Unavailable Unavailable MARKWITH, MARCUS FREEDMAN Unavailable Unavailable MARKWITH, MARCUS FREEDMAN Unavailable Unavailable MARKWITH, MARCUS FREEDMAN Unavailable Unavailable MARKWITH, MARCUS FREEDMAN Unavailable Unavailable MARKWITH, MARCUS FREEDMAN Unavailable Unavailable MARKWITH, MARCUS FREEDMAN Unavailable Unavailable MARKWITH, MARCUS FREEDMAN Unavailable Unavailable MARKWITH, MARCUS FREEDMAN Unavailable Unavailable MARKWITH, MARCUS FREEDMAN Unavailable Unavailable MARKWITH, MARCUS FREEDMAN Unavailable Unavailable MARKWITH, MARCUS FREEDMAN Unavailable Unavailable MARKWITH, MARCUS FREEDMAN Unavailable Unavailable MARKWITH, MARCUS FREEDMAN Unavailable Unavailable MARKWITH, MARCUS FREEDMAN Unavailable Unavailable MARKWITH, MARCUS FREEDMAN Unavailable Unavailable MARKWITH, MARCUS FREEDMAN Unavailable Unavailable MARKWITH, MARCUS FREEDMAN Unavailable Unavailable MARKWITH, MARCUS FREEDMAN Unavailable Unavailable CHARLENEWITH, MARCUS FREEDMAN Unavailable Unavailable CHARLENEWITHMARCUS MD Unavailable Unavailable Re-disclosure Warning The records that you are about to access may contain information from federally-assisted alcohol or drug abuse programs. If such information is present, then the following federally mandated warning applies: This information has been disclosed to you from records protected by federal confidentiality rules (42 CFR part 2). The federal rules prohibit you from making any further disclosure of this information unless further disclosure is expressly permitted by the written consent of the person to whom it pertains or as otherwise permitted by 42 CFR part 2. A general authorization for the release of medical or other information is NOT sufficient for this purpose. The Federal rules restrict any use of the information to criminally investigate or prosecute any alcohol or drug abuse patient.The records that you are about to access may contain highly sensitive health information, the redisclosure of which is protected by Article 27-F of the [place] Public Health law. If you continue you may have access to information: Regarding HIV / AIDS; Provided by facilities licensed or operated by the [place] Office of Mental [facility]; or Provided by the [place] Office for People With Developmental Disabilities. If such information is present, then the following [place] mandated warning applies: This information has been disclosed to you from confidential records which are protected by state law. State law prohibits you from making any further disclosure of this information without the specific written consent of the person to whom it pertains, or as otherwise permitted by law. Any unauthorized further disclosure in violation of state law may result in a fine or assisted sentence or both. A general authorization for the release of medical or other information is NOT sufficient authorization for further disc losure. Allergies and Adverse Reactions Type Description Substance Reaction Status Data Source(s ) Lisinopril Lisinopril Lisinopril Cough Active eCW1 ([facility]) Beets Beets Beets Hives Active eCW1 ([facility]) Lisinopril Lisinopril Lisinopril Cough Active eCW1 ([facility]) Beets Beets Beets Hives Active eCW1 ([facility]) Beets Beets Beets Hives Active eCW1 ([facility]) Lisinopril Lisinopril Lisinopril Cough Active eCW1 ([facility]) Lisinopril Lisinopril Lisinopril Cough Active eCW1 ([facility]) Lisinopril Lisinopril Lisinopril Cough Active eCW1 ([facility]) Lisinopril Lisinopril Lisinopril Cough Active eCW1 ([facility]) Lisinopril Lisinopril Lisinopril Cough Active eCW1 ([facility]) Lisinopril Lisinopril Lisinopril Cough Active eCW1 ([facility]) Lisinopril Lisinopril Lisinopril Cough Active eCW1 ([facility]) Lisinopril Lisinopril Lisinopril Cough Active eCW1 ([facility]) Family History Family Member Name Family Member Gender Family Member Status Date o f Status Description Data Source(s) Unknown Unknown Problem MEDENT ([facility]) Unknown Unknown Problem MEDENT ([facility] ) Unknown Female Problem MEDENT ([facility]) Unknown Female Problem [facility] Unknown Female Problem [facility] ([facility] Unknown Female Problem [facility] ([facility] Unknown Female Problem [facility] ([facility] Unknown Female Problem [facility] ([facility] Unknown Female Problem [facility] ([facility] Unknown Female Problem [facility] ([facility] Encounters Encounter Providers Location Date Indications Data Source(s ) [place] [address] [facility] [address] 05/20/2020 12:00:00 AM EST eCW1 ([facility]) [place] [address] [place] [address] [place] [address] 05/20/2020 12:00:00 AM EST eCW1 ([facility]) [place] [address] [place] [address] [place] [address] 05/20/2020 12:00:00 AM EST eCW1 ([facility]) [place] [address] [place] [address] [place] [address] 05/17/2020 12:00:00 AM EST eCW1 ([facility]) [place] [address] [place] [address] [place] [address] 05/17/2020 12:00:00 AM EST eCW1 ([facility]) [place] [address] [facility] [address] 05/17/2020 12:00:00 AM EST eCW1 ([facility]) Outpatient Referrer: PROVIDER SYSTEM [place] 05/07/2020 12:00:0 0 AM [facility] Outpatient Attender: MARCUS LEON MD Physical Therapy 10:45:00 AM EDT MED[facility] ([facility]) [place] [address] [facility] [address] 03/05/2020 12:00:00 AM EDT eCW1 ([facility]) [place] [address] [facility] [address] 2020 12:00:00 AM EDT eCW1 ([facility]) [place] [address] [facility] [address] 2020 12:00:00 AM EDT eCW1 ([facility]) [place] [address] [facility] [address] 2020 12:00:00 AM EDT eCW1 ([facility]) [facility] [place] [address] [facility] [address] 02/22/2020 12:00:00 AM EDT eCW1 ([facility]) [facility] [address] [place] [address] 01/08/2020 12:00:00 AM EDT eCW1 ([facility]) Outpatient Attender: Nabeel Gill Physical Therapy 01/04/2020 11:25:0 0 AM EDT MEDENT ([facility]) Outpatient Attender: Poonam YOUNG PA-C Physical Therapy 12/18/2019 08:45:00 AM EDT MEDENT ([facility]) [facility] [place] [address] [facility] [address] 12/11/2019 12:00:00 AM EDT eCW1 ([facility]) Outpatient Referrer: Poonam YOUNG PA-C 12/06/2019 07:1 2:00 AM EDT [facility] Outpatient Referrer: Poonam YOUNG PA-C 11/26/2019 01:4 9:00 PM EDT [facility] Outpatient Referrer: MARCUS LEON MD 11/26/2019 01:48:0 0 PM EDT [facility] Outpatient Referrer: MARCUS LEON MD 11/26/2019 01:25:0 0 PM EDT [facility] Outpatient Attender: Poonam YOUNG PA-C Physical Therapy 11/16/2019 08:45:00 AM EDT MED[facility] ([facility]) Unknown [address] [facility] [address] 11/14/2019 12:00:00 AM EDT eCW1 ([facility]) Outpatient Attender: Poonam YOUNG PA-C Physical Therapy 10/22/2019 09:00:00 AM EDT MEDENT ([facility]) Outpatient Referrer: MARCUS LEON MD 10/18/2019 07:36:0 0 PM EDT [facility] Outpatient Attender: MARCUS LEON MD Physical Therapy 01:00:00 PM EDT MEDENT ([facility]) [facility] [place] [address] [facility] [address] 10/10/2019 12:00:00 AM EDT eCW1 ([facility]) [facility] [place] [address] [facility] [address] 10/10/2019 12:00:00 AM EDT eCW1 ([facility]) [facility] Pain Center [address] [place] [address] 10/08/2019 12:00:00 AM EDT eCW1 ([facility]) [facility] Urology [address] [facility] [address] 09/25/2019 12:00:00 AM EDT eCW1 ([facility]) [facility] Urology [address] [place] [address], [place] [address] 09/21/2019 12:00:00 AM EDT eCW1 ([facility]) [facility] [address] [place] [address], [place] [address] 09/21/2019 12:00:00 AM EDT eCW1 [facility] Pain Center [address] [place] [address] 09/21/2019 12:00:00 AM EDT eCW1 [facility] [address] [place] [address], [place] [address] 09/21/2019 12:00:00 AM EDT eCW1 [facility] Pain Center [address] [place] [address] 09/03/2019 12:00:00 AM EDT eCW1 [facility] Urology [address] [place] [address], [place] [address] 08/31/2019 12:00:00 AM EDT eCW1 [facility] Urology [address] [place] [address], [place] [address] 08/31/2019 12:00:00 AM EDT eCW1 [facility] Urology [address] [place] [address], [place] [address] 08/23/2019 12:00:00 AM EDT eCW1 [facility] Outpatient Referrer: MARCUS LEON MD 08/20/2019 05:25:0 0 AM EDT [facility] Urology [address] [place] [address], [place] [address] 08/16/2019 12:00:00 AM EDT eCW1 [facility] Outpatient Attender: MARCUS LEON MD Physical Therapy 08:00:00 AM EDT MEDENT ([facility]) [facility] [address] [place] [address], [place] [address] 08/13/2019 12:00:00 AM EDT eCW1 [facility] Urology [address] [place] [address], [place] [address] 08/07/2019 12:00:00 AM EST eCW1 [facility] Outpatient Referrer: MARCUS LEON MD 07/31/2019 07:40:0 0 AM EST [facility] Pain Center [address] [place] [address] 07/09/2019 12:00:00 AM EST eCW1 ([facility] [address] [address] 07/05/2019 12:00:00 AM EST eCW1 [facility] Outpatient Referrer: MARCUS LEON MD 07/04/2019 09:23:0 0 PM EST [facility] Urology [address] [address] 07/04/2019 12:00:00 AM EST eCW1 [facility] Outpatient Attender: MARCUS LEON MD Physical Therapy 12:15:00 PM EST MED[facility] ([facility]) [address] [address] 06/20/2019 12:00:00 AM EST eCW1 ([facility] [address] [place] [address] 06/13/2019 12:00:00 AM EST eCW1 ([facility] [address] [place] [address] 06/13/2019 12:00:00 AM EST eCW1 ([facility] [address] [address] 06/13/2019 12:00:00 AM EST eCW1 [facility] Urology [address] [place] [address] [place] [address] 06/13/2019 12:00:00 AM EST eCW1 ([facility] [address] [place] [address] 06/12/2019 12:00:00 AM EST eCW1 ([facility]) [facility] Pain Center [address] [place] [address] 06/11/2019 12:00:00 AM EST eCW1 ([facility]) Outpatient Attender: ALONSO sauer 06/09/2019 11:20:00 AM EST MEDENT ([facility]) [facility] [place] [address] [facility] [place] [address] 05/29/2019 12:00:00 AM EST eCW1 ([facility]) [facility] Dermatology [address] [place] [address] 05/24/2019 12:00:00 AM EST eCW1 ([facility]) [facility] Pain Center [address] [place] [address] 05/11/2019 12:00:00 AM EST eCW1 ([facility]) [facility] Pain Center [address] [place] [address] 05/09/2019 12:00:00 AM EST eCW1 ([facility]) Medications Medication Brand Name Start Date Product Form Dose Route Admi nistrative Instructions Pharmacy Instructions Status Indications Reaction Description Data Source(s) magnesium citrate 58.2 MG/ML Oral Solution Magnesium Citrate 05/27/2020 12:00:00 AM EST active MEDENT ([facility], ) Clenpiq Clenpiq 05/27/2020 12:00:00 AM EST active MEDENT ([facility], ) Testosterone Cypionate 200 MG/ML Testosterone Cypionate 200 MG/ML 05/20/2020 12:00:00 AM EST 1.0 {ml} active Testos terone Cypionate 200 MG/ML eCW1 ([facility]) Testosterone Cypionate 200 MG/ML Testosterone Cypionate 200 MG/ML 05/20/2020 12:00:00 AM EST 1.0 {ml} active Testos terone Cypionate 200 MG/ML eCW1 ([facility]) Testosterone Cypionate 200 MG/ML Testosterone Cypionate 200 MG/ML 05/20/2020 12:00:00 AM EST 1.0 {ml} active Testos terone Cypionate 200 MG/ML eCW1 ([facility]) Testosterone Cypionate 200 MG/ML Testosterone Cypionate 200 MG/ML 05/20/2020 12:00:00 AM EST 1.0 {ml} active Testos terone Cypionate 200 MG/ML eCW1 ([facility]) Testosterone Cypionate 200 MG/ML Testosterone Cypionate 200 MG/ML 05/20/2020 12:00:00 AM EST 1.0 {ml} active Testos terone Cypionate 200 MG/ML eCW1 ([facility]) Testosterone Cypionate 200 MG/ML Testosterone Cypionate 200 MG/ML 05/20/2020 12:00:00 AM EST 1.0 {ml} active Testos terone Cypionate 200 MG/ML eCW1 ([facility]) Testosterone Cypionate 200 MG/ML Testosterone Cypionate 200 MG/ML 05/20/2020 12:00:00 AM EST 1.0 {ml} active Testos terone Cypionate 200 MG/ML eCW1 ([facility]) Testosterone Cypionate 200 MG/ML Testosterone Cypionate 200 MG/ML 05/20/2020 12:00:00 AM EST 1.0 {ml} active Testos terone Cypionate 200 MG/ML eCW1 ([facility]) Testosterone Cypionate 200 MG/ML Testosterone Cypionate 200 MG/ML 05/20/2020 12:00:00 AM EST 1.0 {ml} active Testos terone Cypionate 200 MG/ML eCW1 ([facility]) Testosterone Cypionate 200 MG/ML Testosterone Cypionate 200 MG/ML 05/20/2020 12:00:00 AM EST 1.0 {ml} active Testos terone Cypionate 200 MG/ML eCW1 ([facility]) Testosterone Cypionate 200 MG/ML Testosterone Cypionate 200 MG/ML 05/20/2020 12:00:00 AM EST 1.0 {ml} active Testos terone Cypionate 200 MG/ML eCW1 ([facility]) Testosterone Cypionate 200 MG/ML Testosterone Cypionate 200 MG/ML 05/20/2020 12:00:00 AM EST 1.0 {ml} active Testos terone Cypionate 200 MG/ML eCW1 ([facility]) Diazepam 5 MG Oral Tablet [Valium] Valium 11/16/2019 12:00:00 AM EDT active MEDENT ([facility]) Medrol Medrol 10/22/2019 12:00:00 AM EDT active MEDENT ([facility]) Omeprazole 40 MG Delayed Release Oral Capsule Omeprazole 40 MG 08/13/2019 12:00:00 AM EDT active Omeprazo le 40 MG eCW1 ([facility]) Omeprazole 40 MG Delayed Release Oral Capsule Omeprazole 40 MG 08/13/2019 12:00:00 AM EDT active Omeprazo le 40 MG eCW1 ([facility]) Omeprazole 40 MG Delayed Release Oral Capsule Omeprazole 40 MG 08/13/2019 12:00:00 AM EDT active Omeprazo le 40 MG eCW1 ([facility]) Omeprazole 40 MG Delayed Release Oral Capsule Omeprazole 40 MG 08/13/2019 12:00:00 AM EDT active Omeprazo le 40 MG eCW1 ([facility]) meloxicam 15 MG Oral Tablet [Mobic] Mobic 15 MG Mobic 15 MG 08/13/2019 12:00:00 AM EDT 1.0 {tablet} active Mobic 15 MG eCW1 ([facility]) Omeprazole 40 MG Delayed Release Oral Capsule Omeprazole 40 MG 08/13/2019 12:00:00 AM EDT active Omeprazo le 40 MG eCW1 ([facility]) meloxicam 15 MG Oral Tablet [Mobic] Mobic 15 MG Mobic 15 MG 08/13/2019 12:00:00 AM EDT 1.0 {tablet} active Mobic 15 MG eCW1 ([facility]) meloxicam 15 MG Oral Tablet [Mobic] Mobic 15 MG Mobic 15 MG 08/13/2019 12:00:00 AM EDT active 1 tablet eCW1 ([facility]) Omeprazole 40 MG Delayed Release Oral Capsule Omeprazole 40 MG 08/13/2019 12:00:00 AM EDT active Omeprazo le 40 MG eCW1 ([facility]) Omeprazole 40 MG Delayed Release Oral Capsule Omeprazole 40 MG 08/13/2019 12:00:00 AM EDT active Omeprazo le 40 MG eCW1 ([facility]) meloxicam 15 MG Oral Tablet [Mobic] Mobic 15 MG Mobic 15 MG 08/13/2019 12:00:00 AM EDT 1.0 {tablet} active Mobic 15 MG eCW1 ([facility]) meloxicam 15 MG Oral Tablet [Mobic] Mobic 15 MG Mobic 15 MG 08/13/2019 12:00:00 AM EDT 1.0 {tablet} active Mobic 15 MG eCW1 ([facility]) Omeprazole 40 MG Delayed Release Oral Capsule Omeprazole 40 MG 08/13/2019 12:00:00 AM EDT active Omeprazo le 40 MG eCW1 ([facility]) meloxicam 15 MG Oral Tablet [Mobic] Mobic 15 MG Mobic 15 MG 08/13/2019 12:00:00 AM EDT active 1 tablet eCW1 ([facility]) Omeprazole 40 MG Delayed Release Oral Capsule Omeprazole 40 MG 08/13/2019 12:00:00 AM EDT active Omeprazo le 40 MG eCW1 ([facility]) meloxicam 15 MG Oral Tablet [Mobic] Mobic 15 MG Mobic 15 MG 08/13/2019 12:00:00 AM EDT 1.0 {tablet} active Mobic 15 MG eCW1 ([facility]) Omeprazole 40 MG Delayed Release Oral Capsule Omeprazole 40 MG 08/13/2019 12:00:00 AM EDT active Omeprazo le 40 MG eCW1 ([facility]) meloxicam 15 MG Oral Tablet [Mobic] Mobic 15 MG Mobic 15 MG 08/13/2019 12:00:00 AM EDT 1.0 {tablet} active Mobic 15 MG eCW1 ([facility]) Omeprazole 40 MG Delayed Release Oral Capsule Omeprazole 40 MG 08/13/2019 12:00:00 AM EDT active Omeprazo le 40 MG eCW1 ([facility]) meloxicam 15 MG Oral Tablet [Mobic] Mobic 15 MG Mobic 15 MG 08/13/2019 12:00:00 AM EDT 1.0 {tablet} active Mobic 15 MG eCW1 ([facility]) meloxicam 15 MG Oral Tablet [Mobic] Mobic 15 MG Mobic 15 MG 08/13/2019 12:00:00 AM EDT 1.0 {tablet} active Mobic 15 MG eCW1 ([facility]) Omeprazole 40 MG Delayed Release Oral Capsule Omeprazole 40 MG 08/13/2019 12:00:00 AM EDT active 1 capsul e 30 minutes before morning meal eCW1 ([facility]) Omeprazole 40 MG Delayed Release Oral Capsule Omeprazole 40 MG 08/13/2019 12:00:00 AM EDT active 1 capsul e 30 minutes before morning meal eCW1 ([facility]) meloxicam 15 MG Oral Tablet [Mobic] Mobic 15 MG Mobic 15 MG 08/13/2019 12:00:00 AM EDT 1.0 {tablet} active Mobic 15 MG eCW1 ([facility]) meloxicam 15 MG Oral Tablet [Mobic] Mobic 15 MG Mobic 15 MG 08/13/2019 12:00:00 AM EDT 1.0 {tablet} active Mobic 15 MG eCW1 ([facility]) meloxicam 15 MG Oral Tablet [Mobic] Mobic 15 MG Mobic 15 MG 08/13/2019 12:00:00 AM EDT 1.0 {tablet} active Mobic 15 MG eCW1 ([facility]) Famotidine 40 MG Oral Tablet [Pepcid] Pepcid 40 MG Pepcid 40 MG 06/19/2019 12:00:00 AM EST suspended 1 tab let at bedtime eCW1 ([facility]) Sucralfate 100 MG/ML Oral Suspension Sucralfate 1 GM/10ML [place] cralfate 1 GM/10ML 06/19/2019 12:00:00 AM EST active 10 ml on an empty stomach eCW1 ([facility]) Sucralfate 100 MG/ML Oral Suspension Sucralfate 1 GM/10ML [place] cralfate 1 GM/10ML 06/19/2019 12:00:00 AM EST active 10 ml on an empty stomach eCW1 ([facility]) Famotidine 40 MG Oral Tablet [Pepcid] Pepcid 40 MG Pepcid 40 MG 06/19/2019 12:00:00 AM EST active 1 tablet at bedtime eCW1 ([facility]) PredniSONE 10 MG PredniSONE 10 MG 06/13/2019 12:00:00 AM EST active 1 tablet eCW1 ([facility]) Cimetidine 200 MG Oral Tablet Cimetidine 200 MG 06/13/2019 12:00:00 A M EST suspended 1 tablet as needed e CW1 ([facility]) Cimetidine 200 MG Oral Tablet Cimetidine 200 MG 06/13/2019 12:00:00 A M EST active 1 tablet as needed e CW1 ([facility]) Prednisone 10 MG Oral Tablet PredniSONE 10 MG PredniSONE 10 MG 06/13/2019 12:00:00 AM EST suspended 1 tab let eCW1 ([facility]) Cimetidine 200 MG Oral Tablet Cimetidine 200 MG 06/13/2019 12:00:00 A M EST active 1 tablet as needed e CW1 ([facility]) Cimetidine 200 MG Oral Tablet Cimetidine 200 MG 06/13/2019 12:00:00 A M EST suspended 1 tablet as needed e CW1 ([facility]) Prednisone 10 MG Oral Tablet PredniSONE 10 MG PredniSONE 10 MG 06/13/2019 12:00:00 AM EST suspended 1 tab let eCW1 ([facility]) PredniSONE 10 MG PredniSONE 10 MG 06/13/2019 12:00:00 AM EST active 1 tablet eCW1 ([facility]) Prednisone 10 MG Oral Tablet PredniSONE 10 MG PredniSONE 10 MG 06/13/2019 12:00:00 AM EST active 1 tablet eCW1 ([facility]) tramadol hydrochloride 50 MG Oral Tablet Tramadol HCl 50 MG Tramadol HCl 50 MG 06/11/2019 12:00:00 AM EST active 1 tablet as needed eCW1 ([facility]) tramadol hydrochloride 50 MG Oral Tablet Tramadol HCl 50 MG Tramadol HCl 50 MG 06/11/2019 12:00:00 AM EST 1.0 {tablet_as_needed} active Tramadol HCl 50 MG eCW1 ([facility]) tramadol hydrochloride 50 MG Oral Tablet Tramadol HCl 50 MG Tramadol HCl 50 MG 06/11/2019 12:00:00 AM EST 1.0 {tablet_as_needed} active Tramadol HCl 50 MG eCW1 ([facility]) tramadol hydrochloride 50 MG Oral Tablet Tramadol HCl 50 MG Tramadol HCl 50 MG 06/11/2019 12:00:00 AM EST active 1 tablet as needed eCW1 ([facility]) tramadol hydrochloride 50 MG Oral Tablet Tramadol HCl 50 MG Tramadol HCl 50 MG 06/11/2019 12:00:00 AM EST 1.0 {tablet_as_needed} active Tramadol HCl 50 MG eCW1 ([facility]) tramadol hydrochloride 50 MG Oral Tablet Tramadol HCl 50 MG Tramadol HCl 50 MG 06/11/2019 12:00:00 AM EST 1.0 {tablet_as_needed} active Tramadol HCl 50 MG eCW1 ([facility]) tramadol hydrochloride 50 MG Oral Tablet Tramadol HCl 50 MG Tramadol HCl 50 MG 06/11/2019 12:00:00 AM EST active 1 tablet as needed eCW1 ([facility]) tramadol hydrochloride 50 MG Oral Tablet Tramadol HCl 50 MG Tramadol HCl 50 MG 06/11/2019 12:00:00 AM EST 1.0 {tablet_as_needed} active Tramadol HCl 50 MG eCW1 ([facility]) tramadol hydrochloride 50 MG Oral Tablet Tramadol HCl 50 MG Tramadol HCl 50 MG 06/11/2019 12:00:00 AM EST 1.0 {tablet_as_needed} active Tramadol HCl 50 MG eCW1 ([facility]) tramadol hydrochloride 50 MG Oral Tablet Tramadol HCl 50 MG Tramadol HCl 50 MG 06/11/2019 12:00:00 AM EST active 1 tablet as needed eCW1 ([facility]) tramadol hydrochloride 50 MG Oral Tablet Tramadol HCl 50 MG Tramadol HCl 50 MG 06/11/2019 12:00:00 AM EST active 1 tablet as needed eCW1 ([facility]) tramadol hydrochloride 50 MG Oral Tablet Tramadol HCl 50 MG Tramadol HCl 50 MG 06/11/2019 12:00:00 AM EST active 1 tablet as needed eCW1 ([facility]) tramadol hydrochloride 50 MG Oral Tablet Tramadol HCl 50 MG Tramadol HCl 50 MG 06/11/2019 12:00:00 AM EST 1.0 {tablet_as_needed} active Tramadol HCl 50 MG eCW1 ([facility]) tramadol hydrochloride 50 MG Oral Tablet Tramadol HCl 50 MG Tramadol HCl 50 MG 06/11/2019 12:00:00 AM EST active 1 tablet as needed eCW1 ([facility]) tramadol hydrochloride 50 MG Oral Tablet Tramadol HCl 50 MG Tramadol HCl 50 MG 06/11/2019 12:00:00 AM EST 1.0 {tablet_as_needed} active Tramadol HCl 50 MG eCW1 ([facility]) tramadol hydrochloride 50 MG Oral Tablet Tramadol HCl 50 MG Tramadol HCl 50 MG 06/11/2019 12:00:00 AM EST 1.0 {tablet_as_needed} active Tramadol HCl 50 MG eCW1 ([facility]) tramadol hydrochloride 50 MG Oral Tablet Tramadol HCl 50 MG Tramadol HCl 50 MG 06/11/2019 12:00:00 AM EST 1.0 {tablet_as_needed} active Tramadol HCl 50 MG eCW1 ([facility]) tramadol hydrochloride 50 MG Oral Tablet Tramadol HCl 50 MG Tramadol HCl 50 MG 06/11/2019 12:00:00 AM EST 1.0 {tablet_as_needed} active Tramadol HCl 50 MG eCW1 ([facility]) tramadol hydrochloride 50 MG Oral Tablet Tramadol HCl 50 MG Tramadol HCl 50 MG 06/11/2019 12:00:00 AM EST active 1 tablet as needed eCW1 ([facility]) Prednisone 20 MG Oral Tablet Prednisone 06/09/2019 12:00:00 AM EST ORAL active MEDENT ([facility]) Hydroxyzine Hydrochloride 50 MG Oral Tablet Hydroxyzine HCL 06/09/2019 12:00:00 AM EST ORAL active MEDENT ([facility]) Cyclobenzaprine hydrochloride 10 MG Oral Tablet Cyclob enzaprine HCl 10 MG Cyclobenzaprine HCl 10 MG 05/11/2019 12:00:00 AM EST active 1 tablet 1 to 2 hours before bedtime eCW1 ([facility]) Cyclobenzaprine hydrochloride 10 MG Oral Tablet Cyclob enzaprine HCl 10 MG Cyclobenzaprine HCl 10 MG 05/11/2019 12:00:00 AM EST active 1 tablet 1 to 2 hours before bedtime eCW1 ([facility]) Cyclobenzaprine hydrochloride 10 MG Oral Tablet Cyclob enzaprine HCl 10 MG Cyclobenzaprine HCl 10 MG 05/11/2019 12:00:00 AM EST active 1 tablet 1 to 2 hours before bedtime eCW1 ([facility]) Cyclobenzaprine hydrochloride 10 MG Oral Tablet Cyclob enzaprine HCl 10 MG Cyclobenzaprine HCl 10 MG 05/11/2019 12:00:00 AM EST active 1 tablet 1 to 2 hours before bedtime eCW1 ([facility]) Cyclobenzaprine hydrochloride 10 MG Oral Tablet Cyclob enzaprine HCl 10 MG Cyclobenzaprine HCl 10 MG 05/11/2019 12:00:00 AM EST active 1 tablet 1 to 2 hours before bedtime eCW1 ([facility]) Cyclobenzaprine hydrochloride 10 MG Oral Tablet Cyclob enzaprine HCl 10 MG Cyclobenzaprine HCl 10 MG 05/11/2019 12:00:00 AM EST active 1 tablet 1 to 2 hours before bedtime eCW1 ([facility]) Cyclobenzaprine hydrochloride 10 MG Oral Tablet Cyclob enzaprine HCl 10 MG Cyclobenzaprine HCl 10 MG 05/11/2019 12:00:00 AM EST active 1 tablet 1 to 2 hours before bedtime eCW1 ([facility]) Cyclobenzaprine hydrochloride 10 MG Oral Tablet Cyclob enzaprine HCl 10 MG Cyclobenzaprine HCl 10 MG 05/11/2019 12:00:00 AM EST active 1 tablet 1 to 2 hours before bedtime eCW1 ([facility]) Cyclobenzaprine hydrochloride 10 MG Oral Tablet Cyclob enzaprine HCl 10 MG Cyclobenzaprine HCl 10 MG 05/11/2019 12:00:00 AM EST active 1 tablet 1 to 2 hours before bedtime eCW1 ([facility]) Ibuprofen 600 MG Oral Tablet Ibuprofen 03/05/2019 12:00:00 AM EDT ORAL completed MEDENT ([facility]) Morphine Sulfate 15 MG Extended Release Oral Tablet [MS Cont in] MS Contin 03/05/2019 12:00:00 AM EDT ORAL completed MEDENT ([facility]) Oxycodone Hydrochloride 5 MG Oral Tablet Oxycodone HCL 03/05/2019 12:00:00 AM EDT completed MEDENT ([facility]) Insurance Providers Payer name Policy type / Coverage type Policy ID Covered alliance party ID Covered alliance party's relationship to rivera Policy [place] Plan Information [place]/307 [id number] SP [id number] BCBS GENERIC C [id number] Self O [id number] BLUE CROSS OTHER 1 [id number] SP [id number] BC BS [place] [id number] SP [id number] BLUE CROSS OTHER 1 [id number] SP [id number] [place]/307 [id number] SP [id number] [place]CELLUS BCBS B [id number] S [id number] [place] P[place] 302/307 [id number] SP [id number] BS [place] 865 [id number] SP [id number] EXCELLUS BCBS B [id number] S [id number] EXCELLUS BCBS B [id number] S O [id number] BC BS [place] [id number] SP [id number] BC[place] 141 [id number] SP [id number] EXCELLUS BCBS B [id number] S O [id number] PMA MANAGEMENT [place] [id number] SP [id number] PMA MANAGEMENT [facility] [id number] SP [id number] BC BS [place] [id number] SP [id number] ANSI-Commercial [id number] [place] P[place] 302/307 [id number] SP [id number] ANSI-Commercial [id number] ANSI-Commercial [id number] ANSI-Commercial [id number] ANSI-Commercial [id number] ANSI-Commercial [id number] [place] 302/307 [id number] SP [id number] ANSI-Commercial [id number] ANSI-Commercial [id number] ANSI-Commercial [id number] OLLIES [id number] SP [id number] Pma Ins () Workers Compensation [id number] Self [id number] ANSI-Commercial [id number] ANSI-Commercial [id number] ANSI-Commercial [id number]-[id number] [id number]-[id number]-[id number] ANSI-Commercial [id number] [id number] ANSI-Not a Secondary Insurance [id number] 18cfeeb [id number] ANSI-Commercial [id number] ANSI-Commercial [id number] ANSI-Commercial [id number] [id number]-c1q2-4d16-2jix-[id number] ANSI-Not a Secondary Insurance [id number] [id number] [id number]-8i98-axgo-77frf27il4gp ANSI-Not a Secondary Insurance [id number] [id number]-4ea9-30yw-[id number] ANSI-Not a Secondary Insurance [id number]-[id number]-[id number] ANSI-Not a Secondary Insurance [id number] [id number]-[id number] ANSI-Not a Secondary Insurance [id number]-eg7q-022a5 s28j86v [id number]-1308-do2e-[id number] ANSI-Not a Secondary Insurance [id number]-1366-[id number]-[id number] BCBS/Blue Card Commercial [id number] Self [id number] ANSI-Not a Secondary Insurance [id number] ANSI-Not a Secondary Insurance [id number]-38fly [id number] [id number]-[id number] ANSI-Not a Secondary Insurance [id number]-[id number]-962h-[id number]-255k-864c-[id number] ANSI-Not a Secondary Insurance [id number] [id number]-[id number] ANSI-Not a Secondary Insurance [id number]-8c5j-u18a-06mal [id number] [id number]-1r0d-w41c-15nfi2b535zv ANSI-Not a Secondary Insurance [id number]-10i9-atvm-[id number] 33f6dl9 fvg5q0a2-987k-72a8-uvqm-[id number] ANSI-Not a Secondary Insurance [id number]-8591-3jb6-d11y-1845c [id number]-9239-7da8-z40r-[id number] ANSI-Not a Secondary Insurance [id number]-0j0p-6d32-57905 ow1w19r r36e0n66-820m-1w8h-0d22-67532qe9x53m ANSI-Not a Secondary Insurance [id number]-[id number] 677i10m [id number]-[id number] ANSI-Not a Secondary Insurance [id number]-5m78-n86n-s3z2p q469owz [id number]-7f39-a71u-l2y7he615wjo EXCELLUS BCBS B [id number] S O [id number] ANSI-Not a Secondary Insurance [id number]-k128-1l27-36xm-[id number] ANSI-Not a Secondary Insurance [id number] [id number] 002sban2-92m5-717v-[id number] ANSI-Not a Secondary Insurance [id number] [id number]-[id number] ANSI-Not a Secondary Insurance [id number]-8e952 68b0diw [id number]-[id number] BCBS/Blue Card Commercial [id number] Self [id number] ANSI-Not a Secondary Insurance [id number]-9rzqf 9shde2v [id number]-f963-0pd8-9q5j-5krsa7ppgu7m BCBS [place] PPO 302/307 [id number] SP [id number] ANSI-Not a Secondary Insurance [id number]-[id number] [id number] k07q93k8-49h2-2q90-[id number] ANSI-Not a Secondary Insurance [id number]-[id number]-lne89 [id number] [id number]-v09j-9884-2r6q-[id number] BCBS [place] PPO 302/307 [id number] SP [id number] ANSI-Commercial brv017ti-5y6w-8cpj-[id number] qiq232yh-6e6c-6ptr-[id number] ANSI-Commercial [id number]-tsi1-4o9r-x5yw-[id number]-nae0-1t9x-l6hh-[id number] ANSI-Commercial [id number] [id number]-1505-2639-10v1-8812ac8jr2f3 ANSI-Commercial [id number]-jin0-392p-[id number]-avi0-413c-[id number] ANSI-Commercial re69cmed-n8bc-19d2-[id number] dl61wwor-a1hk-12e1-[id number] ANSI-Commercial [id number]-[id number] 1q51s85a-b92s-0758-78r4-[id number] ANSI-Commercial f19iq80g-9l80-687p-hg90-[id number] [id number]-3v76-707u-tu52-[id number] ANSI-Commercial [id number]-io0x-4p8h-[id number] i1de190c-gc8v-7c0z-[id number] [employer] BCBS Health Maintenance Organization (HMO) [id number] Self [id number] ANSI-Commercial [id number]-[id number]-w45l-[id number] BLUE CROSS [id number] SP OBO [id number] [employer] [place] Commercial [id number] Self OBO [id number] [employer] [place] Commercial [id number] Self OBO [id number] [facility] BLUE [employer]IELD [id number] [employer] [id number] BLUE CROSS [id number] SP OBO [id number] [employer] [place] Medigap Part B [id number] Self [id number] [employer] [place] Commercial [id number] Self OBO [id number] [employer] [place] Medigap Part B [id number] Self [id number] [employer] [place] Commercial [id number] Self OBO [id number] [employer] [place] Medigap Part B [id number] Self [id number] [employer] Commercial [id number] Self OBO [id number] [employer] Medigap Part B [id number] Self [id number] [employer] Commercial [id number] Self OBO [id number] BL[employer]OSS [id number] SP OBO [id number] [employer] Medigap Part B [id number] Self [id number] [employer] Commercial [id number] Self OBO [id number] [employer] Commercial Self [employer] [place] Medigap Part B Self [employer] [place] Commercial Self [employer] Commercial Self MVP SELECT [id number] SP [id number] [employer] CROSS [id number] SPO [id number] BL[employer] CR[employer] [id number] SPO [id number] BLUE CROSS [id number] [facility] [id number] Problems, Conditions, and Diagnoses Code Display Name Description Problem Type Effective Dates Data Source(s) K21.9 [id number] Gastroesophageal reflux disease without e sophagitis Problem 08/13/2019 12:00:00 AM EDT eCW1 ([facility]) K21.9 [id number] Gastroesophageal reflux disease without e sophagitis Problem 08/13/2019 12:00:00 AM EDT eCW1 ([facility]) R07.89 [id number] Atypical chest pain Problem 07/05/2019 12:00 :00 AM EST eCW1 ([facility]) K29.00 [id number] Acute gastritis without hemorrha ge, unspecified gastritis type Problem 07/05/2019 12:00:00 AM EST eCW1 ([facility]) R07.89 [id number] Atypical chest pain Problem 07/05/2019 12:00 :00 AM EST eCW1 ([facility]) K29.00 [id number] Acute gastritis without hemorrha ge, unspecified gastritis type Problem 07/05/2019 12:00:00 AM EST eCW1 ([facility]) Surgeries/Procedures Procedure Description Date Indications Data Source(s) IRON TOTAL FE BINDING CAPACITY Routine 05/07/2020 9:34 AM EST 05/07/2020 09:34:00 AM [facility] BLOOD COUNT COMPLETE AUTO&AUTO DIFRNTL WBC COUNT CBC AND DIFFER ENTIAL Routine 05/07/2020 9:34 AM EST 05/07/2020 09:34:00 AM [facility] FERRITIN FERRITIN LEVEL Routine 05/07/2020 9:34 AM EST 05/07/2020 09:34:00 AM [facility] APPL MODALITY 1/> AREAS ELEC STIMJ EA 15 MIN 0 12:00:00 AM EDT [facility] ([facility]) THERAPEUTIC PX 1/> AREAS EACH 15 MIN EXERCISES 12:00:00 AM EDT [facility] ([facility] ) MANUAL THERAPY TQS 1/> REGIONS EACH 15 MINUTES 06/17/2 020 12:00:00 AM EDT [facility] ([facility]) THERAPEUTIC PX 1/> AREAS EACH 15 MIN EXERCISES 12:00:00 AM EDT [facility] ([facility]) MANUAL THERAPY TQS 1/> REGIONS EACH 15 MINUTES 12:00:00 AM EDT [facility] ([facility]) THERAPEUTIC PX 1/> AREAS EACH 15 MIN EXERCISES 12:00:00 AM EDT [facility] ([facility]) MANUAL THERAPY TQS 1/> REGIONS EACH 15 MINUTES 12:00:00 AM EDT [facility] ([facility]) THERAPEUTIC PX 1/> AREAS EACH 15 MIN EXERCISES 12:00:00 AM EDT [facility] ([facility]) MANUAL THERAPY TQS 1/> REGIONS EACH 15 MINUTES 12:00:00 AM EDT [facility] ([facility] Physical Therapy Eval - Low Complexity 11/02/2019 12:0 0:00 AM EDT [facility] ([facility]) X-Ray Spine Lumbosacral Complete Inc Bending Views Min Of 6 10/22/2019 12:00:00 AM EDT [facility] ([facility]) TeleMedicine Est. Pt. Level 3 10/08/2019 12:00:00 AM E DT eCW1 ([facility]) THERAPEUTIC PX 1/> AREAS EACH 15 MIN EXERCISES 12:00:00 AM EST [facility] ([facility]) THERAPEUTIC PX 1/> AREAS EACH 15 MIN EXERCISES 12:00:00 AM EST [facility] ([facility]) THERAPEUTIC PX 1/> AREAS EACH 15 MIN EXERCISES 12:00:00 AM EST [facility] ([facility]) THERAPEUTIC PX 1/> AREAS EACH 15 MIN EXERCISES 12:00:00 AM EST [facility] ([facility]) THERAPEUTIC PX 1/> AREAS EACH 15 MIN EXERCISES 12:00:00 AM EST [facility] ([facility]) THERAPEUTIC PX 1/> AREAS EACH 15 MIN EXERCISES 12:00:00 AM EST [facility] ([facility]) THERAPEUTIC PX 1/> AREAS EACH 15 MIN EXERCISES 12:00:00 AM EST [facility] ([facility]) THERAPEUTIC PX 1/> AREAS EACH 15 MIN EXERCISES 12:00:00 AM EST [facility] ([facility]) THERAPEUTIC PX 1/> AREAS EACH 15 MIN EXERCISES 12:00:00 AM EST [facility] ([facility]) THERAPEUTIC PX 1/> AREAS EACH 15 MIN EXERCISES 12:00:00 AM EST [facility] ([facility]) THERAPEUTIC PX 1/> AREAS EACH 15 MIN EXERCISES 12:00:00 AM EST [facility] ([facility]) THERAPEUTIC PX 1/> AREAS EACH 15 MIN EXERCISES 12:00:00 AM EST [facility] ([facility]) THERAPEUTIC PX 1/> AREAS EACH 15 MIN EXERCISES 12:00:00 AM EST [facility] ([facility]) THERAPEUTIC PX 1/> AREAS EACH 15 MIN EXERCISES 12:00:00 AM EST [facility] ([facility]) THERAPEUTIC PX 1/> AREAS EACH 15 MIN EXERCISES 12:00:00 AM EST [facility] ([facility]) THERAPEUTIC PX 1/> AREAS EACH 15 MIN EXERCISES 12:00:00 AM EST [facility] ([facility]) THERAPEUTIC PX 1/> AREAS EACH 15 MIN EXERCISES 12:00:00 AM EST [facility] ([facility]) THERAPEUTIC PX 1/> AREAS EACH 15 MIN EXERCISES 12:00:00 AM EST [facility] ([facility]) Re-Eval Of PT Established Plan Of Care 20Mins Face To Face P T/Fam 07/09/2019 12:00:00 AM EST [facility] ([facility]) ESTABILISHED PATIENT [facility] CHARGE 12:00:00 AM EST eCW1 ([facility]) THERAPEUTIC PX 1/> AREAS EACH 15 MIN EXERCISES 12:00:00 AM EST [facility] ([facility]) THERAPEUTIC PX 1/> AREAS EACH 15 MIN EXERCISES 12:00:00 AM EST [facility] ([facility]) THERAPEUTIC PX 1/> AREAS EACH 15 MIN EXERCISES 12:00:00 AM EST [facility] ([facility]) THERAPEUTIC PX 1/> AREAS EACH 15 MIN EXERCISES 12:00:00 AM EST [facility] ([facility]) THERAPEUTIC PX 1/> AREAS EACH 15 MIN EXERCISES 12:00:00 AM EST [facility] ([facility]) THERAPEUTIC PX 1/> AREAS EACH 15 MIN EXERCISES 12:00:00 AM EST [facility] ([facility]) APPLICATION MODALITY 1/> AREAS HOT/COLD PACKS 06/26/19 12:00:00 AM EST [facility] ([facility]) THERAPEUTIC PX 1/> AREAS EACH 15 MIN EXERCISES 12:00:00 AM EST [facility] ([facility]) THERAPEUTIC PX 1/> AREAS EACH 15 MIN EXERCISES 12:00:00 AM EST [facility] ([facility]) THERAPEUTIC PX 1/> AREAS EACH 15 MIN EXERCISES 12:00:00 AM EST [facility] ([facility]) THERAPEUTIC PX 1/> AREAS EACH 15 MIN EXERCISES 12:00:00 AM EST [facility] ([facility]) THERAPEUTIC PX 1/> AREAS EACH 15 MIN EXERCISES 12:00:00 AM EST [facility] ([facility]) THERAPEUTIC PX 1/> AREAS EACH 15 MIN EXERCISES 12:00:00 AM EST [facility] ([facility]) APPLICATION MODALITY 1/> AREAS HOT/COLD PACKS 06/14/19 12:00:00 AM EST [facility] ([facility]) THERAPEUTIC PX 1/> AREAS EACH 15 MIN EXERCISES 12:00:00 AM EST [facility] ([facility]) THERAPEUTIC PX 1/> AREAS EACH 15 MIN EXERCISES 12:00:00 AM EST [facility] ([facility]) APPLICATION MODALITY 1/> AREAS HOT/COLD PACKS 06/11/19 20 12:00:00 AM EST [facility] ([facility] ) THERAPEUTIC PX 1/> AREAS EACH 15 MIN EXERCISES 12:00:00 AM EST [facility] ([facility]) THERAPEUTIC PX 1/> AREAS EACH 15 MIN EXERCISES 12:00:00 AM EST [facility] ([facility]) APPLICATION MODALITY 1/> AREAS HOT/COLD PACKS 06/05/20 12:00:00 AM EST [facility] ([facility]) THERAPEUTIC PX 1/> AREAS EACH 15 MIN EXERCISES 12:00:00 AM EST [facility] ([facility] ) THERAPEUTIC PX 1/> AREAS EACH 15 MIN EXERCISES 12:00:00 AM EST [facility] ([facility] ) APPLICATION MODALITY 1/> AREAS HOT/COLD PACKS 05/31/20 12:00:00 AM EST [facility] ([facility] ) APPL MODALITY 1/> AREAS ELEC STIMJ EA 15 MIN 9 12:00:00 AM EST [facility] ([facility] ) THERAPEUTIC PX 1/> AREAS EACH 15 MIN EXERCISES 12:00:00 AM EST [facility] ([facility] ) THERAPEUTIC PX 1/> AREAS EACH 15 MIN EXERCISES 12:00:00 AM EST [facility] ([facility] ) Re-Eval Of PT Established Plan Of Care 20Mins Face To Face P T/Fam 05/31/2019 12:00:00 AM EST [facility] ([facility]) APPLICATION MODALITY 1/> AREAS HOT/COLD PACKS 05/28/20 12:00:00 AM EST [facility] ([facility] ) APPL MODALITY 1/> AREAS ELEC STIMJ EA 15 MIN 9 12:00:00 AM EST [facility] ([facility]) THERAPEUTIC PX 1/> AREAS EACH 15 MIN EXERCISES 12:00:00 AM EST [facility] ([facility] ) THERAPEUTIC PX 1/> AREAS EACH 15 MIN EXERCISES 12:00:00 AM EST [facility] ([facility] ) APPLICATION MODALITY 1/> AREAS HOT/COLD PACKS 05/24/20 12:00:00 AM EST [facility] ([facility] ) APPL MODALITY 1/> AREAS ELEC STIMJ EA 15 MIN 9 12:00:00 AM EST [facility] ([facility] ) THERAPEUTIC PX 1/> AREAS EACH 15 MIN EXERCISES 12:00:00 AM EST [facility] ([facility] ) THERAPEUTIC PX 1/> AREAS EACH 15 MIN EXERCISES 12:00:00 AM EST [facility] ([facility]) INCAL BX SKN SINGLE LES 05/24/2019 12:00:00 AM EST eCW1 ([facility]) INCAL BX SKN EA SEP/ADDL 05/24/2019 12:00:00 AM EST eCW1 ([facility]) APPLICATION MODALITY 1/> AREAS HOT/COLD PACKS 05/22/20 12:00:00 AM EST [facility] ([facility]) THERAPEUTIC PX 1/> AREAS EACH 15 MIN EXERCISES 12:00:00 AM EST [facility] ([facility] ) APPLICATION MODALITY 1/> AREAS HOT/COLD PACKS 05/17/20 12:00:00 AM EST [facility] ([facility] ) THERAPEUTIC PX 1/> AREAS EACH 15 MIN EXERCISES 12:00:00 AM EST [facility] ([facility] ) APPLICATION MODALITY 1/> AREAS HOT/COLD PACKS 05/15/20 12:00:00 AM EST [facility] ([facility] ) THERAPEUTIC PX 1/> AREAS EACH 15 MIN EXERCISES 12:00:00 AM EST [facility] ([facility] ) APPLICATION MODALITY 1/> AREAS HOT/COLD PACKS 05/10/20 12:00:00 AM EST [facility] ([facility] ) THERAPEUTIC PX 1/> AREAS EACH 15 MIN EXERCISES 12:00:00 AM EST [facility] ([facility] ) APPLICATION MODALITY 1/> AREAS HOT/COLD PACKS 05/08/20 12:00:00 AM EST [facility] ([facility] ) APPL MODALITY 1/> AREAS ELEC STIMJ EA 15 MIN 12:00:00 AM EST [facility] ([facility] ) THERAPEUTIC PX 1/> AREAS EACH 15 MIN EXERCISES 12:00:00 AM EST [facility] ([facility] ) THERAPEUTIC PX 1/> AREAS EACH 15 MIN EXERCISES 12:00:00 AM EST [facility] ([facility] ) APPLICATION MODALITY 1/> AREAS HOT/COLD PACKS 04/30/20 19 12:00:00 AM EST [facility] ([facility]) APPL MODALITY 1/> AREAS ELEC STIMJ EA 15 MIN 9 12:00:00 AM EST [facility] ([facility]) THERAPEUTIC PX 1/> AREAS EACH 15 MIN EXERCISES 019 12:00:00 AM EST [facility] ([facility]) THERAPEUTIC PX 1/> AREAS EACH 15 MIN EXERCISES 019 12:00:00 AM EST [facility] ([facility]) APPLICATION MODALITY 1/> AREAS HOT/COLD PACKS 04/26/20 19 12:00:00 AM EST [facility] ([facility]) APPL MODALITY 1/> AREAS ELEC STIMJ EA 15 MIN 9 12:00:00 AM EST [facility] ([facility]) THERAPEUTIC PX 1/> AREAS EACH 15 MIN EXERCISES 12:00:00 AM EST [facility] ([facility]) APPLICATION MODALITY 1/> AREAS HOT/COLD PACKS 04/24/20 12:00:00 AM EST [facility] ([facility]) THERAPEUTIC PX 1/> AREAS EACH 15 MIN EXERCISES 12:00:00 AM EST [facility] ([facility]) Results ID Date Data Source [id number] 06/15/2020 10:00:00 AM EST [facility] Name Value Range Interpretation Code Description Data Brenda rce(s) Supporting Document(s) SARS coronavirus 2 RNA Not Detected [facility] [place] This lab was ordered by [facility] and reported by [facility]. ID Date Data Source [id number] 02/25/2020 06:23:00 AM EDT [facility] ([facility]) Name Value Range Interpretation Code Description Data Brenda rce(s) Supporting Document(s) Platelet aggregation collagen induced [Presence] in Platelet rich plasma 129 s 56-103 [facility] ([facility]) Results may be affected by platelet coun ts less than 150,000/mL or hematocrits less than 35%. ID Date Data Source [id number] 02/25/2020 06:23:00 AM EDT [facility] ([facility]) Name Value Range Interpretation Code Description Data Brenda rce(s) Supporting Document(s) Collagen Epinephrine 199 s 74-162 [facility] ([facility] ) Results may be affected by platelet coun ts less than 150,000/mL or hematocrits less than 35%. If COL/EPI is NORMAL, COL/ADP is not performed. Result Interpretation: COL/EPI COL/ADP NORMAL NORMAL NORMAL ASA ABNORMAL NORMAL vWD ABNORMAL NORMAL GLANZMANN'S ABNORMAL ABNORMAL THROMBASTHENIA POSSIBLE DRUG ABNORMAL ABNORMAL EFFECT ID Date Data Source [id number] 02/20/2020 09:00:00 AM EDT [facility] Name Value Range Interpretation Code Description Data Brenda rce(s) Supporting Document(s) Coronavirus 2019 Nasopharygeal Laboratory test result [facility] ([facility] ) This nucleic acid amplification test was developed and its performance characteristics determined by [facility]. Nucleic acid amplification tests include PCR and [...] detected) result in this assay. Performed at: - [facility] [address] [id number] Iron Assorter: Vicki Robertson MD, Phone: [phone] Not Detected ID Date Data Source [id number] 02/20/2020 09:00:00 AM EDT [facility] Name Value Range Interpretation Code Description Data Brenda rce(s) Supporting Document(s) SARS coronavirus 2 RNA [facility] This lab was ordered by [facility] and reported by [facility]. ID Date Data Source [id number] 02/15/2020 06:41:00 AM EDT [facility] ([facility] Name Value Range Interpretation Code Description Data Brenda rce(s) Supporting Document(s) Platelet aggregation collagen induced [Presence] in Platelet rich plasma 150 s 56-103 [facility] ([facility] ) Results may be affected by platelet coun ts less than 150,000/mL or hematocrits less than 35%. ID Date Data Source [id number] 02/15/2020 06:41:00 AM EDT [facility] Name Value Range Interpretation Code Description Data Brenda rce(s) Supporting Document(s) Collagen Epinephrine 184 s 74-162 [facility] ([facility]) Results may be affected by platelet coun ts less than 150,000/mL or hematocrits less than 35%. If COL/EPI is NORMAL, COL/ADP is not performed. Result Interpretation: COL/EPI COL/ADP NORMAL NORMAL NORMAL ASA ABNORMAL NORMAL vWD ABNORMAL NORMAL GLANZMANN'S ABNORMAL ABNORMAL THROMBASTHENIA POSSIBLE DRUG ABNORMAL ABNORMAL EFFECT ID Date Data Source [id number] 02/15/2020 06:41:00 AM EDT [facility] ([facility]) Name Value Range Interpretation Code Description Data Brenda rce(s) Supporting Document(s) Platelets [#/volume] in Blood by Automated count 427 10 150-450 [facility] ([facility]) ID Date Data Source [id number] 02/10/2020 09:30:00 AM EDT [facility] Name Value Range Interpretation Code Description Data Brenda rce(s) Supporting Document(s) SARS coronavirus 2 RNA [facility] This lab was ordered by [facility] and reported by [facility]. ID Date Data Source [id number] 02/10/2020 09:30:00 AM EDT [facility] ([facility]) Name Value Range Interpretation Code Description Data Brenda rce(s) Supporting Document(s) Coronavirus 2019 Nasopharygeal Laboratory test result [facility] ([facility]) This nucleic acid amplification test was developed and its performance characteristics determined by [facility]. Nucleic acid amplification tests include PCR and [...] detected) result in this assay. Performed at: [facility] [id number] Iron Assorter: Vicki Robertson MD, Phone: [phone] Not Detected ID Date Data Source [id number] 02/06/2020 12:41:00 PM EDT [facility] ([facility]) Name Value Range Interpretation Code Description Data Brenda rce(s) Supporting Document(s) Platelet aggregation collagen induced [Presence] in Platelet rich plasma 143 s 56-103 [facility] ([facility]) Results may be affected by platelet coun ts less than 150,000/mL or hematocrits less than 35%. ID Date Data Source [id number] 02/06/2020 12:41:00 PM EDT [facility] ([facility]) Name Value Range Interpretation Code Description Data Brenda rce(s) Supporting Document(s) Inr 1.08 [facility] ([facility]) THERAPUTIC HUMAN INR VALUES INDICATIONS NORMAL RANGES PROPHYLAXIS/TREATMENT OF: VENOUS THROMBOSIS 2.0-3.0 PULMONARY EMBOLISM 2.0-3.0 PREVENTION OF SYSTEMIC EMBOLISM FROM: TISSUE HEART VALVES 2.0-3.0 ACUTE MYOCARDIAL INFARCTION 2.0-3.0 VALVULAR HEART DISEASE 2.0-3.0 ATRIAL FIBRILLATION 2.0-3.0 MECHANICAL VALVES(HIGH RISK) 2.5-3.5 RECURRENT MYOCARDIAL INFARCTION 2.5-3.5 Partial Thromboplastin Time 32.1 s 25.0-38.4 [facility] ([facility]) Prothrombin Time 14.2 s 11.8-14.0 [facility] ([facility]) ID Date Data Source [id number] 02/06/2020 12:41:00 PM EDT [facility] Name Value Range Interpretation Code Description Data Brenda rce(s) Supporting Document(s) Prothrombin time (PT) Laboratory test result [facility] ([facility]) ID Date Data Source [id number] 02/06/2020 12:41:00 PM EDT [facility] ([facility]) Name Value Range Interpretation Code Description Data Brenda rce(s) Supporting Document(s) Collagen Epinephrine Laboratory test result [id number] [facility] ([facility]) Results may be affected by platelet coun ts less than 150,000/mL or hematocrits less than 35%. If COL/EPI is NORMAL, COL/ADP is not performed. Result Interpretation: COL/EPI COL/ADP NORMAL NORMAL NORMAL ASA ABNORMAL NORMAL vWD ABNORMAL NORMAL GLANZMANN'S ABNORMAL ABNORMAL THROMBASTHENIA POSSIBLE DRUG ABNORMAL ABNORMAL EFFECT ID Date Data Source [id number] 01/08/2020 03:06:00 PM EDT [facility]) Name Value Range Interpretation Code Description Data Brenda rce(s) Supporting Document(s) Laboratory test finding (navigational concept) Laboratory test result [facility] ([facility]) ID Date Data Source [id number] 12/10/2019 12:00:00 AM EDT [facility] [place] [facility] Patient Name: NEHEMIAH BOONE [id number] [facility] Date of : 1965[place] [address]- Date of Exam: 12/10/2019#: Fax: [phone] EXAM: MRI LUMBAR SPINE WITHOUT CONTRASTPROCEDURE INFORMATION:Exam: MR Lumbar Spine Without Contrast.Exam date and time: 12/10/2019 5:23 PM Age: 54 years oldClinical indication: Low back painTECHNIQUE: Imaging protocol: Multiplanar magnetic resonance images of thelumbar spine without intravenous contrast.COMPARISON: No relevant prior studies available.FINDINGS:Vertebrae: There is no fracture or listhesis. Normal vertebral bodyalignment and heights are preserved.Spinal cord: The conus medullaris terminates at L1/2.L1-L2: There is shallow disc bulging. There is mild facet hypertrophy.There is mild bilateral neural foraminal narrowing.L2-L3: There is shallow disc bulging. There is mild facet and ligamentoushypertrophy. There is mildto-moderate bilateral neural foraminal narrowing.L3-L4: There is diffuse disc bulging. There is moderate f acet andligamentous hypertrophy. There is moderate bilateral lateral recessstenosis. There is gaeq-oc-pzvhnzxd canal stenosis. There is moderatebilateral neural foraminal narrowing.L4-L5: There is diffuse disc bulging. There is moderate facet hypertrophy.There is moderate bilateral lateral recess stenosis. There is moderatecanal stenosis, with a residual diameter of 7 mm. There is moderatebilateral neural foraminal narrowing.L5-S1: There is diffuse disc bulging. There is moderate facet andligamentous hypertrophy. There is mild bilateral lateral recess stenosis.There is gtyn-wv-bfwiyoei canal steno sis. There is moderate to severe rightand moderate left neural foraminal narrowing.Soft tissues: Unremarkable.IMPRESSION:Degenerative disc disease and spondylosis as described. Changes contributeto multilevel mild-tomoderate acquired canal stenosis. At L5/S1, changescontribute to moderate to severe right and moderate left neural foraminalnarrowing.Thank you for allowing us to participate in the care of your patient.Dictated and Authenticated by: Amrita Bishop MD 12/17/2019 2:38 PMEastern Time ([place] & [place])Rosa/Momo you for referring NEHEMIAH BOONE to our office. Electronically Signed - STELLA 12/17/19 16:03 Name Value Range Interpretation Code Description Data [facility] rce(s) Supporting Document(s) Procedure Social History Code Duration Value Status Description Data Source(s ) Smoking 10/05/2019 12:00:00 AM EDT Never Smoker completed Never S moker eCW1 ([facility]) Smoking 10/05/2019 12:00:00 AM EDT Never Smoker completed Never S moker eCW1 ([facility]) Smoking 10/05/2019 12:00:00 AM EDT Never Smoker completed Never S moker eCW1 ([facility]) Smoking 10/05/2019 12:00:00 AM EDT Never Smoker completed Never S moker eCW1 ([facility]) Smoking 10/05/2019 12:00:00 AM EDT Never Smoker completed Never S moker eCW1 ([facility]) Smoking 10/05/2019 12:00:00 AM EDT Never Smoker completed Never S moker eCW1 ([facility]) Smoking 10/05/2019 12:00:00 AM EDT Never Smoker completed Never S moker eCW1 ([facility]) Smoking 10/05/2019 12:00:00 AM EDT Never Smoker completed Never S moker eCW1 ([facility]) Smoking 10/05/2019 12:00:00 AM EDT Never Smoker completed Never S moker eCW1 ([facility]) Smoking 10/05/2019 12:00:00 AM EDT Never Smoker completed Never S moker eCW1 ([facility]) Smoking 10/05/2019 12:00:00 AM EDT Never Smoker completed Never S moker eCW1 ([facility]) Vital Signs ID Date Data Source [id number] Name Value Range Interpretation Code Description Data Source(s) Body surface area Derived from formula 2.04 m2 2.04 m2 [facility] ([facility]) Body weight 93.442 kg 93.442 kg [facility] ([facility]) [place] body weight 142 [lb_av] 142 [lb_av] MEDEN T ([facility]) Body mass index (BMI) [Ratio] 32.7 kg/m2 32.7 k g/m2 [facility] ([facility]) Body weight 206.00 [lb_av] 206.00 [lb_av] MEDEN T ([facility], ) Body height 66.5 [in_i] 66.5 [in_i] MED[facility] ([facility], ) 5'6.50" Diastolic blood pressure 80 mm[Hg] 80 mm[Hg] [facility] ([facility], ) Systolic blood pressure 142 mm[Hg] 142 mm[Hg] M EDENT ([facility], ) Body mass index (BMI) [Ratio] 33.1 kg/m2 33.1 k g/m2 [facility] ([facility] ) Body weight 211.12 [lb_av] 211.12 [lb_av] MEDEN T ([facility] ) Body height 67 [in_i] 67 [in_i] [facility] ([facility]) 5'7" Body temperature 98.0 [degF] 98.0 [degF] [facility] ([facility]) Diastolic blood pressure 72 mm[Hg] 72 mm[Hg] eCW1 ([facility]) Systolic blood pressure 132 mm[Hg] 132 mm[Hg] e CW1 ([facility]) Body temperature 97.8 [degF] 97.8 [degF] eCW1 ( [facility]) Respiratory rate 18 /min 18 /min eCW1 ([facility]) Heart rate 96 /min 96 /min eCW1 ([facility]) Body mass index (BMI) [Ratio] 32.44 kg/m2 32.44 kg/m2 eCW1 ([facility]) Body height 66 [in_us] 66 [in_us] eCW1 ([facility]) Body weight Measured 201 [lb_av] 201 [lb_av] eC W1 ([facility]) Diastolic blood pressure 80 mm[Hg] 80 mm[Hg] eCW1 ([facility]) Systolic blood pressure 148 mm[Hg] 148 mm[Hg] e CW1 ([facility]) Body temperature 97.6 [degF] 97.6 [degF] eCW1 ( [facility]) Respiratory rate 18 /min 18 /min eCW1 ([facility]) Heart rate 110 /min 110 /min eCW1 ([facility]) Body mass index (BMI) [Ratio] 32.79 kg/m2 32.79 kg/m2 eCW1 ([facility]) Body height 66 [in_us] 66 [in_us] eCW1 ([facility]) Body weight Measured 203.2 [lb_av] 203.2 [lb_av ] eCW1 ([facility]) Diastolic blood pressure 68 mm[Hg] 68 mm[Hg] eCW1 ([facility]) Systolic blood pressure 140 mm[Hg] 140 mm[Hg] e CW1 ([facility]) Body temperature 98.4 [degF] 98.4 [degF] eCW1 ( [facility]) Respiratory rate 18 /min 18 /min eCW1 ([facility]) Heart rate 114 /min 114 /min eCW1 ([facility]) Body mass index (BMI) [Ratio] 32.28 kg/m2 32.28 kg/m2 eCW1 ([facility]) Body height 66 [in_us] 66 [in_us] eCW1 ([facility]) Body weight Measured 200 [lb_av] 200 [lb_av] eC W1 ([facility]) Diastolic blood pressure 82 mm[Hg] 82 mm[Hg] eCW1 ([facility]) Systolic blood pressure 142 mm[Hg] 142 mm[Hg] e CW1 ([facility]) Body temperature 97.4 [degF] 97.4 [degF] eCW1 ( [facility]) Respiratory rate 18 /min 18 /min eCW1 ([facility]) Heart rate 103 /min 103 /min eCW1 ([facility]) Body mass index (BMI) [Ratio] 32.28 kg/m2 32.28 kg/m2 W1 ([facility]) Body height 66 [in_us] 66 [in_us] eCW1 ([facility]) Body weight Measured 200 [lb_av] 200 [lb_av] eC W1 ([facility]) Diastolic blood pressure 76 mm[Hg] 76 mm[Hg] eCW1 ([facility]) Systolic blood pressure 146 mm[Hg] 146 mm[Hg] e CW1 ([facility]) Body temperature 98.2 [degF] 98.2 [degF] eCW1 ( [facility]) Respiratory rate 18 /min 18 /min eCW1 ([facility]) Heart rate 110 /min 110 /min [facility]CW1 ([facility] [facility]) Body mass index (BMI) [Ratio] 31.47 kg/m2 31.47 kg/m2 eCW1 ([facility]) Body height 66 [in_us] 66 [in_us] eCW1 ([facility]) Body weight Measured 195 [lb_av] 195 [lb_av] eC W1 ([facility]) Diastolic blood pressure 79 mm[Hg] 79 mm[Hg] eCW1 ([facility]) Systolic blood pressure 156 mm[Hg] 156 mm[Hg] e CW1 ([facility]) Body temperature 96.8 [degF] 96.8 [degF] eCW1 ( [facility]) Respiratory rate 18 /min 18 /min eCW1 ([facility]) Heart rate 105 /min 105 /min eCW1 ([facility]) Body mass index (BMI) [Ratio] 32.25 kg/m2 32.25 kg/m2 eCW1 ([facility]) Body height 66 [in_us] 66 [in_us] eCW1 ([facility]) Body weight Measured 199.8 [lb_av] 199.8 [lb_av ] eCW1 ([facility]) Body mass index (BMI) [Ratio] 31.5 kg/m2 31.5 k g/m2 MEDENT ([facility]) Body height 66 [in_i] 66 [in_i] MEDENT ([facility]) 5'6" Body weight 195.00 [lb_av] 195.00 [lb_av] MEDEN T ([facility], [facility]) Body temperature 97.9 [degF] 97.9 [degF] MEDENT ([facility], [facility]) Oxygen saturation in Arterial blood by Pulse oximetry 97 % 97 % MEDENT ([facility], [facility]) Respiratory rate 18 /min 18 /min MEDENT ( [facility], [facility]) Heart rate 96 /min 96 /min MEDENT ([facility], [facility]) Diastolic blood pressure 94 mm[Hg] 94 mm[Hg] MEDENT ([facility], [facility]) Systolic blood pressure 147 mm[Hg] 147 mm[Hg] M EDENT ([facility]) Diastolic blood pressure 88 mm[Hg] 88 mm[Hg] eCW1 ([facility]) Systolic blood pressure 148 mm[Hg] 148 mm[Hg] e CW1 ([facility]) Body temperature 98.2 [degF] 98.2 [degF] eCW1 ( [facility]) Respiratory rate 18 /min 18 /min eCW1 ([facility]) Heart rate 100 /min 100 /min eCW1 ([facility]) Body mass index (BMI) [Ratio] 32.54 kg/m2 32.54 kg/m2 W1 ([facility]) Body height 66 [in_us] 66 [in_us] W1 ([facility]) Body weight Measured 201.6 [lb_av] 201.6 [lb_av ] eCW1 ([facility]) Diastolic blood pressure 67 mm[Hg] 67 mm[Hg] eCW1 ([facility]) Systolic blood pressure 143 mm[Hg] 143 mm[Hg] e CW1 ([facility]) Body temperature 98.8 [degF] 98.8 [degF] eCW1 ( [facility]) Respiratory rate 18 /min 18 /min eCW1 ([facility]) Heart rate 84 /min 84 /min eCW1 ([facility]) Body mass index (BMI) [Ratio] 32.15 kg/m2 32.15 kg/m2 W1 ([facility]) Body height 66 [in_us] 66 [in_us] eCW1 ([facility]) Body weight Measured 199.2 [lb_av] 199.2 [lb_av ] eCW1 ([facility]) Patient Treatment Plan of Care Planned Activity Planned Date Details Description Data Source (s) Testosterone Cypionate 200 MG/ML 05/20/2020 12:00:00 AM EST eCW1 ([facility]) Testosterone Cypionate 200 MG/ML 05/20/2020 12:00:00 AM EST eCW1 ([facility]) Testosterone Cypionate 200 MG/ML 05/20/2020 12:00:00 AM EST eCW1 ([facility]) Testosterone Cypionate 200 MG/ML 05/20/2020 12:00:00 AM EST eCW1 ([facility]) Testosterone Cypionate 200 MG/ML 05/20/2020 12:00:00 AM EST eCW1 ([facility]) Testosterone Cypionate 200 MG/ML 05/20/2020 12:00:00 AM EST eCW1 ([facility]) Testosterone Cypionate 200 MG/ML 05/20/2020 12:00:00 AM EST eCW1 ([facility]) Testosterone Cypionate 200 MG/ML 05/20/2020 12:00:00 AM EST eCW1 ([facility]) Testosterone Cypionate 200 MG/ML 05/20/2020 12:00:00 AM EST eCW1 ([facility]) Testosterone Cypionate 200 MG/ML 05/20/2020 12:00:00 AM EST eCW1 ([facility]) Testosterone Cypionate 200 MG/ML 05/20/2020 12:00:00 AM EST eCW1 ([facility]) Testosterone Cypionate 200 MG/ML 05/20/2020 12:00:00 AM EST eCW1 ([facility]) Omeprazole 40 MG Delayed Release Oral Capsule 08/13/2019 12:00:00 A M EDT eCW1 ([facility]) Omeprazole 40 MG Delayed Release Oral Capsule 08/13/2019 12:00:00 A M EDT eCW1 ([facility]) Omeprazole 40 MG Delayed Release Oral Capsule 08/13/2019 12:00:00 A M EDT eCW1 ([facility]) Omeprazole 40 MG Delayed Release Oral Capsule 08/13/2019 12:00:00 A M EDT eCW1 ([facility]) Omeprazole 40 MG Delayed Release Oral Capsule 08/13/2019 12:00:00 A M EDT eCW1 ([facility]) Omeprazole 40 MG Delayed Release Oral Capsule 08/13/2019 12:00:00 A M EDT eCW1 ([facility]) meloxicam 15 MG Oral Tablet [Mobic] 08/13/2019 12:00:00 AM EDT eCW1 ([facility]) Omeprazole 40 MG Delayed Release Oral Capsule 08/13/2019 12:00:00 A M EDT eCW1 ([facility]) PredniSONE 10 MG 06/13/2019 12:00:00 AM EST eCW1 ([facility]) Cimetidine 200 MG Oral Tablet 06/13/2019 12:00:00 AM EST eCW1 ([facility]) PredniSONE 10 MG 06/13/2019 12:00:00 AM EST eCW1 ([facility]) tramadol hydrochloride 50 MG Oral Tablet 06/11/2019 12:00:00 AM EST eCW1 ([facility]) tramadol hydrochloride 50 MG Oral Tablet 06/11/2019 12:00:00 AM EST eCW1 ([facility]) Cyclobenzaprine hydrochloride 10 MG Oral Tablet 05/11/2019 12:00:00 AM EST eCW1 ([facility]) Cyclobenzaprine hydrochloride 10 MG Oral Tablet 05/11/2019 12:00:00 AM EST eCW1 ([facility]) Cyclobenzaprine hydrochloride 10 MG Oral Tablet 05/11/2019 12:00:00 AM EST eCW1 ([facility])
[2020-06-20] MEDS ORDERED: propofoL 200 MG/20 ML VIAL As Ordered ONE (08:27)
[2020-06-20] MEDS ORDERED: GLYCOPYRROLATE INJ 0.2 MG/ML 2 ML VIAL As Ordered ONE (08:27)
[2020-06-20] MEDS ORDERED: LIDOCAINE 2% 100MG/5ML SDV (FOR ANES.) As Ordered ONE (08:27)
[2020-06-20] MEDS ORDERED: fentaNYL 100 MCG/2 ML INJECTION (J3010) As Ordered ONE (08:27)
--- NOTE | 2020-06-20 09:59 | ROOR ---
Patient Name: Darrel Patterson Procedure Date: 06/20/2020 9:41 AM Date of : 1965 Age: 55 Room: [facility] Gender: Male Note Status: Finalized Procedure: Upper GI endoscopy Indications: Iron deficiency anemia Providers: Facundo NICOLE MD Referring MD: Mi Sotelo NP Requesting Provider: Medicines: Monitored Anesthesia Care Complications: No immediate complications. Procedure: Pre-Anesthesia Assessment: - The heart rate, respiratory rate, oxygen saturations, blood pressure, adequacy of pulmonary ventilation, and response to care were monitored throughout the procedure. The Endoscope was introduced through the mouth, and advanced to the second part of duodenum. The upper GI endoscopy was accomplished without difficulty. The patient tolerated the procedure well. Findings: The esophagus was normal. The stomach was normal. The examined duodenum was normal. Biopsies for histology were taken with a cold forceps in the first portion of the duodenum, in the second portion of the duodenum and in the third portion of the duodenum for evaluation of celiac disease. Impression: - Normal esophagus. - Normal stomach. - Normal examined duodenum. - Biopsies were taken with a cold forceps for evaluation of celiac disease. Recommendation: - Await pathology results. - Continue present medications. Procedure Code(s): --- Professional --- 56835, Esophagogastroduodenoscopy, flexible, transoral; with biopsy, single or multiple Diagnosis Code(s): --- Professional --- D50.9, Iron deficiency anemia, unspecified CPT copyright 2019 [employer]. All rights reserved. The codes documented in this report are preliminary and upon master electrician review may be revised to meet current compliance requirements. Facundo Nicole MD Facundo NICOLE MD 06/20/2020 9:59:10 AM Electronically signed by Facundo NICOLE MD Number of Addenda: 0 Note Initiated On: 06/20/2020 9:41 AM Estimated Blood Loss: Estimated blood loss: none.
--- NOTE | 2020-06-20 10:30 | ROOR ---
Patient Name: Darrel Patterson Procedure Date: 06/20/2020 9:42 AM Date of : 1965 Age: 55 Room: [facility] Gender: Male Note Status: Finalized Procedure: Colonoscopy Indications: Iron deficiency anemia Providers: Facundo NICOLE MD Referring MD: Mi Sotelo NP Requesting Provider: Medicines: Monitored Anesthesia Care Complications: No immediate complications. Procedure: Pre-Anesthesia Assessment: - The heart rate, respiratory rate, oxygen saturations, blood pressure, adequacy of pulmonary ventilation, and response to care were monitored throughout the procedure. The Colonoscope was introduced through the anus and advanced to the terminal ileum, with identification of the appendiceal orifice and IC valve. The colonoscopy was performed without difficulty. The patient tolerated the procedure well. The quality of the bowel preparation was good. Findings: The perianal and digital rectal examinations were normal. Small Internal Hemorrhoids. The entire examined colon appeared normal on direct and retroflexion views. Impression: - Small Internal Hemorrhoids. - The entire examined colon is normal on direct and retroflexion views. - No specimens collected. Recommendation: - Continue present medications. Procedure Code(s): --- Professional --- 90264, Colonoscopy, flexible; diagnostic, including collection of specimen(s) by brushing or washing, when performed (separate procedure) Diagnosis Code(s): --- Professional --- D50.9, Iron deficiency anemia, unspecified CPT copyright 2019 [employer]. All rights reserved. The codes documented in this report are preliminary and upon internet marketer review may be revised to meet current compliance requirements. Facundo Nicole MD Facundo NICOLE MD 06/20/2020 10:30:27 AM Electronically signed by Facundo NICOLE MD Number of Addenda: 0 Note Initiated On: 06/20/2020 9:42 AM Estimated Blood Loss: Estimated blood loss: none.
[2020-06-20 10:57] VITALS: BP 129/67
== END 2020-06-20 10:59 | disposition home or self-care (01) ==
LOC: M OPP 08:02
PROVIDERS: ATTEND Internal Medicine Gastroenterology
DX: D50.9 Iron deficiency anemia, unspecified (principal); D13.39 Benign neoplasm of other parts of small intestine; K64.8 Other hemorrhoids; I10 Essential (primary) hypertension; E78.5 Hyperlipidemia, unspecified; E11.9 Type 2 diabetes mellitus without complications; R12 Heartburn; F41.9 Anxiety disorder, unspecified; F32.9 Major depressive disorder, single episode, unspecified; J45.909 Unspecified asthma, uncomplicated; G47.30 Sleep apnea, unspecified; Z91.018 Allergy to other foods; Z79.84 Long term (current) use of oral hypoglycemic drugs; Z79.899 Other long term (current) drug therapy; Z83.6 Family history of other diseases of the respiratory system; Z83.3 Family history of diabetes mellitus; Z82.49 Family history of ischemic heart disease and other diseases of the circulatory system
CPT/HCPCS: 43239; 45378; 88305; J3010

== ENCOUNTER → 2020-08-01 | Outpatient (CLI) | payer BC ==
[~2020-08-01] MED LIST changes: -LISI-538 PO; +LISI20TA33 PO; -NS 1,000 ML IV ONE
[2020-08-01 12:01] LABS: ALBUMIN 3.9 GM/DL (3.2-5.2); ALT/SGPT 116 U/L (12-78); BILIRUBIN,TOTAL 0.5 MG/DL (0.2-1.0); BLOOD UREA NITROGEN 19 MG/DL (7-18); CALCIUM LEVEL 9.2 MG/DL (8.5-10.1); CARBON DIOXIDE LEVEL 29 MEQ/L (21-32); CHLORIDE LEVEL 101 MEQ/L (98-107); CHOLESTEROL LEVEL 149 MG/DL (<200); CHOLESTEROL RISK RATIO 3.465 (<5); CREATININE FOR GFR 1.16 MG/DL (0.70-1.30); GLOMERULAR FILTRATION RATE > 60.0 (>56); GLUCOSE, FASTING 91 MG/DL (70-100); HDL CHOLESTEROL 43 MG/DL (>40); LDL CHOLESTEROL 85 MG/DL (<100); NON-HDL-C 106 MG/DL; POTASSIUM SERUM 4.4 MEQ/L (3.5-5.1); SODIUM LEVEL 135 MEQ/L (136-145); TOTAL PROTEIN 7.7 GM/DL (6.4-8.2); TRIGLYCERIDES LEVEL 103 MG/DL (<150)
[2020-08-01 12:13] LABS: CREATININE, URINE 89.9 MG/DL; MALB URINE SIEMENS 13.2 MG/L; MAU/CREAT RATIO 14.6 MCG/MG (0.0-30.0)
[2020-08-01 13:27] LABS: HEMOGLOBIN A1c 5.6 %
== END ==
LOC: M LAB 09:08
PROVIDERS: ATTEND Nurse Practitioner Adult Health
DX: E11.9 Type 2 diabetes mellitus without complications (principal); I10 Essential (primary) hypertension

== ENCOUNTER → 2020-08-01 | Outpatient (CLI) | payer BC ==
[2020-08-01 11:27] LABS: HEMATOCRIT 48.7 % (42.0-52.0); HEMOGLOBIN 14.9 g/dl (13.5-17.5); MEAN CORPUSCULAR HEMOGLOBIN 24.8 pg (27.0-33.0); MEAN CORPUSCULAR HGB CONC 30.6 g/dl (32.0-36.5); MEAN CORPUSCULAR VOLUME 81.2 fl (80.0-96.0); PLATELET COUNT, AUTOMATED 428 10^3/uL (150-450); WHITE BLOOD COUNT 5.5 10^3/uL (4.0-10.0)
[2020-08-01 11:48] LABS: ALBUMIN 3.8 GM/DL (3.2-5.2); ALT/SGPT 119 U/L (12-78); BILIRUBIN,TOTAL 0.5 MG/DL (0.2-1.0); BLOOD UREA NITROGEN 21 MG/DL (7-18); CALCIUM LEVEL 8.9 MG/DL (8.5-10.1); CARBON DIOXIDE LEVEL 28 MEQ/L (21-32); CHLORIDE LEVEL 102 MEQ/L (98-107); CREATININE FOR GFR 1.17 MG/DL (0.70-1.30); GLOMERULAR FILTRATION RATE > 60.0 (>56); GLUCOSE, FASTING 95 MG/DL (70-100); POTASSIUM SERUM 4.5 MEQ/L (3.5-5.1); SODIUM LEVEL 136 MEQ/L (136-145); TOTAL PROTEIN 7.7 GM/DL (6.4-8.2)
[2020-08-02 17:09] LABS: TESTOSTERONE FREE (DIRECT) 28.1 pg/mL (7.2-24.0)
== END ==
LOC: M LAB 09:05
PROVIDERS: ATTEND Nurse Practitioner Women's Health
DX: Z79.890 Hormone replacement therapy (principal); Z12.5 Encounter for screening for malignant neoplasm of prostate; R79.89 Other specified abnormal findings of blood chemistry

== ENCOUNTER → 2020-09-03 | Outpatient (CLI) | payer BC ==
--- NOTE | 2020-09-03 11:26 | PFTRPT ---
Height: 66.00 Inches Weight: 198.00 Lbs BSA: 1.99 Diagnosis: J45.20 DATE: 09/03/2020 ORDERING PHYSICIAN: Mi Sotelo NP Pre and post bronchodilator studies have excellent technical quality. Some difficulty with the required maneuvers is noted. Forced vital capacity is normal. FEV1 is in proportion. Obstructive index is therefore normal. Expiratory limit of the flow-volume loop suggest some difficulty with performance of the required maneuver. No significant bronchodilator response is identified. Total lung capacity is normal. Residual volume is in proportion. Diffusing capacity is normal. No hemoglobin available for correction. Airway resistance and conductance are normal. IMPRESSION: Normal study. MTDD
== END ==
LOC: M CARPUL 10:46
PROVIDERS: ATTEND Nurse Practitioner Adult Health
DX: J45.20 Mild intermittent asthma, uncomplicated (principal)

== ENCOUNTER → 2020-09-08 | Outpatient (REF) | payer BC | LOC: M LAB REF 17:09 | PROVIDERS: ATTEND Dermatology | DX: L72.11 Pilar cyst (principal) ==

== ENCOUNTER → 2020-09-10 | Outpatient (CLI) | payer BC ==
[~2020-09-10] MED LIST changes: +METHACHOLINE KIT (J7674) INH ONE
--- NOTE | 2020-09-10 13:46 | PFTRPT ---
Site: [facility], [address] [place], [address] ID: [id number] Name: NEHEMIAH BOONE Visit Date: 09/10/2020 Second ID: [id number] Referring Doctor: Mi Weller Reviewing Doctor: Kyaw Gilmore MD Seasonal Sales Associate: Wayne HENSON RRT Age: 55 : 1965 Sex: Male Race: Height: 66.00 Inches Weight: 198.00 Lbs BSA: 1.99 Order IDs: [id number] Requested Test(s): <RESP-PFT.METH CHAL> Diagnosis: J45.20 of albuterol for post bronchodilator. Review Status: Not Reviewed Pre-Bronch Post-Bronch Pred Actual %Pred Actual %Chng SPIROMETRY FVC (L) 4.19 3.80 90 3.72 -2 FEV1 (L) 3.20 3.05 95 2.97 -2 FEV1/FVC (%) 76 80 105 80 FEF 25% (L/sec) 7.33 7.22 98 6.71 -7 FEF 50% (L/sec) 4.88 4.39 90 3.64 -17 FEF 75% (L/sec) 1.45 1.02 70 0.84 -18 FEF 25-75% (L/sec) 2.73 2.98 109 2.60 -12 FEF Max (L/sec) 8.52 8.34 97 8.36 FIVC (L) 3.68 3.65 FIF 50% (L/sec) 4.78 5.50 114 4.56 -17 FIF Max (L/sec) 6.37 6.15 -3 Expiratory Time (sec) 4.80 4.48 -6 Back Extrap Vol (L) 0.17 0.11 -33 Time To FEFmax (sec) 0.086 0.082 -5
== END ==
LOC: M CARPUL 12:55
PROVIDERS: ATTEND Nurse Practitioner Adult Health
DX: J45.20 Mild intermittent asthma, uncomplicated (principal)
CPT/HCPCS: 94070; J7674

== ENCOUNTER → 2020-09-23 | Outpatient (REF) | payer BC ==
[~2020-09-23] MED LIST changes: -METHACHOLINE KIT (J7674) INH ONE
== END ==
LOC: M LAB REF 14:00
PROVIDERS: ATTEND Dermatology
DX: D49.2 Neoplasm of unspecified behavior of bone, soft tissue, and skin (principal)

== ENCOUNTER → 2020-09-27 | Outpatient (CLI) | payer BC ==
[2020-09-27 10:43] LABS: HEMATOCRIT 53.9 % (42.0-52.0); HEMOGLOBIN 17.3 g/dl (13.5-17.5); MEAN CORPUSCULAR HEMOGLOBIN 27.6 pg (27.0-33.0); MEAN CORPUSCULAR HGB CONC 32.1 g/dl (32.0-36.5); MEAN CORPUSCULAR VOLUME 86.1 fl (80.0-96.0); PLATELET COUNT, AUTOMATED 333 10^3/uL (150-450); RED BLOOD COUNT 6.26 10^6/uL (4.30-6.10); WHITE BLOOD COUNT 4.9 10^3/uL (4.0-10.0)
[2020-09-27 11:02] LABS: BLOOD UREA NITROGEN 14 MG/DL (7-18); CALCIUM LEVEL 9.2 MG/DL (8.5-10.1); CARBON DIOXIDE LEVEL 28 MEQ/L (21-32); CHLORIDE LEVEL 106 MEQ/L (98-107); CREATININE FOR GFR 1.22 MG/DL (0.70-1.30); GLOMERULAR FILTRATION RATE > 60.0 (>56); GLUCOSE, FASTING 153 MG/DL (70-100); POTASSIUM SERUM 4.5 MEQ/L (3.5-5.1); SODIUM LEVEL 137 MEQ/L (136-145)
== END ==
LOC: M LAB 10:04
PROVIDERS: ATTEND Urology
DX: N52.9 Male erectile dysfunction, unspecified (principal); R79.89 Other specified abnormal findings of blood chemistry

== ENCOUNTER → 2020-10-31 | Outpatient (REF) | payer BC ==
[2020-11-01 18:07] LABS: TESTOSTERONE FREE (DIRECT) 6.4 pg/mL (7.2-24.0)
== END ==
LOC: M LAB REF 09:27
PROVIDERS: ATTEND Nurse Practitioner Women's Health
DX: Z79.890 Hormone replacement therapy (principal)

== ENCOUNTER → 2021-02-14 | Outpatient (CLI) | payer BC ==
[~2021-02-14] MED LIST changes: +[UNRECOGNIZED DRUG - CODE] PO
[2021-02-14 10:56] LABS: HEMOGLOBIN A1c 5.6 %
[2021-02-14 10:58] LABS: ALBUMIN 3.8 GM/DL (3.2-5.2); ALT/SGPT 41 U/L (12-78); BILIRUBIN,TOTAL 0.4 MG/DL (0.2-1.0); BLOOD UREA NITROGEN 12 MG/DL (7-18); CALCIUM LEVEL 9.3 MG/DL (8.5-10.1); CARBON DIOXIDE LEVEL 29 MEQ/L (21-32); CHLORIDE LEVEL 105 MEQ/L (98-107); CHOLESTEROL LEVEL 165 MG/DL (<200); CREATININE FOR GFR 1.25 MG/DL (0.70-1.30); GLOMERULAR FILTRATION RATE > 60.0 (>56); GLUCOSE, FASTING 124 MG/DL (70-100); HDL CHOLESTEROL 47 MG/DL (>40); LDL CHOLESTEROL 103 MG/DL (<100); MAGNESIUM LEVEL 2.1 MG/DL (1.8-2.4); NON-HDL-C 118 MG/DL; POTASSIUM SERUM 4.6 MEQ/L (3.5-5.1); SODIUM LEVEL 137 MEQ/L (136-145); TOTAL PROTEIN 7.7 GM/DL (6.4-8.2); TRIGLYCERIDES LEVEL 77 MG/DL (<150)
[2021-02-14 11:04] LABS: MALB URINE SIEMENS 12.1 MG/L; MAU/CREAT RATIO 8.6 MCG/MG (0.0-30.0)
[2021-02-16 12:57] LABS: HEPATITIS C VIRUS ABY INDEX < 0.0 INDEX (<0.8)
== END ==
LOC: M LAB 09:39
PROVIDERS: ATTEND Internal Medicine
DX: I10 Essential (primary) hypertension (principal); E78.2 Mixed hyperlipidemia; E11.9 Type 2 diabetes mellitus without complications; Z11.59 Encounter for screening for other viral diseases

== ENCOUNTER → 2021-02-14 | Outpatient (CLI) | payer BC ==
[2021-02-14 10:35] LABS: HEMATOCRIT 58.6 % (42.0-52.0); HEMOGLOBIN 19.4 g/dl (13.5-17.5); MEAN CORPUSCULAR HEMOGLOBIN 29.8 pg (27.0-33.0); MEAN CORPUSCULAR HGB CONC 33.1 g/dl (32.0-36.5); MEAN CORPUSCULAR VOLUME 89.9 fl (80.0-96.0); PLATELET COUNT, AUTOMATED 305 10^3/uL (150-450); RED BLOOD COUNT 6.52 10^6/uL (4.30-6.10); WHITE BLOOD COUNT 6.5 10^3/uL (4.0-10.0)
[2021-02-14 10:57] LABS: BLOOD UREA NITROGEN 11 MG/DL (7-18); CALCIUM LEVEL 9.4 MG/DL (8.5-10.1); CARBON DIOXIDE LEVEL 29 MEQ/L (21-32); CHLORIDE LEVEL 106 MEQ/L (98-107); CREATININE FOR GFR 1.24 MG/DL (0.70-1.30); GLOMERULAR FILTRATION RATE > 60.0 (>56); GLUCOSE, FASTING 118 MG/DL (70-100); POTASSIUM SERUM 5.1 MEQ/L (3.5-5.1); SODIUM LEVEL 138 MEQ/L (136-145)
[2021-02-17 21:07] LABS: PSA TOTAL 2.4 ng/mL (0.0-4.0); TESTOSTERONE FREE (DIRECT) 18.6 pg/mL (7.2-24.0)
== END ==
LOC: M LAB 09:42
PROVIDERS: ATTEND Urology
DX: N52.9 Male erectile dysfunction, unspecified (principal); R79.89 Other specified abnormal findings of blood chemistry

== ENCOUNTER → 2021-04-27 | Outpatient (CLI) | payer BC ==
--- NOTE | 2021-04-27 17:31 | REPVR ---
PROCEDURE INFORMATION: Exam: CT Thoracic Spine Without Contrast Exam date and time: 04/27/2021 4:47 PM Age: 56 years old Clinical indication: Pain in thoracic spine; With radiculopathy; Additional info: Thoracic w/ spondiloysis w/ radiculopathy TECHNIQUE: Imaging protocol: Computed tomography images of the thoracic spine without contrast. Radiation optimization: All CT scans at this facility use at least one of these dose optimization techniques: automated exposure control; mA and/or kV adjustment per patient size (includes targeted exams where dose is matched to clinical indication); or iterative reconstruction. COMPARISON: [facility] US 11/19/2020 5:06 PM FINDINGS: Vertebrae: No anterior wedging deformity. No acute lucent fracture lines visualized.This is determined to be new finding when correlated with the prior examination. Discs/Spinal canal/Neural foramina: At T7-8, T8-9 and T9-10, there are mineralized disc protrusions or extrusions, with mild central canal stenosis at the T8-9 and T9-10 levels. No severe central canal or neural foraminal stenosis is demonstrated by CT. IMPRESSION: Mineralized disc protrusions or extrusions at the T7-8 through T9-10 levels, with mild central canal stenosis at T8-9 and T9-10. Electronically signed by: Frannie Garcia On 04/27/2021 17:30:58 PM
== END ==
LOC: M RAD 16:25
PROVIDERS: ATTEND Physician Assistant
DX: M47.24 Other spondylosis with radiculopathy, thoracic region (principal)

== ENCOUNTER → 2021-05-08 | Outpatient (CLI) | payer BC ==
[2021-05-08 10:21] LABS: MEAN CORPUSCULAR HEMOGLOBIN 29.5 pg (27.0-33.0); MEAN CORPUSCULAR HGB CONC 33.3 g/dl (32.0-36.5); MEAN CORPUSCULAR VOLUME 88.4 fl (80.0-96.0); PLATELET COUNT, AUTOMATED 292 10^3/uL (150-450); RED BLOOD COUNT 5.77 10^6/uL (4.30-6.10); WHITE BLOOD COUNT 7.5 10^3/uL (4.0-10.0)
== END ==
LOC: M LAB 09:41
PROVIDERS: ATTEND Nurse Practitioner Women's Health
DX: R79.89 Other specified abnormal findings of blood chemistry (principal)

== ENCOUNTER → 2021-08-10 | Outpatient (CLI) | payer BC ==
[~2021-08-10] MED LIST changes: -D31000TA2 PO; -DICL25TA PO; +DICL25TA11 PO; +LOSA25TA13 PO; -LOSA25TA14 PO; +VITA100093 PO
[2021-08-10 13:12] LABS: HEMATOCRIT 52.1 % (42.0-52.0); HEMOGLOBIN 16.9 g/dl (13.5-17.5); MEAN CORPUSCULAR HEMOGLOBIN 27.3 pg (27.0-33.0); MEAN CORPUSCULAR HGB CONC 32.4 g/dl (32.0-36.5); MEAN CORPUSCULAR VOLUME 84.3 fl (80.0-96.0); PLATELET COUNT, AUTOMATED 284 10^3/uL (150-450); RED BLOOD COUNT 6.18 10^6/uL (4.30-6.10)
[2021-08-10 13:24] LABS: APPEARANCE, URINE CLEAR (CLEAR); BACTERIA, URINE AUTO NEGATIVE (NEGATIVE); BILIRUBIN, URINE AUTO NEGATIVE (NEGATIVE); BLOOD, URINE BLOOD NEGATIVE (NEGATIVE); COLOR, URINE YELLOW (YELLOW); GLUCOSE, URINE (UA) AUTO 3+ mg/dL (NEGATIVE); KETONE, URINE AUTO TRACE mg/dL (NEGATIVE); LEUKOCYTE ESTERASE, URINE AUTO NEGATIVE (NEGATIVE); MUCUS, URINE SMALL (NEGATIVE); NITRITE, URINE AUTO NEGATIVE (NEGATIVE); PROTEIN, URINE AUTO NEGATIVE (NEGATIVE); RBC, URINE AUTO 2 /HPF (0-3); SPECIFIC GRAVITY URINE AUTO 1.028 (1.002-1.035); SQUAMOUS EPITHELIAL CELL UR AU 0 /HPF (0-6); WBC, URINE AUTO 0 /HPF (0-3)
[2021-08-10 13:26] LABS: INR 0.99; PROTHROMBIN TIME 13.5 SECONDS (12.7-14.5)
[2021-08-10 13:27] LABS: PARTIAL THROMBOPLASTIN TIME 36.4 SECONDS (25.9-37.0)
[2021-08-10 13:53] LABS: ALBUMIN 3.8 GM/DL (3.2-5.2); ALT/SGPT 30 U/L (12-78); BILIRUBIN,TOTAL 0.4 MG/DL (0.2-1.0); BLOOD UREA NITROGEN 13 MG/DL (7-18); CALCIUM LEVEL 9.4 MG/DL (8.5-10.1); CARBON DIOXIDE LEVEL 31 MEQ/L (21-32); CHLORIDE LEVEL 104 MEQ/L (98-107); CREATININE FOR GFR 1.16 MG/DL (0.70-1.30); GLOMERULAR FILTRATION RATE > 60.0 (>56); GLUCOSE, FASTING 124 MG/DL (70-100); POTASSIUM SERUM 4.3 MEQ/L (3.5-5.1); SODIUM LEVEL 139 MEQ/L (136-145); TOTAL PROTEIN 7.4 GM/DL (6.4-8.2)
== END ==
LOC: M PLAIMG 09:00
PROVIDERS: ATTEND Neurological Surgery
DX: Z01.812 Encounter for preprocedural laboratory examination (principal); M47.24 Other spondylosis with radiculopathy, thoracic region